=== PATIENT | female | born 1980 | race Caucasian/White ===

== ENCOUNTER 2019-05-07 09:21 | Outpatient (CLI) | payer BC, OTHER, SELFPAY ==
[2019-05-07 09:45] VITALS: BP 138/100; PULSE 86; RESP 16; TEMP 36.9; O2SAT 98
--- NOTE | 2019-05-07 10:10 | PC.NURSE ---
BP 156/103, after resting manual BP 138/100. Pt states she took bp meds late, in the parking lot. Reported to Dr. Mora. Dr. Mora said ok to administer infusion.
[2019-05-07 11:00] VITALS: BP 156/100; PULSE 86; RESP 16; TEMP 36.9; O2SAT 98
== END 2019-05-07 09:22 | disposition home or self-care (01) ==
LOC: RHEOACUTE 09:25
PROVIDERS: Family Provider Family Medicine; PCP Family Medicine; Visit Provider Internal Medicine Rheumatology
DX: M05.79 Rheumatoid arthritis with rheumatoid factor 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 systems involvement (principal); Z79.899 Other long term (current) drug therapy; Z79.52 Long term (current) use of systemic steroids
CPT/HCPCS: 96365; 99213; J1602

== ENCOUNTER 2019-07-05 09:51 | Outpatient (CLI) | payer BC, SELFPAY ==
[2019-07-05 10:50] VITALS: BP 146/96; PULSE 108; RESP 14; TEMP 37.2; O2SAT 95
[2019-07-05 11:45] VITALS: BP 116/84; PULSE 97; RESP 16; TEMP 36.9; O2SAT 97
--- NOTE | 2019-07-05 17:15 | PC.NURSE ---
After first unsuccessful IV stick, pt became nauseated. Cool cloth given, pt vomited small amount of emesis. States she does this sometimes when being poked. Legs elevated, pt reclined for comfort. Water given.
== END 2019-07-05 09:52 | disposition home or self-care (01) ==
LOC: RHEOACUTE 09:51
PROVIDERS: Family Provider Family Medicine; PCP Family Medicine; Visit Provider Internal Medicine Rheumatology
DX: Z79.899 Other long term (current) drug therapy (principal); M05.79 Rheumatoid arthritis with rheumatoid factor 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 systems involvement; Z79.52 Long term (current) use of systemic steroids
CPT/HCPCS: 36415; 80076; 82565; 84460; 85651; 86140; 96365; 99214; J1602

== ENCOUNTER → 2019-07-05 09:53 | Outpatient (BNVA) | payer BC, SELFPAY | PROVIDERS: Family Provider Family Medicine; PCP Family Medicine; Visit Provider Internal Medicine Rheumatology | DX: Z79.899 Other long term (current) drug therapy (principal); M05.79 Rheumatoid arthritis with rheumatoid factor 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 systems involvement; Z71.89 Other specified counseling | CPT/HCPCS: 85025 ==

== ENCOUNTER 2019-08-30 08:51 | Outpatient (CLI) | payer BC, SELFPAY ==
[2019-08-30 09:03] VITALS: BP 137/92; PULSE 86; RESP 16; TEMP 36.8; O2SAT 96
[2019-08-30 11:28] VITALS: BP 130/86; PULSE 76; RESP 16; TEMP 36.6; O2SAT 94
== END 2019-08-30 08:52 | disposition home or self-care (01) ==
LOC: RHEOACUTE 08:52
PROVIDERS: Family Provider Family Medicine; PCP Family Medicine; Visit Provider Internal Medicine Rheumatology
DX: M05.79 Rheumatoid arthritis with rheumatoid factor 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 systems involvement (principal); Z79.899 Other long term (current) drug therapy
CPT/HCPCS: 36415; 85025; 85651; 96365; J1602

== ENCOUNTER → 2019-09-13 10:58 | Outpatient (BNVA) | payer BC, SELFPAY | PROVIDERS: Family Provider Family Medicine; PCP Family Medicine; Visit Provider Internal Medicine Rheumatology | DX: M05.79 Rheumatoid arthritis with rheumatoid factor 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 systems involvement (principal); M19.90 Unspecified osteoarthritis, unspecified site; Z79.899 Other long term (current) drug therapy; D89.9 Disorder involving the immune mechanism, unspecified | CPT/HCPCS: 80076; 86140 ==

== ENCOUNTER → 2019-10-12 13:56 | Outpatient (BNVA) | payer BC, SELFPAY | PROVIDERS: Family Provider Family Medicine; PCP Family Medicine; Visit Provider Internal Medicine Rheumatology | DX: M05.79 Rheumatoid arthritis with rheumatoid factor 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 systems involvement (principal); Z79.899 Other long term (current) drug therapy; Z79.52 Long term (current) use of systemic steroids | CPT/HCPCS: 36415; 82565; 99214 ==

== ENCOUNTER 2019-10-25 12:57 | Outpatient (CLI) | payer BC, OTHER, SELFPAY ==
[2019-10-25 13:09] VITALS: BP 138/93; PULSE 79; RESP 16; TEMP 36.8; O2SAT 97
[2019-10-25 15:30] VITALS: BP 137/98; PULSE 82; RESP 16; TEMP 36.6; O2SAT 97
== END 2019-10-25 12:58 | disposition home or self-care (01) ==
LOC: RHEOACUTE 12:58
PROVIDERS: Family Provider Family Medicine; PCP Family Medicine; Visit Provider Internal Medicine Rheumatology
DX: M05.79 Rheumatoid arthritis with rheumatoid factor 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 systems involvement (principal); D89.9 Disorder involving the immune mechanism, unspecified; M25.561 Pain in right knee; M25.461 Effusion, right knee
CPT/HCPCS: 20610; 80500; 87070; 87075; 87205; 89050; 96365; J1030; J1602

== ENCOUNTER 2019-12-23 17:05 | Outpatient (CLI) | payer BC, SELFPAY ==
[2019-12-23 17:26] LABS: Basophils # 0.1 10^3/uL (0.0-0.1); Basophils % 0.7 %; Eosinophils # 0.2 10^3/uL (0.0-0.8); Eosinophils % 1.2 %; Hematocrit 46.3 % (37.0-47.0); Hemoglobin 14.4 g/dL (11.5-15.3); Lymphocytes # 2.3 10^3/uL (0.8-4.8); Lymphocytes % 16.1 %; Mean Corpuscular HGB Conc 31.1 g/dL (30.0-36.0); Mean Corpuscular Hemoglobin 28.5 pg (28.0-34.0); Mean Corpuscular Volume 91.5 fL (81-99); Mean Platelet Volume 9.2 fL (7.4-10.4); Monocytes # 0.8 10^3/uL (0.2-0.9); Monocytes % 5.4 %; Neutrophils # 11.09 10^3/uL (1.8-7.7); Neutrophils % 76.1 %; Nucleated Red Blood Cells % 0 %; Platelet Count 477 10^3/cmm (130-400); Red Blood Count 5.06 10^6/uL (4.1-5.3); Red Cell Distribution Width 14.7 % (12.1-15.1); White Blood Count 14.6 10^3/uL (4.0-10.0)
[2019-12-23 18:00] LABS: Alanine Aminotransferase 45 U/L (0-33); Albumin Level 4.9 g/dL (3.5-5.2); Alkaline Phosphatase 124 IU/L (35-105); Aspartate Amino Transferase 25 U/L (0-32); C Reactive Protein 42.8 mg/L (0.0-4.9); Globulin 4.8 g/dL (1.3-4.6); Total Bilirubin 0.2 mg/dL (0.15-1.2); Total Protein 9.7 g/dL (6.6-8.7)
[2019-12-23 18:31] LABS: Erythrocyte Sedimentation Rate 80 mm/hr (0-15)
[2019-12-23 19:21] LABS: LAB Peripheral Smear Sent for Review
== END 2019-12-23 17:06 | disposition home or self-care (01) ==
PROVIDERS: Internal Medicine Rheumatology; PCP Family Medicine; Visit Provider Thoracic Surgery (Cardiothoracic Vascular Surgery)
DX: M05.79 Rheumatoid arthritis with rheumatoid factor 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 systems involvement (principal); Z79.899 Other long term (current) drug therapy
CPT/HCPCS: 36415; 80076; 80500; 82565; 85025; 85651; 86140

== ENCOUNTER 2020-03-15 08:24 | Inpatient (IN) | payer BC, SELFPAY ==
[2020-03-15] VITALS (9 sets, daily range): BP systolic 110–169; BP diastolic 41–114; PULSE 97–154; RESP 16–20; TEMP 37.4–39; O2SAT 91–98; BMI 32.5
--- NOTE | 2020-03-15 08:28 | XR_ITS ---
WS: [id number] PORTABLE CHEST HISTORY: syncope COMPARISON: None available. RIGHT upper lobe opacification. Mild fullness in the RIGHT paratracheal region. The remaining lungs a re clear. No pleural effusion or pneumothorax. Cardiac size: Normal. Mediastinum/Aorta: Normal mediastinum. No osseous abnormality seen. XR/XR chest 1V portable [id number] IMPRESSION: RIGHT upper lobe opacification. Pneumonia and atelectasis within the differenti al. Recommend follow-up chest radiograph after treatment.
--- NOTE | 2020-03-15 08:44 | ECG_ITS ---
[facility] Test Date: 2020-03-15 Pat Name: Marychuy Chino Department: Room: Gender: Female Scale Operator: : 1980 Requested By: Nicky Gutierrez Order Number: [id number] Solange MD: Nevaeh Lobato M.D. Measurements Intervals [place] Rate: 142 P: IN: QRS: 12 QRSD: 88 T: 57 QT: 272 QTc: 419 Interpretive Statements SINUS TACHYCARDIA NONSPECIFIC ST & T-WAVE ABNORMALITY No previous ECG available for comparison Electronically Signed On 03-15-2020 18:24:13 LAYDOWN MACHINE OPERATOR by Nevaeh Lobato M.D. [id number]
--- NOTE | 2020-03-15 08:45 | W.ED.COVID ---
Documented by User: ENRIQUE Abebe 03/15/20 13:26 HPI - COVID General: Chief Complaint: COVID symptoms Stated Complaint: SOB/RAPID TESTED NEG Time Seen by Provider: 03/15/20 08:26 Source: patient Mode of arrival: ambulatory Limitations: no limitations Triage information: Has fever, cough or shortness of breath. No known COVID + exposure last 14 days History of Present Illness: HPI Narrative: 39-year-old pleasant female presents to the emergency department with 1 day onset, started this morning upon awakening, of cough, shortness of breath. She reports works at a local [email or web address], rapid screen Covid testing negative, completed this morning. She reports PCR obtained and is pending. She reports temperature of 104.5 this morning, took 1 g of Tylenol at 6 AM. She denies exposure to Covid individuals, she reports green-yellow drainage. She denies history of asthma. She has history of hypertension and rheumatoid arthritis. She is states did not take Coreg 25 mg orally this morning. Prior covid testing: yes, results known (negative, this am) Prior testing date: 03/15/20 COVID 19 common symptoms: positive fever(s), chills, cough, productive cough, dyspnea, fatigue, headache(s), throat pain and nasal congestion; negative nausea or vomiting COVID 19 other sytmptoms: negative chest pain Onset (ago): hour(s) (3) Pertinent comorbid conditions: hypertension and immunocompromised state Treatment prior to arrival: acetaminophen COVID Results: No Data to Display Review of Systems General: Reports: 10 or more systems reviewed and unremarkable except in HPI and below Const: Reports: fever(s), chills, fatigue and malaise Eyes: Denies: blurry vision, eye redness, yellow eyes or dry eyes ENMT: Reports: throat pain, nasal congestion and post nasal drip Card: Denies: chest pain, palpitations or irregular heart rhythm Resp: Reports: dyspnea, productive cough and chest congestion GI: Denies: abdominal pain, nausea or vomiting : Denies: difficulty voiding or dysuria Musc: Reports: joint pain (RA); Denies: neck pain, back pain, muscle cramps or muscle weakness Skin/Breast: Denies: rash, pruritus, skin tenderness or changes in skin color Neuro: Reports: headache(s); Denies: numbness in extremities or difficulty walking Psych: Reports: change in appetite; Denies: anxiety or depression [place]/Lymph: Denies: easy bruising PFSH ED PFSH: Medical History High risk medication use Immunization counseling Rheumatoid arthritis with rheumatoid factor 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 systems involvement Surgical History H/O dilation and curettage H/O myomectomy 11/09/2017 History of endometrial ablation Hx of cataract surgery bilateral 01/24 Family History Denies family history of Rheumatoid arthritis Social History Smoking and tobacco status: never smoked Alcohol intake: unknown Marital status: Current occupational status: employed History of recent travel: No Physical Exam Const: COMMON NORMALS: no acute distress, patient oriented x3, healthy appearing and alert GENERAL APPEARANCE: cooperative, comfortable and well hydrated; not anxious and not ill appearing ORIENTATION/CONSCIOUSNESS: Yes awake, Yes oriented to person, Yes oriented to place and Yes oriented to time HENMT: COMMON NORMALS: normocephalic, Normal external nose present and moist oral mucous membranes HEAD & SCALP: normocephalic NOSE: Normal external nose present Eye: COMMON NORMALS: Equal, round and reactive pupils present and EOMs intact bilaterally GENERAL EYE: appearance normal, both eyes and all related structures PUPIL: Yes Equal, round and reactive pupils present Neck/C-Spine: COMMON NORMALS: full ROM and no lymphadenopathy GENERAL: Yes normal visual inspection and Yes trachea midline CERVICAL SPINE: Yes cervical ROM normal and No Cervical spine tenderness Lymph: LYMPHATIC: no lymphadenopathy noted Chest: COMMONS NORMALS: normal inspection of the chest and normal palpation of entire chest wall CHEST: Yes localized rib tenderness with anteroposterior compression Resp: COMMON NORMALS: normal respiratory effort, No use of accessory muscles and clear to auscultation bilaterally EFFORT & INSPECTION: Yes able to speak in complete sentences AUSCULTATION: clear to auscultation bilaterally and diminished lung sounds bilateral Cardio: COMMON NORMALS: regular rhythm, S1 normal heart sound present, S2 normal heart sound present and Peripheral pulses 2+ throughout RATE: tachycardic RHYTHM: regular rhythm HEART SOUNDS: S1 normal heart sound present and S2 normal heart sound present PERIPHERAL PULSES: Peripheral pulses 2+ throughout GI: COMMON NORMALS: Normal to inspection, nondistended, normoactive bowel sounds present, Soft to palpation and non-tender INSPECTION: Yes normal to inspection PALPATION: Yes Soft to palpation : COMMON NORMALS: Yes no CVA tenderness BLADDER/KIDNEY EXAM: Yes no CVA tenderness Back/Pelvis: COMMON NORMALS: no CVA tenderness and thoracic and lumbar spine normal to inspection Extremity: COMMON NORMALS: normal to inspection and capillary refill normal Neuro: COMMON NORMALS: patient oriented x3 and no focal motor deficits SENSORIUM/ORIENTATION: Yes alert, Yes oriented to person, Yes oriented to place and Yes oriented to time GAIT: Yes Normal gait present MOTOR EXAM: 5/5 motor strength present throughout Psych: COMMON NORMALS: mental status grossly normal, Normal thought process present, cooperative and speech normal ATTITUDE: Yes calm ACTIVITY/MOTOR BEHAVIOR: Yes appropriate eye contact SPEECH: Yes normal speech THOUGHT PROCESS: Normal thought process present THOUGHT CONTENT: Yes Normal thought content present ATTENTION/CONCENTRATION: Yes attention grossly intact MEMORY/COGNITION: Yes memory grossly intact JUDGEMENT: Good judgement present (Psych) Skin: COMMON NORMALS: no rashes or lesions noted, no wounds, turgor normal, no jaundice and no petechiae GENERAL SKIN EXAM: no rashes or lesions noted and turgor normal Course Vital Signs: Vital signs: Vital Signs Temperature 100.1 F H 03/15/20 08:37 Pulse Rate 101 H 03/15/20 10:54 Respiratory Rate 16 03/15/20 10:54 Blood Pressure 156/101 03/15/20 10:54 Pulse Oximetry 91 03/15/20 10:54 MDM - COVID Differential Diagnosis: Differential diagnosis: Likely COVID 19, influenza and bacterial infection Lab Data: Labs: Lab Results 03/15/20 03/15/20 03/15/20 Range/Units 09:03 09:25 09:34 WBC 8.7 (4.0-10.0) 10^3/ uL RBC 5.16 (4.1-5.3) 10^6/u L Hgb 14.2 (11.5-15.3) g/dL Hct 44.4 (37.0-47.0) % MCV 86.0 (81-99) fL MCH 27.5 L (28.0-34.0) pg MCHC 32.0 (30.0-36.0) g/dL RDW 16.0 H (12.1-15.1) % Plt Count 258 (130-400) 10^3/c mm MPV 10.0 (7.4-10.4) fL Neut % (Auto) 80.2 % Lymph % (Auto) 12.5 % [place] % (Auto) 6.2 % Eos % (Auto) 0.2 % Baso % (Auto) 0.3 % Neut # (Auto) 7.00 (1.8-7.7) 10^3/u L Lymph # (Auto) 1.1 (0.8-4.8) 10^3/u L [place] # (Auto) 0.5 (0.2-0.9) 10^3/u L Eos # (Auto) 0.0 (0.0-0.8) 10^3/u L Baso # (Auto) 0.0 (0.0-0.1) 10^3/u L Nucleated RBC % (a uto) 0 % Nucleated RBCs # 0.0 /100WBC D-Dimer Sodium (136-145) mmol/L Potassium (3.5-5.1) mmol/L Chloride (98-107) mmol/L Carbon Dioxide (22-29) mmol/L Anion Gap (5-19) BUN (6-20) mg/dL Creatinine (0.5-0.9) mg/dL GFR Calculation (90-130) mL/min Glucose (65-115) mg/dL Calculated Osmolal ity (285-295) mOsm/k g Lactate (0.5-2.2) mmol/L Calcium (8.5-10.5) mg/dL Total Bilirubin (0.15-1.2) mg/dL AST (0-32) U/L ALT (0-33) U/L Alkaline Phosphata se (35-105) IU/L Troponin T Baselin e (0-10) ng/L Total Protein (6.6-8.7) g/dL Albumin (3.5-5.2) g/dL Globulin (1.3-4.6) g/dL Urine Color Dark yellow (Yellow) Urine Appearance Clear (CLEAR) Urine pH 5 (5-7) Ur Specific Gravit y 1.015 (1.005-1.030) Urine Protein Neg (Negative) Urine Glucose (UA) Norm (Normal) Urine Ketones Negative (Negative) Urine Blood Neg (Negative) Urine Nitrate Negative (Negative) Urine Bilirubin Neg (Negative) Urine Urobilinogen 1 H (Negative) mg/dL Ur Leukocyte Ana ase Negative (Negative) Influenza Type A A g Negative (Negative) Influenza Type B A g Negative (Negative) 03/15/20 03/15/20 03/15/20 Range/Units 09:34 09:34 09:34 WBC (4.0-10.0) 10^3/ uL RBC (4.1-5.3) 10^6/u L Hgb (11.5-15.3) g/dL Hct (37.0-47.0) % MCV (81-99) fL MCH (28.0-34.0) pg MCHC (30.0-36.0) g/dL RDW (12.1-15.1) % Plt Count (130-400) 10^3/c mm MPV (7.4-10.4) fL Neut % (Auto) % Lymph % (Auto) % [place] % (Auto) % Eos % (Auto) % Baso % (Auto) % Neut # (Auto) (1.8-7.7) 10^3/u L Lymph # (Auto) (0.8-4.8) 10^3/u L [place] # (Auto) (0.2-0.9) 10^3/u L Eos # (Auto) (0.0-0.8) 10^3/u L Baso # (Auto) (0.0-0.1) 10^3/u L Nucleated RBC % (a uto) % Nucleated RBCs # /100WBC D-Dimer Cancelled Sodium 141 (136-145) mmol/L Potassium 3.3 L (3.5-5.1) mmol/L Chloride 99 (98-107) mmol/L Carbon Dioxide 27 (22-29) mmol/L Anion Gap 18.3 (5-19) BUN 11 (6-20) mg/dL Creatinine 0.9 (0.5-0.9) mg/dL GFR Calculation 69.0 L (90-130) mL/min Glucose 89 (65-115) mg/dL Calculated Osmolal ity 291 (285-295) mOsm/k g Lactate (0.5-2.2) mmol/L Calcium 9.2 (8.5-10.5) mg/dL Total Bilirubin 0.3 (0.15-1.2) mg/dL AST 36 H (0-32) U/L ALT 46 H (0-33) U/L Alkaline Phosphata se 152 H (35-105) IU/L Troponin T Baselin e 8 (0-10) ng/L Total Protein 8.5 (6.6-8.7) g/dL Albumin 4.7 (3.5-5.2) g/dL Globulin 3.8 (1.3-4.6) g/dL Urine Color (Yellow) Urine Appearance (CLEAR) Urine pH (5-7) Ur Specific Gravit y (1.005-1.030) Urine Protein (Negative) Urine Glucose (UA) (Normal) Urine Ketones (Negative) Urine Blood (Negative) Urine Nitrate (Negative) Urine Bilirubin (Negative) Urine Urobilinogen (Negative) mg/dL Ur Leukocyte Ana ase (Negative) Influenza Type A A g (Negative) Influenza Type B A g (Negative) 03/15/20 03/15/20 Range/Units 09:34 10:10 WBC (4.0-10.0) 10^3/ uL RBC (4.1-5.3) 10^6/u L Hgb (11.5-15.3) g/dL Hct (37.0-47.0) % MCV (81-99) fL MCH (28.0-34.0) pg MCHC (30.0-36.0) g/dL RDW (12.1-15.1) % Plt Count (130-400) 10^3/c mm MPV (7.4-10.4) fL Neut % (Auto) % Lymph % (Auto) % [place] % (Auto) % Eos % (Auto) % Baso % (Auto) % Neut # (Auto) (1.8-7.7) 10^3/u L Lymph # (Auto) (0.8-4.8) 10^3/u L [place] # (Auto) (0.2-0.9) 10^3/u L Eos # (Auto) (0.0-0.8) 10^3/u L Baso # (Auto) (0.0-0.1) 10^3/u L Nucleated RBC % (a uto) % Nucleated RBCs # /100WBC D-Dimer 0.77 H Sodium (136-145) mmol/L Potassium (3.5-5.1) mmol/L Chloride (98-107) mmol/L Carbon Dioxide (22-29) mmol/L Anion Gap (5-19) BUN (6-20) mg/dL Creatinine (0.5-0.9) mg/dL GFR Calculation (90-130) mL/min Glucose (65-115) mg/dL Calculated Osmolal ity (285-295) mOsm/k g Lactate 1.4 (0.5-2.2) mmol/L Calcium (8.5-10.5) mg/dL Total Bilirubin (0.15-1.2) mg/dL AST (0-32) U/L ALT (0-33) U/L Alkaline Phosphata se (35-105) IU/L Troponin T Baselin e (0-10) ng/L Total Protein (6.6-8.7) g/dL Albumin (3.5-5.2) g/dL Globulin (1.3-4.6) g/dL Urine Color (Yellow) Urine Appearance (CLEAR) Urine pH (5-7) Ur Specific Gravit y (1.005-1.030) Urine Protein (Negative) Urine Glucose (UA) (Normal) Urine Ketones (Negative) Urine Blood (Negative) Urine Nitrate (Negative) Urine Bilirubin (Negative) Urine Urobilinogen (Negative) mg/dL Ur Leukocyte Ana ase (Negative) Influenza Type A A g (Negative) Influenza Type B A g (Negative) Imaging Data: CXR: Radiologist's impression: [facility] [address] [place] [address] XRay Report Signed Patient: Marychuy Chino Unit #: [id number] : 1980 Age/Sex: 39 / F ADM Date: 03/15/20 Loc: ER Room/Bed: Attending Dr: Ordering Provider/Ordering MD: Nicky Vogel Date of Service: 03/15/20 Procedure(s): XR chest 1V portable [id number] Accession Number(s): [id number] Report Number: [id number] WS: [id number] PORTABLE CHEST HISTORY: syncope COMPARISON: None available. RIGHT upper lobe opacification. Mild fullness in the RIGHT paratracheal region. The remaining lungs are clear. No pleural effusion or pneumothorax. Cardiac size: Normal. Mediastinum/Aorta: Normal mediastinum. No osseous abnormality seen. XR/XR chest 1V portable [id number] IMPRESSION: RIGHT upper lobe opacification. Pneumonia and atelectasis within the differential. Recommend follow- up chest radiograph after treatment. Dictated By: Lorenza Fay DO Signed By: Lorenza Fay DO Signed Date/Time: 03/15/20837 DD/ 4 CT Chest: Radiologist's impression: [place] [address] CT Scan Report Signed Patient: Marychuy Chino #: [id number] : 1980Acct#:[id number] Age/Sex: 39 / FADM Date: 03/15/20 Loc: [facility]/Bed: Attending Dr: Ordering Provider/Ordering MD: Nicky Vogel Date of Service: 03/15/20 Procedure(s): CT angio chest PE protcl [id number] Accession Number(s): [id number] Report Number: [id number] WS: [id number] CT CHEST ANGIOGRAPHY WITH REFORMATS HISTORY: RUL pneumonia, elevated d-dimer TECHNIQUE: Contiguous axial images are obtained through the chest during arterial injection of intravenous contrast. Images are reconstructed to evaluate the pulmonary arteries. MIP imaging also reviewed. All CT scans at [facility] use at least one of these dose optimization techniques: automated exposure control; mA and/or kV adjustment per patient size (includes targeted exams where dose is matched to clinical indication); or iterative reconstruction. CONTRAST: Omnipaque 350; 95 mL IV. DLP: 457.05 mGy.cm COMPARISON: None available. Very good opacification of the pulmonary arteries. There are no filling defects or pulmonary normal size pulmonary artery. Normal size aorta. Dense consolidation in the RIGHT upper lobe abuts the mediastinum and posterior pleura. There are additional peripheral and basilar opacifications at the LEFT lung base. No mediastinal or hilar adenopathy. Mild enlargement of the LEFT heart chambers. Small hiatal hernia. Prior cholecystectomy. Visualized liver is normal. No osteoblastic or osteolytic bone disease. CT/CT angio chest PE protcl [id number] IMPRESSION: 1. No pulmonary emboli. 2. Dense RIGHT upper lobe pneumonia. 3. Patchy opacifications in the periphery LEFT lower lobe. Dictated By:Lorenza Fay DO Signed By:Lorenza Fay DOSigned Date/Time:03/15/20 1210 DD/ 1205 EKG Data: EKG 1: EKG interpretation date: 03/15/20 EKG interpretation time: 08:58 Computer generated interpretation: Atrial flutter / tachycardia with RVR, rate 142 COVID Results: No Data to Display Discharge Plan Discharge Patient Disposition: Admitted As Inpatient Clinical Impression: Pneumonia Qualifiers: Pneumonia type: due to unspecified organism Laterality: right Lung location: upper lobe of lung Qualified Code(s): J18.9 - Pneumonia, unspecified organism Condition: Stable Discharge Diet: Usual diet Discharge Activity: Limit activity as instructed Coding Level of Care Code ED Manager Consumer Insights for Chg Fwd Exam Comprehensive Documented by User: Zuleyka Peres MD 03/15/20 12:58 HPI - COVID General: Chief Complaint: COVID symptoms Stated Complaint: SOB/RAPID TESTED NEG Time Seen by Provider: 03/15/20 08:26 COVID Results: No Data to Display [facility] ED PFSH: Medical History High risk medication use Immunization counseling Rheumatoid arthritis with rheumatoid factor 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 systems involvement Surgical History H/O dilation and curettage H/O myomectomy 11/09/2017 History of endometrial ablation Hx of cataract surgery bilateral 01/24 Family History Denies family history of Rheumatoid arthritis Social History Smoking and tobacco status: never smoked Alcohol intake: unknown Marital status: Current occupational status: employed History of recent travel: No Course Vital Signs: Vital signs: Vital Signs Temperature 100.1 F H 03/15/20 08:37 Pulse Rate 101 H 03/15/20 10:54 Respiratory Rate 16 03/15/20 10:54 Blood Pressure 156/101 03/15/20 10:54 Pulse Oximetry 91 03/15/20 10:54 MDM - COVID MDM Narrative: Medical decision making narrative: Ceci presents with a right upper lobe pneumonia. She is having some shortness of breath satting roughly 90% here on room air. Patient given IV antibiotics. She had a negative rapid Covid today and is pending a PTC test. Spoke to patient and she does have dyspnea with any exertion I feel she needs to be admitted to treat her pneumonia. I spoke to hospitalist and will admit. Lab Data: Labs: Lab Results 03/15/20 03/15/20 03/15/20 Range/Units 09:03 09:25 09:34 WBC 8.7 (4.0-10.0) 10^3/ uL RBC 5.16 (4.1-5.3) 10^6/u L Hgb 14.2 (11.5-15.3) g/dL Hct 44.4 (37.0-47.0) % MCV 86.0 (81-99) fL MCH 27.5 L (28.0-34.0) pg MCHC 32.0 (30.0-36.0) g/dL RDW 16.0 H (12.1-15.1) % Plt Count 258 (130-400) 10^3/c mm MPV 10.0 (7.4-10.4) fL Neut % (Auto) 80.2 % Lymph % (Auto) 12.5 % [place] % (Auto) 6.2 % Eos % (Auto) 0.2 % Baso % (Auto) 0.3 % Neut # (Auto) 7.00 (1.8-7.7) 10^3/u L Lymph # (Auto) 1.1 (0.8-4.8) 10^3/u L [place] # (Auto) 0.5 (0.2-0.9) 10^3/u L Eos # (Auto) 0.0 (0.0-0.8) 10^3/u L Baso # (Auto) 0.0 (0.0-0.1) 10^3/u L Nucleated RBC % (a uto) 0 % Nucleated RBCs # 0.0 /100WBC D-Dimer Sodium (136-145) mmol/L Potassium (3.5-5.1) mmol/L Chloride (98-107) mmol/L Carbon Dioxide (22-29) mmol/L Anion Gap (5-19) BUN (6-20) mg/dL Creatinine (0.5-0.9) mg/dL GFR Calculation (90-130) mL/min Glucose (65-115) mg/dL Calculated Osmolal ity (285-295) mOsm/k g Lactate (0.5-2.2) mmol/L Calcium (8.5-10.5) mg/dL Total Bilirubin (0.15-1.2) mg/dL AST (0-32) U/L ALT (0-33) U/L Alkaline Phosphata se (35-105) IU/L Troponin T Baselin e (0-10) ng/L Total Protein (6.6-8.7) g/dL Albumin (3.5-5.2) g/dL Globulin (1.3-4.6) g/dL Urine Color Dark yellow (Yellow) Urine Appearance Clear (CLEAR) Urine pH 5 (5-7) Ur Specific Gravit y 1.015 (1.005-1.030) Urine Protein Neg (Negative) Urine Glucose (UA) Norm (Normal) Urine Ketones Negative (Negative) Urine Blood Neg (Negative) Urine Nitrate Negative (Negative) Urine Bilirubin Neg (Negative) Urine Urobilinogen 1 H (Negative) mg/dL Ur Leukocyte Ana ase Negative (Negative) Influenza Type A A g Negative (Negative) Influenza Type B A g Negative (Negative) 03/15/20 03/15/2020 Range/Units 09:34 09:34 09:34 WBC (4.0-10.0) 10^3/ uL RBC (4.1-5.3) 10^6/u L Hgb (11.5-15.3) g/dL Hct (37.0-47.0) % MCV (81-99) fL MCH (28.0-34.0) pg MCHC (30.0-36.0) g/dL RDW (12.1-15.1) % Plt Count (130-400) 10^3/c mm MPV (7.4-10.4) fL Neut % (Auto) % Lymph % (Auto) % [place] % (Auto) % Eos % (Auto) % Baso % (Auto) % Neut # (Auto) (1.8-7.7) 10^3/u L Lymph # (Auto) (0.8-4.8) 10^3/u L [place] # (Auto) (0.2-0.9) 10^3/u L Eos # (Auto) (0.0-0.8) 10^3/u L Baso # (Auto) (0.0-0.1) 10^3/u L Nucleated RBC % (a uto) % Nucleated RBCs # /100WBC D-Dimer Cancelled Sodium 141 (136-145) mmol/L Potassium 3.3 L (3.5-5.1) mmol/L Chloride 99 (98-107) mmol/L Carbon Dioxide 27 (22-29) mmol/L Anion Gap 18.3 (5-19) BUN 11 (6-20) mg/dL Creatinine 0.9 (0.5-0.9) mg/dL GFR Calculation 69.0 L (90-130) mL/min Glucose 89 (65-115) mg/dL Calculated Osmolal ity 291 (285-295) mOsm/k g Lactate (0.5-2.2) mmol/L Calcium 9.2 (8.5-10.5) mg/dL Total Bilirubin 0.3 (0.15-1.2) mg/dL AST 36 H (0-32) U/L ALT 46 H (0-33) U/L Alkaline Phosphata se 152 H (35-105) IU/L Troponin T Baselin e 8 (0-10) ng/L Total Protein 8.5 (6.6-8.7) g/dL Albumin 4.7 (3.5-5.2) g/dL Globulin 3.8 (1.3-4.6) g/dL Urine Color (Yellow) Urine Appearance (CLEAR) Urine pH (5-7) Ur Specific Gravit y (1.005-1.030) Urine Protein (Negative) Urine Glucose (UA) (Normal) Urine Ketones (Negative) Urine Blood (Negative) Urine Nitrate (Negative) Urine Bilirubin (Negative) Urine Urobilinogen (Negative) mg/dL Ur Leukocyte Ana ase (Negative) Influenza Type A A g (Negative) Influenza Type B A g (Negative) 03/15/20 03/15/20 Range/Units 09:34 10:10 WBC (4.0-10.0) 10^3/ uL RBC (4.1-5.3) 10^6/u L Hgb (11.5-15.3) g/dL Hct (37.0-47.0) % MCV (81-99) fL MCH (28.0-34.0) pg MCHC (30.0-36.0) g/dL RDW (12.1-15.1) % Plt Count (130-400) 10^3/c mm MPV (7.4-10.4) fL Neut % (Auto) % Lymph % (Auto) % [place] % (Auto) % Eos % (Auto) % Baso % (Auto) % Neut # (Auto) (1.8-7.7) 10^3/u L Lymph # (Auto) (0.8-4.8) 10^3/u L [place] # (Auto) (0.2-0.9) 10^3/u L Eos # (Auto) (0.0-0.8) 10^3/u L Baso # (Auto) (0.0-0.1) 10^3/u L Nucleated RBC % (a uto) % Nucleated RBCs # /100WBC D-Dimer 0.77 H Sodium (136-145) mmol/L Potassium (3.5-5.1) mmol/L Chloride (98-107) mmol/L Carbon Dioxide (22-29) mmol/L Anion Gap (5-19) BUN (6-20) mg/dL Creatinine (0.5-0.9) mg/dL GFR Calculation (90-130) mL/min Glucose (65-115) mg/dL Calculated Osmolal ity (285-295) mOsm/k g Lactate 1.4 (0.5-2.2) mmol/L Calcium (8.5-10.5) mg/dL Total Bilirubin (0.15-1.2) mg/dL AST (0-32) U/L ALT (0-33) U/L Alkaline Phosphata se (35-105) IU/L Troponin T Baselin e (0-10) ng/L Total Protein (6.6-8.7) g/dL Albumin (3.5-5.2) g/dL Globulin (1.3-4.6) g/dL Urine Color (Yellow) Urine Appearance (CLEAR) Urine pH (5-7) Ur Specific Gravit y (1.005-1.030) Urine Protein (Negative) Urine Glucose (UA) (Normal) Urine Ketones (Negative) Urine Blood (Negative) Urine Nitrate (Negative) Urine Bilirubin (Negative) Urine Urobilinogen (Negative) mg/dL Ur Leukocyte Ana ase (Negative) Influenza Type A A g (Negative) Influenza Type B A g (Negative) COVID Results: No Data to Display Discharge Plan Discharge Patient Disposition: Admitted As Inpatient Clinical Impression: Pneumonia Qualifiers: Pneumonia type: due to unspecified organism Laterality: right Lung location: upper lobe of lung Qualified Code(s): J18.9 - Pneumonia, unspecified organism Condition: Stable Discharge Diet: Usual diet Discharge Activity: Limit activity as instructed Coding Level of Care Code ED Manager Consumer Insights for Kourtney Fwd Exam Comprehensive
[2020-03-15 09:11] LABS: Add Urine Microscopic? NO
[2020-03-15] MEDS: carvedilol 25 mg Tablet PO ×2 (09:13→17:43)
[2020-03-15] MEDS: ibuprofen 800 mg tablet PO (09:15)
[2020-03-15] MEDS: sodium chloride 0.9% 500 ML 999 ML IV (09:17)
[2020-03-15] MEDS: cefTRIAXone 1,000 MG in sodium chloride 0.9% (plus) 50 ML 100 MG IV (09:17)
[2020-03-15 09:23] LABS: Bilirubin Urine Neg (Negative); Blood Urine Neg (Negative); Glucose Urine UA Norm (Normal); Ketones Urine Negative (Negative); Leukocyte Esterase Urine Negative (Negative); Nitrate Urine Negative (Negative); Protein Urine Neg (Negative); Specific Gravity, Urine 1.015 (1.005-1.030); Urine Appearance Clear (CLEAR); Urine Color Dark Yellow (Yellow); Urobilinogen Urine 1 mg/dL (Negative); pH Urine 5 (5-7)
[2020-03-15 10:05] LABS: Alanine Aminotransferase 46 U/L (0-33); Albumin Level 4.7 g/dL (3.5-5.2); Alkaline Phosphatase 152 IU/L (35-105); Anion Gap 18.3 (5-19); Aspartate Amino Transferase 36 U/L (0-32); Blood Urea Nitrogen 11 mg/dL (6-20); Calcium 9.2 mg/dL (8.5-10.5); Carbon Dioxide 27 mmol/L (22-29); Chloride 99 mmol/L (98-107); Globulin 3.8 g/dL (1.3-4.6); Glucose 89 mg/dL (65-115); Osmolality Calculated 291 mOsm/kg (285-295); Potassium 3.3 mmol/L (3.5-5.1); Sodium 141 mmol/L (136-145); Total Bilirubin 0.3 mg/dL (0.15-1.2); Total Protein 8.5 g/dL (6.6-8.7)
[2020-03-15 10:06] LABS: Lactate (Lactic Acid level) 1.4 mmol/L (0.5-2.2)
[2020-03-15 10:07] LABS: Troponin(5th) Baseline 8 ng/L (0-10)
[2020-03-15 10:17] LABS: Basophils % 0.3 %; Eosinophils % 0.2 %; Hematocrit 44.4 % (37.0-47.0); Hemoglobin 14.2 g/dL (11.5-15.3); Lymphocytes # 1.1 10^3/uL (0.8-4.8); Lymphocytes % 12.5 %; Mean Corpuscular Hemoglobin 27.5 pg (28.0-34.0); Monocytes # 0.5 10^3/uL (0.2-0.9); Monocytes % 6.2 %; Neutrophils % 80.2 %; Nucleated Red Blood Cells % 0 %; Platelet Count 258 10^3/cmm (130-400); Red Blood Count 5.16 10^6/uL (4.1-5.3); White Blood Count 8.7 10^3/uL (4.0-10.0)
[2020-03-15 10:18] LABS: Slide Review Slide Review Perform
--- NOTE | 2020-03-15 10:44 | ECG_ITS ---
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 Measurements Intervals [place] Rate: 103 P: 38 WV: 136 QRS: 17 QRSD: 97 T: 52 QT: 331 QTc: 434 Interpretive Statements SINUS TACHYCARDIA MINIMAL ST DEPRESSION [0.025+ mV ST DEPRESSION] Compared to ECG 03/15/2020 08:57:57 ST (T wave) deviation now present Atrial flutter no longer present T-wave abnormality no longer present Electronically Signed On 03-15-2020 18:43:54 AUTOMATIC I THREADING MACHINE FEEDER by Nevaeh Lobato M.D. [email or web address] [email or web address]
[2020-03-15 10:51] LABS: Influenza A by IFA Negative (Negative); Influenza B by IFA Negative (Negative)
[2020-03-15 11:05] LABS: D Dimer 0.77 ug/mIFEU (0-0.59)
--- NOTE | 2020-03-15 11:07 | CT_ITS ---
WS: [id number] CT CHEST ANGIOGRAPHY WITH REFORMATS HISTORY: RUL pneumonia, elevated d-dimer TECHNIQUE: Contiguous axial images are obtained through the chest during arterial injection of intrav enous contrast. Images are reconstructed to evaluate the pulmonary arteries. MIP imaging also reviewe d. All CT scans at [facility] use at least one of these dose optimization techniques: aut omated exposure control; mA and/or kV adjustment per patient size (includes targeted exams where dose is matched to clinical indication); or iterative reconstruction. CONTRAST: Omnipaque 350; 95 mL IV. DLP: 457.05 mGy.cm COMPARISON: None available. Very good opacification of the pulmonary arteries. There are no filling defects or pulmonary normal s ize pulmonary artery. Normal size aorta. Dense consolidation in the RIGHT upper lobe abuts the mediastinum and posterior pleura. There are add itional peripheral and basilar opacifications at the LEFT lung base. No mediastinal or hilar adenopat hy. Mild enlargement of the LEFT heart chambers. Small hiatal hernia. Prior cholecystectomy. Visualized liver is normal. No osteoblastic or osteolytic bone disease. CT/CT angio chest PE protcl [id number] IMPRESSION: 1. No pulmonary emboli. 2. Dense RIGHT upper lobe pneumonia. 3. Patchy opacifications in the periphery LEFT lower lobe.
[2020-03-15] MEDS: iohexol 350 mg/mL 100 mL Btl IV (11:58)
--- NOTE | 2020-03-15 13:28 | PC.RESP ---
Dr. Peres stated that he was admitting patient and did not need Home O2 Evale done at this time.
[2020-03-15] MEDS: azithromycin 500 MG in sodium chloride 0.9% 250 ML 250 MG IV (13:30)
--- NOTE | 2020-03-15 14:44 | ECG_ITS ---
[facility] Test Date: 2020-03-15 Pat Name: Marychuy Chino Department: Room: 268 Gender: Female Plant Associate: : 1980 Requested By: Nicky Gutierrez Order Number: [id number] Solange MD: Nevaeh Lobato M.D. Measurements Intervals [place] Rate: 105 P: 41 ID: 128 QRS: 19 QRSD: 94 T: 53 QT: 330 QTc: 437 Interpretive Statements SINUS TACHYCARDIA Compared to ECG 03/15/2020 08:57:57 Atrial flutter no longer present T-wave abnormality no longer present Electronically Signed On 03-15-2020 18:37:13 CONFIGURATION MANAGEMENT SPECIALIST by Nevaeh Lobato M.D. [id number]
--- NOTE | 2020-03-15 14:48 | P.HP_ITS ---
Providers/Chief Complaint Admitting Physician: Jane Watt MD Primary Care Provider: Malcom Villanueva MD Chief Complaint: SOB/RAPID TESTED NEG History of Present Illness Marychuy Chino is a 39 year old female with PMHx noted below presents with complaints of feeling ill, shortness of breath, non-productive cough, malaise, fatigue over the past 1 to 2 days, acutely worsened early this morning. 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 Rapid testing was negative and PCR testing is pending. She appears fatigued and ill-appearing during my encounter in the ER, is able to provide her own history, additional information obtained from review of medical record. She has felt febrile and had chills, poor oral intake and thinks her temperature may have been as high as 101-102F. She does have an underlying history of rheumatoid arthritis and is on treatment with oral steroids, leflunomide and Actemra. Last doses of medications were taken yesterday. Work- up so far indicates normal CBC including normal WBC at 8.7, normal electrolytes except for mild hypokalemia with potassium of 3.2, normal renal function, normal blood glucose, lactate of 1.4, D-dimer of 0.77, mild elevation of LFTs. Urinalysis is negative, chest x-ray as well as CT chest does show evidence of right upper lobe pneumonia and patchy opacities in periphery of left lower lobe. She currently meets sepsis criteria due to noted tachypnea, tachycardia and low-grade temperature. She has received a dose of ceftriaxone and azithromycin. Is quite hypertensive on admission but blood pressure has improved following dose of Coreg. She will need further treatment for pneumonia hence need for admission. Review of Systems Const: Reports: fever(s), chills, body aches, change in appetite (decreased appetite), fatigue and malaise Eyes: Denies: change in vision ENMT: Reports: dry mouth Card: Denies: chest pain, swelling of feet/ankles or lightheadedness Resp: Reports: dyspnea and non-productive cough; Denies: productive cough GI: Denies: abdominal pain, nausea, vomiting, hematemesis, diarrhea, constipation or hematochezia : Denies: difficulty voiding, dysuria or hematuria Musc: Denies: back pain Skin/Breast: Denies: rash Neuro: Reports: weakness in extremities; Denies: numbness in extremities Psych: Denies: anxiety Medications/Allergies Home Medications Medication Instructions Recorded Confirmed Last Taken Type amlodipine 2.5 mg tablet 2.5 mg PO DAILY 05/06/19 03/15/20 03/14/20 History carvedilol 25 mg tablet 25 mg PO BID 05/06/19 03/15/20 03/14/20 History escitalopram oxalate 20 mg tablet 20 mg PO DAILY 05/06/19 03/15/20 03/14/20 History spironolactone 100 mg tablet 100 mg PO QAM 05/06/19 03/15/20 03/14/20 History triamterene 37.5 1 cap PO QAM 05/06/19 03/15/20 03/14/20 History mg-hydrochlorothiazide 25 mg capsule leflunomide 20 mg tablet 20 mg PO DAILY #30 tab 07/05/19 03/15/20 03/14/20 Rx acetaminophen [Tylenol Extra 1,000 mg PO PRN 03/15/20 03/15/20 03/15/20 06:00 History Strength] montelukast 10 mg PO DAILY 03/15/20 03/15/20 03/14/20 History prednisone 20 mg PO DAILY 03/15/20 03/15/20 03/14/20 History Allergies Allergy/AdvReac Type Severity Reaction Status Date / Time aspirin Allergy Unknown Verified 03/15/20 08:52 PFSH Acute PFSH: Medical History (Updated 03/15/20 @ 17:45 by Jane Watt MD) High risk medication use HTN (hypertension) Immunization counseling Morbid obesity Rheumatoid arthritis with rheumatoid factor 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 systems involvement Surgical History (Updated 03/15/20 @ 17:34 by Jane Watt MD) H/O dilation and curettage -x 2 H/O myomectomy 11/09/2017 History of endometrial ablation Hx of cataract surgery bilateral 01/24 Family History Other Diabetes Hypertension Rheumatoid arthritis Social History (Updated 03/15/20 @ 17:35 by Jane Watt MD) Smoking and tobacco status: never smoked Alcohol intake: never Marital status: Current occupational status: employed History of recent travel: No Vitals/I&O/Wt Last Vital Signs Temp 100.1 F H 03/15/20 08:37 Pulse 99 03/15/20 13:53 Resp 17 03/15/20 13:53 BP 150/88 03/15/20 13:53 Pulse Ox 93 03/15/20 13:53 Weight last 48 hrs Weight 91.626 kg Physical Exam Const: COMMON NORMALS: no acute distress, patient oriented x3 and alert GENERAL APPEARANCE: cooperative, comfortable and ill appearing (and fatigued) NUTRITIONAL APPEARANCE: obese morbidly obese ORIENTATION/CONSCIOUSNESS: Yes awake HENMT: COMMON NORMALS: normocephalic, atraumatic, hearing grossly normal bilaterally and moist oral mucous membranes HEAD & SCALP: normocephalic and atraumatic Eye: COMMON NORMALS: Equal, round and reactive pupils present, EOMs intact bilaterally and conjunctivae normal CONJUNCTIVA: Yes conjunctivae normal PUPIL: Yes Equal, round and reactive pupils present Neck/C-Spine: COMMON NORMALS: full ROM GENERAL: Yes normal visual inspection and Yes trachea midline Resp: COMMON NORMALS: normal respiratory effort, No retractions and No use of accessory muscles EFFORT & INSPECTION: Yes able to speak in complete sentences, Yes symmetric chest movement and Yes tachypneic OTHER: -on RA Cardio: COMMON NORMALS: regular rhythm, S1 normal heart sound present, S2 normal heart sound present and No murmurs present (Cardio) RATE: tachycardic RHYTHM: regular rhythm HEART SOUNDS: S1 normal heart sound present and S2 normal heart sound present GI: COMMON NORMALS: Normal to inspection, nondistended, normoactive bowel sounds present, Soft to palpation and non-tender INSPECTION: Yes central obesity PALPATION: Yes Soft to palpation Extremity: COMMON NORMALS: normal to inspection, full ROM, no clubbing, cyanosis or edema and no pedal edema Neuro: COMMON NORMALS: patient oriented x3, moves all extremities, no focal motor deficits and no sensory deficits noted SENSORIUM/ORIENTATION: Yes alert Psych: COMMON NORMALS: mental status grossly normal, Normal thought process present, cooperative, normal affect and speech normal SPEECH: Yes normal speech THOUGHT PROCESS: Normal thought process present Skin: COMMON NORMALS: no rashes or lesions noted, no jaundice, no petechiae and no mottling GENERAL SKIN EXAM: no rashes or lesions noted Sepsis: Is patient septic: Yes Focused sepsis exam performed: Yes Date exam was performed: 03/15/20 Time exam was performed: 14:00 Data : 03/15/20 09:34 03/15/20 09:34 A&P Assessment and plan (1) Pneumonia: -has been feeling ill, and found to have RUL pneumonia on imaging -no leukocytosis, lactic acid-1.4; currently meets criteria for sepsis given tachypnea, low grade temp, tachycardia -currently on RA; supplemental oxygen as needed -received dose of Ceftriaxone, Azithromycin; continue antibiotic regimen -monitor respiratory status -monitor vital signs -influenza negative, negative Legionella, bacterial antigens -f/u blood cx -works at [employer], rapid COVID testing negative, PCR test pending; isolation precautions Status: Acute Qualifiers: Laterality: right Lung location: upper lobe of lung Pneumonia type: due to unspecified organism Qualified Code(s): J18.9 - Pneumonia, unspecified organism (2) Rheumatoid arthritis with rheumatoid factor 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 systems involvement: -hold leflunomide due to acute infection; also on Actemra -resume oral steroids -pain control as needed -follows up with Dr. Alba Status: Chronic (3) HTN (hypertension): -monitor vital signs -resume oral antihypertensives Status: Chronic Qualifiers: Hypertension type: essential hypertension Qualified Code(s): I10 - Essential (primary) hypertension (4) Morbid obesity: -BMI-33 kg/m2 Status: Chronic Additional A&P Information -looks mildly dehydrated, start on gentle IVF hydration -low salt diet as tolerated -up with assist -GI ppx with famotidine -DVT ppx with lovenox -Dispo: home -Code status: FULL code -admit to medical surgical floor Attestations Medical Necessity Statement*: Marychuy Gama Chino's hospital stay will require greater than 2 midnights for management of right upper lobe pneumonia in setting of underlying immunocompromise, needs IV antibiotics, close monitoring of respiratory status. Time Spent in Patient Care: Greater than 35 minutes (>than 50% of time spent in counselling and/or direct pt care on unit) . Coding Level of Care Code Acute Tower Hoist Operator for Chg Fwd Exam Comprehensive Diagnoses Pneumonia J18.9 Laterality: right Lung location: upper lobe of lung Pneumonia type: due to unspecified organism Rheumatoid arthritis with rheumatoid factor 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 systems involvement M05.79 HTN (hypertension) I10 Hypertension type: essential hypertension Morbid obesity E66.01 Sepsis Event Note Evaluation Current stage of sepsis: sepsis Possible source: pulmonary Focused Exam Vital Signs Temp Pulse Pulse Resp BP BP Pulse Ox 03/15/20 15:33 99.9 F H 104 H 19 H 141/86 95 03/15/20 14:59 110 H 18 150/86 92 03/15/20 13:53 99 17 150/88 93 03/15/20 10:54 101 H 16 156/101 91 03/15/20 09:50 98 03/15/20 08:37 100.1 F H 154 H 16 169/114 96 Respiratory exam: Present rhonchi Cardiovascular exam: Present S1, S2 and tachycardia Peripheral pulse strength: 3+ Normal Skin exam: normal turgor Date exam was performed: 03/15/20 Time exam was performed: 17:53 Problem List (1) Pneumonia: Status: Acute (2) Rheumatoid arthritis with rheumatoid factor 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 systems involvement: Status: Chronic (3) HTN (hypertension): Status: Chronic (4) Morbid obesity: Status: Chronic
[2020-03-15] MEDS: sodium chloride 0.9% 1,000 ML 75 ML IV (15:32)
[2020-03-15] MEDS: potassium chloride ER 20 mEq Tablet 40 MEQ PO (15:35)
[2020-03-15] MEDS: famotidine 20 mg Tablet PO (17:43)
[2020-03-15] MEDS: acetaminophen 325 mg Tablet 650 MG PO (20:20)
[2020-03-15] MEDS: enoxaparin 40 mg/0.4 mL Syringe SUBCUT (20:22)
[2020-03-16] VITALS (7 sets, daily range): BP systolic 105–138; BP diastolic 66–90; PULSE 90–121; RESP 16–19; TEMP 37.1–38.4; O2SAT 92–96
[2020-03-16 05:35] LABS: Basophils % 0.1 %; Eosinophils % 0.1 %; Hemoglobin 11.3 g/dL (11.5-15.3); Lymphocytes # 1.7 10^3/uL (0.8-4.8); Lymphocytes % 23.4 %; Mean Corpuscular HGB Conc 31.4 g/dL (30.0-36.0); Mean Corpuscular Hemoglobin 27.4 pg (28.0-34.0); Mean Corpuscular Volume 87.2 fL (81-99); Mean Platelet Volume 9.3 fL (7.4-10.4); Monocytes # 0.7 10^3/uL (0.2-0.9); Monocytes % 9.7 %; Nucleated Red Blood Cells % 0 %; Platelet Count 247 10^3/cmm (130-400); Red Blood Count 4.13 10^6/uL (4.1-5.3); Red Cell Distribution Width 16.3 % (12.1-15.1); White Blood Count 7.4 10^3/uL (4.0-10.0)
[2020-03-16] MEDS: spironolactone 25 mg Tablet 100 MG PO (05:39)
[2020-03-16] MEDS: sodium chloride 0.9% 1,000 ML 75 ML IV ×2 (05:41→21:15)
[2020-03-16 06:01] LABS: Alanine Aminotransferase 30 U/L (0-33); Albumin Level 3.5 g/dL (3.5-5.2); Alkaline Phosphatase 104 IU/L (35-105); Anion Gap 14.7 (5-19); Aspartate Amino Transferase 28 U/L (0-32); Blood Urea Nitrogen 10 mg/dL (6-20); Calcium 7.9 mg/dL (8.5-10.5); Carbon Dioxide 24 mmol/L (22-29); Chloride 103 mmol/L (98-107); Globulin 3.3 g/dL (1.3-4.6); Glomerular Filtration Rate 92.2 mL/min (90-130); Glucose 90 mg/dL (65-115); Osmolality Calculated 285 mOsm/kg (285-295); Potassium 3.7 mmol/L (3.5-5.1); Sodium 138 mmol/L (136-145); Total Bilirubin 0.3 mg/dL (0.15-1.2); Total Protein 6.8 g/dL (6.6-8.7)
[2020-03-16] MEDS: escitalopram 10 mg Tablet 20 MG PO (08:10)
[2020-03-16] MEDS: hydroCHLOROthiazide 25 mg Tablet PO (08:10)
[2020-03-16] MEDS: carvedilol 25 mg Tablet PO ×2 (08:10→17:27)
[2020-03-16] MEDS: montelukast sodium 10 mg Tablet PO (08:10)
[2020-03-16] MEDS: famotidine 20 mg Tablet PO ×2 (08:10→17:27)
[2020-03-16] MEDS: predniSONE 20 mg Tablet PO (08:10)
[2020-03-16] MEDS: cefTRIAXone 1,000 MG in sodium chloride 0.9% (plus) 50 ML 100 MG IV (08:11)
[2020-03-16] MEDS: acetaminophen 325 mg Tablet 650 MG PO (08:11)
[2020-03-16] MEDS: amlodipine 5 mg Tablet 2.5 MG PO (08:11)
--- NOTE | 2020-03-16 13:46 | PM.PN ---
Subjective Subjective: Interval history: Febrile this morning with a T-max of 101.1F, remains on room air, hemodynamically stable, had 300 mL urine output overnight. No leukocytosis on labs this morning, stable chemistry and renal function. Negative for Legionella, bacterial antigens, influenza. Nasal MRSA positive. COVID-19 PCR pending. Seems to be feeling better today, sitting up and studying, last temp at noon was 99.8 F, she is eating well, no complaints. Medications: Reviewed: Yes Medication Review Details: Active Medications Generic Name Dose Route Start Last Admin Trade Name Freq PRN Reason Stop Dose Admin Acetaminophen 650 mg 03/15/20 15:23 03/16/20 08:11 Acetaminophen 32 5 Mg Tablet PO 650 mg Q6H PRN Administration Mild/Mod Pain Or Temp >/= 101 Amlodipine Besylat e 2.5 mg 03/16/20 09:00 03/16/20 08:11 Amlodipine 5 Mg Tablet PO 2.5 mg DAILY KATRINA Administration Carvedilol 25 mg 03/15/20 18:00 03/16/20 08:10 Carvedilol 25 Mg Tablet PO 25 mg BID KATRINA Administration Enoxaparin Sodium 40 mg 03/15/20 18:00 03/15/20 20:22 Enoxaparin 40 Mg /0.4 Ml Syringe SUBCUT 40 mg Q24H KATRINA Administration Escitalopram Oxala te 20 mg 03/16/20 09:00 03/16/20 08:10 Escitalopram 10 Mg Tablet PO 20 mg DAILY KATRINA Administration Famotidine 20 mg 03/15/20 18:00 03/16/20 08:10 Famotidine 20 Mg Tablet PO 20 mg BID KATRINA Administration Hydrochlorothiazid e 25 mg 03/16/20 09:00 03/16/20 08:10 Hydrochlorothiaz rubina 25 Mg Tablet PO 25 mg DAILY KATRINA Administration Ceftriaxone Sodium 1,000 mg/ 50 mls @ 100 mls/ hr 03/16/20 09:00 03/16/20 10:08 Sodium Chloride IV Infused Q24H KATRINA Infusion Protocol Azithromycin 500 m g/ Sodium 250 mls @ 250 mls /hr 03/16/20 13:30 Chloride IV Q24H KATRINA Protocol Sodium Chloride 1,000 mls @ 75 ml s/hr 03/15/20 15:23 03/16/20 05:41 Sodium Chloride 0.9% IV 75 mls/hr .[id number] KATRINA Administration Montelukast Sodium 10 mg 03/16/20 09:00 03/16/20 08:10 Montelukast Sodi um 10 Mg Tablet PO 10 mg DAILY KATRINA Administration Ondansetron HCl 4 mg 03/15/20 15:23 Ondansetron 2 Mg /Ml Sdv 2 Ml IVP Q6H PRN vomiting, or N/V if npo Prednisone 20 mg 03/16/20 09:00 03/16/20 08:10 Prednisone 20 Mg Tablet PO 20 mg DAILY KATRINA Administration Spironolactone 100 mg 03/16/20 06:00 03/16/20 05:39 Spironolactone 2 5 Mg Tablet PO 100 mg QAM KATRINA Administration aspirin Allergy (Verified 03/15/20 08:52) Unknown Vitals/I&O/Wt Last Vital Signs Temp 99.8 F H 03/16/20 12:00 Pulse 90 03/16/20 12:00 Resp 18 03/16/20 12:00 BP 124/77 03/16/20 12:00 Pulse Ox 93 03/16/20 12:00 03/15/20 03/16/20 03/16/20 22:59 06:59 14:59 Intake Total 480 / 780 1180 / 1960 510 / 510 Output Total 50 / 50 250 / 300 300 / 300 Balance 430 / 730 930 / 1660 210 / 210 Weight last 48 hrs Weight 93.667 kg Weight 91.626 kg Physical Exam Const: COMMON NORMALS: no acute distress, patient oriented x3 and alert GENERAL APPEARANCE: cooperative and comfortable NUTRITIONAL APPEARANCE: obese morbidly obese ORIENTATION/CONSCIOUSNESS: Yes awake OTHER: -looks better overall today, in good spirits, very pleasant HENMT: COMMON NORMALS: normocephalic, atraumatic, hearing grossly normal bilaterally and moist oral mucous membranes HEAD & SCALP: normocephalic and atraumatic Eye: COMMON NORMALS: Equal, round and reactive pupils present, EOMs intact bilaterally and conjunctivae normal CONJUNCTIVA: Yes conjunctivae normal PUPIL: Yes Equal, round and reactive pupils present Neck/C-Spine: COMMON NORMALS: full ROM GENERAL: Yes normal visual inspection and Yes trachea midline Resp: COMMON NORMALS: normal respiratory effort, No retractions and No use of accessory muscles EFFORT & INSPECTION: Yes able to speak in complete sentences, Yes symmetric chest movement and Yes tachypneic OTHER: -on RA -symmetrical air entry bilaterally, minimal rhonchi on R Cardio: COMMON NORMALS: regular rate, regular rhythm, S1 normal heart sound present, S2 normal heart sound present and No murmurs present (Cardio) RATE: regular rate RHYTHM: regular rhythm HEART SOUNDS: S1 normal heart sound present and S2 normal heart sound present GI: COMMON NORMALS: Normal to inspection, nondistended, normoactive bowel sounds present, Soft to palpation and non-tender INSPECTION: Yes central obesity PALPATION: Yes Soft to palpation Extremity: COMMON NORMALS: normal to inspection, full ROM, no clubbing, cyanosis or edema and no pedal edema Neuro: COMMON NORMALS: patient oriented x3, moves all extremities, no focal motor deficits and no sensory deficits noted SENSORIUM/ORIENTATION: Yes alert Psych: COMMON NORMALS: mental status grossly normal, Normal thought process present, cooperative, normal affect and speech normal SPEECH: Yes normal speech THOUGHT PROCESS: Normal thought process present Skin: COMMON NORMALS: no rashes or lesions noted, no jaundice, no petechiae and no mottling GENERAL SKIN EXAM: no rashes or lesions noted Data : 03/16/20 05:19 03/16/20 05:19 Micro: Microbiology 03/15/20 15:41 MRSA Culture - Final Nose 03/15/20 10:01 Group A Streptococcus Rapid Screen - Preliminary Throat 03/15/20 18:49 Blood Culture - Preliminary Blood SPECIMEN COLLECTED 03/15/20 09:03 Legionella Urinary Antigen - Final Urine,Voided Bacterial Antigens - Final 03/15/20 09:34 Blood Culture - Preliminary Blood SPECIMEN COLLECTED A&P Assessment and plan (1) Pneumonia: -has been feeling ill, and found to have RUL pneumonia on imaging -no leukocytosis, lactic acid-1.4; currently meets criteria for sepsis given tachypnea, low grade temp, tachycardia. Fever persists, but HR and RR wnl -remains stable on RA; supplemental oxygen as needed -continue Ceftriaxone, Azithromycin (day 2) -continue to monitor respiratory status -continue to monitor vital signs -influenza negative, negative Legionella, bacterial antigens -f/u blood cx -works at [employer] (tested there), rapid COVID testing negative, PCR test pending; isolation precautions Status: Acute Qualifiers: Laterality: right Lung location: upper lobe of lung Pneumonia type: due to unspecified organism Qualified Code(s): J18.9 - Pneumonia, unspecified organism (2) Rheumatoid arthritis with rheumatoid factor 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 Alba Status: Chronic (3) HTN (hypertension): -VSS; continue to monitor -continue oral antihypertensives Status: Chronic Qualifiers: Hypertension type: essential hypertension Qualified Code(s): I10 - Essential (primary) hypertension (4) Morbid obesity: -BMI-33 kg/m2 Status: Chronic Additional A&P Information -looks mildly dehydrated, d/c IVF; encourage oral hydration -low salt diet as tolerated -up with assist -GI ppx with famotidine -DVT ppx with lovenox -Dispo: home -Code status: FULL code -anticipate d/c in 24-48 hrs if fever free, continued improvement/stability Attestations Medical Necessity Statement*: Patient requires hospitalization for continued treatment of pneumonia, on broad-spectrum IV antibiotics, pending COVID-19 test results. Time Spent in Patient Care: 16 - 35 minutes (>than 50% of time spent in counselling and/or direct pt care on unit). Coding Level of Care Code Acute Semiconductor Development Technician for Chris Lilly Diagnoses Pneumonia J18.9 Laterality: right Lung location: upper lobe of lung Pneumonia type: due to unspecified organism Rheumatoid arthritis with rheumatoid factor 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 systems involvement M05.79 HTN (hypertension) I10 Hypertension type: essential hypertension Morbid obesity E66.01
[2020-03-16] MEDS: azithromycin 500 MG in sodium chloride 0.9% 250 ML 250 MG IV (14:27)
[2020-03-16] MEDS: enoxaparin 40 mg/0.4 mL Syringe SUBCUT (17:27)
[2020-03-16] MEDS: mupirocin oint 22 gm 1 APPLIC NASAL (17:31)
[2020-03-17 04:00] VITALS: BP 154/95; PULSE 106; RESP 18; TEMP 37.7; O2SAT 91
[2020-03-17] MEDS: spironolactone 25 mg Tablet 100 MG PO (05:58)
[2020-03-17 08:00] VITALS: BP 156/97; PULSE 112; RESP 18; TEMP 38.6; O2SAT 93
[2020-03-17] MEDS: carvedilol 25 mg Tablet PO ×2 (08:19→17:31)
[2020-03-17] MEDS: acetaminophen 325 mg Tablet 650 MG PO (08:19)
[2020-03-17] MEDS: amlodipine 5 mg Tablet 2.5 MG PO (08:20)
[2020-03-17] MEDS: montelukast sodium 10 mg Tablet PO (08:20)
[2020-03-17] MEDS: hydroCHLOROthiazide 25 mg Tablet PO (08:20)
[2020-03-17] MEDS: famotidine 20 mg Tablet PO ×2 (08:20→17:31)
[2020-03-17] MEDS: predniSONE 20 mg Tablet PO (08:20)
[2020-03-17] MEDS: escitalopram 10 mg Tablet 20 MG PO (08:20)
[2020-03-17] MEDS: cefTRIAXone 1,000 MG in sodium chloride 0.9% (plus) 50 ML 100 MG IV (08:21)
[2020-03-17] MEDS: mupirocin oint 22 gm 1 APPLIC NASAL ×2 (08:23→17:32)
[2020-03-17] MEDS: sodium chloride 0.9% 1,000 ML 75 ML IV (11:05)
[2020-03-17 12:00] VITALS: BP 111/78; PULSE 85; RESP 18; TEMP 37.2; O2SAT 92
--- NOTE | 2020-03-17 12:25 | P.PN_ITS ---
Subjective Subjective: Interval history: Febrile this morning with a T-max of 101.5F, hemodynamically stable, on room air. 1 out of 4 bottles from initial set of blood cultures growing gram-positive cocci, will order repeat set. Continue IV antibiotic therapy for now. She reports feeling well though not quite as well as yesterday particularly this morning. Has felt better as the day has pro gressed. COVID-19 PCR test results still pending. Medications: Reviewed: Yes Medication Review Details: Active Medications Generic Name Dose Route Start Last Admin Trade Name Freq PRN Reason Stop Dose Admin Acetaminophen 650 mg 03/15/20 15:23 03/17/20 08:19 Acetaminophen 32 5 Mg Tablet PO 650 mg Q6H PRN Administration Mild/Mod Pain Or Temp >/= 101 Amlodipine Besylat e 2.5 mg 03/16/20 09:00 03/17/20 08:20 Amlodipine 5 Mg Tablet PO 2.5 mg DAILY KATRINA Administration Carvedilol 25 mg 03/15/20 18:00 03/17/20 08:19 Carvedilol 25 Mg Tablet PO 25 mg BID KATRINA Administration Enoxaparin Sodium 40 mg 03/15/20 18:00 03/16/20 17:27 Enoxaparin 40 Mg /0.4 Ml Syringe SUBCUT 40 mg Q24H KATRINA Administration Escitalopram Oxala te 20 mg 03/16/20 09:00 03/17/20 08:20 Escitalopram 10 Mg Tablet PO 20 mg DAILY KATRINA Administration Famotidine 20 mg 03/15/20 18:00 03/17/20 08:20 Famotidine 20 Mg Tablet PO 20 mg BID KATRINA Administration Hydrochlorothiazid e 25 mg 03/16/20 09:00 03/17/20 08:20 Hydrochlorothiaz rubina 25 Mg Tablet PO 25 mg DAILY KATRINA Administration Ceftriaxone Sodium 1,000 mg/ 50 mls @ 100 mls/ hr 03/16/20 09:00 03/17/20 08:21 Sodium Chloride IV 100 mls/hr Q24H KATRINA Administration Protocol Azithromycin 500 m g/ Sodium 250 mls @ 250 mls /hr 03/16/20 13:30 03/16/20 15:27 Chloride IV Infused Q24H KATRINA Infusion Protocol Sodium Chloride 1,000 mls @ 75 ml s/hr 03/15/20 15:23 03/17/20 11:05 Sodium Chloride 0.9% IV 75 mls/hr .[id number] KATRINA Administration Montelukast Sodium 10 mg 03/16/20 09:00 03/17/20 08:20 Montelukast Sodi um 10 Mg Tablet PO 10 mg DAILY KATRINA Administration Mupirocin 1 applic 03/16/20 18:00 03/17/20 08:23 Mupirocin Oint 2 2 Gm NASAL 1 applic BID KATRINA Administration Ondansetron HCl 4 mg 03/15/20 15:23 Ondansetron 2 Mg /Ml Sdv 2 Ml IVP Q6H PRN vomiting, or N/V if npo Prednisone 20 mg 03/16/20 09:00 03/17/20 08:20 Prednisone 20 Mg Tablet PO 20 mg DAILY KATRINA Administration Spironolactone 100 mg 03/16/20 06:00 03/17/20 05:58 Spironolactone 2 5 Mg Tablet PO 100 mg QAM KATRINA Administration aspirin Allergy (Verified 03/15/20 08:52) Unknown Vitals/I&O/Wt Last Vital Signs Temp 99.0 F 03/17/20 12:00 Pulse 85 03/17/20 12:00 Resp 18 03/17/20 12:00 BP 111/78 03/17/20 12:00 Pulse Ox 92 03/17/20 12:00 03/16/20 03/17/20 03/17/20 22:59 06:59 14:59 Intake Total 1480 / 1990 1240 / 1240 Output Total 1250 / 1550 50 / 1600 Balance 230 / 440 -50 / 390 1240 / 1240 Weight last 48 hrs Weight 92.896 kg Weight 93.667 kg Physical Exam Const: COMMON NORMALS: no acute distress, patient oriented x3 and alert GENERAL APPEARANCE: cooperative and comfortable NUTRITIONAL APPEARANCE: obese morbidly obese ORIENTATION/CONSCIOUSNESS: Yes awake OTHER: -in good spirits, very pleasant HENMT: COMMON NORMALS: normocephalic, atraumatic, hearing grossly normal bilaterally and moist oral mucous membranes HEAD & SCALP: normocephalic and atraumatic Eye: COMMON NORMALS: Equal, round and reactive pupils present, EOMs intact bilaterally and conjunctivae normal CONJUNCTIVA: Yes conjunctivae normal PUPIL: Yes Equal, round and reactive pupils present Neck/C-Spine: COMMON NORMALS: full ROM GENERAL: Yes normal visual inspection and Yes trachea midline Resp: COMMON NORMALS: normal respiratory effort, No retractions and No use of accessory muscles EFFORT & INSPECTION: Yes able to speak in complete sentences, Yes symmetric chest movement and Yes tachypneic OTHER: -on RA -symmetrical air entry bilaterally, minimal rhonchi on R Cardio: COMMON NORMALS: regular rate, regular rhythm, S1 normal heart sound present, S2 normal heart sound present and No murmurs present (Cardio) RATE: regular rate RHYTHM: regular rhythm HEART SOUNDS: S1 normal heart sound present and S2 normal heart sound present GI: COMMON NORMALS: Normal to inspection, nondistended, normoactive bowel sounds present, Soft to palpation and non-tender INSPECTION: Yes central obesity PALPATION: Yes Soft to palpation Extremity: COMMON NORMALS: normal to inspection, full ROM, no clubbing, cyanosis or edema and no pedal edema Neuro: COMMON NORMALS: patient oriented x3, moves all extremities, no focal motor deficits and no sensory deficits noted SENSORIUM/ORIENTATION: Yes alert Psych: COMMON NORMALS: mental status grossly normal, Normal thought process present, cooperative, normal affect and speech normal SPEECH: Yes normal speech THOUGHT PROCESS: Normal thought process present Skin: COMMON NORMALS: no rashes or lesions noted, no jaundice, no petechiae and no mottling GENERAL SKIN EXAM: no rashes or lesions noted Data : 03/16/20 05:19 03/16/20 05:19 Micro: Microbiology 03/15/20 10:01 Group A Streptococcus Rapid Screen - Final Throat 03/15/20 18:49 Blood Culture - Preliminary Blood Gram positive cocci 03/15/20 09:34 Blood Culture - Preliminary Blood NEGATIVE TO DATE 03/15/20 15:41 MRSA Culture - Final Nose A&P Assessment and plan (1) Pneumonia: -has been feeling ill, and found to have RUL pneumonia on imaging -no leukocytosis, lactic acid-1.4; currently meets criteria for sepsis given tachypnea, low grade temp, tachycardia. Fever persists, but HR and RR wnl -remains stable on RA; supplemental oxygen as needed -continue Ceftriaxone, Azithromycin (day 3) -continue to monitor respiratory status -continue to monitor vital signs -influenza negative, negative Legionella, bacterial antigens -blood cx: 04/17 bottles growing GPC; order repeat set -works at [facility] (tested there), rapid COVID testing negative, PCR test pending; isolation precautions Status: Acute Qualifiers: Laterality: right Lung location: upper lobe of lung Pneumonia type: due to unspecified organism Qualified Code(s): J18.9 - Pneumonia, unspecified organism (2) Rheumatoid arthritis with rheumatoid factor 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 Alba Status: Chronic (3) HTN (hypertension): -VSS; continue to monitor -continue oral antihypertensives Status: Chronic Qualifiers: Hypertension type: essential hypertension Qualified Code(s): I10 - Essential (primary) hypertension (4) Morbid obesity: -BMI-33 kg/m2 Status: Chronic Additional A&P Information -looks mildly dehydrated, d/c IVF; encourage oral hydration -low salt diet as tolerated -up with assist -GI ppx with famotidine -DVT ppx with lovenox -Dispo: home -Code status: FULL code -anticipate d/c in 24-48 hrs if fever free, continued improvement/stability Attestations Medical Necessity Statement*: Patient requires hospitalization for continued treatment of right-sided pneumonia, with noted bacteremia and fever. Time Spent in Patient Care: 16 - 35 minutes (>than 50% of time spent in counselling and/or direct pt care on unit) . 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
[2020-03-17] MEDS: azithromycin 500 MG in sodium chloride 0.9% 250 ML 250 MG IV (13:37)
[2020-03-17 16:00] VITALS: BP 126/81; PULSE 81; RESP 18; TEMP 37.1; O2SAT 93
[2020-03-17] MEDS: enoxaparin 40 mg/0.4 mL Syringe SUBCUT (17:33)
[2020-03-17 20:00] VITALS: BP 139/87; PULSE 96; RESP 18; TEMP 37.9; O2SAT 98
[2020-03-18] VITALS (10 sets, daily range): BP systolic 103–134; BP diastolic 70–84; PULSE 84–118; RESP 17–22; TEMP 37.2–39.4; O2SAT 85–98
[2020-03-18] MEDS: sodium chloride 0.9% 1,000 ML 75 ML IV (01:28)
[2020-03-18] MEDS: benzonatate 100 mg Capsule PO ×2 (01:28→11:20)
[2020-03-18 03:24] LABS: Bilirubin Urine Neg (Negative); Blood Urine Neg (Negative); Glucose Urine UA Norm (Normal); Ketones Urine Negative (Negative); Leukocyte Esterase Urine Negative (Negative); Nitrate Urine Negative (Negative); Protein Urine Neg (Negative); Urine Appearance Clear (CLEAR); Urine Color Yellow (Yellow); Urobilinogen Urine Norm (Negative); pH Urine 5 (5-7)
[2020-03-18 03:38] LABS: Add Urine Culture? No; Bacteria Urine TRACE /hpf; Renal Epithelial Cells Urine N /hpf
[2020-03-18] MEDS: acetaminophen 325 mg Tablet 650 MG PO ×3 (04:07→17:55)
[2020-03-18] MEDS: spironolactone 25 mg Tablet 100 MG PO (06:21)
[2020-03-18] MEDS: escitalopram 10 mg Tablet 20 MG PO (08:49)
[2020-03-18] MEDS: cefTRIAXone 1,000 MG in sodium chloride 0.9% (plus) 50 ML 100 MG IV (08:50)
[2020-03-18] MEDS: predniSONE 20 mg Tablet PO (08:50)
[2020-03-18] MEDS: montelukast sodium 10 mg Tablet PO (08:50)
[2020-03-18] MEDS: carvedilol 25 mg Tablet PO ×2 (08:50→17:46)
[2020-03-18] MEDS: famotidine 20 mg Tablet PO ×2 (08:50→17:46)
[2020-03-18] MEDS: hydroCHLOROthiazide 25 mg Tablet PO (08:50)
[2020-03-18] MEDS: amlodipine 5 mg Tablet 2.5 MG PO (08:50)
[2020-03-18] MEDS: mupirocin oint 22 gm 1 APPLIC NASAL ×2 (09:04→17:49)
[2020-03-18] MEDS: guaiFENesin-dextromethorphan UDC 10 mL 5 ML PO (11:20)
[2020-03-18] MEDS: azithromycin 500 MG in sodium chloride 0.9% 250 ML 250 MG IV (12:48)
--- NOTE | 2020-03-18 12:49 | PM.PN ---
Subjective Subjective: Interval history: Continues to spike high-grade temperatures, T-max of 103F this morning, desaturated and not requiring supplemental oxygen support, currently on 3 L nasal cannula. Normotensive though tachycardic. Repeat UA done due to c/o dysuria, negative save for trace bacteria. Reports she does not feel as well today compared to yesterday. Repeat CXR today. Medications: Reviewed: Yes Medication Review Details: Active Medications Generic Name Dose Route Start Last Admin Trade Name Freq PRN Reason Stop Dose Admin Acetaminophen 650 mg 03/15/20 15:23 03/18/20 11:44 Acetaminophen 32 5 Mg Tablet PO 650 mg Q6H PRN Administration Mild/Mod Pain Or Temp >/= 101 Amlodipine Besylat e 2.5 mg 03/16/20 09:00 03/18/20 08:50 Amlodipine 5 Mg Tablet PO 2.5 mg DAILY KATRINA Administration Benzonatate 100 mg 03/18/20 01:18 03/18/20 11:20 Benzonatate 100 Mg Capsule PO 100 mg TID PRN Administration COUGH Carvedilol 25 mg 03/15/20 18:00 03/18/20 08:50 Carvedilol 25 Mg Tablet PO 25 mg BID KATRINA Administration Enoxaparin Sodium 40 mg 03/15/20 18:00 03/17/20 17:33 Enoxaparin 40 Mg /0.4 Ml Syringe SUBCUT 40 mg Q24H KATRINA Administration Escitalopram Oxala te 20 mg 03/16/20 09:00 03/18/20 08:49 Escitalopram 10 Mg Tablet PO 20 mg DAILY KATRINA Administration Famotidine 20 mg 03/15/20 18:00 03/18/20 08:50 Famotidine 20 Mg Tablet PO 20 mg BID KATRINA Administration Guaifenesin/Dextro methorphan 5 ml 03/18/20 01:17 03/18/20 11:20 Guaifenesin-Dext romethorphan Udc 1 0 Ml PO 5 ml Q4H PRN Administration COUGH Hydrochlorothiazid e 25 mg 03/16/20 09:00 03/18/20 08:50 Hydrochlorothiaz rubina 25 Mg Tablet PO 25 mg DAILY KATRINA Administration Ceftriaxone Sodium 1,000 mg/ 50 mls @ 100 mls/ hr 03/16/20 09:00 03/18/20 08:50 Sodium Chloride IV 100 mls/hr Q24H KATRINA Administration Protocol Azithromycin 500 m g/ Sodium 250 mls @ 250 mls /hr 03/16/20 13:30 03/18/20 12:48 Chloride IV 250 mls/hr Q24H KATRINA Administration Protocol Vancomycin HCl / S odium 250 mls @ 0 mls/h r 03/18/20 12:45 Chloride [id number] PROTOCOL [facility] Protocol As Directed Montelukast Sodium 10 mg 03/16/20 09:00 03/18/20 08:50 Montelukast Sodi um 10 Mg Tablet PO 10 mg DAILY KATRINA Administration Mupirocin 1 applic 03/16/20 18:00 03/18/20 09:04 Mupirocin Oint 2 2 Gm NASAL 1 applic BID KATRINA Administration Ondansetron HCl 4 mg 03/15/20 15:23 Ondansetron 2 Mg /Ml Sdv 2 Ml IVP Q6H PRN vomiting, or N/V if npo Prednisone 20 mg 03/16/20 09:00 03/18/20 08:50 Prednisone 20 Mg Tablet PO 20 mg DAILY KATRINA Administration Spironolactone 100 mg 03/16/20 06:00 03/18/20 06:21 Spironolactone 2 5 Mg Tablet PO 100 mg QAM KATRINA Administration aspirin Allergy (Verified 03/15/20 08:52) Unknown Vitals/I&O/Wt Last Vital Signs Temp 103 F H 03/18/20 11:45 Pulse 101 H 03/18/20 11:45 Resp 20 H 03/18/20 11:45 BP 128/82 03/18/20 11:45 Pulse Ox 92 03/18/20 11:45 03/17/20 03/18/20 03/18/20 22:59 06:59 14:59 Intake Total 120 / 1900 1000 / 2900 240 / 240 Output Total 300 / 300 500 / 800 300 / 300 Balance -180 / 1600 500 / 2100 -60 / -60 Weight last 48 hrs Weight 98.231 kg Weight 92.896 kg Physical Exam Const: COMMON NORMALS: no acute distress, patient oriented x3 and alert GENERAL APPEARANCE: cooperative and comfortable NUTRITIONAL APPEARANCE: obese morbidly obese ORIENTATION/CONSCIOUSNESS: Yes awake OTHER: -in good spirits, very pleasant HENMT: COMMON NORMALS: normocephalic, atraumatic, hearing grossly normal bilaterally and moist oral mucous membranes HEAD & SCALP: normocephalic and atraumatic Eye: COMMON NORMALS: Equal, round and reactive pupils present, EOMs intact bilaterally and conjunctivae normal CONJUNCTIVA: Yes conjunctivae normal PUPIL: Yes Equal, round and reactive pupils present Neck/C-Spine: COMMON NORMALS: full ROM GENERAL: Yes normal visual inspection and Yes trachea midline Resp: COMMON NORMALS: normal respiratory effort, No retractions and No use of accessory muscles EFFORT & INSPECTION: Yes able to speak in complete sentences, Yes symmetric chest movement and Yes tachypneic OTHER: -on 3 L NC -symmetrical air entry bilaterally, minimal rhonchi on R Cardio: COMMON NORMALS: regular rate, regular rhythm, S1 normal heart sound present, S2 normal heart sound present and No murmurs present (Cardio) RATE: regular rate RHYTHM: regular rhythm HEART SOUNDS: S1 normal heart sound present and S2 normal heart sound present GI: COMMON NORMALS: Normal to inspection, nondistended, normoactive bowel sounds present, Soft to palpation and non-tender INSPECTION: Yes central obesity PALPATION: Yes Soft to palpation Extremity: COMMON NORMALS: normal to inspection, full ROM, no clubbing, cyanosis or edema and no pedal edema Neuro: COMMON NORMALS: patient oriented x3, moves all extremities, no focal motor deficits and no sensory deficits noted SENSORIUM/ORIENTATION: Yes alert Psych: COMMON NORMALS: mental status grossly normal, Normal thought process present, cooperative, normal affect and speech normal SPEECH: Yes normal speech THOUGHT PROCESS: Normal thought process present Skin: COMMON NORMALS: no rashes or lesions noted, no jaundice, no petechiae and no mottling GENERAL SKIN EXAM: no rashes or lesions noted Data : 03/16/20 05:19 03/16/20 05:19 Micro: Microbiology 03/15/20 18:49 Blood Culture - Preliminary Blood Coagulase negativ staphylococc 03/17/20 15:32 Blood Culture - Preliminary Blood SPECIMEN COLLECTED 03/17/20 13:02 Blood Culture - Preliminary Blood SPECIMEN COLLECTED 03/15/20 10:01 Group A Streptococcus Rapid Screen - Final Throat A&P Assessment and plan (1) Pneumonia: -has been feeling ill, and found to have RUL pneumonia on imaging -no leukocytosis, lactic acid-1.4; currently meets criteria for sepsis given tachypnea, low grade temp, tachycardia. Fever, tachycardia and mild tachypnea persist -now requiring supplemental oxygen, 3 L NC -continue Ceftriaxone, Azithromycin (day 4); add vancomycin due to continued fever -continue to monitor respiratory status -continue to monitor vital signs -influenza negative, negative Legionella, bacterial antigens; MRSA (nasal) + -blood cx: 04/17 bottles growing GPC; repeat set pending -works at [facility] (tested there), rapid COVID testing negative, PCR test pending; isolation precautions -repeat imaging today Status: Acute Qualifiers: Laterality: right Lung location: upper lobe of lung Pneumonia type: due to unspecified organism Qualified Code(s): J18.9 - Pneumonia, unspecified organism (2) Rheumatoid arthritis with rheumatoid factor 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 Alba Status: Chronic (3) HTN (hypertension): -VSS; continue to monitor -continue oral antihypertensives Status: Chronic Qualifiers: Hypertension type: essential hypertension Qualified Code(s): I10 - Essential (primary) hypertension (4) Morbid obesity: -BMI-35 kg/m2 Status: Chronic Additional A&P Information -looks mildly dehydrated, d/c IVF; encourage oral hydration -low salt diet as tolerated -up with assist -GI ppx with famotidine -DVT ppx with lovenox -Dispo: home -Code status: FULL code Attestations Medical Necessity Statement*: Patient requires hospitalization for continued treatment of pneumonia, needs broader spectrum IV antibiotics given continued fever, hypoxia. Time Spent in Patient Care: 16 - 35 minutes (>than 50% of time spent in counselling and/or direct pt care on unit). 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
--- NOTE | 2020-03-18 12:50 | XRR_ITS ---
PROCEDURE INFORMATION: Exam: XR Chest, 1 View Exam date and time: 03/18/2020 1:09 PM Age: 39 years old Clinical indication: Shortness of breath; Additional info: Progression of pneumonia TECHNIQUE: Imaging protocol: XR of the chest Views: 1 view. COMPARISON: CR XR chest 1V portable [id number] 03/15/2020 8:27 AM FINDINGS: Lungs: Increasing asymmetric bilateral airspace opacities are noted compatible with probable pneumonic infiltrates greatest in the right upper lobe and medial left lower lobe. Pulmonary vascularity is within normal limits. There is poor inspiration with diffuse volume loss. Pleural space: Unremarkable. No pleural effusion. No pneumothorax. Heart/Mediastinum: The heart size is upper limits of normal. Bones/joints: No acute abnormality. XR/XR chest 1V portable [id number] IMPRESSION: Increasing asymmetric bilateral airspace opacities are noted compatible with probable pneumonic infiltrates greatest in the right upper lobe and medial left lower lobe.
[2020-03-18] MEDS: enoxaparin 40 mg/0.4 mL Syringe SUBCUT (17:46)
[2020-03-18] MEDS: lanolin oint 7 gm 1 APPLIC TOPICAL (18:29)
[2020-03-18] MEDS: acetaminophen 500 mg Tablet 650 MG PO (20:16)
[2020-03-19] VITALS (13 sets, daily range): BP systolic 106–156; BP diastolic 70–94; PULSE 97–117; RESP 18–22; TEMP 36.9–39.6; O2SAT 88–94
[2020-03-19] MEDS: acetaminophen 325 mg Tablet 650 MG PO ×3 (00:04→11:29)
[2020-03-19 05:40] LABS: Basophils % 0.1 %; Hematocrit 34.3 % (37.0-47.0); Hemoglobin 10.8 g/dL (11.5-15.3); Lymphocytes # 1.2 10^3/uL (0.8-4.8); Mean Corpuscular HGB Conc 31.5 g/dL (30.0-36.0); Mean Corpuscular Volume 85.8 fL (81-99); Mean Platelet Volume 10.6 fL (7.4-10.4); Monocytes # 0.4 10^3/uL (0.2-0.9); Monocytes % 2.7 %; Nucleated Red Blood Cells % 0 %; Platelet Count 233 10^3/cmm (130-400); Red Cell Distribution Width 16.1 % (12.1-15.1); White Blood Count 13.7 10^3/uL (4.0-10.0)
[2020-03-19] MEDS: spironolactone 25 mg Tablet 100 MG PO (06:06)
[2020-03-19] MEDS: cefTRIAXone 1,000 MG in sodium chloride 0.9% (plus) 50 ML 100 MG IV (08:26)
[2020-03-19] MEDS: hydroCHLOROthiazide 25 mg Tablet PO (08:26)
[2020-03-19] MEDS: guaiFENesin-dextromethorphan UDC 10 mL 5 ML PO ×2 (08:26→17:30)
[2020-03-19] MEDS: benzonatate 100 mg Capsule PO ×2 (08:26→20:32)
[2020-03-19] MEDS: famotidine 20 mg Tablet PO ×2 (08:27→17:30)
[2020-03-19] MEDS: predniSONE 20 mg Tablet PO (08:27)
[2020-03-19] MEDS: carvedilol 25 mg Tablet PO ×2 (08:27→17:30)
[2020-03-19] MEDS: amlodipine 5 mg Tablet 2.5 MG PO (08:27)
[2020-03-19] MEDS: montelukast sodium 10 mg Tablet PO (08:27)
[2020-03-19] MEDS: escitalopram 10 mg Tablet 20 MG PO (08:27)
[2020-03-19] MEDS: mupirocin oint 22 gm 1 APPLIC NASAL ×2 (08:31→17:54)
--- NOTE | 2020-03-19 11:40 | CTR_ITS ---
PROCEDURE INFORMATION: Exam: CT Chest Without Contrast; Diagnostic Exam date and time: 03/19/2020 3:59 PM Age: 39 years old Clinical indication: Patient HX: Covid+, pneumonia, persistent fever; Additional info: Progression of pneumonia, persistent fever, increased o2 TECHNIQUE: Imaging protocol: Diagnostic computed tomography of the chest without contrast. Radiation optimization: All CT scans at this facility use at least one of these dose optimization techniques: automated exposure control; mA and/or kV adjustment per patient size (includes targeted exams where dose is matched to clinical indication); or iterative reconstruction. COMPARISON: CT angio chest PE protcl [id number] 03/15/2020 11:42 AM RADIATION DOSE METRICS: Total DLP (mGy-cm): 853.62 FINDINGS: Lungs: There is marked progression of the bilateral multifocal ground-glass and more dense airspace opacities in both lungs. Pleural space: Unremarkable. No pneumothorax. No pleural effusion. Heart: There is borderline cardiomegaly. Mediastinal space: A small hiatal hernia is present. Aorta: Unremarkable. No aortic aneurysm. Lymph nodes: Unremarkable. No enlarged lymph nodes. Gallbladder and bile ducts: There has been a cholecystectomy. Bones/joints: Unremarkable. No acute fracture. Soft tissues: Unremarkable. CT/CT chest wo con [id number] IMPRESSION: There is marked progression of the bilateral multifocal ground-glass and more dense airspace opacities in both lungs. There is a larger portion of the lung parenchyma that is now opacified (at least 30-40% where previously it was only about 10%. Radiation Dose CTDIVOL = (mGy): DLP = 853.62 (mGy-cm)
--- NOTE | 2020-03-19 11:42 | PM.PN ---
Subjective Subjective: Interval history: Febrile throughout the night with a T-max of 103.2 F, tachycardic, tachypneic, on 3 L nasal cannula. Repeat chest x-ray yesterday showed increasing bilateral airspace opacities; will order repeat CT chest today with for possible empyema versus loculated effusion. Has consistently been on ceftriaxone and azithromycin with addition of vancomycin yesterday. We will switch to Zosyn, Levaquin and continue vancomycin at this time. She looks more fatigued and somewhat ill appearing today. Medications: Reviewed: Yes Medication Review Details: Active Medications Generic Name Dose Route Start Last Admin Trade Name Freq PRN Reason Stop Dose Admin Acetaminophen 650 mg 03/15/20 15:23 03/19/20 11:29 Acetaminophen 32 5 Mg Tablet PO 650 mg Q6H PRN Administration Mild/Mod Pain Or Temp >/= 101 Amlodipine Besylat e 2.5 mg 03/16/20 09:00 03/19/20 08:27 Amlodipine 5 Mg Tablet PO 2.5 mg DAILY KATRINA Administration Benzonatate 100 mg 03/18/20 01:18 03/19/20 08:26 Benzonatate 100 Mg Capsule PO 100 mg TID PRN Administration COUGH Carvedilol 25 mg 03/15/20 18:00 03/19/20 08:27 Carvedilol 25 Mg Tablet PO 25 mg BID KATRINA Administration Enoxaparin Sodium 40 mg 03/15/20 18:00 03/18/20 17:46 Enoxaparin 40 Mg /0.4 Ml Syringe SUBCUT 40 mg Q24H KATRINA Administration Escitalopram Oxala te 20 mg 03/16/20 09:00 03/19/20 08:27 Escitalopram 10 Mg Tablet PO 20 mg DAILY KATRINA Administration Famotidine 20 mg 03/15/20 18:00 03/19/20 08:27 Famotidine 20 Mg Tablet PO 20 mg BID KATRINA Administration Guaifenesin/Dextro methorphan 5 ml 03/18/20 01:17 03/19/20 08:26 Guaifenesin-Dext romethorphan Udc 1 0 Ml PO 5 ml Q4H PRN Administration COUGH Hydrochlorothiazid e 25 mg 03/16/20 09:00 03/19/20 08:26 Hydrochlorothiaz rubina 25 Mg Tablet PO 25 mg DAILY KATRINA Administration Vancomycin HCl 2,0 00 mg/ 500 mls @ 0 mls/h r 03/18/20 14:00 03/19/20 04:55 Sodium Chloride IV Infused Q12H KATRINA Infusion Protocol As Directed Piperacillin Sod/T azobactam 50 mls @ 0 mls/hr 03/19/20 11:45 Sod / Sodium Chl oride [id number] KATRINA Protocol As Directed Levofloxacin/Dextr ose 750 mg in 150 mls @ 100 mls/hr 03/19/20 11:45 Levaquin-D5w IV Q24H [facility] Protocol Lanolin 1 applic 03/18/20 18:19 03/18/20 18:29 Lanolin Oint 7 G m TOPICAL 1 applic PRN PRN Administration DRYNESS Montelukast Sodium 10 mg 03/16/20 09:00 03/19/20 08:27 Montelukast Sodi um 10 Mg Tablet PO 10 mg DAILY KATRINA Administration Mupirocin 1 applic 03/16/20 18:00 03/19/20 08:31 Mupirocin Oint 2 2 Gm NASAL 1 applic BID KATRINA Administration Ondansetron HCl 4 mg 03/15/20 15:23 Ondansetron 2 Mg /Ml Sdv 2 Ml IVP Q6H PRN vomiting, or N/V if npo Prednisone 20 mg 03/16/20 09:00 03/19/20 08:27 Prednisone 20 Mg Tablet PO 20 mg DAILY KATRINA Administration Spironolactone 100 mg 03/16/20 06:00 03/19/20 06:06 Spironolactone 2 5 Mg Tablet PO 100 mg QAM KATRINA Administration aspirin Allergy (Verified 03/15/20 08:52) Unknown Vitals/I&O/Wt Last Vital Signs Temp 100.6 F H 03/19/20 11:40 Pulse 105 H 03/19/20 11:40 Resp 18 03/19/20 11:40 BP 106/70 03/19/20 11:40 Pulse Ox 91 03/19/20 11:40 03/18/20 03/19/20 03/19/20 22:59 06:59 14:59 Intake Total 820 / 2600 620 / 3220 290 / 290 Output Total 240 / 540 100 / 100 Balance 580 / 2060 620 / 2680 190 / 190 Weight last 48 hrs Weight 96.162 kg Weight 98.231 kg Physical Exam Const: COMMON NORMALS: no acute distress, patient oriented x3 and alert GENERAL APPEARANCE: cooperative and comfortable NUTRITIONAL APPEARANCE: obese morbidly obese ORIENTATION/CONSCIOUSNESS: Yes awake OTHER: -in good spirits, very pleasant -appears fatigued and somewhat ill appearing HENMT: COMMON NORMALS: normocephalic, atraumatic, hearing grossly normal bilaterally and moist oral mucous membranes HEAD & SCALP: normocephalic and atraumatic Eye: COMMON NORMALS: Equal, round and reactive pupils present, EOMs intact bilaterally and conjunctivae normal CONJUNCTIVA: Yes conjunctivae normal PUPIL: Yes Equal, round and reactive pupils present Neck/C-Spine: COMMON NORMALS: full ROM GENERAL: Yes normal visual inspection and Yes trachea midline Resp: COMMON NORMALS: normal respiratory effort, No retractions and No use of accessory muscles EFFORT & INSPECTION: Yes able to speak in complete sentences, Yes symmetric chest movement and Yes tachypneic OTHER: -on 5 L NC -more diminished air entry today, more rhonchi on the R Cardio: COMMON NORMALS: regular rate, regular rhythm, S1 normal heart sound present, S2 normal heart sound present and No murmurs present (Cardio) RATE: regular rate RHYTHM: regular rhythm HEART SOUNDS: S1 normal heart sound present and S2 normal heart sound present GI: COMMON NORMALS: Normal to inspection, nondistended, normoactive bowel sounds present, Soft to palpation and non-tender INSPECTION: Yes central obesity PALPATION: Yes Soft to palpation Extremity: COMMON NORMALS: normal to inspection, full ROM, no clubbing, cyanosis or edema and no pedal edema Neuro: COMMON NORMALS: patient oriented x3, moves all extremities, no focal motor deficits and no sensory deficits noted SENSORIUM/ORIENTATION: Yes alert Psych: COMMON NORMALS: mental status grossly normal, Normal thought process present, cooperative, normal affect and speech normal SPEECH: Yes normal speech THOUGHT PROCESS: Normal thought process present Skin: COMMON NORMALS: no rashes or lesions noted, no jaundice, no petechiae and no mottling GENERAL SKIN EXAM: no rashes or lesions noted Data : 03/19/20 05:00 03/16/20 05:19 Micro: Microbiology 03/17/20 15:32 Blood Culture - Preliminary Blood NEGATIVE TO DATE 03/17/20 13:02 Blood Culture - Preliminary Blood NEGATIVE TO DATE 03/15/20 18:49 Blood Culture - Preliminary Blood Coagulase negativ staphylococc A&P Assessment and plan (1) Pneumonia: -has been feeling ill, and found to have RUL pneumonia on imaging -no leukocytosis, lactic acid-1.4; currently meets criteria for sepsis given tachypnea, low grade temp, tachycardia. Fever, tachycardia and mild tachypnea persist -now requiring supplemental oxygen, 3 L NC -d/c Ceftriaxone, Azithromycin; continue vancomycin, add Zosyn and Levaquin due to continued fever and noted worsening infiltrates on repeat CXR yesterday. Will evaluate for possible loculated effusion vs. empyema given continued sepsis -continue to monitor respiratory status -continue to monitor vital signs -influenza negative, negative Legionella, bacterial antigens; MRSA (nasal) + -blood cx: 04/17 bottles growing GPC; repeat set prelim negative -works at [facility] (tested there), rapid COVID testing negative, PCR test pending; isolation precautions -repeat imaging today (CT chest) Status: Acute Qualifiers: Laterality: right Lung location: upper lobe of lung Pneumonia type: due to unspecified organism Qualified Code(s): J18.9 - Pneumonia, unspecified organism (2) Rheumatoid arthritis with rheumatoid factor 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 Alba Status: Chronic (3) HTN (hypertension): -VSS; continue to monitor -continue oral antihypertensives Status: Chronic Qualifiers: Hypertension type: essential hypertension Qualified Code(s): I10 - Essential (primary) hypertension (4) Morbid obesity: -BMI-35 kg/m2 Status: Chronic Additional A&P Information -looks mildly dehydrated, d/c IVF; encourage oral hydration -low salt diet as tolerated -up with assist -GI ppx with famotidine -DVT ppx with lovenox -Dispo: home -Code status: FULL code Attestations Medical Necessity Statement*: Patient requires hospitalization for continued IV antibiotic treatment, additional imaging given continued sepsis and concern for possible empyema, loculated effusion. Time Spent in Patient Care: 16 - 35 minutes (>than 50% of time spent in counselling and/or direct pt care on unit). Coding Level of Care Code Acute Channel Rougher for [facility] Fwd Exam Comprehensive Diagnoses Pneumonia J18.9 Laterality: right Lung location: upper lobe of lung Pneumonia type: due to unspecified organism Rheumatoid arthritis with rheumatoid factor 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 systems involvement M05.79 HTN (hypertension) I10 Hypertension type: essential hypertension Morbid obesity E66.01
[2020-03-19] MEDS: levofloxacin-dextrose 5 % 750 MG/150 ML PREMIX 100 MG IV (11:56)
[2020-03-19] MEDS: zinc gluconate 50 mg Tablet PO (13:29)
[2020-03-19] MEDS: dexamethasone 4 mg/mL INJ 6 MG IVP (13:29)
[2020-03-19] MEDS: ascorbic acid 500 mg Tablet PO (13:29)
[2020-03-19 13:58] LABS: Vancomycin Trough 9.3 ug/mL (10-15)
[2020-03-19] MEDS: albuterol 8 gm MDI 2 PUFF INHALATION (14:18)
[2020-03-19] MEDS: piperacillin-tazobactam 3.375 GM in sodium chloride 0.9% (plus) 50 ML IV (17:12)
[2020-03-19] MEDS: enoxaparin 40 mg/0.4 mL Syringe SUBCUT (17:30)
[2020-03-20] VITALS (9 sets, daily range): BP systolic 128–132; BP diastolic 78–87; PULSE 83–102; RESP 16–20; TEMP 36.2–37.3; O2SAT 90–93
[2020-03-20] MEDS: piperacillin-tazobactam 3.375 GM in sodium chloride 0.9% (plus) 50 ML IV ×3 (00:14→17:56)
[2020-03-20 05:50] LABS: Basophils % 0.1 %; Hematocrit 30.6 % (37.0-47.0); Hemoglobin 9.8 g/dL (11.5-15.3); Lymphocytes # 0.7 10^3/uL (0.8-4.8); Lymphocytes % 5.5 %; Mean Corpuscular Hemoglobin 27.7 pg (28.0-34.0); Mean Corpuscular Volume 86.4 fL (81-99); Mean Platelet Volume 10.8 fL (7.4-10.4); Monocytes # 0.4 10^3/uL (0.2-0.9); Monocytes % 3.3 %; Neutrophils # 10.71 10^3/uL (1.8-7.7); Neutrophils % 90.3 %; Nucleated Red Blood Cells % 0 %; Platelet Count 266 10^3/cmm (130-400); Red Blood Count 3.54 10^6/uL (4.1-5.3); Red Cell Distribution Width 16.1 % (12.1-15.1); White Blood Count 11.9 10^3/uL (4.0-10.0)
[2020-03-20] MEDS: benzonatate 100 mg Capsule PO ×3 (06:04→21:29)
[2020-03-20] MEDS: spironolactone 25 mg Tablet 100 MG PO (06:04)
[2020-03-20 06:14] LABS: Anion Gap 14.5 (5-19); Blood Urea Nitrogen 10 mg/dL (6-20); C Reactive Protein 274.4 mg/L (0.0-4.9); Calcium 8.4 mg/dL (8.5-10.5); Carbon Dioxide 25 mmol/L (22-29); Chloride 102 mmol/L (98-107); Creatine Phosphokinase 157 U/L (26-192); Glomerular Filtration Rate 110.2 mL/min (90-130); Glucose 128 mg/dL (65-115); Osmolality Calculated 287 mOsm/kg (285-295); Potassium 3.5 mmol/L (3.5-5.1); Sodium 138 mmol/L (136-145)
[2020-03-20 06:55] LABS: Fibrinogen 771 mg/dL (174-498)
[2020-03-20 06:58] LABS: NT Pro B Type Natriuretic Pept 69 pg/mL (0-125); Procalcitonin 0.67 ng/mL (0-0.5)
[2020-03-20 07:26] LABS: Ferritin 1315 ng/mL (15-150)
[2020-03-20 07:27] LABS: Lactate Dehydrogenase 435 U/L (135-214)
[2020-03-20] MEDS: albuterol 8 gm MDI 2 PUFF INHALATION ×3 (07:30→20:10)
[2020-03-20] MEDS: hydroCHLOROthiazide 25 mg Tablet PO (08:06)
[2020-03-20] MEDS: escitalopram 10 mg Tablet 20 MG PO (08:06)
[2020-03-20] MEDS: montelukast sodium 10 mg Tablet PO (08:07)
[2020-03-20] MEDS: amlodipine 5 mg Tablet 2.5 MG PO (08:07)
[2020-03-20] MEDS: zinc gluconate 50 mg Tablet PO (08:07)
[2020-03-20] MEDS: famotidine 20 mg Tablet PO ×2 (08:07→17:42)
[2020-03-20] MEDS: carvedilol 25 mg Tablet PO ×2 (08:07→17:42)
[2020-03-20] MEDS: ascorbic acid 500 mg Tablet PO (08:07)
[2020-03-20] MEDS: mupirocin oint 22 gm 1 APPLIC NASAL ×2 (08:08→17:42)
[2020-03-20] MEDS: guaiFENesin-dextromethorphan UDC 10 mL 5 ML PO (08:25)
[2020-03-20] MEDS: levofloxacin-dextrose 5 % 750 MG/150 ML PREMIX 100 MG IV (11:56)
[2020-03-20] MEDS: dexamethasone 4 mg/mL INJ 6 MG IVP (13:34)
[2020-03-20 14:32] LABS: Vancomycin Trough 10.8 ug/mL (10-15)
--- NOTE | 2020-03-20 14:59 | PM.PN ---
Subjective Subjective: Interval history: Hospital course, labs and vitals noted. Examination today on 6 L nasal cannula saturating 92%. Patient is clinically better than yesterday. Denies any nausea, vomiting, dizziness. Complaining of mild headache. States appetite is poor but better than yesterday. States her energy levels are better than yesterday. Able to do incentive spirometry and flutter valve regularly. Vitals/I&O/Wt Last Vital Signs Temp 98.7 F 03/20/20 11:35 Pulse 99 03/20/20 11:35 Resp 17 03/20/20 11:35 BP 128/86 03/20/20 11:35 Pulse Ox 92 03/20/20 11:35 03/19/20 03/20/20 03/20/20 22:59 06:59 14:59 Intake Total 740 / 1400 600 / 2000 920 / 920 Output Total 300 / 900 150 / 150 Balance 440 / 500 600 / 1100 770 / 770 Weight last 48 hrs Weight 96.162 kg Weight 96.162 kg Physical Exam Narrative: EXAM NARRATIVE: General: No acute distress, AO x3 HEENT: PERRLA, pupils bilaterally equal and reactive Chest: Normal vesicular breath sounds, coarse crackles present in the right upper and 1, left lower zone, diffuse rhonchi all over the lung boyer, good air entry all lung boyer. CVS: S1-S2 regular, no murmurs, no tachycardia, no gallops, no rubs Abdomen: Soft, nontender, no organomegaly, bowel sounds present Neuro: No focal deficits, no facial deformity, AO x3, power 5/5 in all limbs Data : 03/20/20 04:00 03/20/20 04:00 Micro: Microbiology 03/20/20 10:30 Gram Stain - Final Sputum - Expectorated Sputum A&P Assessment and plan (1) COVID-19: Status: Acute (2) Pneumonia: -has been feeling ill, and found to have RUL pneumonia on imaging -no leukocytosis, lactic acid-1.4; currently meets criteria for sepsis given tachypnea, low grade temp, tachycardia. Fever, tachycardia and mild tachypnea persist -now requiring supplemental oxygen, 3 L NC -d/c Ceftriaxone, Azithromycin; continue vancomycin, add Zosyn and Levaquin due to continued fever and noted worsening infiltrates on repeat CXR yesterday. Will evaluate for possible loculated effusion vs. empyema given continued sepsis -continue to monitor respiratory status -continue to monitor vital signs -influenza negative, negative Legionella, bacterial antigens; MRSA (nasal) + -blood cx: 04/17 bottles growing GPC; repeat set prelim negative -works at [facility] (tested there), rapid COVID testing negative, PCR test pending; isolation precautions -repeat imaging today (CT chest) Status: Acute Qualifiers: Laterality: right Lung location: upper lobe of lung Pneumonia type: due to unspecified organism Qualified Code(s): J18.9 - Pneumonia, unspecified organism (3) Rheumatoid arthritis with rheumatoid factor 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 systems involvement: Status: Chronic (4) HTN (hypertension): -VSS; continue to monitor -continue oral antihypertensives Status: Chronic Qualifiers: Hypertension type: essential hypertension Qualified Code(s): I10 - Essential (primary) hypertension (5) Morbid obesity: -BMI-35 kg/m2 Status: Chronic (6) Immunocompromised: Status: Acute Additional A&P Information Hypoxic respiratory failure: COVID-19 pneumonia: Cannot rule out superadded bacterial infection. Moderate to severe disease as patient is requiring up to 6 L supplementation to maintain saturation 90%. Continue antiviral treatment with remdesivir to finish a 5-day course. Started on March 19. Continue with dexamethasone 6 mg IV daily. Stop patient's home dose of prednisone 20 mg. Add Advair, Spiriva. Continue with albuterol as needed. Vitamin C, zinc. Tessalon Perles. Pro-Cortez positive, MRSA positive, urine Legionella negative. It seems patient has had a course of ceftriaxone and azithromycin for 5 days. Antibiotics were escalated to vancomycin, Zosyn, levofloxacin on March 19. Check sputum culture. For now continue with vancomycin and Zosyn to finish at least a 5-day course. Continue to monitor inflammatory markers including ferritin, LDH, CRP, proBNP, D-dimer, fibrinogen. CT results appreciated. Patient is getting worse for now we will increase the Lovenox to therapeutic dose. Somehow no COVID-19 results in the system. Will request COVID-19 results from [facility] where it was done. We will do COVID-19 rapid antigen test. Hypertension: Goal blood pressure less than 140/90 mmHg. Continue with home dose of amlodipine 2.5 mg, carvedilol 25 mg twice daily, hydrochlorothiazide 25 mg daily. For now hold off on spironolactone. Continue to monitor kidney functions. Rheumatoid arthritis: Patient is on leflunomide and Actemra. For now continue to hold off. Continue with steroids as above. Immunocompromised status. Out of bed to chair. Cardiac diet. -GI ppx with famotidine -DVT ppx with lovenox -Dispo: home -Code status: FULL code Attestations Medical Necessity Statement*: Patient requires further hospitalization for management of hypoxic respiratory failure secondary to COVID-19 pneumonia along with possible superadded bacterial pneumonia. Time Spent in Patient Care: Greater than 35 minutes (>than 50% of time spent in counselling and/or direct pt care on unit). Coding Level of Care Code Acute Data Reviewer for g Fwd Diagnoses COVID-19 U07.1 Pneumonia J18.9 Laterality: right Lung location: upper lobe of lung Pneumonia type: due to unspecified organism Rheumatoid arthritis with rheumatoid factor 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 systems involvement M05.79 HTN (hypertension) I10 Hypertension type: essential hypertension Morbid obesity E66.01 Immunocompromised D84.9
[2020-03-20] MEDS: enoxaparin 100 mg/mL Syringe SUBCUT (15:36)
[2020-03-20 16:41] LABS: SARS Covid-2 Antigen Positive (Negative)
[2020-03-20] MEDS: ascorbic acid 500 mg Tablet 1000 MG PO (17:41)
[2020-03-21] VITALS (9 sets, daily range): BP systolic 118–134; BP diastolic 72–90; PULSE 66–93; RESP 16–20; TEMP 36.4–37.1; O2SAT 90–97
[2020-03-21] MEDS: piperacillin-tazobactam 3.375 GM in sodium chloride 0.9% (plus) 50 ML IV ×3 (00:58→17:07)
[2020-03-21] MEDS: enoxaparin 100 mg/mL Syringe SUBCUT ×2 (02:57→15:33)
[2020-03-21 04:56] LABS: Basophils % 0.1 %; Hematocrit 33.3 % (37.0-47.0); Hemoglobin 10.5 g/dL (11.5-15.3); Lymphocytes # 0.9 10^3/uL (0.8-4.8); Lymphocytes % 11.9 %; Mean Corpuscular HGB Conc 31.5 g/dL (30.0-36.0); Mean Corpuscular Hemoglobin 27.3 pg (28.0-34.0); Mean Corpuscular Volume 86.7 fL (81-99); Mean Platelet Volume 10.4 fL (7.4-10.4); Monocytes # 0.6 10^3/uL (0.2-0.9); Neutrophils # 5.63 10^3/uL (1.8-7.7); Nucleated Red Blood Cells % 0 %; Platelet Count 342 10^3/cmm (130-400); Red Blood Count 3.84 10^6/uL (4.1-5.3); Red Cell Distribution Width 16.4 % (12.1-15.1); White Blood Count 7.1 10^3/uL (4.0-10.0)
[2020-03-21 05:09] LABS: Fibrinogen 728 mg/dL (174-498)
[2020-03-21 05:11] LABS: D Dimer 0.81 ug/mIFEU (0-0.59)
[2020-03-21 05:19] LABS: Alanine Aminotransferase 23 U/L (0-33); Albumin Level 3.4 g/dL (3.5-5.2); Alkaline Phosphatase 82 IU/L (35-105); Blood Urea Nitrogen 15 mg/dL (6-20); Calcium 8.9 mg/dL (8.5-10.5); Carbon Dioxide 23 mmol/L (22-29); Chloride 104 mmol/L (98-107); Globulin 3.2 g/dL (1.3-4.6); Glomerular Filtration Rate 92.2 mL/min (90-130); Glucose 160 mg/dL (65-115); Osmolality Calculated 292 mOsm/kg (285-295); Sodium 139 mmol/L (136-145); Total Bilirubin 0.2 mg/dL (0.15-1.2); Total Protein 6.6 g/dL (6.6-8.7)
[2020-03-21 05:23] LABS: NT Pro B Type Natriuretic Pept 51 pg/mL (0-125)
[2020-03-21 05:34] LABS: Anion Gap 16.5 (5-19); Aspartate Amino Transferase 27 U/L (0-32); Potassium 4.5 mmol/L (3.5-5.1)
[2020-03-21 05:36] LABS: C Reactive Protein 100.7 mg/L (0.0-4.9); Creatine Phosphokinase 147 U/L (26-192)
[2020-03-21 05:49] LABS: Ferritin 1416 ng/mL (15-150)
--- NOTE | 2020-03-21 06:00 | XR_ITS ---
WS: [id number] XR chest 1V portable [id number] REASON FOR EXAM: covid FINDINGS: Compared to the previous examination of 03/18/2020, the infiltrates in the right upper lung show some evidence of resolution with decreased overall density. Right lower lung field is unchanged. Consolidation in the left lower lobe appears to be improving. Infiltrative change in the periphery of the left lung is not improved. XR/XR chest 1V portable [id number] IMPRESSION: Evolving pneumonitis as described above. There appears to be some improvement i n the right upper lung and left lower lung.
[2020-03-21 06:10] LABS: Lactate Dehydrogenase 441 U/L (135-214)
[2020-03-21] MEDS: acetaminophen 325 mg Tablet 650 MG PO (08:24)
[2020-03-21] MEDS: benzonatate 100 mg Capsule PO ×3 (08:25→20:49)
[2020-03-21] MEDS: hydroCHLOROthiazide 25 mg Tablet PO (08:25)
[2020-03-21] MEDS: escitalopram 10 mg Tablet 20 MG PO (08:25)
[2020-03-21] MEDS: ascorbic acid 500 mg Tablet 1000 MG PO ×2 (08:25→17:08)
[2020-03-21] MEDS: zinc gluconate 50 mg Tablet PO (08:25)
[2020-03-21] MEDS: famotidine 20 mg Tablet PO ×2 (08:26→17:08)
[2020-03-21] MEDS: amlodipine 5 mg Tablet 2.5 MG PO (08:26)
[2020-03-21] MEDS: montelukast sodium 10 mg Tablet PO (08:26)
[2020-03-21] MEDS: carvedilol 25 mg Tablet PO ×2 (08:26→17:08)
[2020-03-21] MEDS: mupirocin oint 22 gm 1 APPLIC NASAL ×2 (08:27→18:03)
[2020-03-21] MEDS: albuterol 8 gm MDI 2 PUFF INHALATION ×2 (08:46→15:17)
[2020-03-21] MEDS: azithromycin 500 MG in sodium chloride 0.9% 250 ML 250 MG IV (09:10)
[2020-03-21] MEDS: dexamethasone 4 mg/mL INJ 6 MG IVP (11:41)
--- NOTE | 2020-03-21 13:55 | PM.PN ---
Subjective Subjective: Interval history: No acute events overnight. Patient states she is a lot more energetic today. Saturating 92% on 4 L. She was able to bear today without any difficulty. Appetite is good. Working well with incentive spirometry and Acapella. Denies any nausea, vomiting, headache or dizziness. Vitals/I&O/Wt Last Vital Signs Temp 98.7 F 03/21/20 12:00 Pulse 90 03/21/20 12:00 Resp 17 03/21/20 12:00 BP 118/72 03/21/20 12:00 Pulse Ox 92 03/21/20 12:00 03/20/20 03/21/20 03/21/20 22:59 06:59 14:59 Intake Total 890 / 1810 550 / 2360 610 / 610 Output Total 0 / 150 Balance 890 / 1660 550 / 2210 610 / 610 Weight last 48 hrs Weight 92.805 kg Weight 96.162 kg Physical Exam Narrative: EXAM NARRATIVE: General: No acute distress, AO x3 HEENT: PERRLA, pupils bilaterally equal and reactive Chest: Normal vesicular breath sounds, coarse crackles present in the right upper and 1, left lower zone, diffuse rhonchi all over the lung boyer, good air entry all lung boyer. CVS: S1-S2 regular, no murmurs, no tachycardia, no gallops, no rubs Abdomen: Soft, nontender, no organomegaly, bowel sounds present Neuro: No focal deficits, no facial deformity, AO x3, power 5/5 in all limbs Data : 03/21/20 04:25 03/21/20 04:25 Micro: Microbiology 03/20/20 10:30 Gram Stain - Final Sputum - Expectorated Sputum Sputum Culture - Preliminary 03/15/20 09:34 Blood Culture - Final Blood NO GROWTH AFTER 5 DAYS A&P Assessment and plan (1) COVID-19: Status: Acute (2) Pneumonia: Status: Acute Qualifiers: Laterality: right Lung location: upper lobe of lung Pneumonia type: due to unspecified organism Qualified Code(s): J18.9 - Pneumonia, unspecified organism (3) Rheumatoid arthritis with rheumatoid factor 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 systems involvement: Status: Chronic (4) HTN (hypertension): -VSS; continue to monitor -continue oral antihypertensives Status: Chronic Qualifiers: Hypertension type: essential hypertension Qualified Code(s): I10 - Essential (primary) hypertension (5) Morbid obesity: -BMI-35 kg/m2 Status: Chronic (6) Immunocompromised: Status: Acute Additional A&P Information Hypoxic respiratory failure: COVID-19 pneumonia: Cannot rule out superadded bacterial infection. Moderate to severe disease as patient is requiring up to 6 L supplementation to maintain saturation 90%. Continue antiviral treatment with remdesivir to finish a 5-day course. Started on March 19. Continue with dexamethasone 6 mg IV daily. Stop patient's home dose of prednisone 20 mg. Add Advair, Spiriva. Continue with albuterol as needed. Vitamin C, zinc. Tessalon Perles. Pro-Cortez positive, MRSA positive, urine Legionella negative. It seems patient has had a course of ceftriaxone and azithromycin for 5 days. Antibiotics were escalated to vancomycin, Zosyn, levofloxacin on March 19. Check sputum culture. For now continue with vancomycin and Zosyn to finish at least a 5-day course. Continue to monitor inflammatory markers including ferritin, LDH, CRP, proBNP, D-dimer, fibrinogen. CT results appreciated. Continue with full dose Lovenox 1 mg/kg body weight every 12 hours for now. Most likely patient will require anticoagulation for 2 weeks on discharge. Hypertension: Goal blood pressure less than 140/90 mmHg. Continue with home dose of amlodipine 2.5 mg, carvedilol 25 mg twice daily, hydrochlorothiazide 25 mg daily. For now hold off on spironolactone. Continue to monitor kidney functions. Rheumatoid arthritis: Patient is on leflunomide and Actemra. For now continue to hold off. Continue with steroids as above. Immunocompromised status. Out of bed to chair. Cardiac diet. GI ppx with famotidine DVT ppx with lovenox Dispo: home Code status: FULL code Plan for the day: Continue with pulmonary toilet with incentive spirometry and Acapella valve plan to wean off oxygen as possible. Continue with remdesivir to finish a 5-day course. Attestations Medical Necessity Statement*: Needs controlled hospitalization for management of hypoxic respiratory failure because of COVID-19 pneumonia in immunocompromised patient Time Spent in Patient Care: Greater than 35 minutes (>than 50% of time spent in counselling and/or direct pt care on unit). Coding Level of Care Code Acute Drop Shipment Clerk for [facility] Fwd Diagnoses COVID-19 U07.1 Pneumonia J18.9 Laterality: right Lung location: upper lobe of lung Pneumonia type: due to unspecified organism Rheumatoid arthritis with rheumatoid factor 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 systems involvement M05.79 HTN (hypertension) I10 Hypertension type: essential hypertension Morbid obesity E66.01 Immunocompromised D84.9
--- NOTE | 2020-03-21 14:59 | USCV_ITS ---
ChinoMarychuy Age: 39 Gender: F : 1980 Exam Date: 03/21/2020 06:58 Ordering Phys: Oliver Hurtado MD Technologist: Brittany Hollins [place] [facility] [place]: [place] BP: 134 / 90 HR: 85 Rhythm: Sinus Technical Quality: Suboptimal MEASUREMENTS (Male / Female) Normal Values 2D ECHO LV Diastolic Diameter PLAX 3.3 cm 4.2 - 5.9 / 3.9 - 5.3 cm LV Systolic Diameter PLAX 2.2 cm LV Chamber Size 3.2 cm IVS Diastolic Thickness 1.9 cm 0.6 - 1.0 / 0.6 - 0.9 cm IVS Systolic Thickness 2.3 cm LVPW Diastolic Thickness 1.7 cm 0.6 - 1.0 / 0.6 - 0.9 cm LVPW Systolic Thickness 2.5 cm RV Chamber Size 1.8 cm LVOT Diameter 2.0 cm LV Ejection Fraction 2D Teich 61.8 % LV Ejection Fraction MOD 2C 81.4 % LV Ejection Fraction 2C AL 80.4 % LA Diameter 3.2 cm LA Width 2.5 cm LA Height 3.3 cm RA Width 3.6 cm RA Height 3.1 cm Aorta at Sinotubular Diameter 2.6 cm M-MODE LV Diastolic Diameter MM 4.8 cm 4.2 - 5.9 / 3.9 - 5.3 cm LV Systolic Diameter MM 3.6 cm LV Ejection Fraction MM Teich 50.5 % IVS Diastolic Thickness MM 1.0 cm 0.6 - 1.0 / 0.6 - 0.9 cm IVS Systolic Thickness MM 1.5 cm LVPW Diastolic Thickness MM 1.3 cm 0.6 - 1.0 / 0.6 - 0.9 cm LVPW Systolic Thickness MM 1.5 cm Aortic Annulus Diameter 3.1 cm LA Ao Ratio MM 1.1 MV E Point Septal Separation 1.0 cm DOPPLER AV Peak Velocity 116.0 cm/s LVOT Peak Velocity 81.0 cm/s AV Area Cont Eq vti 2.4 cm squared AV Area Cont Eq pk 2.2 cm squared MV Area PHT 7.1 cm squared Mitral E to A Ratio 0.9 MV E' Velocity 42.5 cm/s Mitral E to MV E' Ratio 8.7 Mitral E to LV E' Lateral Ratio 7.7 Mitral E to LV E' Septal Ratio 10.1 TR Peak Velocity 135.3 cm/s TR Peak Gradient 7.3 mmHg TV Peak E Velocity 87.0 cm/s Right Atrial Pressure 3.0 mmHg Pulmonary Artery Systolic Pressu 10.3 mmHg PV Peak Velocity 74.0 cm/s RV Acceleration Time 0.1 s RV Ejection Time 0.3 s RV AcT/ET 0.5 FINDINGS Left Ventricle Possibly normal LV size ejection fraction of around 60%. No gross wall motion normalities were noted. Right Ventricle Possibly of normal size. But not visualized well. Right Atrium Right atrium not well visualized. Left Atrium Possibly of normal size Mitral Valve No gross abnormalities were noted. Aortic Valve No gross abnormalities noted. Difficult to delineate the leaflets Tricuspid Valve Trace tricuspid valve regurgitation. Pulmonic Valve Pulmonic valve not well visualized. Pericardium Normal pericardium without effusion. Aorta Normal aortic annulus size. CONCLUSIONS Possibly normal LV size ejection fraction of around 60%. No gross wall motion normalities were noted. Trace tricuspid valve regurgitation. There is no pericardial effusion. Technically difficult study because of the poor ultrasonic window. Dr Ciara Saenz MD [facility] (Electronically Signed) Final Date: 22 March 2020 00:52 S
--- NOTE | 2020-03-21 18:05 | PC.NURSE ---
SHIFT GIULIA PT IS NOW ON 4 L NC AT 95% OXYGEN SATURATION, SHE HAS BEEN UP AND MOVING AROUND AND TRYING TO STAY ACTIVE, SHE HAS ALSO STATED SHE IS FEELING WORN OUT TODAY AND BEEN RESTING OFF AND ON THROUGHOUT DAY. PT HAS HAD A DECENT APPETITE AND COMMENTED THAT SHE IS STARTING TO GET HER TASTE BACK. NO OTHER CHANGES THIS SHIFT.
[2020-03-22] VITALS (8 sets, daily range): BP systolic 119–143; BP diastolic 77–84; PULSE 66–90; RESP 16–20; TEMP 36.6–37.1; O2SAT 92–96
[2020-03-22] MEDS: piperacillin-tazobactam 3.375 GM in sodium chloride 0.9% (plus) 50 ML IV ×3 (00:20→15:29)
[2020-03-22] MEDS: enoxaparin 100 mg/mL Syringe SUBCUT ×2 (03:33→15:29)
[2020-03-22 04:14] LABS: Hematocrit 32.2 % (37.0-47.0); Hemoglobin 10.3 g/dL (11.5-15.3); Mean Corpuscular Hemoglobin 27.3 pg (28.0-34.0); Mean Corpuscular Volume 85.4 fL (81-99); Mean Platelet Volume 10.5 fL (7.4-10.4); Platelet Count 350 10^3/cmm (130-400); Red Blood Count 3.77 10^6/uL (4.1-5.3); Red Cell Distribution Width 16.3 % (12.1-15.1); White Blood Count 6.8 10^3/uL (4.0-10.0)
[2020-03-22 04:30] LABS: Fibrinogen 587 mg/dL (174-498)
[2020-03-22 04:32] LABS: D Dimer 0.58 ug/mIFEU (0-0.59)
[2020-03-22 04:38] LABS: Albumin Level 3.1 g/dL (3.5-5.2); Alkaline Phosphatase 74 IU/L (35-105); Blood Urea Nitrogen 15 mg/dL (6-20); Calcium 8.8 mg/dL (8.5-10.5); Carbon Dioxide 23 mmol/L (22-29); Chloride 100 mmol/L (98-107); Globulin 3.5 g/dL (1.3-4.6); Glomerular Filtration Rate 92.2 mL/min (90-130); Glucose 242 mg/dL (65-115); Osmolality Calculated 287 mOsm/kg (285-295); Sodium 134 mmol/L (136-145); Total Bilirubin 0.2 mg/dL (0.15-1.2); Total Protein 6.6 g/dL (6.6-8.7)
[2020-03-22 04:44] LABS: Alanine Aminotransferase 26 U/L (0-33); Aspartate Amino Transferase 28 U/L (0-32)
[2020-03-22 04:47] LABS: Absolute Segmented Neutrophil 5.2 10/cmm (1.6-7.1); Eosinophils 0 %; Lymphocytes 19 %; Monocytes Absolute 0.3 10^3/cmm (0.1-0.6); Segmented Neutrophils 76 %; Total Cells Counted 100 (0-100)
[2020-03-22 04:48] LABS: Absolute Neutrophil 5.2 10^3/cmm (1.4-6.5); Anisocytosis 1+; Hypochromasia 1+; Platelet Estimate Normal (Normal)
[2020-03-22 04:51] LABS: NT Pro B Type Natriuretic Pept 123 pg/mL (0-125); Procalcitonin 0.26 ng/mL (0-0.5)
[2020-03-22 05:02] LABS: C Reactive Protein 40.1 mg/L (0.0-4.9); Creatine Phosphokinase 86 U/L (26-192)
[2020-03-22 05:03] LABS: Lactate Dehydrogenase 421 U/L (135-214)
[2020-03-22 05:15] LABS: Ferritin 1183 ng/mL (15-150)
[2020-03-22] MEDS: albuterol 8 gm MDI 2 PUFF INHALATION ×2 (08:22→20:00)
[2020-03-22] MEDS: azithromycin 500 MG in sodium chloride 0.9% 250 ML 250 MG IV (08:35)
[2020-03-22] MEDS: lactobacillus 1 Tablet 1 TAB PO ×2 (08:36→17:06)
[2020-03-22] MEDS: carvedilol 25 mg Tablet PO ×2 (08:36→17:06)
[2020-03-22] MEDS: famotidine 20 mg Tablet PO ×2 (08:36→17:06)
[2020-03-22] MEDS: montelukast sodium 10 mg Tablet PO (08:36)
[2020-03-22] MEDS: escitalopram 10 mg Tablet 20 MG PO (08:36)
[2020-03-22] MEDS: hydroCHLOROthiazide 25 mg Tablet PO (08:36)
[2020-03-22] MEDS: zinc gluconate 50 mg Tablet PO (08:36)
[2020-03-22] MEDS: amlodipine 5 mg Tablet 2.5 MG PO (08:36)
[2020-03-22] MEDS: ascorbic acid 500 mg Tablet 1000 MG PO ×2 (08:36→17:05)
[2020-03-22] MEDS: benzonatate 100 mg Capsule PO ×3 (08:36→21:08)
--- NOTE | 2020-03-22 09:25 | PM.PN ---
Subjective Subjective: Interval history: No acute events overnight. Patient doing a lot better. Currently on 2 L saturating more than 94%. States she is feeling very tired and fatigued today. Appetite is appropriate. Working appropriately with incentive spirometry and Acapella. Denies any headache, change in sensation of smell or taste. Vitals/I&O/Wt Last Vital Signs Temp 97.9 F 03/22/20 08:00 Pulse 83 03/22/20 08:24 Resp 18 03/22/20 08:24 BP 123/84 03/22/20 08:00 Pulse Ox 94 03/22/20 08:24 03/21/20 03/22/20 03/22/20 22:59 06:59 14:59 Intake Total 890 / 1790 1030 / 1030 Output Total 0 / 0 0 / 0 Balance 890 / 1790 0 / 1790 1030 / 1030 Weight last 48 hrs Weight 92.941 kg Weight 92.805 kg Physical Exam Narrative: EXAM NARRATIVE: General: No acute distress, AO x3 HEENT: PERRLA, pupils bilaterally equal and reactive Chest: Normal vesicular breath sounds, coarse crackles present in the right upper and 1, left lower zone, diffuse rhonchi all over the lung boyer, good air entry all lung boyer. CVS: S1-S2 regular, no murmurs, no tachycardia, no gallops, no rubs Abdomen: Soft, nontender, no organomegaly, bowel sounds present Neuro: No focal deficits, no facial deformity, AO x3, power 5/5 in all limbs Data : 03/22/20 03:45 03/22/20 03:45 Micro: Microbiology 03/15/20 18:49 Blood Culture - Final Blood Coagulase negativ staphylococc 03/20/20 10:30 Gram Stain - Final Sputum - Expectorated Sputum Sputum Culture - Preliminary A&P Assessment and plan (1) COVID-19: Status: Acute (2) Pneumonia: Status: Acute Qualifiers: Laterality: right Lung location: upper lobe of lung Pneumonia type: due to unspecified organism Qualified Code(s): J18.9 - Pneumonia, unspecified organism (3) Rheumatoid arthritis with rheumatoid factor 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 systems involvement: Status: Chronic (4) HTN (hypertension): -VSS; continue to monitor -continue oral antihypertensives Status: Chronic Qualifiers: Hypertension type: essential hypertension Qualified Code(s): I10 - Essential (primary) hypertension (5) Morbid obesity: -BMI-35 kg/m2 Status: Chronic (6) Immunocompromised: Status: Acute Additional A&P Information Hypoxic respiratory failure: COVID-19 pneumonia: Cannot rule out superadded bacterial infection. Moderate to severe disease as patient is requiring up to 6 L supplementation to maintain saturation 90%. Continue antiviral treatment with remdesivir to finish a 5-day course. Started on March 19. Continue with dexamethasone 6 mg IV daily. Add Advair, Spiriva. Continue with albuterol as needed. Vitamin C, zinc. Tessalon Perles. Pro-Cortez positive, MRSA positive, urine Legionella negative. Continue vancomycin and Zosyn to finish a 5-day course. Day 4 today. Patient has finished a course of azithromycin for atypical coverage. Continue to monitor inflammatory markers including ferritin, LDH, CRP, proBNP, D-dimer, fibrinogen. CT results appreciated. Continue with full dose Lovenox 1 mg/kg body weight every 12 hours for now. Most likely patient will require anticoagulation for 2 weeks on discharge. Hypertension: Goal blood pressure less than 140/90 mmHg. Continue with home dose of amlodipine 2.5 mg, carvedilol 25 mg twice daily, hydrochlorothiazide 25 mg daily. For now hold off on spironolactone. Continue to monitor kidney functions. Rheumatoid arthritis: Patient is on leflunomide and Actemra. For now continue to hold off. Continue with steroids as above. Immunocompromised status. Out of bed to chair. Cardiac diet. GI ppx with famotidine DVT ppx with lovenox Dispo: home Code status: FULL code Plan for the day: Continue with pulmonary toilet with incentive spirometry and Acapella while trying to wean off oxygen supplementation as possible keeping saturation over 90%. Continue IV antibiotics for possible superadded bacterial infection and continue remdesivir to finish a 5-day course. Attestations Medical Necessity Statement*: Patient requires further hospitalization for management of improving hypoxia secondary to COVID-19 pneumonia, superadded bacterial infection in setting of immunocompromise status. Time Spent in Patient Care: Greater than 35 minutes (>than 50% of time spent in counselling and/or direct pt care on unit). 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
[2020-03-22] MEDS: dexamethasone 4 mg/mL INJ 6 MG IVP (13:28)
[2020-03-22 14:05] LABS: Vancomycin Trough 23.1 ug/mL (10-15)
--- NOTE | 2020-03-22 16:23 | PC.NURSE ---
vanc trough 23.1. notified Jordan in pharmacy. holding 1430 dose of vanc.
[2020-03-22] MEDS: mupirocin oint 22 gm 1 APPLIC NASAL (17:07)
[2020-03-23] VITALS (11 sets, daily range): BP systolic 127–152; BP diastolic 79–96; PULSE 64–79; RESP 17–20; TEMP 36.5–37.1; O2SAT 92–96
[2020-03-23] MEDS: piperacillin-tazobactam 3.375 GM in sodium chloride 0.9% (plus) 50 ML IV ×3 (00:18→15:05)
[2020-03-23] MEDS: enoxaparin 100 mg/mL Syringe SUBCUT ×2 (03:10→14:43)
[2020-03-23 04:01] LABS: Hematocrit 34.8 % (37.0-47.0); Hemoglobin 10.8 g/dL (11.5-15.3); Mean Corpuscular Hemoglobin 26.9 pg (28.0-34.0); Mean Corpuscular Volume 86.6 fL (81-99); Mean Platelet Volume 9.5 fL (7.4-10.4); Platelet Count 408 10^3/cmm (130-400); Red Blood Count 4.02 10^6/uL (4.1-5.3); Red Cell Distribution Width 16.2 % (12.1-15.1); White Blood Count 8.9 10^3/uL (4.0-10.0)
[2020-03-23 04:08] LABS: Fibrinogen 648 mg/dL (174-498)
[2020-03-23 04:10] LABS: D Dimer 0.54 ug/mIFEU (0-0.59)
[2020-03-23 04:26] LABS: C Reactive Protein 20.9 mg/L (0.0-4.9); Creatine Phosphokinase 50 U/L (26-192); Lactate Dehydrogenase 303 U/L (135-214); NT Pro B Type Natriuretic Pept 83 pg/mL (0-125)
[2020-03-23 04:29] LABS: Alanine Aminotransferase 45 U/L (0-33); Albumin Level 3.1 g/dL (3.5-5.2); Alkaline Phosphatase 84 IU/L (35-105); Anion Gap 12.9 (5-19); Aspartate Amino Transferase 31 U/L (0-32); Blood Urea Nitrogen 14 mg/dL (6-20); Calcium 8.7 mg/dL (8.5-10.5); Carbon Dioxide 25 mmol/L (22-29); Chloride 103 mmol/L (98-107); Globulin 3.5 g/dL (1.3-4.6); Glucose 326 mg/dL (65-115); Osmolality Calculated 297 mOsm/kg (285-295); Potassium 3.9 mmol/L (3.5-5.1); Sodium 137 mmol/L (136-145); Total Bilirubin 0.2 mg/dL (0.15-1.2); Total Protein 6.6 g/dL (6.6-8.7)
[2020-03-23 05:35] LABS: Total Cells Counted 100 (0-100)
[2020-03-23 05:36] LABS: Absolute Neutrophil 7.2 10^3/cmm (1.4-6.5); Absolute Segmented Neutrophil 7.2 10/cmm (1.6-7.1); Anisocytosis Trace; Eosinophils 0 %; Hypochromasia 1+; Lymphocytes 15 %; Monocytes Absolute 0.4 10^3/cmm (0.1-0.6); Platelet Estimate Increased (Normal); Segmented Neutrophils 81 %
[2020-03-23 05:39] LABS: Procalcitonin 0.14 ng/mL (0-0.5)
[2020-03-23 05:50] LABS: Ferritin 879 ng/mL (15-150)
--- NOTE | 2020-03-23 06:00 | XR_ITS ---
WS: [id number] PORTABLE CHEST HISTORY: covid COMPARISON: 03/21/2020 Decreased lung volumes with bilateral scattered opacifications. There has been very slight improvemen t in the opacification density since the prior study. No pleural effusion or pneumothorax. Cardiac size: Normal. Mediastinum/Aorta: Normal mediastinum. No osseous abnormality seen. XR/XR chest 1V portable [id number] IMPRESSION: Very mild improvement in the bilateral pulmonary opacifications.
[2020-03-23] MEDS: albuterol 8 gm MDI 2 PUFF INHALATION ×3 (07:49→19:40)
[2020-03-23] MEDS: azithromycin 500 MG in sodium chloride 0.9% 250 ML 250 MG IV (08:01)
[2020-03-23] MEDS: ascorbic acid 500 mg Tablet 1000 MG PO ×2 (08:02→17:10)
[2020-03-23] MEDS: escitalopram 10 mg Tablet 20 MG PO (08:02)
[2020-03-23] MEDS: lactobacillus 1 Tablet 1 TAB PO ×2 (08:02→17:10)
[2020-03-23] MEDS: hydroCHLOROthiazide 25 mg Tablet PO (08:02)
[2020-03-23] MEDS: amlodipine 5 mg Tablet 2.5 MG PO (08:03)
[2020-03-23] MEDS: benzonatate 100 mg Capsule PO ×3 (08:03→22:08)
[2020-03-23] MEDS: zinc gluconate 50 mg Tablet PO (08:04)
[2020-03-23] MEDS: mupirocin oint 22 gm 1 APPLIC NASAL (08:04)
[2020-03-23] MEDS: famotidine 20 mg Tablet PO ×2 (08:04→17:10)
[2020-03-23] MEDS: montelukast sodium 10 mg Tablet PO (08:04)
[2020-03-23] MEDS: carvedilol 25 mg Tablet PO ×2 (08:04→17:10)
[2020-03-23] MEDS: dexamethasone 4 mg/mL INJ 6 MG IVP (11:59)
--- NOTE | 2020-03-23 18:09 | PM.PN ---
Subjective Subjective: Interval history: No events documented overnight. Patient doing a lot better now. States her energy levels are better. On examination she was saturating 92% on 1 L. Denies any nausea, vomiting, headache. Has remained afebrile and hemodynamically stable. Vitals and labs noted. Vitals/I&O/Wt Last Vital Signs Temp 98.2 F 03/23/20 15:44 Pulse 76 03/23/20 15:44 Resp 17 03/23/20 15:44 BP 129/87 03/23/20 15:44 Pulse Ox 94 03/23/20 15:44 03/23/20 03/23/20 03/23/20 06:59 14:59 22:59 Intake Total 790 / 3050 1400 / 1400 400 / 1800 Output Total 400 / 400 200 / 600 Balance 790 / 3050 1000 / 1000 200 / 1200 Weight last 48 hrs Weight 91.308 kg Weight 92.941 kg Physical Exam Narrative: EXAM NARRATIVE: General: No acute distress, AO x3 HEENT: PERRLA, pupils bilaterally equal and reactive Chest: Normal vesicular breath sounds, coarse crackles present in the right upper and 1, left lower zone, diffuse rhonchi all over the lung boyer, good air entry all lung boyer. CVS: S1-S2 regular, no murmurs, no tachycardia, no gallops, no rubs Abdomen: Soft, nontender, no organomegaly, bowel sounds present Neuro: No focal deficits, no facial deformity, AO x3, power 5/5 in all limbs Data : 03/23/20 03:44 03/23/20 03:44 Micro: Microbiology 03/17/20 15:32 Blood Culture - Final Blood NO GROWTH AFTER 5 DAYS 03/17/20 13:02 Blood Culture - Final Blood NO GROWTH AFTER 5 DAYS A&P Assessment and plan (1) COVID-19: Status: Acute (2) Pneumonia: Status: Acute Qualifiers: Laterality: right Lung location: upper lobe of lung Pneumonia type: due to unspecified organism Qualified Code(s): J18.9 - Pneumonia, unspecified organism (3) Rheumatoid arthritis with rheumatoid factor 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 systems involvement: Status: Chronic (4) HTN (hypertension): -VSS; continue to monitor -continue oral antihypertensives Status: Chronic Qualifiers: Hypertension type: essential hypertension Qualified Code(s): I10 - Essential (primary) hypertension (5) Morbid obesity: -BMI-35 kg/m2 Status: Chronic (6) Immunocompromised: Status: Acute Additional A&P Information Hypoxic respiratory failure: COVID-19 pneumonia: Cannot rule out superadded bacterial infection. Moderate to severe disease as patient is requiring up to 6 L supplementation to maintain saturation 90%. Continue antiviral treatment with remdesivir to finish a 5-day course. Started on March 19. Continue with dexamethasone 6 mg IV daily. Add Advair, Spiriva. Continue with albuterol as needed. Vitamin C, zinc. Tessalon Perles. Pro-Cortez positive, MRSA positive, urine Legionella negative. Cultures negative so far. Continue vancomycin and Zosyn to finish a 5-day course. Patient has finished a course of azithromycin for atypical coverage. Continue to monitor inflammatory markers including ferritin, LDH, CRP, proBNP, D-dimer, fibrinogen. CT results appreciated. Continue with full dose Lovenox 1 mg/kg body weight every 12 hours for now. Most likely patient will require anticoagulation for 2 weeks on discharge. Hypertension: Goal blood pressure less than 140/90 mmHg. Continue with home dose of amlodipine 2.5 mg, carvedilol 25 mg twice daily, hydrochlorothiazide 25 mg daily. For now hold off on spironolactone. Continue to monitor kidney functions. Rheumatoid arthritis: Patient is on leflunomide and Actemra. For now continue to hold off. Continue with steroids as above. Immunocompromised status. Out of bed to chair. Cardiac diet. GI ppx with famotidine DVT ppx with lovenox Dispo: home Code status: FULL code Plan for the day: Continue with aggressive pulmonary toilet. Continue with remdesivir to finish the last day course. Last day of broad-spectrum antibiotics as well. Continue to follow culture results. We will try to walk patient around the floor. Home O2 evaluation prior to discharge. Most likely discharge tomorrow. Attestations Medical Necessity Statement*: Requires further hospitalization for management of hypoxic respiratory failure secondary to COVID-19 pneumonia and superadded bacterial infection. 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
[2020-03-24] VITALS (7 sets, daily range): BP systolic 134–154; BP diastolic 84–94; PULSE 62–73; RESP 17–20; TEMP 36.4–36.9; O2SAT 87–97
[2020-03-24] MEDS: piperacillin-tazobactam 3.375 GM in sodium chloride 0.9% (plus) 50 ML IV ×2 (02:04→08:56)
[2020-03-24] MEDS: enoxaparin 100 mg/mL Syringe SUBCUT (02:29)
--- NOTE | 2020-03-24 07:09 | PC.NURSE ---
Night Pharmacist contacted due to vanc trough level of 23.1. Night pharmacist instructed nurse to administer vanc stating day pharmacist was aware and comfortable administering next dose.
[2020-03-24] MEDS: albuterol 8 gm MDI 2 PUFF INHALATION (08:15)
[2020-03-24] MEDS: benzonatate 100 mg Capsule PO (08:56)
[2020-03-24] MEDS: escitalopram 10 mg Tablet 20 MG PO (08:56)
[2020-03-24] MEDS: amlodipine 5 mg Tablet 2.5 MG PO (08:56)
[2020-03-24] MEDS: lactobacillus 1 Tablet 1 TAB PO (08:56)
[2020-03-24] MEDS: mupirocin oint 22 gm 1 APPLIC NASAL (08:57)
[2020-03-24] MEDS: hydroCHLOROthiazide 25 mg Tablet PO (08:57)
[2020-03-24] MEDS: montelukast sodium 10 mg Tablet PO (08:57)
[2020-03-24] MEDS: zinc gluconate 50 mg Tablet PO (08:57)
[2020-03-24] MEDS: famotidine 20 mg Tablet PO (08:57)
[2020-03-24] MEDS: carvedilol 25 mg Tablet PO (08:57)
[2020-03-24] MEDS: ascorbic acid 500 mg Tablet 1000 MG PO (08:57)
--- NOTE | 2020-03-24 10:00 | PM.DCS ---
Discharge Providers Date of Admission: 03/15/20 13:03 Date of Discharge: March 24, 2020 Attending Provider at Admission: Jane Watt MD Attending Provider at Discharge: Oliver Hurtado MD Primary Care Provider: Malcom Villanueva MD Diagnoses at Discharge Discharge Diagnosis (1) COVID-19: Status: Acute (2) Pneumonia: Status: Acute Qualifiers: Laterality: right Lung location: upper lobe of lung Pneumonia type: due to unspecified organism Qualified Code(s): J18.9 - Pneumonia, unspecified organism (3) Rheumatoid arthritis with rheumatoid factor 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 systems involvement: Status: Chronic (4) HTN (hypertension): Status: Chronic Qualifiers: Hypertension type: essential hypertension Qualified Code(s): I10 - Essential (primary) hypertension (5) Morbid obesity: Status: Chronic (6) Immunocompromised: Status: Acute Reason for Visit Reason for Visit: SOB/RAPID TESTED NEG Hospital Course Hospital Course Marychuy Chino is a 39 year old female with PMHx morbid obesity, rheumatoid arthritis on leflunomide and Actemra, immunocompromised because of the same who presented on March 15 with complaints of feeling ill, shortness of breath, non-productive cough, malaise, fatigue over the past 1 to 2 days, acutely worsened early this morning. 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 Patient's COVID-19 at outside facility came back positive. At first she was admitted to the medical general floor with COVID-19 isolation precautions and started on steroids and IV antibiotics for community-acquired pneumonia. Patient continued to spike fever and on March 19 she desaturated needing up to 10 L high flow nasal cannula to maintain saturation over 92%. At that time patient was started on antiviral treatment with remdesivir and broad-spectrum antibiotics to cover for MRSA. Her blood cultures remain negative, sputum culture remain negative though MRSA swab came back positive. Patient responded well to the treatment and gradually was weaned off oxygen and currently on the day of discharge is saturating 94% on room air. Patient is been discharged in hemodynamically stable condition with advised to continue Eliquis as anticoagulation for 2 weeks, vitamin C and zinc for 2 weeks, Spiriva and Advair as inhalation treatment for 2 weeks, levofloxacin and doxycycline for 3 more days to finish a 10-day course, dexamethasone 6 mg oral for next 10 days after which she can continue taking her home dose of prednisone 10 mg daily with advised to hold off on leflunomide and Actemra for next 2 weeks and then start after visiting with her primary care provider and machinery engineer. Physical Exam Narrative: EXAM NARRATIVE: General: No acute distress, AO x3 HEENT: PERRLA, pupils bilaterally equal and reactive Chest: Normal vesicular breath sounds, coarse crackles present in the right upper and 1, left lower zone, diffuse rhonchi all over the lung boyer, good air entry all lung boyer. CVS: S1-S2 regular, no murmurs, no tachycardia, no gallops, no rubs Abdomen: Soft, nontender, no organomegaly, bowel sounds present Neuro: No focal deficits, no facial deformity, AO x3, power 5/5 in all limbs Discharge Data Data Completed and Pending: Completed Studies During Hospitalization Category Date Time Status CT angio chest PE protcl [id number] Urge nt Cat Scan 03/15/20 11:[address] chest wo con 7 1250 Routine Cat Scan 03/19/20 11:40 Completed XR chest 1V ana rosa ble [id number] Q48H Exams 03/21/20 06:00 Completed XR chest 1V ana rosa ble [id number] Q48H Exams 03/23/20 06:00 Completed XR chest 1V ana rosa ble [id number] Routine Exams 03/18/20 12:50 Completed XR chest 1V ana rosa ble [id number] Stat Exams 03/15/20 08:28 Completed CV echo complete* [id number] Routine Ultrasound 03/21/20 14:59 Completed Pending at discharge Category Date Time Status XR chest 1V ana rosa ble [id number] Q48H Exams 03/25/20 06:00 Ordered Vancomycin Trough Timed Lab 03/24/20 09:00 Ordered Vitals: Last Vital Signs Temp 98.1 F 03/24/20 08:00 Pulse 73 03/24/20 09:15 Resp 18 03/24/20 09:15 BP 147/94 03/24/20 08:00 Pulse Ox 94 03/24/20 09:15 Discharge Plan Discharge Patient Disposition: Home Condition: Stable Prescriptions: New Zofran 4 mg tablet 4 mg PO Q4H Qty: 10 RF: 0 Advair Diskus 250-50 mcg/dose Blister With Device 1 puff inhalation BID.RESPIRATORY Qty: 28 RF: 0 famotidine 20 mg Tablet 20 mg PO BID Qty: 30 RF: 0 Vitamin C 500 mg Tablet 1,000 mg PO BID 14 Days Qty: 56 RF: 0 benzonatate 100 mg Capsule 100 mg PO TID PRN (Reason: cough) Qty: 10 RF: 0 zinc gluconate 50 mg Tablet 50 mg PO DAILY 14 Days Qty: 14 RF: 0 Spiriva with HandiHaler 18 mcg Capsule, W/Inhalation Device 18 mcg inhalation DAILY.RESPIRATORY Qty: 15 RF: 0 doxycycline hyclate 100 mg capsule 100 mg PO BID 5 Days Qty: 10 RF: 0 levofloxacin 500 mg tablet 500 mg PO DAILY 5 Days Qty: 5 RF: 0 dexamethasone 6 mg tablet 6 mg PO DAILY 10 Days Qty: 10 RF: 0 Eliquis 2.5 mg tablet 2.5 mg PO Q12H Qty: 30 RF: 0 Continued amlodipine [Norvasc] 2.5 mg tablet 2.5 mg PO DAILY RF: 0 carvedilol [Coreg] 25 mg tablet 25 mg PO BID RF: 0 escitalopram oxalate [Lexapro] 20 mg tablet 20 mg PO DAILY RF: 0 triamterene-hydrochlorothiazid [Dyazide] 37.5-25 mg capsule 1 cap PO QAM RF: 0 Tylenol Extra Strength 500 mg Tablet 1,000 mg PO PRN RF: 0 montelukast 10 mg Tablet 10 mg PO DAILY RF: 0 Held spironolactone 100 mg tablet 100 mg PO QAM RF: 0 Hold Instructions: Resume on 04/06/20. leflunomide 20 mg tablet 20 mg PO DAILY Qty: 30 RF: 3 Hold Instructions: Resume on 04/13/20. prednisone 10 mg Tablet 20 mg PO DAILY RF: 0 Hold Instructions: Resume on 04/04/20. Discharge Orders: Discharge Order (Routine); Ordered 03/24/20 Ordered By: Oliver Hurtado Referrals: Malcom Villanueva MD [Primary Care Provider] - 1-3 days Discharge Diet: Usual diet Discharge Activity: Limit activity as instructed Patient Instructions: Pneumonia (ED), Using Oxygen at Home (DC) Activity Restrictions/Additional Instructions: Continue Eliquis as anticoagulation for 2 weeks, vitamin C and zinc for 2 weeks, Spiriva and Advair as inhalation treatment for 2 weeks, levofloxacin and doxycycline for 3 more days to finish a 10-day course, dexamethasone 6 mg oral for next 10 days after which she can continue taking her home dose of prednisone 10 mg daily with advised to hold off on leflunomide and Actemra for next 2 weeks and then start after visiting with her primary care provider and machinery engineer. Please follow-up with the primary care provider within next 1 to 3 days. If you have any fever, difficulty in breathing, bleeding from anywhere please present to the ER. Discharge Attestations Time Spent in Discharge Care*: greater than 30 min Specific Discharge Activities: educating patient, discussing with pcp/other providers, discussing with outsole caser/social workers/dc planners, documenting/other paperwork and evaluating patient/reviewing data Status at Discharge: Cognitive status at discharge: cognitively intact, Behavioral status at discharge: cooperative, Functional status at discharge: independent ambulation Overall status at discharge: patient is progressing back to baseline Quality Metrics Clinical Quality Measures During this hospital stay, did patient experience: None Coding Level of Care Code Acute Senior Policy Associate 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
[2020-03-24 10:15] LABS: Vancomycin Trough 19.6 ug/mL (10-15)
--- NOTE | 2020-03-27 16:15 | PC.SOCIAL ---
unable to reach patient to follow up. Left message.
== END 2020-03-24 15:14 | disposition home or self-care (01) | DRG 871 ==
LOC: ER 12:55 → CSU 13:24 → MEDSURG 13:43
PROVIDERS: Internal Medicine; Nurse Practitioner Family; Admitting Provider Family Medicine; Emergency Provider Emergency Medicine; PCP Family Medicine; Visit Provider Student in an Organized Health Care Education/Training Program
DX: A41.9 Sepsis, unspecified organism (principal); U07.1 COVID-19; J12.89 Other viral pneumonia; J86.9 Pyothorax without fistula; J96.01 Acute respiratory failure with hypoxia; M05.89 Other rheumatoid arthritis with rheumatoid factor of multiple sites; Z79.52 Long term (current) use of systemic steroids; E87.6 Hypokalemia; I10 Essential (primary) hypertension; E66.01 Morbid (severe) obesity due to excess calories; Z68.35 Body mass index [BMI] 35.0-35.9, adult; E86.0 Dehydration; B95.62 Methicillin resistant Staphylococcus aureus infection as the cause of diseases classified elsewhere
CPT/HCPCS: 12345; 36415; 71045; 71250; 71275; 80048; 80053; 80202; 81001; 81003; 82550; 82728; 83605; 83615; 83880; 84145; 84484; 85007; 85025; 85378; 85384; 86140; 86403; 87040; 87070; 87081; 87205; 87426; 87449; 87641; 87804; 93005; 93306; 94640; 96372; 96375; 99282; J0456; J0696; J1100; J1650; J1956; J2543; J3370; J3535; J7030; J7040; J7050; J7512; Q9967

== ENCOUNTER 2021-04-02 15:43 | Outpatient (CLI) | payer BC, SELFPAY ==
--- NOTE | 2021-04-02 15:53 | XRR_ITS ---
PROCEDURE INFORMATION: Exam: XR Sternum Exam date and time: 04/02/2021 3:53 PM Age: 40 years old Clinical indication: Abnormal findings; Abnormal radiologic exam of lung or chest; Patient HX: Spot seen on bone scan on sternum; Additional info: Encounter for screening for other disorder TECHNIQUE: Imaging protocol: XR sternum. Views: 2 or more views. COMPARISON: CR XR chest 1V portable [id number] 03/23/2020 5:31 AM FINDINGS: Bones/joints: No evident lucent or sclerotic lesion seen within the sternum. Soft tissues: Normal. XR/XR sternum min 2V [id number] IMPRESSION: No evidence of sternal lesion by radiographic technique.
== END 2021-04-02 15:44 | disposition home or self-care (01) ==
LOC: RAD 15:47
PROVIDERS: PCP Family Medicine; Visit Provider Internal Medicine Rheumatology
DX: Z13.89 Encounter for screening for other disorder (principal)
CPT/HCPCS: 71120

== ENCOUNTER 2021-04-29 11:37 | Emergency (ER) | payer BC, SELFPAY ==
[2021-04-29 11:49] VITALS: BP 116/82; PULSE 104; RESP 14; TEMP 36.9; O2SAT 97; BMI 30.7
[2021-04-29] MEDS: lidocaine 1% INJ 20 mL INJECTION (12:17)
--- NOTE | 2021-04-29 12:31 | W.ED.SKABFB ---
HPI - Skin/Abscess/Foreign Bdy General: Chief complaint: Skin/Abscess/Foreign Body Stated complaint: Boil on Left leg Time Seen by Provider: 04/29/21 11:58 History of Present Illness: HPI narrative: Patient comes in with concerns for an abscess on her left thigh. States it started a couple days ago but was significantly worse this morning when she woke up. Complains of some nausea as well. Denies fever, vomiting, diarrhea. States she gets these abscesses frequently. Associated symptoms: Deny fever(s), nausea or vomiting Review of Systems Const: Denies: fever(s) or body aches Eyes: Denies: change in vision or blurry vision ENMT: Denies: throat pain or odynophagia Card: Denies: chest pain or palpitations Resp: Denies: dyspnea or productive cough GI: Denies: abdominal pain, nausea or vomiting : Denies: flank pain or dysuria Musc: Denies: neck pain or back pain Skin/Breast: Reports: new lesions; Denies: rash or pruritus Neuro: Denies: headache(s) or numbness in extremities Psych: Denies: anxiety or change in appetite Endo: Denies: polyuria or excessive sweating PFSH ED PFSH: Medical History (Updated 04/29/21 @ 12:31 by Cisco Maldonado MD) High risk medication use HTN (hypertension) Immunization counseling Morbid obesity Rheumatoid arthritis with rheumatoid factor 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 systems involvement Surgical History (Updated 03/15/20 @ 17:34 by Jane Watt MD) H/O dilation and curettage -x 2 H/O myomectomy 11/09/2017 History of endometrial ablation Hx of cataract surgery bilateral 01/24 Family History Other Diabetes Hypertension Rheumatoid arthritis Social History (Updated 03/15/20 @ 17:35 by Jane Watt MD) Smoking and tobacco status: never smoked Alcohol intake: never Marital status: Current occupational status: employed History of recent travel: No Physical Exam Const: COMMON NORMALS: no acute distress, patient oriented x3, healthy appearing and alert HENMT: COMMON NORMALS: normocephalic and atraumatic HEAD & SCALP: normocephalic and atraumatic Eye: COMMON NORMALS: Equal, round and reactive pupils present and EOMs intact bilaterally PUPIL: Yes Equal, round and reactive pupils present Neck/C-Spine: COMMON NORMALS: full ROM and supple Resp: COMMON NORMALS: normal respiratory effort, No retractions and No use of accessory muscles Cardio: COMMON NORMALS: regular rate and regular rhythm RATE: regular rate RHYTHM: regular rhythm GI: COMMON NORMALS: Normal to inspection, nondistended, normoactive bowel sounds present, Soft to palpation and non-tender PALPATION: Yes Soft to palpation Back/Pelvis: COMMON NORMALS: thoracic and lumbar spine normal to inspection and no thoracic nor lumbar tenderness Extremity: COMMON NORMALS: normal to inspection and full ROM Neuro: COMMON NORMALS: patient oriented x3 SENSORIUM/ORIENTATION: Yes alert Psych: COMMON NORMALS: mental status grossly normal and cooperative Skin: COMMON NORMALS: no wounds (5 x 6 cm indurated region on the medial left thigh with central fluctuance) Procedures Abscess I/D Site: lower extremity Side (if applicable): left Local Anesthetic: lidocaine 1% Amount of anesthesia used (mL): 3 Technique: incised with #11 blade Amount of fluid expressed (mL): 30 Packing used?: plain Course Vital Signs: Vital signs: Vital Signs Temperature 98.5 F 04/29/21 11:49 Pulse Rate 104 H 04/29/21 11:49 Respiratory Rate 14 04/29/21 11:49 Blood Pressure 116/82 04/29/21 11:49 Pulse Oximetry 97 04/29/21 11:49 MDM - Skin/Abscess/Foreign Bdy MDM Narrative: Medical decision making narrative: Patient comes in with concerns for an abscess on her left thigh. States it started a couple days ago but was significantly worse this morning when she woke up. Complains of some nausea as well. Denies fever, vomiting, diarrhea. States she gets these abscesses frequently. On physical exam she has a large abscess on her proximal medial left thigh. I anesthetized the skin with 1% lidocaine using a 27-gauge needle, then with an 11 blade scalpel I made a single straight incision and drained a very large amount of purulent fluid. I broke up the loculations, as it was a complex abscess. Discharge Plan Discharge Patient Disposition: Home Clinical Impression: Abscess of left leg Condition: Stable Prescriptions: New Bactrim DS 800-160 mg tablet 1 tab PO BID 10 Days Qty: 20 RF: 0 Keflex 750 mg capsule 750 mg PO Q6H 10 Days Qty: 40 RF: 0 No Action spironolactone 100 mg tablet 100 mg PO QAM RF: 0 Hold Instructions: Resume on 04/06/20. amlodipine [Norvasc] 2.5 mg tablet 2.5 mg PO DAILY RF: 0 carvedilol [Coreg] 25 mg tablet 25 mg PO BID RF: 0 escitalopram oxalate [Lexapro] 20 mg tablet 20 mg PO DAILY RF: 0 triamterene-hydrochlorothiazid [Dyazide] 37.5-25 mg capsule 1 cap PO QAM RF: 0 leflunomide 20 mg tablet 20 mg PO DAILY Qty: 30 RF: 3 Hold Instructions: Resume on 04/13/20. prednisone 10 mg Tablet 20 mg PO DAILY RF: 0 Hold Instructions: Resume on 04/04/20. Tylenol Extra Strength 500 mg Tablet 1,000 mg PO PRN RF: 0 montelukast 10 mg Tablet 10 mg PO DAILY RF: 0 Zofran 4 mg tablet 4 mg PO Q4H Qty: 10 RF: 0 Advair Diskus 250-50 mcg/dose Blister With Device 1 puff inhalation BID.RESPIRATORY Qty: 28 RF: 0 famotidine 20 mg Tablet 20 mg PO BID Qty: 30 RF: 0 benzonatate 100 mg Capsule 100 mg PO TID PRN (Reason: cough) Qty: 10 RF: 0 Spiriva with HandiHaler 18 mcg Capsule, W/Inhalation Device 18 mcg inhalation DAILY.RESPIRATORY Qty: 15 RF: 0 Eliquis 2.5 mg tablet 2.5 mg PO Q12H Qty: 30 RF: 0 Discharge Orders: Discharge ED (Routine); Ordered 04/29/21 Ordered By: Cisco Maldonado Referrals: Malcom Villanueva MD [Primary Care Provider] - Coding Level of Care Code ED Trust Officer for [employer]
[2021-04-29 13:02] VITALS: BP 121/83; PULSE 97; RESP 17; O2SAT 98
== END 2021-04-29 13:08 | disposition home or self-care (01) ==
PROVIDERS: Emergency Provider Emergency Medicine; PCP Family Medicine
DX: L02.416 Cutaneous abscess of left lower limb (principal); Z79.01 Long term (current) use of anticoagulants; I10 Essential (primary) hypertension
CPT/HCPCS: 10060; 99282

== ENCOUNTER → 2021-11-06 10:57 | Outpatient (BNVA) | payer BC, SELFPAY | PROVIDERS: PCP Family Medicine; Referring Provider Family Medicine; Visit Provider Internal Medicine Rheumatology | DX: Z79.899 Other long term (current) drug therapy (principal); M06.9 Rheumatoid arthritis, unspecified | CPT/HCPCS: 36415; 80076; 82565; 83615; 84155; 84165; 85025; 85651; 86140 ==

== ENCOUNTER 2021-12-19 20:45 | Emergency (ER) | payer BC, SELFPAY ==
[2021-12-19 21:27] VITALS: BP 160/111; PULSE 133; RESP 17; TEMP 36.7; O2SAT 95
--- NOTE | 2021-12-20 00:14 | ED_ITS ---
HPI - Nausea/Vomiting/Diarrhea General: Chief complaint: Nausea/Vomiting/Diarrhea Stated complaint: Urgent Care sent absess\Antibiatic nmaking her sic Time Seen by Provider: 12/20/21 00:07 History of Present Illness: 41-year-old female comes in today for evaluation of a abscess to her buttock. Patient was seen at urgent care and was started on doxycycline. Since starting the doxycycline patient's been having increased vomiting and unable to hold the medication down. Patient did report that she had been sick 2 or 3 times prior to starting the antibiotic also. Patient has had a recurrent boil to her buttocks with the last episode being about 2 weeks ago. Patient has a history of hydradenitis suppurative and gets recurrent abscesses. Patient also has rheumatoid arthritis. Patient at this time is on medications for blood pressure, and depression. Patient does not take any routine medication for her rheumatoid arthritis. Patient appears nontoxic. Patient appears in mild pain. 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 systems involvement Surgical History H/O dilation and curettage -x 2 H/O myomectomy 11/09/2017 History of endometrial ablation Hx of cataract surgery bilateral 01/24 Family History Other Diabetes Hypertension Rheumatoid arthritis Social History Smoking and tobacco status: current every day smoker Alcohol intake: never Marital status: Current occupational status: employed History of recent travel: No Physical Exam Const: COMMON NORMALS: alert HENMT: COMMON NORMALS: normocephalic HEAD & SCALP: normocephalic Neck/C-Spine: COMMON NORMALS: full ROM Resp: COMMON NORMALS: normal respiratory effort Cardio: COMMON NORMALS: regular rhythm RATE: tachycardic RHYTHM: regular rhythm GI: COMMON NORMALS: non-tender Extremity: COMMON NORMALS: no pedal edema Neuro: SENSORIUM/ORIENTATION: Yes alert Skin: NARRATIVE SKIN EXAM: Patient has a packed wound on the right buttocks. Patient also has a draining abscess to the left buttocks. Procedures Abscess I/D Site: other (Left buttock) Sedation/analgesia: none Local Anesthetic: other anesthetic Technique: incised with #11 blade Amount of fluid expressed (mL): 2 Irrigation: Yes Packing used?: none Course Vital Signs: Vital signs: Vital Signs Temperature 98.1 F 12/19/21 21:27 Pulse Rate 80 12/20/21 01:31 Respiratory Rate 16 12/20/21 01:31 Blood Pressure 149/84 12/20/21 01:31 Pulse Oximetry 98 12/20/21 01:31 Oxygen Delivery Me thod 12/19/21 21:27 MDM - Nausea/Vomiting/Diarrhea Medical Decision Making 41-year-old female comes in today with complaints of nausea and vomiting and inability to hold down doxycycline. Patient was started on doxycycline after having an I&D of her right buttock at the urgent care. Patient was recommended to go to the ER if she was unable to hold down the antibiotic. On exam patient appears nontoxic. Abdomen soft nontender. Skin is warm and dry. Vital signs are normal except for some mild elevation in pulse of 133. Differential diagnosis includes sepsis, wound infection, necrotizing fasciitis. Patient had a packed wound and she also had a draining abscess on the other buttock 2. Incision and drainage was done to the left buttock and culture was collected. We will stop patient's doxycycline and put her back on clindamycin 600 mg 4 times daily for 7 days. Patient was given a dose in the ER. Patient was able to tolerate oral fluids. Patient was given 1 L of IV fluids. Labs noted a white count of 25.7 and a lactate of 2.2. Remainder of labs were unremarkable. When questioned about the biologic agent that patient had in her record she states that she does not take routinely. The wound did not have any crepitus or surrounding tissue abnormality that suggested necrotizing fasciitis. Reviewed exam with patient with recommendations for follow-up or return to the ER. Patient reported understanding agreed to plan. Lab Data : 12/19/21 00:30 12/19/21 00:30 Laboratory Results WBC 25.7 10^3/uL (4.0-10.0) H 12/19/21 00:30 RBC 5.74 10^6/uL (4.1-5.3) H 12/19/21 00:30 Hgb 14.7 g/dL (11.5-15.3) 12/19/21 00:30 Hct 47.8 % (37.0-47.0) H 12/19/21 00:30 MCV 83.3 fl (81-99) 12/19/21 00:30 MCH 25.6 pg (28.0-34.0) L 12/19/21 00:30 MCHC 30.8 g/dL (30.0-36.0) 12/19/21 00:30 RDW 18.2 % (12.1-15.1) H 12/19/21 00:30 Plt Count 520 10^3/cmm (130-400) H 12/19/21 00:30 MPV 9.4 fL (7.4-10.4) 12/19/21 00:30 Neut % (Auto) 75.9 % 12/19/21 00:30 Lymph % (Auto) 14.3 % 12/19/21 00:30 [place] % (Auto) 7.6 % 12/19/21 00:30 Eos % (Auto) 0.6 % 12/19/21 00:30 Baso % (Auto) 0.6 % 12/19/21 00:30 Neut # (Auto) 19.48 10^3/uL (1.8-7.7) H 12/19/21 00:30 Lymph # (Auto) 3.7 10^3/uL (0.8-4.8) 12/19/21 00:30 [place] # (Auto) 2.0 10^3/uL (0.2-0.9) H 12/19/21 00:30 Eos # (Auto) 0.2 10^3/uL (0.0-0.8) 12/19/21 00:30 Baso # (Auto) 0.2 10^3/uL (0.0-0.1) H 12/19/21 00:30 Nucleated RBC % (auto) 0 % 12/19/21 00:30 Nucleated RBCs # 0.0 /100WBC 12/19/21 00:30 Sodium 133 mmol/L (136-145) L 12/19/21 00:30 Potassium 4.1 mmol/L (3.5-5.1) 12/19/21 00:30 Chloride 98 mmol/L (98-107) 12/19/21 00:30 Carbon Dioxide 19 mmol/L (22-29) L 12/19/21 00:30 Anion Gap 20.1 (5-19) H 12/19/21 00:30 BUN 16 mg/dL (6-20) 12/19/21 00:30 Creatinine 1.0 mg/dL (0.5-0.9) H 12/19/21 00:30 GFR Calculation 60.5 mL/min (90-130) L 12/19/21 00:30 Glucose 165 mg/dL (65-115) H 12/19/21 00:30 Calculated Osmolality 281 mOsm/kg (285-295) L 12/19/21 00:30 Lactic Acid 2.2 mmol/L (0.5-2.2) 12/20/21 00:30 Calcium 10.0 mg/dL (8.5-10.5) 12/19/21 00:30 Total Bilirubin 0.4 mg/dL (0.15-1.2) 12/19/21 00:30 AST 15 U/L (0-32) 12/19/21 00:30 ALT 19 U/L (0-33) 12/19/21 00:30 Alkaline Phosphatase 162 U/L (35-105) H 12/19/21 00:30 Total Protein 8.1 g/dL (6.6-8.7) 12/19/21 00:30 Albumin 4.4 g/dL (3.5-5.2) 12/19/21 00:30 Globulin 3.7 g/dL (1.3-4.6) 12/19/21 00:30 Lipase 45 U/L (13-60) 12/19/21 00:30 HCG, Qual Negative (Negative) 12/19/21 00:30 Discharge Plan Discharge Patient Disposition: Home Clinical Impression: Abscess of buttock, Hidradenitis suppurativa Condition: Stable Prescriptions: New hydrocodone-acetaminophen 5-325 mg tablet 1 tab PO Q8H PRN (Reason: pain) Qty: 7 0RF Continued clindamycin HCl 300 mg capsule 600 mg PO QID 7 Days Qty: 56 0RF ondansetron 8 mg tablet,disintegrating 8 mg PO Q8H PRN (Reason: nausea and vomiting) 5 Days Qty: 15 0RF Discontinued doxycycline hyclate 100 mg capsule 100 mg PO BID 10 Days Qty: 20 0RF No Action spironolactone 100 mg tablet 100 mg PO QAM Hold Instructions: Resume on 04/06/20. amlodipine [Norvasc] 2.5 mg tablet 2.5 mg PO DAILY carvedilol [Coreg] 25 mg tablet 25 mg PO BID escitalopram oxalate [Lexapro] 20 mg tablet 20 mg PO DAILY triamterene-hydrochlorothiazid [Dyazide] 37.5-25 mg capsule 1 cap PO QAM prednisone 10 mg tablet See Rx Instructions PO .COMPLEX PRN (Reason: joint pain flare) Qty: 60 1RF Rx Instructions: take 1 tab daily for 3-7 days prn joint pain flare PO PRN; leflunomide 20 mg tablet 20 mg PO DAILY Qty: 30 3RF Hold Instructions: Resume on 04/13/20. Orencia 125 mg/mL syringe 125 mg SUBCUT .Q7days Qty: 4 3RF Tylenol Extra Strength 500 mg Tablet 1,000 mg PO PRN famotidine 20 mg Tablet 20 mg PO BID Qty: 30 0RF Discharge Orders: Discharge ED (Routine); Ordered 12/20/21 Ordered By: Alberto Steven Referrals: Malcom Villanueva MD [Primary Care Provider] - Discharge Diet: Usual diet Discharge Activity: Increase activity as tolerated Activity Restrictions/Additional Instructions: Stop doxycycline. Take clindamycin 300 mg 2 capsules twice a day 4 times a day for 7 days. Drink plenty of water with medication. Use a mild soap and water wash twice a day to wounds. Follow-up with primary care for referral to distribution spec for further evaluation and treatment of HSP. Return to ER for worsening symptoms such as fever greater than 100.4, worsening pain and redness, or new concerns. Coding Level of Care Code ED Animal Pathologist for Chris Fwd Exam Detailed
[2021-12-20] MEDS: ondansetron 2 mg/ML SDV 2 mL 4 MG IVP (01:00)
[2021-12-20] MEDS: clindamycin 600 MG/50 ML PREMIX 100 MG IV (01:00)
[2021-12-20 01:08] LABS: HCG, Serum Qual Negative (Negative)
[2021-12-20 01:11] LABS: Basophils # 0.2 10^3/uL (0.0-0.1); Basophils % 0.6 %; Eosinophils # 0.2 10^3/uL (0.0-0.8); Eosinophils % 0.6 %; Hematocrit 47.8 % (37.0-47.0); Hemoglobin 14.7 g/dL (11.5-15.3); Lymphocytes # 3.7 10^3/uL (0.8-4.8); Lymphocytes % 14.3 %; Mean Corpuscular HGB Conc 30.8 g/dL (30.0-36.0); Mean Corpuscular Hemoglobin 25.6 pg (28.0-34.0); Mean Corpuscular Volume 83.3 fl (81-99); Mean Platelet Volume 9.4 fL (7.4-10.4); Monocytes % 7.6 %; Neutrophils # 19.48 10^3/uL (1.8-7.7); Neutrophils % 75.9 %; Nucleated Red Blood Cells % 0 %; Platelet Count 520 10^3/cmm (130-400); Red Blood Count 5.74 10^6/uL (4.1-5.3); Red Cell Distribution Width 18.2 % (12.1-15.1); White Blood Count 25.7 10^3/uL (4.0-10.0)
[2021-12-20 01:16] LABS: Alanine Aminotransferase 19 U/L (0-33); Albumin Level 4.4 g/dL (3.5-5.2); Alkaline Phosphatase 162 U/L (35-105); Anion Gap 20.1 (5-19); Aspartate Amino Transferase 15 U/L (0-32); Blood Urea Nitrogen 16 mg/dL (6-20); Carbon Dioxide 19 mmol/L (22-29); Chloride 98 mmol/L (98-107); Globulin 3.7 g/dL (1.3-4.6); Glomerular Filtration Rate 60.5 mL/min (90-130); Glucose 165 mg/dL (65-115); Lipase 45 U/L (13-60); Osmolality Calculated 281 mOsm/kg (285-295); Potassium 4.1 mmol/L (3.5-5.1); Sodium 133 mmol/L (136-145); Total Bilirubin 0.4 mg/dL (0.15-1.2); Total Protein 8.1 g/dL (6.6-8.7)
[2021-12-20 01:16] LABS: Lactic Sepsis W/Reflex 2.2 mmol/L (0.5-2.2)
[2021-12-20] MEDS: sodium chloride 0.9% 1,000 ML 999 ML IV (01:26)
[2021-12-20 01:31] VITALS: BP 149/84; PULSE 80; RESP 16; O2SAT 98
[2021-12-20] MEDS: HYDROcodone-acetaminophen 5-325 mg Tablet 1 TAB PO (02:17)
[2021-12-20 02:18] VITALS: RESP 16; O2SAT 98
[2021-12-20 02:34] LABS: Reflex Lactate Order REFLEX LACTIC ORDERD
== END 2021-12-20 02:19 | disposition home or self-care (01) ==
PROVIDERS: Emergency Medicine; Emergency Provider Nurse Practitioner Family; PCP Family Medicine
DX: L02.31 Cutaneous abscess of buttock (principal); L73.2 Hidradenitis suppurativa
CPT/HCPCS: 10060; 80053; 83605; 83690; 84703; 85025; 87040; 87070; 87075; 87205; 96365; 96375; 99284; J2405; J3490; J7030

== ENCOUNTER → 2022-01-15 14:11 | Outpatient (BNVA) | payer BC, SELFPAY | PROVIDERS: PCP Family Medicine; Visit Provider Internal Medicine Rheumatology | DX: M05.79 Rheumatoid arthritis with rheumatoid factor 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 systems involvement (principal); Z79.899 Other long term (current) drug therapy; H20.9 Unspecified iridocyclitis; Z71.89 Other specified counseling | CPT/HCPCS: 36415; 80076; 82565; 85025; 85651; 86140 ==

== ENCOUNTER 2022-02-14 10:22 | Inpatient (IN) | payer BC, SELFPAY ==
[2022-02-14] VITALS (22 sets, daily range): BP systolic 125–175; BP diastolic 83–123; PULSE 92–116; RESP 12–22; TEMP 36.5–37; O2SAT 68–98; BMI 29.0; BMI 32.2
--- NOTE | 2022-02-14 10:42 | ECG_ITS ---
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 Measurements Intervals [place] Rate: 103 P: 49 [place]: 128 QRS: 15 QRSD: 102 T: 100 QT: 329 QTc: 432 Interpretive Statements SINUS TACHYCARDIA ST ELEVATION, CONSIDER INFERIOR INJURY INTERPRETATION BASED ON A DEFAULT AGE OF 40 YEARS Compared to ECG 03/15/2020 15:05:01 ST (T wave) deviation now present Myocardial infarct finding now present Electronically Signed On 02-14-2022 15:05:05 CDT by Osito Carmichael M.D. [email or web address]/store/[id number] f
--- NOTE | 2022-02-14 10:59 | PC.NURSE ---
PT PLACED ON CONTINUOUS NIBP, SPO2, AND CM
[2022-02-14 11:14] LABS: Basophils # 0.2 10^3/uL (0.0-0.1); Basophils % 0.7 %; Eosinophils # 0.2 10^3/uL (0.0-0.8); Eosinophils % 0.7 %; Hematocrit 51.8 % (37.0-47.0); Hemoglobin 15.8 g/dL (11.5-15.3); Lymphocytes # 3.8 10^3/uL (0.8-4.8); Lymphocytes % 15.2 %; Mean Corpuscular HGB Conc 30.5 g/dL (30.0-36.0); Mean Corpuscular Hemoglobin 25.5 pg (28.0-34.0); Mean Corpuscular Volume 83.7 fl (81-99); Mean Platelet Volume 9.2 fL (7.4-10.4); Monocytes # 2.2 10^3/uL (0.2-0.9); Monocytes % 8.8 %; Neutrophils # 18.35 10^3/uL (1.8-7.7); Neutrophils % 73.4 %; Nucleated Red Blood Cells % 0 %; Platelet Count 498 10^3/cmm (130-400); Red Blood Count 6.19 10^6/uL (4.1-5.3); Red Cell Distribution Width 16.8 % (12.1-15.1)
[2022-02-14] MEDS: promethazine 25 mg/mL SDV 1 mL IM (11:16)
[2022-02-14] MEDS: sodium chloride 0.9% 1,000 ML 999 ML IV (11:17)
[2022-02-14 11:32] LABS: Troponin(5th) Baseline 7 ng/L (0-10)
[2022-02-14 11:33] LABS: Lactic Sepsis W/Reflex 3.1 mmol/L (0.5-2.2)
[2022-02-14 11:34] LABS: Alanine Aminotransferase 22 U/L (0-33); Alkaline Phosphatase 169 U/L (35-105); Anion Gap 18.1 (5-19); Aspartate Amino Transferase 13 U/L (0-32); Blood Urea Nitrogen 12 mg/dL (6-20); Calcium 10.3 mg/dL (8.5-10.5); Carbon Dioxide 23 mmol/L (22-29); Chloride 94 mmol/L (98-107); Creatinine Clr Calc Pharmacy 97.6786; Globulin 4.7 g/dL (1.3-4.6); Glomerular Filtration Rate 78.3 mL/min (90-130); Glucose 189 mg/dL (65-115); Osmolality Calculated 277 mOsm/kg (285-295); Potassium 4.1 mmol/L (3.5-5.1); Sodium 131 mmol/L (136-145); Total Bilirubin 0.2 mg/dL (0.15-1.2); Total Protein 8.7 g/dL (6.6-8.7)
--- NOTE | 2022-02-14 11:52 | CT_ITS ---
WS: [id number] CT pelvis TECHNIQUE: Contrast-enhanced CT of the pelvis with coronal and sagittal reformatted images. CLINICAL INFORMATION: abscess COMPARISON: CT 2018 DLP: 571.[address] scans at [facility] use at least one of these dose optimization techniques: automated e xposure control; mA and/or kV adjustment per patient size (includes targeted exams where dose is matc hed to clinical indication); or iterative reconstruction. FINDINGS: Cellulitis overlying the LEFT buttock extending to the gluteal cleft with induration of the subcutaneous soft tissues. Heterogeneous enhancement. Associated skin thickening. No drainable fluid collection or abscess. Tiny amount of edema and fluid extends to the LEFT rectum. No air-containing fistulous tract. Rectum is otherwise normal in appearance. Lobulated heterogeneously enhancing LEFT periuterine mass likely represents fibroid. This measures ap proximately 6.5 x 4.9 cm and appears progressed from prior CT. Multicystic RIGHT ovary. Smaller jose l-appearing LEFT ovary. Fibroid appears to compress the cervix. This can be followed up with ultrasou nd. Lower lumbar spine appears normal. Normal appendix in the RIGHT lower quadrant. CT/CT pelvis w con* [id number] IMPRESSION: 1. Induration with subcutaneous edema involving the LEFT buttock extending to the gluteal fold compatible with cellulitis. 2. Tiny sliver of fluid along the LEFT gluteal cleft extending to the rectum. No drainable abscess or fluid collection. No ulcerative fistulous tract. 3. Fibroid uterus with enlarging LEFT dorsal fibroid compressing the cervix me asuring up to 6.5 CM. This can be followed up with ultrasound.
--- NOTE | 2022-02-14 12:51 | ECG_ITS ---
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 Measurements Intervals [place] Rate: 109 P: 50 [place]: 146 QRS: 6 QRSD: 93 T: 70 QT: 329 QTc: 444 Interpretive Statements SINUS TACHYCARDIA NONSPECIFIC T-WAVE ABNORMALITY ABNORMAL RHYTHM ECG Compared to ECG 02/14/2022 10:42:08 T-wave abnormality now present ST (T wave) deviation no longer present Myocardial infarct finding no longer present Electronically Signed On 02-14-2022 15:07:22 CDT by Osito Carmichael M.D. [id number]
[2022-02-14] MEDS: vancomycin 1,000 MG in sodium chloride 0.9% 250 ML 250 MG IV ×2 (12:54→21:20)
[2022-02-14 12:57] LABS: Reflex Lactate Order REFLEX LACTIC ORDERD
[2022-02-14] MEDS: iohexol 350 mg/mL 500 mL Btl (per mL) IV (13:16)
[2022-02-14 14:11] LABS: Lactic Acid level (Lactate) 1.3 mmol/L (0.5-2.2)
--- NOTE | 2022-02-14 14:21 | W.ED.ARRPALP ---
HPI - Arrhythmia/Palpitations General: Chief Complaint: Arrhythmia/Palpitations Stated Complaint: High hr and bp Time Seen by Provider: 02/14/22 10:50 History of Present Illness: 41-year-old female presents to the emergency room with complaints of elevated heart rate and blood pressure. She has a abscess in the gluteal cleft she going to her primary care doctor on arrival there they report her blood pressure in the 200s systolic with a heart rate in the 160s on arrival here she was 116 with a blood pressure 127/94 initially. She never had any chest pain or shortness of breath her biggest complaint is he gluteal abscess. MD complaint: rapid heart beat Onset (ago): day(s) Duration: constant Severity: moderate Associated symptoms: Reports anxiety and nausea; Deny cough, diaphoresis, muscle cramps, paresthesias, short of breath or vomiting Review of Systems Const: Reports: fever(s), chills, fatigue and malaise; Denies: diaphoresis ENMT: Denies: throat pain, ear or mastoid pain, nasal discharge or nasal congestion Card: Reports: palpitations; Denies: chest pain, irregular heart rhythm, edema, dyspnea on exertion or orthopnea Resp: Denies: dyspnea, productive cough or non-productive cough GI: Reports: nausea; Denies: abdominal pain, vomiting or GI cramping : Denies: flank pain, difficulty voiding, dysuria, urinary frequency or urinary urgency Musc: Denies: muscle cramps Skin/Breast: Reports: new lesions and changing lesions Psych: Reports: anxiety PFSH ED PFSH: Medical History COVID-19 High risk medication use HTN (hypertension) Immunization counseling Immunocompromised Morbid obesity Rheumatoid arthritis with rheumatoid factor 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 systems involvement Uveitis Surgical History H/O dilation and curettage -x 2 H/O myomectomy 11/09/2017 History of endometrial ablation Hx of cataract surgery bilateral 01/24 Family History Other Diabetes Hypertension Rheumatoid arthritis Social History Smoking and tobacco status: never smoked Alcohol intake: never Marital status: Current occupational status: employed History of recent travel: No Physical Exam Const: COMMON NORMALS: no acute distress GENERAL APPEARANCE: cooperative and comfortable ORIENTATION/CONSCIOUSNESS: Yes awake, Yes oriented to person, Yes oriented to place and Yes oriented to time HENMT: COMMON NORMALS: normocephalic, atraumatic and hearing grossly normal bilaterally HEAD & SCALP: normocephalic and atraumatic Resp: COMMON NORMALS: normal respiratory effort, No retractions, No use of accessory muscles and clear to auscultation bilaterally AUSCULTATION: clear to auscultation bilaterally Cardio: COMMON NORMALS: regular rate, regular rhythm and No murmurs present (Cardio) RATE: regular rate RHYTHM: regular rhythm GI: COMMON NORMALS: Soft to palpation and No hepatosplenomegaly present AUSCULTATION: Yes normoactive bowel sounds PALPATION: Yes Soft to palpation, No Tenderness to palpation present (GI), No Guarding due to palpation present (GI) and Yes No hepatosplenomegaly present : OTHER: Rectal abscess no active draining. Exquisitely tender to the touch. Extremity: COMMON NORMALS: normal to inspection, capillary refill normal, no clubbing, cyanosis or edema, no calf tenderness and no pedal edema Neuro: SENSORIUM/ORIENTATION: Yes oriented to person, Yes oriented to place and Yes oriented to time Skin: COMMON NORMALS: no rashes or lesions noted GENERAL SKIN EXAM: no rashes or lesions noted Course Vital Signs: Vital signs: Vital Signs Temperature 98.0 F 02/16/22 11:52 Pulse Rate 96 02/16/22 11:52 Respiratory Rate 16 02/16/22 11:52 Blood Pressure 137/82 02/16/22 11:52 Pulse Oximetry 93 02/16/22 11:52 Oxygen Delivery Me thod 02/16/22 11:52 Oxygen Flow Rate 97 02/14/22 19:43 MDM - Arrhythmia/Palpitations Medical Decision Making Externally it appears she had an abscess on the CT chest cellulitis. Discussed with hospitalist patient's elevated white count will admit for IV antibiotics. Orders written Medical Records I reviewed the patient's medical records. Lab Data I reviewed the patient's lab results. : 02/16/22 04:13 02/15/22 04:[address] 02/14/22 11:52 IMPRESSION: 1. Induration with subcutaneous edema involving the LEFT buttock extending to the gluteal fold compatible with cellulitis. 2. Tiny sliver of fluid along the LEFT gluteal cleft extending to the rectum. No drainable abscess or fluid collection. No ulcerative fistulous tract. 3. Fibroid uterus with enlarging LEFT dorsal fibroid compressing the cervix measuring up to 6.5 CM. This can be followed up with ultrasound. Laboratory Results WBC 25.0 10^3/uL (4.0-10.0) H 02/14/22 11:00 RBC 6.19 10^6/uL (4.1-5.3) H 02/14/22 11:00 Hgb 15.8 g/dL (11.5-15.3) H 02/14/22 11:00 Hct 51.8 % (37.0-47.0) H 02/14/22 11:00 MCV 83.7 fl (81-99) 02/14/22 11:00 MCH 25.5 pg (28.0-34.0) L 02/14/22 11:00 MCHC 30.5 g/dL (30.0-36.0) 02/14/22 11:00 RDW 16.8 % (12.1-15.1) H 02/14/22 11:00 Plt Count 498 10^3/cmm (130-400) H 02/14/22 11:00 MPV 9.2 fL (7.4-10.4) 02/14/22 11:00 Neut % (Auto) 73.4 % 02/14/22 11:00 Lymph % (Auto) 15.2 % 02/14/22 11:00 Mcminn % (Auto) 8.8 % 02/14/22 11:00 Eos % (Auto) 0.7 % 02/14/22 11:00 Baso % (Auto) 0.7 % 02/14/22 11:00 Neut # (Auto) 18.35 10^3/uL (1.8-7.7) H 02/14/22 11:00 Lymph # (Auto) 3.8 10^3/uL (0.8-4.8) 02/14/22 11:00 Mcminn # (Auto) 2.2 10^3/uL (0.2-0.9) H 02/14/22 11:00 Eos # (Auto) 0.2 10^3/uL (0.0-0.8) 02/14/22 11:00 Baso # (Auto) 0.2 10^3/uL (0.0-0.1) H 02/14/22 11:00 Nucleated RBC % (auto) 0 % 02/14/22 11:00 Nucleated RBCs # 0.0 /100WBC 02/14/22 11:00 Sodium 131 mmol/L (136-145) L 02/14/22 11:00 Potassium 4.1 mmol/L (3.5-5.1) 02/14/22 11:00 Chloride 94 mmol/L (98-107) L 02/14/22 11:00 Carbon Dioxide 23 mmol/L (22-29) 02/14/22 11:00 Anion Gap 18.1 (5-19) 02/14/22 11:00 BUN 12 mg/dL (6-20) 02/14/22 11:00 Creatinine 0.8 mg/dL (0.5-0.9) 02/14/22 11:00 GFR Calculation 78.3 mL/min (90-130) L 02/14/22 11:00 Glucose 189 mg/dL (65-115) H 02/14/22 11:00 Calculated Osmolality 277 mOsm/kg (285-295) L 02/14/22 11:00 Lactic Acid 3.1 mmol/L (0.5-2.2) H 02/14/22 11:00 Lactic Acid (Sepsis) 1.3 mmol/L (0.5-2.2) 02/14/22 13:40 Calcium 10.3 mg/dL (8.5-10.5) 02/14/22 11:00 Iron 29 ug/dL (37-145) L 02/14/22 14:57 TIBC 281 mcg/dl 02/14/22 14:57 % Saturation 10.3 % (20-50) L 02/14/22 14:57 Unsat Iron Binding 252 ug/dL (112-347) 02/14/22 14:57 Total Bilirubin 0.2 mg/dL (0.15-1.2) 02/14/22 11:00 AST 13 U/L (0-32) 02/14/22 11:00 ALT 22 U/L (0-33) 02/14/22 11:00 Alkaline Phosphatase 169 U/L (35-105) H 02/14/22 11:00 Troponin T Baseline 7 ng/L (0-10) 02/14/22 11:00 Troponin T 120 Minute 8.90 ng/L (0-10) 02/14/22 13:40 Delta Troponin T 1.90 ABS# (0-10) 02/14/22 13:40 C-Reactive Protein 79.0 mg/L (0.0-4.9) H 02/14/22 11:00 Total Protein 8.7 g/dL (6.6-8.7) 02/14/22 11:00 Albumin 4.0 g/dL (3.5-5.2) 02/14/22 11:00 Globulin 4.7 g/dL (1.3-4.6) H 02/14/22 11:00 Vitamin B12 503 pg/mL (232-1245) 02/14/22 14:57 Procalcitonin 0.05 ng/mL (0-0.5) 02/14/22 14:57 TSH 4.08 uIU/mL (0.27-4.20) 02/14/22 11:00 Discharge Plan Discharge Patient Disposition: Admitted As Inpatient Admit Provider: Oliver Hurtado Clinical Impression: Cellulitis, gluteal, left, Type 2 diabetes mellitus, High risk medication use Condition: Stable Discharge Diet: Cardiac and Diabetic Discharge Activity: Resume usual activity and Increase activity as tolerated Coding Level of Care Code ED Small Battery Plate Assembler for Chris Lilly
[2022-02-14] MEDS: sodium chloride 0.9% 2,449.41 ML 2449.41 ML IV (14:37)
[2022-02-14 15:32] LABS: Thyroid Stimulating Hormone 4.08 uIU/mL (0.27-4.20)
--- NOTE | 2022-02-14 15:42 | P.HP_ITS ---
Providers/Chief Complaint Admitting Physician: Oliver Hurtado MD Primary Care Provider: Malcom Villanueva MD Chief Complaint: High hr and bp History of Present Illness Marychuy Chino is a 41 year old female with past medical history of rheumatoid arthritis, 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 Today she went to her primary care's office because of development of a boil on the left gluteal region. While she was in the office the boil burst and after that she had extreme pain and she was found to be tachycardic and hypotensive hence sent to the ER. In the ER she was found to have a heart rate of more than 100, blood pressure of 160/100 tens hospitalist team was asked for admission. Patient otherwise denies any complains of nausea vomiting, headache, dizziness, fevers. Review of Systems General: Reports: 10 or more systems reviewed and unremarkable except in HPI and below Const: Denies: fever(s), chills, body aches, change in appetite, change in weight, malaise, night sweats, diaphoresis, change in sleep pattern, daytime sleepiness or snoring Eyes: Denies: change in vision, blurry vision, photophobia, eye discomfort or eye discharge ENMT: Denies: throat pain, enlarged tonsils, hoarseness, mouth pain, oral sores, dry mouth, tinnitus, nasal congestion or post nasal drip Card: Denies: chest pain, palpitations, irregular heart rhythm, edema, swelling of feet/ankles, lightheadedness, syncope, pre-syncope, dyspnea on exertion, orthopnea, leg pain with exertion or acrocyanosis Resp: Denies: dyspnea, productive cough, non-productive cough, wheezing, stridor, pain on inspiration, change in phlegm color, hemoptysis or chest conge stion GI: Denies: abdominal pain, nausea, vomiting, hematemesis, coffee ground emesis, dysphagia, heartburn, diarrhea, constipation, bloating, GI cramping, change in bowel habits, pain on defecation, hematochezia or melena : Denies: flank pain, dysuria, urinary frequency, urinary urgency, urinary hesitancy, nocturia or hematuria Musc: Denies: neck pain, back pain, extremity pain, joint pain, joint swellin g, joint redness, joint stiffness or limited range of motion Neuro: Denies: headache(s), numbness in extremities, weakness in extremities, sensory changes, lack of coordination, difficulty walking, frequent falls, dizziness, vertigo, confusion, Slurred speech present, difficulty communicating thoughts or seizure-like activity Psych: Denies: anxiety, depression, mood swings, panic attacks, hopelessness or irritability Endo: Denies: polyuria, polydipsia, tired all the time, cold intolerance, excessive sweating, flushing or heat intolerance [place]field/Lymph: Denies: easy bruising or easy bleeding All/Imm: Denies: tongue swelling, facial swelling or acute wheezing Medications/Allergies Home Medications Medication Instructions Recorded Confirmed Last Taken Type amlodipine 2.5 mg tablet (Norvasc) 2.5 mg PO QAM 05/06/19 02/14/22 02/14/22 07:30 History carvedilol 25 mg tablet (Coreg) 25 mg PO BID 05/06/19 02/14/22 02/14/22 07:30 History escitalopram oxalate 20 mg tablet 20 mg PO QAM 05/06/19 02/14/22 02/14/22 07:30 History (Lexapro) spironolactone 100 mg tablet 100 mg PO QAM 05/06/19 02/14/22 02/14/22 History acetaminophen 500 mg tablet 1,000 mg PO Q6H PRN Pain 03/15/20 02/14/22 03/15/20 06:00 History (Tylenol Extra Strength) prednisone 10 mg tablet See Rx Instructions PO .COMPLEX 11/15/21 02/14/22 Unknown Rx PRN joint pain flare #60 tabs bupropion HCl 300 mg 24 hr tablet, 300 mg PO QAM 02/14/22 02/14/22 02/14/22 07:30 History extended release famotidine 20 mg tablet 20 mg PO QAM 02/14/22 02/14/22 02/14/22 History leflunomide 20 mg tablet 20 mg PO QAM 02/14/22 02/14/22 02/14/22 07:30 History polymyxin B sulfate 10,000 1 drp ophthalmic (eye) QID 02/14/22 02/14/22 02/13/22 History unit-trimethoprim 1 mg/mL eye drops FINISHED 02/13/22 prednisolone acetate 1 % eye 1 drp ophthalmic (eye) TID 02/14/22 02/14/22 Unknow n History drops,suspension triamterene 37.5 1 cap PO QAM 02/14/22 02/14/22 02/14/22 History mg-hydrochlorothiazide 25 mg capsule Allergies Allergy/AdvReac Type Severity Reaction Status Date / Time aspirin Allergy HIVES-SOB Verified 02/14/22 12:24 PFSH Acute PFSH: Medical History (Updated 02/14/22 @ 15:45 by Oliver Hurtado MD) COVID-19 High risk medication use HTN (hypertension) Immunization counseling Immunocompromised Morbid obesity Rheumatoid arthritis with rheumatoid factor 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 systems involvement Uveitis Surgical History H/O dilation and curettage -x 2 H/O myomectomy 11/09/2017 History of endometrial ablation Hx of cataract surgery bilateral 01/24 Family History Other Diabetes Hypertension Rheumatoid arthritis Social History Smoking and tobacco status: never smoked Alcohol intake: never Marital status: Current occupational status: employed History of recent travel: No Vitals/I&O/Wt Last Vital Signs Temp 97.7 F 02/14/22 10:36 Pulse 97 02/14/22 15:10 Resp 15 02/14/22 15:10 BP 161/109 02/14/22 15:10 Pulse Ox 97 02/14/22 15:10 O2 Del Method 02/14/22 10:36 02/14/22 02/14/22 02/14/22 06:59 14:59 22:59 Intake Total 1000 / 1000 Balance 1000 / 1000 Weight last 48 hrs Weight 81.647 kg Physical Exam Narrative: General: No acute distress, AO x3 HEENT: PERRLA, pupils bilaterally equal and reactive Chest: Normal vesicular breath sounds, no added sounds, equal good air entry bilaterally CVS: S1-S2 regular, no murmurs, no tachycardia, no gallops, no rubs Abdomen: Soft, nontender, no organomegaly, bowel sounds present Neuro: No focal deficits, no facial deformity, AO x3, power 5/5 in all limbs Extremities: Small superficial opening with purulent drainage seen in the left gluteal region without any surrounding erythema. Multiple old scars lesions present both in bilateral gluteal and bilateral medial thighs. Data : 02/14/22 11:00 02/14/22 11:00 Micro: Microbiology 02/14/22 11:05 Blood Culture - Preliminary Blood SPECIMEN COLLECTED 02/14/22 11:03 Blood Culture - Preliminary Blood SPECIMEN COLLECTED A&P Assessment and plan (1) Sepsis: Ruled in on admission secondary to tachycardia, elevated lactate, leukocytosis. Secondary to cellulitis. Patient already received septic bolus fluid in the ER. Continue with normal saline 100 cc/h. WBC. (2) Cellulitis, gluteal, left: Check wound culture, blood culture, MRSA swab, CRP. Past cultures reviewed. For now start on broad-spectrum antibiotics given immunocompromise status with vancomycin and Zosyn. Will de-escalate antibiotics depending on clinical picture. No actual abscess or sinus tract seen on the CT scan. (3) Immunocompromised: (4) Rheumatoid arthritis with rheumatoid factor 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 systems involvement: (5) HTN (hypertension): Goal blood pressure less than 140/90 mmHg. For now continue with home dose of carvedilol, triamterene hydrochlorothiazide. We will hold off on spironolactone for now. If needed will try to introduce MILI/ARB. Qualifiers: Hypertension type: essential hypertension Qualified Code(s): I10 - Essential (primary) hypertension Plan Analgesia: Morphine 1 mg every 4 hours as needed, Tylenol as needed Glycemic control: Not needed. Check A1c. Nutrition: Cardiac diet CODE STATUS: Full code PUD prophylaxis: Famotidine DVT prophylaxis: Heparin 5000 every 8 hourly Discharge planning: Home with caregiver once medically stable. Admit to [facility] with telemetry This documentation was created by [employer] customer solutions coordinator software. Every effort was made to ensure accuracy of customer solutions coordinator. Any obvious errors or omissions should be clarified with the author of the document. Attestations Medical Necessity Statement*: Admission for more than 2 midnights for management of sepsis secondary to gluteal cellulitis in a patient who is immunocompromised secondary to medications for rheumatoid arthritis Time Spent in Patient Care: Greater than 35 minutes Coding Level of Care Code Acute Senior Pricing Analyst for g Fwd Diagnoses Sepsis A41.9 Cellulitis, gluteal, left L03.317 Immunocompromised D84.9 Rheumatoid arthritis with rheumatoid factor 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 systems involvement M05.79 HTN (hypertension) I10 Hypertension type: essential hypertension
--- NOTE | 2022-02-14 16:00 | PC.NURSE ---
DR. BANUELOS GAVE VERBAL ORDER TO APPLY WET TO DRY DRESSING ON PT WOUND. DRESSING APPLIED.
[2022-02-14 16:24] LABS: Add Urine Microscopic? NO; Charge for UA Resulting for Rev
[2022-02-14 16:39] LABS: Bilirubin Urine Neg (Negative); Blood Urine Neg (Negative); Glucose Urine UA Norm (Normal); Ketones Urine Negative (Negative); Leukocyte Esterase Urine Negative (Negative); Nitrate Urine Negative (Negative); Protein Urine Neg (Negative); Specific Gravity, Urine 1.005 (1.005-1.030); Sulfosalicylic Acid Urine Negative (Negative); Urine Appearance Clear (CLEAR); Urine Color Yellow (Yellow); Urobilinogen Urine Norm (Negative); pH Urine 8 (5-7)
[2022-02-14 16:44] LABS: Amphetamines Screen Urine Negative (Negative); Barbiturates Screen Urine Negative (Negative); Benzodiazepines Screen Urine Negative (Negative); Cocaine Screen Urine Negative (Negative); Opiate Screen Urine Negative (Negative); PCP Screen Urine Negative (Negative); THC Screen Urine Negative (Negative)
--- NOTE | 2022-02-14 16:51 | ECG_ITS ---
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 Measurements Intervals [place] Rate: 101 P: 34 CA: 141 QRS: 9 QRSD: 95 T: 63 QT: 352 QTc: 458 Interpretive Statements SINUS TACHYCARDIA NONSPECIFIC T-WAVE ABNORMALITY Compared to ECG 02/14/2022 12:53:24 No significant changes Electronically Signed On 02-15-2022 11:55:04 CDT by Nevaeh Lobato M.D. [email or web address]
[2022-02-14 17:19] LABS: Iron 29 ug/dL (37-145); Percent Saturation 10.3 % (20-50); Total Iron Binding Capacity 281 mcg/dl; Unsaturated Iron Binding 252 ug/dL (112-347)
[2022-02-14] MEDS: piperacillin-tazobactam 3.375 GM in sodium chloride 0.9% (plus) 50 ML IV (17:30)
[2022-02-14] MEDS: carvedilol 25 mg Tablet PO (17:31)
[2022-02-14] MEDS: heparin 5,000 unit/mL INJ 1 mL 5000 UNIT SUBCUT (17:31)
[2022-02-14] MEDS: docusate sodium 100 mg Capsule PO (17:31)
[2022-02-14] MEDS: famotidine 20 mg/2 mL INJ IVP (17:32)
[2022-02-14] MEDS: polymyxin-trimethoprim Op Soln 10 mL Btl 1 DROP EYE-LEFT ×2 (17:32→20:07)
[2022-02-14 17:35] LABS: Procalcitonin 0.05 ng/mL (0-0.5); Vitamin B12 503 pg/mL (232-1245)
[2022-02-14 17:59] LABS: Troponin 5 6HR 6.69 ng/L (0-10)
[2022-02-14 18:34] LABS: Troponin 5 6HR Delta -0.31 ng/L (0-12)
[2022-02-14 18:56] LABS: Folate Level > 20.0 ng/mL (4.8-37.3)
[2022-02-14] MEDS: sodium chloride 0.9% 1,000 ML 100 ML IV (20:10)
[2022-02-15] VITALS (8 sets, daily range): BP systolic 125–140; BP diastolic 79–98; PULSE 93–110; RESP 16–18; TEMP 36.6–37; O2SAT 94–97
[2022-02-15] MEDS: heparin 5,000 unit/mL INJ 1 mL 5000 UNIT SUBCUT ×3 (00:48→17:12)
[2022-02-15] MEDS: piperacillin-tazobactam 3.375 GM in sodium chloride 0.9% (plus) 50 ML IV ×3 (00:50→17:12)
[2022-02-15] MEDS: vancomycin 1,000 MG in sodium chloride 0.9% 250 ML 250 MG IV (05:06)
[2022-02-15] MEDS: famotidine 20 mg/2 mL INJ IVP ×2 (05:06→15:54)
[2022-02-15] MEDS: escitalopram 10 mg Tablet 20 MG PO (05:07)
[2022-02-15] MEDS: buPROPion XL (24 HR) 300 mg Tablet PO (05:07)
[2022-02-15 05:09] LABS: Basophils # 0.1 10^3/uL (0.0-0.1); Basophils % 0.5 %; Eosinophils # 0.1 10^3/uL (0.0-0.8); Hematocrit 36.6 % (37.0-47.0); Lymphocytes # 3.2 10^3/uL (0.8-4.8); Lymphocytes % 24.1 %; Mean Corpuscular HGB Conc 30.1 g/dL (30.0-36.0); Mean Corpuscular Hemoglobin 25.6 pg (28.0-34.0); Mean Corpuscular Volume 85.3 fl (81-99); Mean Platelet Volume 9.6 fL (7.4-10.4); Monocytes # 0.8 10^3/uL (0.2-0.9); Monocytes % 6.2 %; Neutrophils # 8.83 10^3/uL (1.8-7.7); Neutrophils % 67.3 %; Nucleated Red Blood Cells % 0 %; Platelet Count 349 10^3/cmm (130-400); Red Blood Count 4.29 10^6/uL (4.1-5.3); Red Cell Distribution Width 16.6 % (12.1-15.1); White Blood Count 13.1 10^3/uL (4.0-10.0)
[2022-02-15] MEDS: sodium chloride 0.9% 1,000 ML 100 ML IV (05:09)
[2022-02-15 05:19] LABS: Estmated Average Glucose 171; Hemoglobin A1C 7.6 % (4.0-6.0)
[2022-02-15 05:43] LABS: Alanine Aminotransferase 15 U/L (0-33); Alkaline Phosphatase 136 U/L (35-105); Anion Gap 12.5 (5-19); Aspartate Amino Transferase 10 U/L (0-32); Blood Urea Nitrogen 8 mg/dL (6-20); Calcium 8.2 mg/dL (8.5-10.5); Carbon Dioxide 23 mmol/L (22-29); Chloride 105 mmol/L (98-107); Chol HDL Ratio 6.75 mg/dL (0.0-4.40); Cholesterol 162 mg/dL (0-200); Globulin 3.3 g/dL (1.3-4.6); Glomerular Filtration Rate 91.3 mL/min (90-130); Glucose 125 mg/dL (65-115); HDL Cholesterol 24 mg/dL (60-100); LDL Cholesterol Calculated 94 mg/dL (50-129); Magnesium 1.6 mg/dL (1.7-2.3); Osmolality Calculated 284 mOsm/kg (285-295); Phosphorus 2.4 mg/dL (2.5-4.5); Potassium 3.5 mmol/L (3.5-5.1); Sodium 137 mmol/L (136-145); Total Bilirubin 0.2 mg/dL (0.15-1.2); Total Protein 6.3 g/dL (6.6-8.7); Triglycerides 221 mg/dL (0-150); VLDL Cholestrol Calculation 44 mg/dL (0-30)
--- NOTE | 2022-02-15 06:53 | PC.NURSE ---
Bedside Report given to Susy SIMPSON at this time
[2022-02-15] MEDS: docusate sodium 100 mg Capsule PO (08:23)
[2022-02-15] MEDS: carvedilol 25 mg Tablet PO ×2 (08:23→17:12)
[2022-02-15] MEDS: polymyxin-trimethoprim Op Soln 10 mL Btl 1 DROP EYE-LEFT ×4 (08:23→20:09)
--- NOTE | 2022-02-15 10:40 | PC.CHAP ---
Pastoral Care Encounter/Spiritual Assessment Type of Contact [] Declined human relations professor visit [] Patient/Family/Request visit [] Outpatient visit [] Follow-up visit [] Physician referral [] Code/Alert [x] Routine visit [] Staff referral [] Actively dying [] Patient sleeping [x] Family support [] [] Out of room [] Palliative care [] [] Receiving care in room [] Pre-surgical visit [] Trauma [] Long length of stay [] ICU visit [] Other: Relational/Emotional Strength [] Patient feels connected with others/family/visitors/staff [] Distress [] Loneliness/isolation [] Abandonment Spirituality of Patient [] Person of Sandra [] Attends Mormon of their Sandra [] Believes in Prayer [] Reads Bible or Jainism materials [] There are Spiritual issues to be addressed Senior Investment Analyst Interventions [x] Prayer [] Active listening [] Non-anxious presence [] Spiritual/emotional support [] Crisis/trauma care [] Spiritual counseling [] Bereavement support [] Provided bereavement packet [] Provided Bible/devotional materials [] Provided toy/stuffed animal, coloring book to patient or family member [] Provided Communion [] Anointing/[place] [] Salvation [x] Completed spiritual assessment [] Other: Impact on Illness or Injury [] Angry [] Fearful [] Anxious [] Often cries [] Exhaustion [] Unable to work [] Unable to attend taoism [] Unable to walk/stand [] Unable to read [] Unable to drive [] Unable to eat/drink [] Unable to sleep [] Unable to be with family [] Patient intubated [] Other: Summary Time spent with patient
[2022-02-15] MEDS: sitagliptin 100 mg Tablet PO (12:10)
[2022-02-15 12:36] LABS: Vancomycin Trough 11.8 ug/mL (10-15)
--- NOTE | 2022-02-15 13:07 | P.PN_ITS ---
Subjective Subjective: No acute events overnight. Has remained hemodynamically stable and afebrile. Heart rate blood pressure is better. Sitting in bed with family at bedside. States feeling better. Does not have any recollection of being diagnosed of diabetes in the past. Discussed about A1c of more than 7. Patient is agreeable for starting OHA. Vitals/I&O/Wt Last Vital Signs Temp 98.5 F 02/15/22 11:30 Pulse 96 02/15/22 11:30 Resp 18 02/15/22 11:30 BP 136/90 02/15/22 11:30 Pulse Ox 95 02/15/22 11:30 O2 Del Method 02/15/22 11:30 O2 Flow Rate 97 02/14/22 19:43 02/14/22 02/15/22 02/15/22 22:59 06:59 14:59 Intake Total 3239.41 / 4239.41 1198.333 / 5437.743 830 / 830 Output Total 450 / 450 Balance 2789.41 / 3789.41 1198.333 / 4987.743 830 / 830 Weight last 48 hrs Weight 90.22 kg Weight 90.673 kg Weight 81.647 kg Physical Exam Narrative: General: No acute distress, AO x3 HEENT: PERRLA, pupils bilaterally equal and reactive Chest: Normal vesicular breath sounds, no added sounds, equal good air entry bilaterally CVS: S1-S2 regular, no murmurs, no tachycardia, no gallops, no rubs Abdomen: Soft, nontender, no organomegaly, bowel sounds present Neuro: No focal deficits, no facial deformity, AO x3, power 5/5 in all limbs Extremities: Small superficial opening with purulent drainage seen in the left gluteal region without any surrounding erythema. Multiple old scars lesions present both in bilateral gluteal and bilateral medial thighs. Data : 02/15/22 04:18 02/15/22 04:18 Micro: Microbiology 02/14/22 11:05 Blood Culture - Preliminary Blood NEGATIVE TO DATE 02/14/22 11:03 Blood Culture - Preliminary Blood NEGATIVE TO DATE A&P Assessment and plan (1) Sepsis: Ruled in on admission secondary to tachycardia, elevated lactate, leukocytosis. Secondary to cellulitis. Patient already received septic bolus fluid in the ER. Continue with normal saline 100 cc/h. WBC. (2) Cellulitis, gluteal, left: Follow-up cultures. Follow-up MRSA swab. For now start on broad-spectrum antibiotics given immunocompromise status with vancomycin and Zosyn. Will de-escalate antibiotics depending on clinical picture. No actual abscess or sinus tract seen on the CT scan. Patient would most likely need extensive decolonization. Discussed in detail with patient. Will do mupirocin in the ears, axilla and groin 5 days a month for next 5 months. Patient is agreeable. (3) Immunocompromised: (4) Rheumatoid arthritis with rheumatoid factor 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 systems involvement: (5) HTN (hypertension): Goal blood pressure less than 140/90 mmHg. For now continue with home dose of carvedilol, triamterene hydrochlorothiazide. We will hold off on spironolactone for now. If needed will try to introduce MILI/ARB. Qualifiers: Hypertension type: essential hypertension Qualified Code(s): I10 - Essential (primary) hypertension (6) Type 2 diabetes mellitus: New diagnosis. A1c 7.6. Discussed in detail with the patient regarding lifestyle modification. For now start on Januvia 100 mg daily. For sliding scale at low-dose protocol. Plan Analgesia: Morphine 1 mg every 4 hours as needed, Tylenol as needed Glycemic control: Carb consistent cardiac diet. A1c 7.6. Insulin sliding scale at low-dose protocol. Januvia 100 mg daily. Nutrition: Cardiac diet CODE STATUS: Full code PUD prophylaxis: Famotidine DVT prophylaxis: Heparin 5000 every 8 hourly Discharge planning: Home with caregiver once medically stable. Ad[facility] with telemetry This documentation was created by [employer] doctor of nurse anesthesia software. Every effort was made to ensure accuracy of doctor of nurse anesthesia. Any obvious errors or omissions should be clarified with the author of the document. 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
[2022-02-15] MEDS: mupirocin oint 22 gm 1 APPLIC TOPICAL ×2 (14:17→20:09)
[2022-02-15] MEDS: vancomycin 1,250 MG/250 ML PIGGYBACK 250 MG IV ×2 (14:17→22:09)
[2022-02-15 16:48] LABS: Glucose Point of Care 120 mg/dL (70-110)
[2022-02-15 21:25] LABS: Glucose Point of Care 195 mg/dL (70-110)
[2022-02-16] VITALS (7 sets, daily range): BP systolic 130–159; BP diastolic 78–103; PULSE 75–104; RESP 16–18; TEMP 36.7; O2SAT 93–97
[2022-02-16] MEDS: piperacillin-tazobactam 3.375 GM in sodium chloride 0.9% (plus) 50 ML IV ×2 (00:58→09:04)
[2022-02-16] MEDS: heparin 5,000 unit/mL INJ 1 mL 5000 UNIT SUBCUT ×2 (00:58→09:11)
[2022-02-16] MEDS: famotidine 20 mg/2 mL INJ IVP (04:34)
[2022-02-16 04:43] LABS: Basophils # 0.1 10^3/uL (0.0-0.1); Basophils % 0.8 %; Eosinophils # 0.2 10^3/uL (0.0-0.8); Eosinophils % 1.5 %; Hematocrit 38.8 % (37.0-47.0); Hemoglobin 11.8 g/dL (11.5-15.3); Lymphocytes # 2.3 10^3/uL (0.8-4.8); Lymphocytes % 19.8 %; Mean Corpuscular HGB Conc 30.4 g/dL (30.0-36.0); Mean Corpuscular Hemoglobin 26.2 pg (28.0-34.0); Mean Corpuscular Volume 86.2 fl (81-99); Mean Platelet Volume 9.3 fL (7.4-10.4); Monocytes # 0.8 10^3/uL (0.2-0.9); Monocytes % 7.2 %; Neutrophils # 8.16 10^3/uL (1.8-7.7); Neutrophils % 69.7 %; Nucleated Red Blood Cells % 0 %; Platelet Count 362 10^3/cmm (130-400); Red Cell Distribution Width 16.9 % (12.1-15.1); White Blood Count 11.7 10^3/uL (4.0-10.0)
[2022-02-16] MEDS: buPROPion XL (24 HR) 300 mg Tablet PO (05:51)
[2022-02-16] MEDS: escitalopram 10 mg Tablet 20 MG PO (05:51)
[2022-02-16] MEDS: vancomycin 1,250 MG/250 ML PIGGYBACK 250 MG IV (05:51)
[2022-02-16 06:49] LABS: Glucose Point of Care 112 mg/dL (70-110)
[2022-02-16] MEDS: carvedilol 25 mg Tablet PO (08:58)
[2022-02-16] MEDS: mupirocin oint 22 gm 1 APPLIC TOPICAL (08:59)
[2022-02-16] MEDS: polymyxin-trimethoprim Op Soln 10 mL Btl 1 DROP EYE-LEFT (09:02)
[2022-02-16] MEDS: sitagliptin 100 mg Tablet PO (09:15)
[2022-02-16 11:07] LABS: Glucose Point of Care 204 mg/dL (70-110)
--- NOTE | 2022-02-16 11:32 | PM.DCS ---
Discharge Providers Date of Admission: 02/14/22 14:58 Date of Discharge: February 16, 2022 Attending Provider at Admission: Oliver Hurtado MD Attending Provider at Discharge: Oliver Hurtado MD Primary Care Provider: Malcom Villanueva MD Diagnoses at Discharge Discharge Diagnosis (1) Sepsis: Status: Acute (2) Cellulitis, gluteal, left: Status: Acute (3) Immunocompromised: Status: Acute (4) Rheumatoid arthritis with rheumatoid factor 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 systems involvement: Status: Acute (5) HTN (hypertension): Status: Chronic Qualifiers: Hypertension type: essential hypertension Qualified Code(s): I10 - Essential (primary) hypertension (6) Type 2 diabetes mellitus: Status: Acute Reason for Visit Reason for Visit: High hr and bp Hospital Course Hospital Course Marychuy Chino is a 41 year old female with past medical history of rheumatoid arthritis, 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 Today she went to her primary care's office because of development of a boil on the left gluteal region.? While she was in the office the boil burst and after that she had extreme pain and she was found to be tachycardic and hypotensive hence sent to the ER. In the ER she was found to have a heart rate of more than 100, blood pressure of 160/100. Hospitalist team was asked for admission.? Patient otherwise denies any complains of nausea vomiting, headache, dizziness, fevers. Patient was admitted to hospital further evaluation and management of sepsis secondary to acute cellulitis without abscess. CT pelvis ruled out any collection. Because of recurrent episodes of butyl cellulitis MRSA swab was checked which came back positive. She started on broad-spectrum antibiotics. She responded well to the treatment and her vitals stabilized. She has been discharged in hemodynamically stable condition on oral linezolid and Levaquin for next 7 days. Because of recurrent episodes of cellulitis she is also advised for chronic decolonization with mupirocin. She was found to be diabetic with A1c of 7.6 for which she started on new Sitagliptin. She is To continue taking her carvedilol, triamterene hydrochlorothiazide as before along with new losartan 50 mg daily. From approximately finalization she is to put the ointment in her nares, armpit and groin 5 days a month for next 5 months. Other medication changes were discussed in detail with the patient and she verbalized understanding. Physical Exam Narrative: General: No acute distress, AO x3 HEENT: PERRLA, pupils bilaterally equal and reactive Chest: Normal vesicular breath sounds, no added sounds, equal good air entry bilaterally CVS: S1-S2 regular, no murmurs, no tachycardia, no gallops, no rubs Abdomen: Soft, nontender, no organomegaly, bowel sounds present Neuro: No focal deficits, no facial deformity, AO x3, power 5/5 in all limbs Extremities: Small superficial opening with purulent drainage seen in the left gluteal region without any surrounding erythema. Multiple old scars lesions present both in bilateral gluteal and bilateral medial thighs. Discharge Data Studies Completed and Pending Completed Studies During Hospitalization Category Date Time Status CT pelvis w con* [id number] Stat Cat Scan 02/14/22 11:52 Completed Pending at discharge Category Date Time Status Blood Culture Stat Lab 02/14/22 11:05 Results Urinalysis Routine Lab 02/14/22 16:25 Ordered Wound Culture and Gram Stain Stat Lab 02/14/22 15:30 Results Radiology Impressions Pelvis CT 02/14/22 11:52 IMPRESSION: 1. Induration with subcutaneous edema involving the LEFT buttock extending to the gluteal fold compatible with cellulitis. 2. Tiny sliver of fluid along the LEFT gluteal cleft extending to the rectum. No drainable abscess or fluid collection. No ulcerative fistulous tract. 3. Fibroid uterus with enlarging LEFT dorsal fibroid compressing the cervix measuring up to 6.5 CM. This can be followed up with ultrasound. Laboratory Results WBC 11.7 10^3/uL (4.0-10.0) H 02/16/22 04:13 RBC 4.50 10^6/uL (4.1-5.3) 02/16/22 04:13 Hgb 11.8 g/dL (11.5-15.3) 02/16/22 04:13 Hct 38.8 % (37.0-47.0) 02/16/22 04:13 MCV 86.2 fl (81-99) 02/16/22 04:13 MCH 26.2 pg (28.0-34.0) L 02/16/22 04:13 MCHC 30.4 g/dL (30.0-36.0) 02/16/22 04:13 RDW 16.9 % (12.1-15.1) H 02/16/22 04:13 Plt Count 362 10^3/cmm (130-400) 02/16/22 04:13 MPV 9.3 fL (7.4-10.4) 02/16/22 04:13 Neut % (Auto) 69.7 % 02/16/22 04:13 Lymph % (Auto) 19.8 % 02/16/22 04:13 [place] % (Auto) 7.2 % 02/16/22 04:13 Eos % (Auto) 1.5 % 02/16/22 04:13 Baso % (Auto) 0.8 % 02/16/22 04:13 Neut # (Auto) 8.16 10^3/uL (1.8-7.7) H 02/16/22 04:13 Lymph # (Auto) 2.3 10^3/uL (0.8-4.8) 02/16/22 04:13 [place] # (Auto) 0.8 10^3/uL (0.2-0.9) 02/16/22 04:13 Eos # (Auto) 0.2 10^3/uL (0.0-0.8) 02/16/22 04:13 Baso # (Auto) 0.1 10^3/uL (0.0-0.1) 02/16/22 04:13 Nucleated RBC % (auto) 0 % 02/16/22 04:13 Nucleated RBCs # 0.0 /100WBC 02/16/22 04:13 Sodium 137 mmol/L (136-145) 02/15/22 04:18 Potassium 3.5 mmol/L (3.5-5.1) 02/15/22 04:18 Chloride 105 mmol/L (98-107) 02/15/22 04:18 Carbon Dioxide 23 mmol/L (22-29) 02/15/22 04:18 Anion Gap 12.5 (5-19) 02/15/22 04:18 BUN 8 mg/dL (6-20) 02/15/22 04:18 Creatinine 0.7 mg/dL (0.5-0.9) 02/15/22 04:18 GFR Calculation 91.3 mL/min (90-130) 02/15/22 04:18 Glucose 125 mg/dL (65-115) H 02/15/22 04:18 POC Glucose 204 mg/dL (70-110) H 02/16/22 10:42 Estimat Average Glucose 171 02/15/22 04:18 Hemoglobin A1c 7.6 % (4.0-6.0) H 02/15/22 04:18 Calculated Osmolality 284 mOsm/kg (285-295) L 02/15/22 04:18 Lactic Acid 3.1 mmol/L (0.5-2.2) H 02/14/22 11:00 Lactic Acid (Sepsis) 1.3 mmol/L (0.5-2.2) 02/14/22 13:40 Calcium 8.2 mg/dL (8.5-10.5) L 02/15/22 04:18 Phosphorus 2.4 mg/dL (2.5-4.5) L 02/15/22 04:18 Magnesium 1.6 mg/dL (1.7-2.3) L 02/15/22 04:18 Iron 29 ug/dL (37-145) L 02/14/22 14:57 TIBC 281 mcg/dl 02/14/22 14:57 % Saturation 10.3 % (20-50) L 02/14/22 14:57 Unsat Iron Binding 252 ug/dL (112-347) 02/14/22 14:57 Total Bilirubin 0.2 mg/dL (0.15-1.2) 02/15/22 04:18 AST 10 U/L (0-32) 02/15/22 04:18 ALT 15 U/L (0-33) 02/15/22 04:18 Alkaline Phosphatase 136 U/L (35-105) H 02/15/22 04:18 Troponin T Baseline 7 ng/L (0-10) 02/14/22 11:00 Troponin T 120 Minute 8.90 ng/L (0-10) 02/14/22 13:40 Delta Troponin T 1.90 ABS# (0-10) 02/14/22 13:40 Troponin T Hi Sens 6Hr 6.69 ng/L (0-10) 02/14/22 17:17 Troponin T Hi Sens 6Hr Delta -0.31 ng/L (0-12) L 02/14/22 17:17 C-Reactive Protein 79.0 mg/L (0.0-4.9) H 02/14/22 11:00 Total Protein 6.3 g/dL (6.6-8.7) L D 02/15/22 04:18 Albumin 3.0 g/dL (3.5-5.2) L 02/15/22 04:18 Globulin 3.3 g/dL (1.3-4.6) 02/15/22 04:18 Triglycerides 221 mg/dL (0-150) H 02/15/22 04:18 Cholesterol 162 mg/dL (0-200) 02/15/22 04:18 LDL Cholesterol, Calc 94 mg/dL (50-129) 02/15/22 04:18 Total VLDL Cholesterol 44 mg/dL (0-30) H 02/15/22 04:18 HDL Cholesterol 24 mg/dL (60-100) L 02/15/22 04:18 Cholesterol/HDL Ratio 6.75 mg/dL (0.0-4.40) H 02/15/22 04:18 Vitamin B12 503 pg/mL (232-1245) 02/14/22 14:57 Folate > 20.0 ng/mL (4.8-37.3) 02/14/22 17:17 Procalcitonin 0.05 ng/mL (0-0.5) 02/14/22 14:57 TSH 4.08 uIU/mL (0.27-4.20) 02/14/22 11:00 Urine Color Yellow (Yellow) 02/14/22 16:19 Urine Appearance Clear (CLEAR) 02/14/22 16:19 Urine pH 8 (5-7) H 02/14/22 16:19 Ur Specific [place] 1.005 (1.005-1.030) 02/14/22 16:19 Urine Protein Neg (Negative) 02/14/22 16:19 Urine Glucose (UA) Norm (Normal) 02/14/22 16:19 Urine Ketones Negative (Negative) 02/14/22 16:19 Urine Blood Neg (Negative) 02/14/22 16:19 Urine Nitrate Negative (Negative) 02/14/22 16:19 Urine Bilirubin Neg (Negative) 02/14/22 16:19 Prot Sulfosalicylic Acd Negative (Negative) 02/14/22 16:19 Urine Urobilinogen Norm mg/dL (Negative) 02/14/22 16:19 Ur Leukocyte Esterase Negative (Negative) 02/14/22 16:19 Vancomycin Trough 11.8 ug/mL (10-15) 02/15/22 11:58 Urine Opiates Screen Negative ng/mL (Negative) 02/14/22 16:19 Ur Barbiturates Screen Negative ng/mL (Negative) 02/14/22 16:19 Ur Phencyclidine Scrn Negative ng/mL (Negative) 02/14/22 16:19 Ur Amphetamines Screen Negative ng/mL (Negative) 02/14/22 16:19 U Benzodiazepines Scrn Negative ng/mL (Negative) 02/14/22 16:19 Urine Cocaine Screen Negative ng/mL (Negative) 02/14/22 16:19 U Marijuana (THC) Screen Negative ng/mL (Negative) 02/14/22 16:19 Vitals Last Vital Signs Temp 98.0 F 02/16/22 07:37 Pulse 94 02/16/22 07:37 Resp 16 02/16/22 07:37 BP 159/103 02/16/22 07:37 Pulse Ox 94 02/16/22 07:37 O2 Del Method 02/16/22 07:37 O2 Flow Rate 97 02/14/22 19:43 Discharge Plan Discharge Patient Disposition: Home Condition: Stable Prescriptions: New losartan 50 mg tablet 50 mg PO DAILY Qty: 30 0RF mupirocin 2 % ointment 1 applic topical TID Qty: 22 0RF Rx Instructions: Apply to nails, armpit, groin, butt crack for 5 days for next 5 months. Januvia 100 mg Tablet 100 mg PO DAILY Qty: 30 0RF levofloxacin 500 mg tablet 500 mg PO Q24H 7 Days Qty: 7 0RF linezolid 600 mg tablet 600 mg PO BID 10 Days Qty: 20 0RF Continued carvedilol [Coreg] 25 mg tablet 25 mg PO BID escitalopram oxalate [Lexapro] 20 mg tablet 20 mg PO QAM prednisone 10 mg tablet See Rx Instructions PO .COMPLEX PRN (Reason: joint pain flare) Qty: 60 1RF Rx Instructions: take 1 tab daily for 3-7 days prn joint pain flare PO PRN; acetaminophen [Tylenol Extra Strength] 500 mg Tablet 1,000 mg PO Q6H PRN (Reason: Pain) triamterene-hydrochlorothiazid 37.5-25 mg capsule 1 cap PO QAM prednisolone acetate 1 % drops,suspension 1 drp ophthalmic (eye) TID Rx Instructions: LEFT EYE polymyxin B sulf-trimethoprim 10,000 unit- 1 mg/mL drops 1 drp ophthalmic (eye) QID Rx Instructions: LEFT EYE FOR 7 DAYS bupropion HCl 300 mg tablet extended release 24 hr 300 mg PO QAM leflunomide 20 mg tablet 20 mg PO QAM famotidine 20 mg tablet 20 mg PO QAM Discontinued spironolactone 100 mg tablet 100 mg PO QAM Hold Instructions: Resume on 04/06/20. amlodipine [Norvasc] 2.5 mg tablet 2.5 mg PO QAM Discharge Orders: Discharge Order (Routine); Ordered 02/16/22 Ordered By: Oliver Hurtado Referrals: Malcom Villanueva MD [Primary Care Provider] - 7-10 days Discharge Diet: Cardiac and Diabetic Discharge Activity: Resume usual activity and Increase activity as tolerated Patient Instructions: Opioid Safety Activity Restrictions/Additional Instructions: You will be on 2 antibiotics linezolid and Levaquin for next 10 days. Linezolid is 2 times a day and Levaquin is 1 time a day. My please use naproxen as discussed in detail. Please apply to your nails, groin, armpit and butt crack for 5 days twice daily for next 5 months. Multiple medication changes have been done. Do not take spironolactone and amlodipine anymore. Instead take losartan 50 mg oral daily. Please monitor your blood pressure daily and maintain a blood pressure diary and follow-up with primary care provider within next 10 days for further adjustment of antihypertensives as needed. You are antidiabetic medication called Januvia 100 mg daily now. Please change your lifestyle as we discussed in detail. Please try to walk for at least 45 minutes after stretching day for 4 out of 7 days a week. Please try to lose 10 pounds. You should have HbA1c checked in 6 months. Discharge Attestations Time Spent in Discharge Care*: greater than 30 min Specific Discharge Activities: educating patient, educating and/or supporting family/caregiver, discussing with porter sample case/social workers/dc planners, documenting/other paperwork and evaluating patient/reviewing data Status at Discharge: Cognitive status at discharge: cognitively intact, Behavioral status at discharge: cooperative, Functional status at discharge: independent ambulation, Overall status at discharge: patient is back to baseline Quality Metrics Clinical Quality Measures [ No reported AMI, CVA or VTE this stay] Coding Level of Care Code Acute [facility] DC note Diagnoses Sepsis A41.9 Cellulitis, gluteal, left L03.317 Immunocompromised D84.9 Rheumatoid arthritis 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
--- NOTE | 2022-02-16 12:31 | PC.NURSE ---
Grecia from [facility] pharmacy called to inform this nurse of a major interaction between wellbutrin and linezolid. This nurse notified Dr. Hurtado who verbalized to change linezolid to doxycycline 100mg BID for 10 days, telephone order read back verified. Verbal given to Grecia at [facility] pharmacy to cancel linezolid and to use doxycycline 100mg BID for 10 days.
== END 2022-02-16 12:26 | disposition home or self-care (01) | DRG 872 ==
LOC: ER 15:13 → MEDSURG 15:33
PROVIDERS: Admitting Provider Student in an Organized Health Care Education/Training Program; Emergency Provider Family Medicine; PCP Family Medicine; Visit Provider Student in an Organized Health Care Education/Training Program
DX: A41.9 Sepsis, unspecified organism (principal); L03.317 Cellulitis of buttock; D84.821 Immunodeficiency due to drugs; M06.9 Rheumatoid arthritis, unspecified; Z79.52 Long term (current) use of systemic steroids; I10 Essential (primary) hypertension; Z86.16 Personal history of COVID-19; E66.01 Morbid (severe) obesity due to excess calories; Z68.31 Body mass index [BMI] 31.0-31.9, adult; E11.9 Type 2 diabetes mellitus without complications; Z86.14 Personal history of Methicillin resistant Staphylococcus aureus infection; B95.62 Methicillin resistant Staphylococcus aureus infection as the cause of diseases classified elsewhere
CPT/HCPCS: 36415; 36416; 72193; 80053; 80061; 80202; 80306; 81003; 82607; 82746; 82962; 83036; 83540; 83550; 83605; 83735; 84100; 84145; 84443; 84484; 85025; 86140; 86403; 87040; 87070; 87075; 87186; 87205; 87641; 93005; 94664; 96365; 96372; 99285; J1644; J2543; J2550; J3370; J3490; J7030; J7050; Q9967

== ENCOUNTER → 2022-03-29 15:48 | Outpatient (BNVA) | payer BC, SELFPAY | PROVIDERS: PCP Family Medicine; Visit Provider Nurse Practitioner Family | DX: J06.9 Acute upper respiratory infection, unspecified (principal) | CPT/HCPCS: 87400 ==

== ENCOUNTER → 2022-05-20 14:41 | Outpatient (BNVA) | payer BC, SELFPAY | PROVIDERS: PCP Family Medicine; Visit Provider Internal Medicine Rheumatology | DX: Z79.899 Other long term (current) drug therapy (principal); H20.9 Unspecified iridocyclitis; Z11.59 Encounter for screening for other viral diseases; M05.79 Rheumatoid arthritis with rheumatoid factor 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 systems involvement; Z71.89 Other specified counseling | CPT/HCPCS: 36415; 80076; 82565; 85025; 86140; 86480 ==

== ENCOUNTER → 2022-05-27 08:21 | Outpatient (BNVA) | payer BC, SELFPAY | PROVIDERS: PCP Family Medicine; Visit Provider Family Medicine | DX: A41.9 Sepsis, unspecified organism (principal); E11.9 Type 2 diabetes mellitus without complications; J18.9 Pneumonia, unspecified organism; Z79.899 Other long term (current) drug therapy | CPT/HCPCS: 80053; 80061; 83036; 85025 ==

== ENCOUNTER 2022-05-30 08:46 | Oncology outpatient (recurring) (ONCR) | payer BC, SELFPAY ==
[2022-05-30 09:32] VITALS: BP 135/90; PULSE 88; RESP 18; TEMP 36.4; O2SAT 97
[2022-05-30 09:38] LABS: Basophils # 0.1 10^3/uL (0.0-0.1); Basophils % 0.6 %; Eosinophils # 0.2 10^3/uL (0.0-0.8); Eosinophils % 1.7 %; Hematocrit 38.9 % (37.0-47.0); Hemoglobin 12.3 g/dL (11.5-15.3); Lymphocytes % 28.6 %; Mean Corpuscular HGB Conc 31.6 g/dL (30.0-36.0); Mean Corpuscular Hemoglobin 26.2 pg (28.0-34.0); Mean Corpuscular Volume 82.9 fl (81-99); Mean Platelet Volume 8.8 fL (7.4-10.4); Monocytes % 7.2 %; Neutrophils # 8.57 10^3/uL (1.8-7.7); Neutrophils % 61.2 %; Nucleated Red Blood Cells % 0 %; Platelet Count 508 10^3/cmm (130-400); Red Blood Count 4.69 10^6/uL (4.1-5.3); Red Cell Distribution Width 15.7 % (12.1-15.1)
[2022-05-30] MEDS: sodium chloride 0.9% 250 ML 50 ML IV (09:45)
[2022-05-30 09:46] LABS: Erythrocyte Sedimentation Rate 113 mm/hr (0-15)
[2022-05-30] MEDS: acetaminophen 325 mg Tablet 650 MG PO (09:46)
[2022-05-30] MEDS: diphenhydrAMINE 50 mg/mL SDV 1mL 25 MG IVP (09:48)
[2022-05-30 10:07] LABS: Alanine Aminotransferase 14 U/L (0-33); Albumin Level 3.9 g/dL (3.5-5.2); Alkaline Phosphatase 125 U/L (35-105); Globulin 3.6 g/dL (1.3-4.6); Glomerular Filtration Rate 91.3 mL/min (90-130); Slide Review Slide Review Perform; Total Bilirubin 0.2 mg/dL (0.15-1.2); Total Protein 7.5 g/dL (6.6-8.7)
[2022-05-30 10:17] LABS: Aspartate Amino Transferase 21 U/L (0-32)
[2022-05-30 10:36] VITALS: BP 129/84; PULSE 84; RESP 18; TEMP 36.7; O2SAT 96
[2022-05-30 11:05] VITALS: BP 135/83; PULSE 86; RESP 18; TEMP 36.9; O2SAT 96
[2022-05-30 12:32] VITALS: BP 142/87; PULSE 87; RESP 18; TEMP 36.4; O2SAT 95
== END 2022-06-11 23:59 | disposition home or self-care (01) ==
PROVIDERS: PCP Family Medicine; Visit Provider Internal Medicine Rheumatology
DX: H20.9 Unspecified iridocyclitis (principal); Z79.899 Other long term (current) drug therapy
CPT/HCPCS: 80076; 82565; 85025; 85651; 87624; 96365; 96366; 96375; A4222; J1200; J1745; J2920; J7050

== ENCOUNTER 2022-06-13 13:35 | Outpatient (CLI) | payer BC, SELFPAY ==
--- NOTE | 2022-06-13 14:00 | MM_ITS ---
WS: [id number] BILATERAL 3D TOMOSYNTHESIS DIGITAL SCREENING MAMMOGRAPHY WITH CAD CLINICAL INFORMATION: screening HISTORY: Screening mammogram. No current complaints. COMPARISON: 2019 TECHNIQUE: Bilateral CC and MLO views. FINDINGS: Scattered fibroglandular densities bilaterally. No suspicious focal mass, asymmetry, calcifications, or architectural distortion. No evidence of malignancy. Incidental punctate and lucent centered calci fications. MM/[place] [id number] IMPRESSION: BI-RADS: 2-Benign FOLLOW UP: 1 Year Follow-up Recommend return to annual screening mammography.
== END 2022-06-13 13:36 | disposition home or self-care (01) ==
LOC: RAD 13:36
PROVIDERS: PCP Family Medicine; Visit Provider Family Medicine
DX: Z12.31 Encounter for screening mammogram for malignant neoplasm of breast (principal)
CPT/HCPCS: 77063; 77067

== ENCOUNTER 2022-07-11 09:00 | Oncology outpatient (recurring) (ONCR) | payer BC, SELFPAY ==
[2022-06-13 08:20] VITALS: BP 144/97; PULSE 89; RESP 18; TEMP 36.2; O2SAT 97
[2022-06-13] MEDS: sodium chloride 0.9% 250 ML 50 ML IV (08:44)
[2022-06-13] MEDS: acetaminophen 325 mg Tablet 650 MG PO (08:45)
[2022-06-13] MEDS: diphenhydrAMINE 50 mg/mL SDV 1mL 25 MG IVP (08:46)
[2022-06-13] MEDS: SODIUM CHLORIDE 0.9% IV (09:04)
[2022-06-13] MEDS: INFLIXIMAB IV (09:04)
[2022-06-13 09:35] VITALS: BP 142/86; PULSE 87; RESP 18; TEMP 36.6
[2022-06-13 09:59] VITALS: BP 138/88; PULSE 90; RESP 18; TEMP 36.6; O2SAT 96
[2022-06-13 10:37] VITALS: BP 132/84; PULSE 88; RESP 18; TEMP 36.5; O2SAT 97
[2022-06-13 11:35] VITALS: BP 164/99; PULSE 93; RESP 18; TEMP 36.3; O2SAT 96
[2022-07-11 09:18] VITALS: BP 143/98; PULSE 83; RESP 18; TEMP 36.2; O2SAT 98
[2022-07-11 09:41] LABS: Basophils # 0.1 10^3/uL (0.0-0.1); Basophils % 1.1 %; Eosinophils # 0.2 10^3/uL (0.0-0.8); Eosinophils % 2.5 %; Hemoglobin 15.1 g/dL (11.5-15.3); Lymphocytes # 2.6 10^3/uL (0.8-4.8); Lymphocytes % 39.4 %; Mean Corpuscular HGB Conc 32.1 g/dL (30.0-36.0); Mean Corpuscular Hemoglobin 27.1 pg (28.0-34.0); Mean Corpuscular Volume 84.4 fl (81-99); Mean Platelet Volume 10.1 fL (7.4-10.4); Monocytes # 0.4 10^3/uL (0.2-0.9); Monocytes % 5.4 %; Neutrophils # 3.34 10^3/uL (1.8-7.7); Nucleated Red Blood Cells % 0 %; Platelet Count 357 10^3/cmm (130-400); Red Blood Count 5.57 10^6/uL (4.1-5.3); Red Cell Distribution Width 15.8 % (12.1-15.1); White Blood Count 6.5 10^3/uL (4.0-10.0)
[2022-07-11 09:50] LABS: Erythrocyte Sedimentation Rate 67 mm/hr (0-15)
[2022-07-11] MEDS: sodium chloride 0.9% 250 ML 50 ML IV (09:52)
[2022-07-11] MEDS: acetaminophen 325 mg Tablet 650 MG PO (09:53)
[2022-07-11 09:54] LABS: Alanine Aminotransferase 44 U/L (0-33); Albumin Level 4.4 g/dL (3.5-5.2); Alkaline Phosphatase 100 U/L (35-105); Aspartate Amino Transferase 37 U/L (0-32); Globulin 3.6 g/dL (1.3-4.6); Glomerular Filtration Rate 78.3 mL/min (90-130); Total Bilirubin 0.2 mg/dL (0.15-1.2)
[2022-07-11] MEDS: diphenhydrAMINE 50 mg/mL SDV 1mL 25 MG IVP (09:55)
[2022-07-11] MEDS: INFLIXIMAB IV (10:07)
[2022-07-11] MEDS: SODIUM CHLORIDE 0.9% IV (10:07)
[2022-07-11 10:50] VITALS: BP 122/80; PULSE 79; RESP 18; TEMP 36.8; O2SAT 94
[2022-07-11 11:35] VITALS: BP 135/87; PULSE 84; RESP 18; TEMP 36.4; O2SAT 96
[2022-07-11 12:36] VITALS: BP 140/92; PULSE 91; RESP 18; TEMP 36.8; O2SAT 97
== END 2022-07-12 23:59 | disposition home or self-care (01) ==
PROVIDERS: PCP Family Medicine; Visit Provider Internal Medicine Rheumatology
DX: H20.9 Unspecified iridocyclitis (principal); Z79.899 Other long term (current) drug therapy
CPT/HCPCS: 80076; 82565; 85025; 85651; 96361; 96365; 96366; 96375; A4222; J1200; J1745; J2920; J7050

== ENCOUNTER 2022-08-22 08:45 | Oncology outpatient (recurring) (ONCR) | payer BC, SELFPAY ==
[2022-08-22 09:08] VITALS: BP 127/90; PULSE 83; RESP 18; TEMP 36.3; O2SAT 98
[2022-08-22 09:20] LABS: Basophils # 0.1 10^3/uL (0.0-0.1); Basophils % 0.8 %; Eosinophils # 0.3 10^3/uL (0.0-0.8); Eosinophils % 2.9 %; Hematocrit 46.2 % (37.0-47.0); Hemoglobin 14.6 g/dL (11.5-15.3); Lymphocytes # 3.2 10^3/uL (0.8-4.8); Lymphocytes % 36.7 %; Mean Corpuscular HGB Conc 31.6 g/dL (30.0-36.0); Mean Corpuscular Hemoglobin 26.7 pg (28.0-34.0); Mean Corpuscular Volume 84.6 fl (81-99); Monocytes # 0.8 10^3/uL (0.2-0.9); Monocytes % 9.5 %; Neutrophils # 4.36 10^3/uL (1.8-7.7); Neutrophils % 49.9 %; Nucleated Red Blood Cells % 0 %; Platelet Count 328 10^3/cmm (130-400); Red Blood Count 5.46 10^6/uL (4.1-5.3); Red Cell Distribution Width 14.9 % (12.1-15.1); White Blood Count 8.7 10^3/uL (4.0-10.0)
[2022-08-22 09:32] LABS: Alanine Aminotransferase 58 U/L (0-33); Albumin Level 4.3 g/dL (3.5-5.2); Alkaline Phosphatase 105 U/L (35-105); Anion Gap 15.7 (5-19); Aspartate Amino Transferase 51 U/L (0-32); Blood Urea Nitrogen 8 mg/dL (6-20); C Reactive Protein 12.4 mg/L (0.0-4.9); Calcium 8.9 mg/dL (8.5-10.5); Carbon Dioxide 23 mmol/L (22-29); Chloride 101 mmol/L (98-107); Globulin 3.4 g/dL (1.3-4.6); Glomerular Filtration Rate 91.3 mL/min (90-130); Glucose 153 mg/dL (65-115); Osmolality Calculated 283 mOsm/kg (285-295); Potassium 3.7 mmol/L (3.5-5.1); Sodium 136 mmol/L (136-145); Total Bilirubin 0.2 mg/dL (0.15-1.2); Total Protein 7.7 g/dL (6.6-8.7)
[2022-08-22] MEDS: acetaminophen 325 mg Tablet 650 MG PO (10:02)
[2022-08-22] MEDS: sodium chloride 0.9% (100 ml) 100 ML 25 ML (10:02)
[2022-08-22] MEDS: diphenhydrAMINE 50 mg/mL SDV 1mL 25 MG IVP (10:03)
[2022-08-22] MEDS: dexamethasone 10 mg/mL INJ 6 MG IVP (10:05)
[2022-08-22] MEDS: SODIUM CHLORIDE 0.9% IV (10:11)
[2022-08-22] MEDS: INFLIXIMAB IV (10:11)
[2022-08-22 11:30] VITALS: BP 124/82; PULSE 78; RESP 18; TEMP 36.4; O2SAT 98
[2022-08-22 11:50] VITALS: BP 121/80; PULSE 79; RESP 18; TEMP 36.4; O2SAT 98
[2022-08-22 12:44] VITALS: BP 133/87; PULSE 85; RESP 18; TEMP 36; O2SAT 97
== END 2022-09-11 23:59 | disposition home or self-care (01) ==
PROVIDERS: PCP Family Medicine; Visit Provider Internal Medicine Rheumatology
DX: H20.9 Unspecified iridocyclitis (principal)
CPT/HCPCS: 80053; 85025; 86140; 96365; 96366; 96375; 96413; 96415; J1100; J1200; J1745; J7050

== ENCOUNTER 2022-09-23 06:43 | Emergency (ER) | payer BC, SELFPAY ==
[2022-09-23 06:52] VITALS: BMI 31.4
[2022-09-23 06:54] VITALS: BP 174/108; PULSE 102; RESP 17; TEMP 37.2; O2SAT 100
--- NOTE | 2022-09-23 07:19 | ED_ITS ---
HPI - Skin/Abscess/Foreign Bdy General: Chief complaint: Skin/Abscess/Foreign Body Stated complaint: abcess on posterior Time Seen by Provider: 09/23/22 06:48 Source: patient Mode of arrival: ambulatory History of Present Illness: 42-year-old female presents emergency room with complaints of a abscess on her left buttock. She began to notice it last night. She has not had any drainage from the wound no fever sweats or chills. She is concerned because her blood pressure was elevated. No vomiting no diarrhea. She is not currently on any antibiotics she has had multiple episodes of these in the past. MD complaint: abscess/boil Onset (ago): hour(s) Location: buttocks (left) Severity: mild Quality: aching Pain Consistency: constant Relieving factors: none Exacerbating factors: palpation Associated symptoms: Deny arthralgias, chills, cough, fever(s), itching, myalg ias, nausea, rigidity, short of breath or vomiting Treatments prior to arrival: none Review of Systems Const: Denies: fever(s) or chills GI: Denies: nausea or vomiting PFSH ED PFSH: Medical History (Updated 09/23/22 @ 08:22 by Jesús Emery DO) COVID-19 High risk medication use HTN (hypertension) Immunization counseling Immunocompromised Morbid obesity Rheumatoid arthritis with rheumatoid factor 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 systems involvement Type 2 diabetes mellitus Uveitis Surgical History H/O dilation and curettage -x 2 H/O myomectomy 11/09/2017 History of endometrial ablation Hx of cataract surgery bilateral 01/24 Family History Other Diabetes Hypertension Rheumatoid arthritis Social History Smoking and tobacco status: never smoked Alcohol intake: never Substance/Drug Use: never Marital status: Current occupational status: employed Procedures Abscess I/D Site: other (2 abscesses incised and drained 1 on the lower left buttock just superior to the gluteal fold the other on the proximal upper left thigh) Side (if applicable): left (Thigh and buttock see above) Local Anesthetic: lidocaine 1% Amount of anesthesia used (mL): 4 Technique: incised with #11 blade Amount of fluid expressed (mL): 10 Irrigation: Yes Packing used?: plain Course Vital Signs: Vital signs: Vital Signs Temperature 99.0 F 09/23/22 06:54 Pulse Rate 78 09/23/22 08:34 Respiratory Rate 18 09/23/22 08:34 Blood Pressure 148/82 09/23/22 08:34 Pulse Oximetry 98 09/23/22 08:34 Oxygen Delivery Me thod Room Air 09/23/22 06:54 MDM - Skin/Abscess/Foreign Bdy Medicial Decision Making Incision and drainage of left buttock and left proximal thigh abscess. Patient tolerated both well the buttock abscess was packed with iodoform gauze the other abscess while expressing some fluid did not have a cavity significant enough for placement of packing. We will discharge patient home on Bactrim 2 tablets p.o. twice daily cultures have been done we will have her follow-up tomorrow with her primary care doctor to have the packing changed. Medical Records I reviewed the patient's medical records. Lab Data I reviewed the patient's lab results. 09/23/22 07:25 Laboratory Results WBC 10.0 10^3/uL (4.0-10.0) 09/23/22 07:25 RBC 4.94 10^6/uL (4.1-5.3) 09/23/22 07:25 Hgb 13.8 g/dL (11.5-15.3) 09/23/22 07:25 Hct 42.3 % (37.0-47.0) 09/23/22 07:25 MCV 85.6 fl (81-99) 09/23/22 07:25 MCH 27.9 pg (28.0-34.0) L 09/23/22 07:25 MCHC 32.6 g/dL (30.0-36.0) 09/23/22 07:25 RDW 14.0 % (12.1-15.1) 09/23/22 07:25 Plt Count 334 10^3/cmm (130-400) 09/23/22 07:25 MPV 10.0 fL (7.4-10.4) 09/23/22 07:25 Neut % (Auto) 55.4 % 09/23/22 07:25 Lymph % (Auto) 30.0 % 09/23/22 07:25 [place] % (Auto) 11.1 % 09/23/22 07:25 Eos % (Auto) 2.6 % 09/23/22 07:25 Baso % (Auto) 0.6 % 09/23/22 07:25 Neut # (Auto) 5.55 10^3/uL (1.8-7.7) 09/23/22 07:25 Lymph # (Auto) 3.0 10^3/uL (0.8-4.8) 09/23/22 07:25 [place] # (Auto) 1.1 10^3/uL (0.2-0.9) H 09/23/22 07:25 Eos # (Auto) 0.3 10^3/uL (0.0-0.8) 09/23/22 07:25 Baso # (Auto) 0.1 10^3/uL (0.0-0.1) 09/23/22 07:25 Nucleated RBC % (auto) 0 % 09/23/22 07:25 Nucleated RBCs # 0.0 /100WBC 09/23/22 07:25 Discharge Plan Discharge Patient Disposition: Home Clinical Impression: Abscess, gluteal, left, Abscess of left thigh Condition: Stable Prescriptions: New Bactrim DS 800-160 mg tablet 2 tab PO BID 7 Days Qty: 28 0RF hydrocodone-acetaminophen 5-325 mg tablet 1 tab PO Q6H PRN (Reason: pain) Qty: 10 0RF No Action prednisone 10 mg tablet 10 mg PO DAILY Qty: 90 1RF famotidine 10 mg tablet 10 mg PO DAILY Qty: 90 0RF prednisone 20 mg tablet 40 mg PO DAILY Qty: 6 0RF amoxicillin-pot clavulanate 875-125 mg tablet 1 tab PO BID Qty: 14 0RF fluconazole [Diflucan] 150 mg tablet 150 mg PO Q3D Qty: 2 0RF Rx Instructions: may repeat second dose 72 hrs after first dose if symptoms persist terconazole 0.4 % cream 1 appful vaginal .qHS 7 Days Qty: 45 0RF losartan 50 mg tablet 50 mg PO DAILY Qty: 30 11RF carvedilol 25 mg tablet See Rx Instructions .ROUTE .COMPLEX Qty: 60 11RF Dose Instruction: TAKE 1 TABLET BY MOUTH TWICE DAILY FOR HIGH BLOOD PRESSURE Rx Instructions: TAKE 1 TABLET BY MOUTH TWICE DAILY FOR HIGH BLOOD PRESSURE triamterene-hydrochlorothiazid 37.5-25 mg capsule See Rx Instructions .ROUTE .COMPLEX Qty: 30 11RF Dose Instruction: Take 1 capsule by mouth once daily Rx Instructions: Take 1 capsule by mouth once daily escitalopram oxalate [Lexapro] 20 mg tablet 20 mg PO QAM Qty: 30 11RF bupropion HCl 300 mg tablet extended release 24 hr See Rx Instructions .ROUTE .COMPLEX Qty: 30 11RF Dose Instruction: Take 1 tablet by mouth once daily Rx Instructions: Take 1 tablet by mouth once daily leflunomide 10 mg tablet 10 mg PO DAILY Qty: 30 3RF acetaminophen [Tylenol Extra Strength] 500 mg Tablet 1,000 mg PO Q6H PRN (Reason: Pain) mupirocin 2 % ointment 1 applic topical TID Qty: 22 0RF Rx Instructions: Apply to nails, armpit, groin, butt crack for 5 days for next 5 months. Discharge Orders: Discharge ED (Routine); Ordered 09/23/22 Ordered By: Jesús Emery Referrals: Malcom Villanueva MD [Primary Care Provider] - Discharge Diet: Usual diet Discharge Activity: Increase activity as tolerated Patient Instructions: Opioid Safety, Pain Management Activity Restrictions/Additional Instructions: Follow-up with your primary care doctor tomorrow to have the wound reassessed and the packing changed. Coding Level of Care Code ED Char Filter Tank Tender for Chris Lilly
[2022-09-23 07:44] LABS: Basophils # 0.1 10^3/uL (0.0-0.1); Basophils % 0.6 %; Eosinophils # 0.3 10^3/uL (0.0-0.8); Eosinophils % 2.6 %; Hematocrit 42.3 % (37.0-47.0); Hemoglobin 13.8 g/dL (11.5-15.3); Mean Corpuscular HGB Conc 32.6 g/dL (30.0-36.0); Mean Corpuscular Hemoglobin 27.9 pg (28.0-34.0); Mean Corpuscular Volume 85.6 fl (81-99); Monocytes # 1.1 10^3/uL (0.2-0.9); Monocytes % 11.1 %; Neutrophils # 5.55 10^3/uL (1.8-7.7); Neutrophils % 55.4 %; Nucleated Red Blood Cells % 0 %; Platelet Count 334 10^3/cmm (130-400); Red Blood Count 4.94 10^6/uL (4.1-5.3)
--- NOTE | 2022-09-23 08:29 | PC.NURSE ---
dressing applied to 2 open wounds on left buttock, bleeding controlled
[2022-09-23 08:34] VITALS: BP 148/82; PULSE 78; RESP 18; O2SAT 98
== END 2022-09-23 08:38 | disposition home or self-care (01) ==
PROVIDERS: Emergency Provider Family Medicine; PCP Family Medicine
DX: L02.31 Cutaneous abscess of buttock (principal); L02.416 Cutaneous abscess of left lower limb; I10 Essential (primary) hypertension; E11.9 Type 2 diabetes mellitus without complications
CPT/HCPCS: 10061; 36415; 85025; 87040; 87070; 87075; 87077; 87186; 87205; 99283

== ENCOUNTER 2022-11-05 11:37 | Outpatient (CLI) | payer BC, SELFPAY ==
--- NOTE | 2022-11-05 12:15 | US_ITS ---
WS: [id number] INDICATION: Mass and lump RIGHT calf TECHNIQUE: Ultrasound soft tissue area of concern FINDINGS: Ultrasound RIGHT calf in the area of concern. Ovoid mixed echogenicity subcutaneous lesion in the area of concern with complex echogenic internal components. This measures approximately 2.7 x 0.6 cm. This has a nonspecific appearance and differential considerations include hematoma or phlegmo n/abscess. Lipoma is an additional consideration. Recommend correlation for infection or trauma. US/US soft tissue/extremity [id number] IMPRESSION: 1. Ovoid mixed echogenicity subcutaneous lesion in the area of concern with co mplex internal components described above.
== END 2022-11-05 11:38 | disposition home or self-care (01) ==
LOC: RAD 11:39
PROVIDERS: PCP Family Medicine; Visit Provider Nurse Practitioner Family
DX: R22.41 Localized swelling, mass and lump, right lower limb (principal)
CPT/HCPCS: 76882

== ENCOUNTER 2022-12-26 08:11 | Oncology outpatient (recurring) (ONCR) | payer BC, SELFPAY ==
[2022-12-26] VITALS (8 sets, daily range): BP systolic 131–149; BP diastolic 81–97; PULSE 70–90; RESP 16–17; TEMP 36.1–36.9; O2SAT 95–98
[2022-12-26 09:03] LABS: Basophils # 0.1 10^3/uL (0.0-0.1); Basophils % 0.4 %; Eosinophils # 0.1 10^3/uL (0.0-0.8); Eosinophils % 0.7 %; Hematocrit 41.8 % (36-47); Lymphocytes # 3.6 10^3/uL (0.8-4.8); Mean Corpuscular Hemoglobin 28.5 pg (27-33); Mean Corpuscular Volume 86.2 fl (85-98); Monocytes # 1.3 10^3/uL (0.2-0.9); Monocytes % 8.7 %; Neutrophils # 9.72 10^3/uL (1.8-7.7); Neutrophils % 65.7 %; Nucleated Red Blood Cells % 0 %; Platelet Count 384 10^3/cmm (157-399); Red Blood Count 4.85 10^6/uL (3.85-5.65); Red Cell Distribution Width 12.9 % (12.1-15.1); White Blood Count 14.81 10^3/uL (3.29-11.43)
[2022-12-26 09:19] LABS: Alanine Aminotransferase 29 U/L (0-33); Albumin Level 3.8 g/dL (3.5-5.2); Alkaline Phosphatase 102 U/L (35-105); Aspartate Amino Transferase 15 U/L (0-32); C Reactive Protein 20.4 mg/L (0.0-4.9); Globulin 3.5 g/dL (1.3-4.6); Glomerular Filtration Rate 77.9 mL/min (90-130); Total Bilirubin 0.2 mg/dL (0.15-1.2); Total Protein 7.3 g/dL (6.6-8.7)
[2022-12-26] MEDS: acetaminophen 325 mg Tablet 650 MG PO (09:55)
[2022-12-26] MEDS: diphenhydrAMINE 50 mg/mL SDV 1mL 25 MG IVP (09:56)
[2022-12-26] MEDS: sodium chloride 0.9% 250 ML 75 ML IV (09:56)
[2022-12-26] MEDS: methylPREDNISolone sod succ 40 mg SDV IVP (09:56)
== END 2023-01-11 23:59 | disposition home or self-care (01) ==
PROVIDERS: PCP Family Medicine; Visit Provider Internal Medicine Rheumatology
DX: H20.9 Unspecified iridocyclitis (principal); M05.79 Rheumatoid arthritis with rheumatoid factor 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 systems involvement
CPT/HCPCS: 80076; 82565; 85025; 86140; 96365; 96366; 96375; J1200; J2920; J7050; Q5121

== ENCOUNTER 2023-02-07 08:07 | Oncology outpatient (recurring) (ONCR) | payer BC, SELFPAY ==
[2023-02-07 08:30] VITALS: BP 112/75; PULSE 75; RESP 16; TEMP 36.1; O2SAT 96
[2023-02-07] MEDS: acetaminophen 325 mg Tablet 650 MG PO (08:46)
[2023-02-07] MEDS: sodium chloride 0.9% 250 ML 75 ML IV (08:46)
[2023-02-07] MEDS: diphenhydrAMINE 50 mg/mL SDV 1mL 25 MG IVP (08:50)
[2023-02-07] MEDS: methylPREDNISolone sod succ 40 mg SDV IVP (08:54)
[2023-02-07 09:50] VITALS: BP 108/74; PULSE 77; RESP 16; TEMP 36.3; O2SAT 96
[2023-02-07 10:35] VITALS: BP 126/77; PULSE 76; RESP 16; TEMP 35.9; O2SAT 96
[2023-02-07 11:05] VITALS: BP 138/93; PULSE 82; RESP 16; TEMP 35.6; O2SAT 96
[2023-02-07 12:04] VITALS: BP 120/83; PULSE 82; RESP 17; TEMP 35.9; O2SAT 96
== END 2023-02-11 23:59 | disposition home or self-care (01) ==
PROVIDERS: PCP Family Medicine; Visit Provider Internal Medicine Rheumatology
DX: H20.9 Unspecified iridocyclitis (principal)
CPT/HCPCS: 96375; 96413; 96415; J1200; J2920; J7050; Q5121

== ENCOUNTER 2023-03-07 07:35 | Emergency (ER) | payer BC, SELFPAY ==
[2023-03-07 07:39] VITALS: PULSE 93; RESP 16; O2SAT 100; BMI 31.6
[2023-03-07] MEDS: lidocaine 1% INJ 10 mL (per mL) 20 ML IM (08:26)
--- NOTE | 2023-03-07 08:27 | PC.NURSE ---
DR. CARROLL USED LACERATION KIT ON PATIENTS LEFT BUTTOCKS TO DRAIN BOIL. GLEN CUT 3 SMALL LACERATION ON LEFT BUTTOCKS AND USED 1/2 IN PACKING
--- NOTE | 2023-03-07 08:41 | ED_ITS ---
HPI - Wound/Laceration General: Chief Complaint: Wound/Laceration Stated Complaint: reported boil on bottom Time Seen by Provider: 03/07/23 07:37 Source: patient Mode of arrival: ambulatory History of Present Illness: 42-year-old female presents emergency room with an abscess on the buttock she has had these multiple times in the past that spontaneously opened and started draining after she arrived here. No fever sweats or chills. Associated symptoms: Denies chills or fever(s) Review of Systems Const: Denies: fever(s) or chills Card: Denies: chest pain Resp: Denies: dyspnea GI: Denies: abdominal pain : Denies: dysuria, urinary frequency or urinary urgency Musc: Denies: neck pain or back pain Skin/Breast: Denies: rash PFSH ED PFSH: Medical History Abscess, gluteal, left COVID-19 High risk medication use HTN (hypertension) Immunization counseling Immunocompromised Morbid obesity Rheumatoid arthritis with rheumatoid factor 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 systems involvement Type 2 diabetes mellitus Uveitis Surgical History H/O dilation and curettage -x 2 H/O myomectomy 11/09/2017 History of endometrial ablation Hx of cataract surgery bilateral 01/24 Family History Other Diabetes Hypertension Rheumatoid arthritis Social History Smoking and tobacco/nicotine status: never used tobacco/nicotine Alcohol intake: never Substance/Drug Use: never Marital status: Current occupational status: employed Physical Exam Const: GENERAL APPEARANCE: cooperative and comfortable ORIENTATION/CONSCIOUSNESS: Yes awake, Yes oriented to person, Yes oriented to place and Yes oriented to time HENMT: COMMON NORMALS: normocephalic, atraumatic and hearing grossly normal bilaterally HEAD & SCALP: normocephalic and atraumatic Resp: COMMON NORMALS: normal respiratory effort, No retractions, No use of accessory muscles and clear to auscultation bilaterally AUSCULTATION: clear to auscultation bilaterally Cardio: COMMON NORMALS: regular rate, regular rhythm and No murmurs present (Cardio) RATE: regular rate RHYTHM: regular rhythm : COMMON NORMALS: Yes no CVA tenderness BLADDER/KIDNEY EXAM: Yes no CVA tenderness Back/Pelvis: COMMON NORMALS: no CVA tenderness Extremity: COMMON NORMALS: normal to inspection, capillary refill normal, no clubbing, cyanosis or edema, no calf tenderness and no pedal edema Neuro: SENSORIUM/ORIENTATION: Yes oriented to person, Yes oriented to place and Yes oriented to time Skin: OTHER: Multiple coalescing abscesses on the medial aspect of the left buttock near the gluteal cleft. See notes below. The lower more medial abscess is spontaneously opened and drained. Thick purulent foul-smelling drainage noted. Procedures Abscess I/D Site: other (Left buttock) Side (if applicable): left Local Anesthetic: lidocaine 1% Amount of anesthesia used (mL): 5 Technique: other (Incised with a 15 blade) Amount of fluid expressed (mL): 10 Irrigation: Yes Packing used?: plain Course Vital Signs: Vital signs: Vital Signs Pulse Rate 93 03/07/23 07:39 Respiratory Rate 16 03/07/23 08:54 Pulse Oximetry 100 03/07/23 07:39 Oxygen Delivery Me thod Room Air 03/07/23 07:39 MDM - Wound/Laceration Medical Decision Making Initially opened lower medial abscess got a small amount of drainage there is an abscess above it which was also drained also got a small amount of drainage larger abscess slightly more lateral this was anesthetized and then drained large amount of purulent fluid drained from this appear to be all undermining and connected. The largest wound cavity was packed the other smaller 2 tracks or not amenable to packing. Continue the Bactrim she was started on previously given hydrocodone for pain return to the walk-in clinic tomorrow to have the wound reevaluated and repacked Differential Diagnosis Likely abscess Medical Records I reviewed the patient's medical records. Lab Data I reviewed the patient's lab results. All radiology interpretation(s) finalized by discharge Discharge Plan Discharge Patient Disposition: Home Clinical Impression: Abscess Condition: Stable Prescriptions: New hydrocodone-acetaminophen 5-325 mg tablet 1 tab PO Q6H PRN (Reason: pain) Qty: 15 0RF No Action Avsola 100 mg recon soln IV famotidine 10 mg tablet 10 mg PO DAILY Qty: 90 0RF leflunomide 10 mg tablet 10 mg PO DAILY Qty: 30 3RF promethazine-DM 6.25-15 mg/5 mL syrup 5 - 10 ml PO Q6H PRN (Reason: cough) Qty: 240 0RF sulfamethoxazole-trimethoprim [Bactrim DS] 800-160 mg tablet 1 tab PO BID Qty: 14 0RF losartan 50 mg tablet 50 mg PO DAILY Qty: 30 11RF carvedilol 25 mg tablet See Rx Instructions .ROUTE .COMPLEX Qty: 60 11RF Dose Instruction: TAKE 1 TABLET BY MOUTH TWICE DAILY FOR HIGH BLOOD PRESSURE Rx Instructions: TAKE 1 TABLET BY MOUTH TWICE DAILY FOR HIGH BLOOD PRESSURE triamterene-hydrochlorothiazid 37.5-25 mg capsule See Rx Instructions .ROUTE .COMPLEX Qty: 30 11RF Dose Instruction: Take 1 capsule by mouth once daily Rx Instructions: Take 1 capsule by mouth once daily escitalopram oxalate [Lexapro] 20 mg tablet 20 mg PO QAM Qty: 30 11RF bupropion HCl 300 mg tablet extended release 24 hr See Rx Instructions .ROUTE .COMPLEX Qty: 30 11RF Dose Instruction: Take 1 tablet by mouth once daily Rx Instructions: Take 1 tablet by mouth once daily prednisone 10 mg tablet 10 mg PO DAILY Qty: 90 1RF acetaminophen [Tylenol Extra Strength] 500 mg Tablet 1,000 mg PO Q6H PRN (Reason: Pain) Discharge Orders: Discharge ED (Routine); Ordered 03/07/23 Ordered By: Jesús Emery Referrals: Malcom Villanueva MD [Primary Care Provider] - Discharge Diet: Usual diet Discharge Activity: Increase activity as tolerated Patient Instructions: Abscess (ED), Opioid Safety, Pain Management Coding Level of Care Code ED Weapons Engineer for Chris Lilly
[2023-03-07 08:54] VITALS: RESP 16
--- NOTE | 2023-03-09 13:31 | PC.NURSE ---
rec'd report from [facility] that patients wound culture is MRSA +, rec'd order from Dr Ballard for Bactrim DS PO BID X7 days, patients phone went to voice mail- left message
== END 2023-03-07 08:55 | disposition home or self-care (01) ==
PROVIDERS: Emergency Provider Family Medicine; PCP Family Medicine
DX: L02.31 Cutaneous abscess of buttock (principal); I10 Essential (primary) hypertension; E11.9 Type 2 diabetes mellitus without complications
CPT/HCPCS: 10060; 87070; 87077; 87186; 99283

== ENCOUNTER 2023-03-21 08:11 | Oncology outpatient (recurring) (ONCR) | payer BC, SELFPAY ==
[2023-03-21] VITALS (7 sets, daily range): BP systolic 125–155; BP diastolic 84–98; PULSE 71–75; RESP 16; TEMP 36.2–36.5; O2SAT 93–96
[2023-03-21] MEDS: acetaminophen 325 mg Tablet 650 MG PO (09:01)
[2023-03-21] MEDS: diphenhydrAMINE 50 mg/mL SDV 1mL 25 MG IVP (09:01)
[2023-03-21] MEDS: methylPREDNISolone sod succ 40 mg/mL INJ IVP (09:01)
[2023-03-21 09:02] LABS: Erythrocyte Sedimentation Rate 40 mm/hr (0-15)
[2023-03-21 09:04] LABS: Basophils # 0.1 10^3/uL (0.0-0.1); Basophils % 0.7 %; Eosinophils # 0.4 10^3/uL (0.0-0.8); Eosinophils % 4.5 %; Hematocrit 42.3 % (36-47); Lymphocytes # 3.3 10^3/uL (0.8-4.8); Lymphocytes % 35.1 %; Mean Corpuscular HGB Conc 33.1 g/dL (30-55); Mean Corpuscular Volume 87.6 fl (85-98); Mean Platelet Volume 9.6 fL (7.4-10.4); Monocytes # 0.9 10^3/uL (0.2-0.9); Monocytes % 9.5 %; Neutrophils # 4.71 10^3/uL (1.8-7.7); Neutrophils % 49.8 %; Nucleated Red Blood Cells % 0 %; Platelet Count 326 10^3/cmm (157-399); Red Blood Count 4.83 10^6/uL (3.85-5.65); Red Cell Distribution Width 13.9 % (12.1-15.1); White Blood Count 9.48 10^3/uL (3.29-11.43)
[2023-03-21 09:21] LABS: Alanine Aminotransferase 43 U/L (0-33); Albumin Level 4.2 g/dL (3.5-5.2); Alkaline Phosphatase 107 U/L (35-105); Aspartate Amino Transferase 28 U/L (0-32); Globulin 3.7 g/dL (1.3-4.6); Glomerular Filtration Rate 90.9 mL/min (90-130); Total Bilirubin 0.2 mg/dL (0.15-1.2); Total Protein 7.9 g/dL (6.6-8.7)
[2023-03-21] MEDS: SODIUM CHLORIDE 0.9% IV (09:45)
[2023-03-21] MEDS: INFLIXIMAB AXXQ IV (09:45)
== END 2023-04-13 23:59 | disposition home or self-care (01) ==
PROVIDERS: PCP Family Medicine; Visit Provider Internal Medicine Rheumatology
DX: H20.9 Unspecified iridocyclitis (principal)
CPT/HCPCS: 80076; 82565; 85025; 85651; 96367; 96413; 96415; J1200; J2920; J7050; Q5121

== ENCOUNTER 2023-05-01 08:09 | Oncology outpatient (recurring) (ONCR) | payer BC, SELFPAY ==
[2023-05-01] VITALS (8 sets, daily range): BP systolic 128–145; BP diastolic 83–92; PULSE 70–78; RESP 16–18; TEMP 36.2–36.7; O2SAT 95–100
[2023-05-01] MEDS: acetaminophen 325 mg Tablet 650 MG PO (09:21)
[2023-05-01] MEDS: sodium chloride 0.9% (100 ml) 100 ML 35 ML (09:22)
[2023-05-01] MEDS: diphenhydrAMINE 50 mg/mL SDV 1mL 25 MG IVP (09:23)
[2023-05-01 09:27] LABS: Erythrocyte Sedimentation Rate 40 mm/hr (0-15)
[2023-05-01] MEDS: methylPREDNISolone sod succ 40 mg/mL INJ IVP (09:28)
[2023-05-01 09:42] LABS: Alanine Aminotransferase 32 U/L (0-33); Albumin Level 3.8 g/dL (3.5-5.2); Alkaline Phosphatase 102 U/L (35-105); Aspartate Amino Transferase 26 U/L (0-32); Globulin 3.7 g/dL (1.3-4.6); Glomerular Filtration Rate 77.9 mL/min (90-130); Total Bilirubin 0.2 mg/dL (0.15-1.2); Total Protein 7.5 g/dL (6.6-8.7)
== END 2023-05-14 23:59 | disposition home or self-care (01) ==
PROVIDERS: PCP Family Medicine; Visit Provider Internal Medicine Rheumatology
DX: H20.9 Unspecified iridocyclitis (principal)
CPT/HCPCS: 80076; 82565; 85651; 96375; 96413; 96415; J1200; J2920; J7050; Q5121

== ENCOUNTER 2023-05-07 05:18 | Day surgery (SDC) | payer BC, SELFPAY ==
[2023-05-07] VITALS (7 sets, daily range): BP systolic 124–157; BP diastolic 88–114; PULSE 83–92; RESP 16–18; TEMP 36.1–36.4; O2SAT 92–97; BMI 30.7
[2023-05-07] MEDS: ondansetron 2 mg/ML SDV 2 mL 4 MG IVP (06:29)
[2023-05-07] MEDS: sodium chloride 0.9% 1,000 ML 30 ML IV (06:29)
--- NOTE | 2023-05-07 06:35 | P.HPUD_ITS ---
Surgery/Procedure H&P Update DATE OF PROCEDURE: May 07, 2023 DATE H&P PERFORMED: 04/08/23 H&P UPDATE INFORMATION: I have reviewed H&P completed within last 30 days, I have examined patient prior to procedure, No changes to prior documentation and H&P is in [facility] EMR on date indicated PLANNED PROCEDURE: Operation Date: 05/07/23 07:10 Proposed Procedures p 32098 - excision of right lower extremity mass R22.41(Right) - Fermin Ramos MD
--- NOTE | 2023-05-07 06:35 | W.PM.OPSUD ---
Surgery/Procedure H&P Update DATE OF PROCEDURE: May 07, 2023 DATE H&P PERFORMED: 04/08/23 H&P UPDATE INFORMATION: I have reviewed H&P completed within last 30 days, I have examined patient prior to procedure, No changes to prior documentation and H&P is in [facility] EMR on date indicated PLANNED PROCEDURE: Operation Date: 05/07/23 07:10 Proposed Procedures p 76795 - excision of right lower extremity mass R22.41(Right) - Fermin Ramos MD
[2023-05-07] MEDS: scopolamine 1.5 Patch 1 PATCH TRANSDERMA (06:37)
--- NOTE | 2023-05-07 07:02 | ANES.PREANE2 ---
Pre-Anesthetic Assessment Height/Weight: Height 1.68 m Weight 86.183 kg Temp Pulse Resp BP Pulse Ox O2 Del Method 97.6 F 83 17 157/114 97 Room Air 05/07/23 06:09 05/07/23 06:09 05/07/23 06:09 05/07/23 06:09 05/07/23 06:09 05/07/23 06:10 Operation Date: 05/07/23 07:10 Proposed Procedures p 30175 - excision of right lower extremity mass R22.41(Right) - Fermin Ramos MD Familial anesthetic complications: none Was Beta Shayla taken within 24 hours: Yes Was Clonidine taken within 24 hours: N/A Last intake: Intake Last Liquid Date 05/06/23 Last Liquid Time 22:00 Last Solid Date 05/06/23 Last Solid Time 16:30 Social No alcohol and No tobacco Exam alert, oriented x 3, clear to auscultation bilaterally and regular rate & rhythm Airway Submandibular: within normal limits Cervical ROM: within normal limits Mallampati: Class II Dentition: full CV/HEM Hypertension GI Gastroesophageal Reflux Disease [facility] Rheumatoid Arthritis Chronic steroid Neuropsych Anxiety and Depression Anesthetic Plan ASA status: 3 Anesthesia: MAC Medications/Allergies Home Medications Medication Instructions Recorded Confirmed Last Taken Type acetaminophen 500 mg tablet 1,000 mg PO Q6H PRN Pain 03/15/20 05/06/23 03/15/20 06:00 History (Tylenol Extra Strength) escitalopram oxalate 20 mg tablet 20 mg PO QAM #30 tabs 05/06/22 05/06/23 05/06/23 Rx (Lexapro) prednisone 10 mg tablet 10 mg PO DAILY joint pain flare 11/13/22 05/07/23 Unknown Rx #90 tabs famotidine 10 mg tablet 10 mg PO DAILY #90 tabs 12/25/22 05/06/23 05/06/23 Rx infliximab-axxq 100 mg intravenous See Rx Instructions .Route .COMPLEX 12/25/22 05/07/23 05/01/23 10:00 History solution (Avsola) losartan 50 mg tablet 50 mg PO DAILY #30 tabs 03/25/23 05/06/23 05/06/23 Rx leflunomide 10 mg tablet 10 mg PO DAILY #90 tabs 03/26/23 05/06/23 Unknown Rx bupropion HCl 300 mg 24 hr tablet, 300 mg PO DAILY 05/07/23 05/07/23 05/06/23 History extended release carvedilol 25 mg tablet 25 mg PO DAILY 05/07/23 05/07/23 05/06/23 History Allergies Allergy/AdvReac Type Severity Reaction Status Date / Time aspirin Allergy HIVES-SOB Verified 05/06/23 09:44 Current Medications Generic Name Dose Route Start Last Admin Trade Name Freq PRN Reason Stop Dose Admin Sodium Chloride 1,000 mls @ 30 mls/hr 05/07/23 06:00 05/07/23 06:29 Sodium Chloride 0.9% IV 05/08/23 05:59 30 mls/hr .Q24H KATRINA Administration Ondansetron HCl 4 mg 05/07/23 05:58 05/07/23 06:29 Ondansetron 2 Mg/Ml Sdv 2 Ml IVP 4 mg Q5M PRN Administration NAUSEA AND VOMITING PFSH Anesthesia Medical History HTN (hypertension) Abscess, gluteal, left Type 2 diabetes mellitus Uveitis Immunocompromised COVID-19 Morbid obesity Immunization counseling High risk medication use Rheumatoid arthritis with rheumatoid factor 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 systems involvement Surgical History H/O myomectomy 11/09/2017 History of endometrial ablation Hx of cataract surgery bilateral 01/24 H/O dilation and curettage -x 2 Family History Other Diabetes Hypertension Rheumatoid arthritis Social History Smoking and tobacco/nicotine status: never used tobacco/nicotine Alcohol intake: never Substance/Drug Use: never Marital status: Current occupational status: employed Data Anesthesia Cardiac Studies: Echocardiogram Ultrasound 03/21/20
[2023-05-07] MEDS: ceFAZolin 2,000 MG in sodium chloride 0.9% (plus) 50 ML 100 MG IV (07:06)
[2023-05-07] MEDS: lidocaine 2% INJ 20 mL INJECTION (07:24)
[2023-05-07] MEDS: BUPivacaine 0.25% INJ 30 mL INJECTION (07:24)
--- NOTE | 2023-05-07 08:17 | PM.OP ---
Operative Report Date of procedure: May 07, 2023 Pre-op diagnosis: Right lower extremity mass Post-op diagnosis: Same Post-op findings: There was a solid mass on the right leg lateral aspect about 10 cm from the knee. The mass involves the subcutaneous tissue and superficial fascial plane and inferior were there was the fascia of the muscle. Procedure done: Excision of right lower extremity mass Specimens removed/disposition: Right lower extremity mass Surgeon: Fermin Ramos MD Finish Production Manager: UDAY OR Staff Estimated blood loss: 5 Complications: none Brief History: 42-year-old female with right lower extremity mass who presented to my clinic for evaluation for excision. After discussion of all the risk and benefits we decided to proceed with surgical excision. Procedure: patient was brought into the OR. She was placed in the supine position. Moderate anesthesia sedation was given. The right lower extremity was prepped and draped in the usual sterile fashion. Timeout was conducted. 20 cc of a mixture of 1% lidocaine with epinephrine with 0.25% bupivacaine was administered in the area surrounding the mass. The mass was identified and 6 centimeter incision was made overlying the mass following Burton's lines. The incision was carefully deepened until the capsule of the mass was identified. I then proceeded to create flaps on the superior inferior medial and lateral direction using a combination of scalpel and electrocautery. Hemostasis was obtained. Once the mass was liberated from the overlying subcutaneous tissue I then proceeded to circumferentially dissect the mass from the deep attachments. The mass was involving the subcutaneous tissue and superficial fascia and the deep edge of the mass was in contact with the muscle fascia. The mass was completely excised, it measured about 3.5 cm x 2 cm x 2 cm. The wound was irrigated and hemostasis was achieved. The wound was then closed in layers using #3-0 Vicryl for the subcutaneous tissue and #4-0 Monocryl for the skin. Dermabond was applied. After the Dermabond dried we placed a compressive dressing in the right lower extremity to prevent the formation of seroma. At the end of the procedure all counts were correct. The patient tolerated well the procedure and was transferred to the PACU in stable condition.
--- NOTE | 2023-05-07 14:17 | ANE.PACU2 ---
Inpatient post-anesthesia follow up: Airway intact: Yes Vital signs: Temperature 97.0 F Pulse Rate 84 Respiratory Rate 18 Blood Pressure 136/88 Pulse Oximetry 95 Oxygen Delivery Me thod Room Air Oxygen Flow Rate Fraction of Inspir ed Oxygen Hydration adequate: Yes Nausea and vomiting: No Pain level: 1 Mental status: Baseline
== END 2023-05-07 08:44 | disposition home or self-care (01) ==
PROVIDERS: PCP Family Medicine; Visit Provider Surgery
PROC: (CPT 27619; principal; 2023-05-07 07:00)
DX: R22.41 Localized swelling, mass and lump, right lower limb (principal); I10 Essential (primary) hypertension; K21.9 Gastro-esophageal reflux disease without esophagitis; M06.9 Rheumatoid arthritis, unspecified; Z79.52 Long term (current) use of systemic steroids; E66.01 Morbid (severe) obesity due to excess calories; Z68.30 Body mass index [BMI] 30.0-30.9, adult; Z86.16 Personal history of COVID-19
CPT/HCPCS: 27619; 88309; J0690; J2250; J2405; J2704; J3010; J3490; J7030

== ENCOUNTER 2023-05-24 06:26 | Emergency (ER) | payer BC, SELFPAY ==
[2023-05-24 06:31] VITALS: BP 153/116; PULSE 121; RESP 18; TEMP 37; O2SAT 98; BMI 33.5
[2023-05-24 06:32] VITALS: BP 153/116; PULSE 125; RESP 18; O2SAT 97
--- NOTE | 2023-05-24 06:39 | ED_ITS ---
HPI - Skin/Abscess/Foreign Bdy General: Chief complaint: Skin/Abscess/Foreign Body Stated complaint: abscess Time Seen by Provider: 05/24/23 06:27 Source: patient Mode of arrival: ambulatory History of Present Illness: 42-year-old female presents emergency ro om complaining of a abscess on the right buttock that is developed over the last couple of days. She has had this in the past, it had resolved and is now worsening. She has had no drainage has been exquisitely painful. No fever sweats or chills. MD complaint: abscess/boil Onset (ago): minute(s) Severity: mild Quality: sharp Pain Consistency: constant Relieving factors: none Exacerbating factors: palpation Associated symptoms: Deny chills or fever(s) Treatments prior to arrival: none Review of Systems Const: Denies: fever(s) or chills Card: Denies: chest pain Resp: Denies: dyspnea GI: Denies: abdominal pain : Denies: dysuria, urinary frequency or urinary urgency Musc: Denies: neck pain or back pain Skin/Breast: Denies: rash PFSH ED PFSH: Medical History HTN (hypertension) Abscess, gluteal, left Type 2 diabetes mellitus Uveitis Immunocompromised COVID-19 Morbid obesity Immunization counseling High risk medication use Rheumatoid arthritis with rheumatoid factor 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 systems involvement Surgical History H/O myomectomy 11/09/2017 History of endometrial ablation Hx of cataract surgery bilateral 01/24 H/O dilation and curettage -x 2 Family History Other Diabetes Hypertension Rheumatoid arthritis Social History Smoking and tobacco/nicotine status: never used tobacco/nicotine Alcohol intake: never Substance/Drug Use: never Marital status: Current occupational status: employed Physical Exam Const: GENERAL APPEARANCE: cooperative and comfortable ORIENTATION/CONSCIOUSNESS: Yes awake, Yes oriented to person, Yes oriented to place and Yes oriented to time HENMT: COMMON NORMALS: normocephalic, atraumatic and hearing grossly normal bilaterally HEAD & SCALP: normocephalic and atraumatic Resp: COMMON NORMALS: normal respiratory effort, No retractions and clear to auscultation bilaterally AUSCULTATION: clear to auscultation bilaterally Extremity: COMMON NORMALS: normal to inspection, capillary refill normal, no clubbing, cyanosis or edema, no calf tenderness and no pedal edema Neuro: SENSORIUM/ORIENTATION: Yes oriented to person, Yes oriented to place and Yes oriented to time Skin: OTHER: Palpable fluctuant nodule extremely tender mild overlying erythematous. On ultrasound consistent with abscess abscess cavity identified on ultrasound well consolidated fluid collection Procedures Abscess I/D Site: other (Buttock) Side (if applicable): right Sedation/analgesia: midazolam and fentanyl Local Anesthetic: lidocaine 1% and with epi Amount of anesthesia used (mL): 8 Technique: incised with #11 blade Irrigation: Yes Packing used?: plain Procedural Sedation Indication: incision and drainage of abscess ASA Class: I Preparation: youth nutritional monitor applied and pulse oximeter Fentanyl: IV Fentanyl dose (mcg): 50 Midazolam: IV Midazolam dose (mg): 3 Patient Tolerated Procedure: well Complications: none Course Vital Signs: Vital signs: Vital Signs Temperature 98.6 F 05/24/23 06:31 Pulse Rate 121 H 05/24/23 06:31 Respiratory Rate 18 05/24/23 06:31 Blood Pressure 153/116 05/24/23 06:31 Pulse Oximetry 98 05/24/23 06:31 Oxygen Delivery Me thod Room Air 05/24/23 06:31 MDM - Skin/Abscess/Foreign Bdy Medicial Decision Making Incision and drainage with irrigation of the wound cavity and packing. Foul- smelling purulent drainage noted. Should return tomorrow to walk-in to remove the wound packing start Bactrim 2 tablets twice a day for 7 days hydrocodone as needed. Wound care instructions given. Culture done at the time of the incision and drainage. Differential Diagnosis Likely abscess of skin or subcutaneous tissue Medical Records I reviewed the patient's medical records. Lab Data I reviewed the patient's lab results. No radiology studies performed this visit Discharge Plan Discharge Patient Disposition: Home Clinical Impression: Abscess of skin or subcutaneous tissue Condition: Stable Prescriptions: New hydrocodone-acetaminophen 5-325 mg tablet 1 tab PO Q6H PRN (Reason: pain) Qty: 20 0RF Bactrim DS 800-160 mg tablet 2 tab PO BID 7 Days Qty: 28 0RF No Action Avsola 100 mg recon soln See Rx Instructions .ROUTE .COMPLEX Rx Instructions: 6weeks 100 mg intravenously famotidine 10 mg tablet 10 mg PO DAILY Qty: 90 0RF losartan 50 mg tablet 50 mg PO DAILY Qty: 30 11RF escitalopram oxalate [Lexapro] 20 mg tablet 20 mg PO QAM Qty: 30 11RF acetaminophen [Tylenol Extra Strength] 500 mg Tablet 1,000 mg PO Q6H PRN (Reason: Pain) carvedilol 25 mg tablet 25 mg PO DAILY bupropion HCl 300 mg tablet extended release 24 hr 300 mg PO DAILY brimonidine-timolol 0.2-0.5 % drops 1 drp ophthalmic (eye) BID Discharge Orders: Discharge ED (Routine); Ordered 05/24/23 Ordered By: Jesús Emery Referrals: Malcom Villanueva MD [Primary Care Provider] - Discharge Diet: Usual diet Discharge Activity: Resume usual activity Patient Instructions: Opioid Safety, Pain Management Activity Restrictions/Additional Instructions: Thank you for choosing [facility] for your healthcare needs today. Please realize this is an emergency room and that we are providing you with a medical screening exam and this may not be complete and all inclusive of all the testing and or work up that you may need to determine your ailment or severity of your illness. It is very important that you follow up as instructed or that you return to the Emergency Department should you have concerns or if your condition changes or worsens in any way. You were seen today for an abscess. Abscess is not signed and drained and the abscess cavity was washed out pocked without of gauze. This should be removed tomorrow at the urgent care clinic. You are also given oral antibiotics 2 tablets twice a day for 7 days. In addition of this you are given pain medication to use as needed. Coding Level of Care Code ED Air Value Tester for Chris Lilly
[2023-05-24 07:32] VITALS: BP 156/100; PULSE 114; RESP 18; O2SAT 97
[2023-05-24] MEDS: midazolam 1 mg/mL INJ 2 mL 3 MG IVP (07:54)
[2023-05-24] MEDS: fentaNYL 50 mcg/mL INJ 2mL IVP (07:55)
[2023-05-24] MEDS: lidocaine-epi 1% 20 mL INJ INJECTION (07:55)
[2023-05-24 08:50] VITALS: BP 139/87; PULSE 97; RESP 18; O2SAT 98
[2023-05-24 09:00] VITALS: BP 130/81; PULSE 111; RESP 16; O2SAT 97
[2023-05-24 09:37] VITALS: BP 146/80; PULSE 102; RESP 18; O2SAT 98
== END 2023-05-24 09:30 | disposition home or self-care (01) ==
PROVIDERS: Emergency Provider Family Medicine; PCP Family Medicine
DX: L02.31 Cutaneous abscess of buttock (principal); I10 Essential (primary) hypertension; E11.9 Type 2 diabetes mellitus without complications
CPT/HCPCS: 10060; 87070; 87075; 87205; 94799; 99285; J2250; J3010

== ENCOUNTER 2023-06-18 08:22 | Oncology outpatient (recurring) (ONCR) | payer BC, SELFPAY ==
[2023-06-18] MEDS: methylPREDNISolone sod succ 40 mg/mL INJ IVP (09:36)
[2023-06-18] MEDS: diphenhydrAMINE 50 mg/mL SDV 1mL 25 MG IVP (09:36)
[2023-06-18] MEDS: acetaminophen 325 mg Tablet 650 MG PO (09:37)
[2023-06-18 09:48] LABS: Erythrocyte Sedimentation Rate 48 mm/hr (0-15)
[2023-06-18 09:50] VITALS: BP 132/86; PULSE 74; RESP 16; TEMP 36.7; O2SAT 96
[2023-06-18] MEDS: SODIUM CHLORIDE 0.9% IV (09:52)
[2023-06-18] MEDS: INFLIXIMAB AXXQ IV (09:52)
[2023-06-18 10:05] VITALS: BP 134/85; PULSE 72; RESP 16; TEMP 36.7; O2SAT 94
[2023-06-18 10:11] LABS: Alanine Aminotransferase 38 U/L (0-33); Albumin Level 3.8 g/dL (3.5-5.2); Alkaline Phosphatase 116 U/L (35-105); Aspartate Amino Transferase 26 U/L (0-32); Creatinine Clr Calc Pharmacy 138.8341; Globulin 3.5 g/dL (1.3-4.6); Glomerular Filtration Rate 108.6 mL/min (90-130); Total Bilirubin 0.2 mg/dL (0.15-1.2); Total Protein 7.3 g/dL (6.6-8.7)
[2023-06-18 10:20] VITALS: BP 119/78; PULSE 84; RESP 16; TEMP 36.7; O2SAT 93
[2023-06-18 10:45] VITALS: BP 128/85; PULSE 74; RESP 16; TEMP 36.7; O2SAT 94
[2023-06-18 11:00] VITALS: BP 125/82; PULSE 74; RESP 16; TEMP 36.6; O2SAT 95
[2023-06-18 12:30] VITALS: BP 124/78; PULSE 72; RESP 18; TEMP 36.6; O2SAT 98
== END 2023-07-13 23:59 | disposition home or self-care (01) ==
PROVIDERS: PCP Family Medicine; Visit Provider Internal Medicine Rheumatology
DX: M06.9 Rheumatoid arthritis, unspecified (principal); H20.9 Unspecified iridocyclitis
CPT/HCPCS: 80076; 82565; 85651; 96375; 96413; 96415; A4222; J1200; J2920; J7050; Q5121

== ENCOUNTER 2023-07-30 09:39 | Oncology outpatient (recurring) (ONCR) | payer BC, SELFPAY ==
[2023-07-30] VITALS (8 sets, daily range): BP systolic 105–142; BP diastolic 64–90; PULSE 74–85; RESP 16–18; TEMP 36–36.9; O2SAT 95–97
[2023-07-30 10:30] LABS: Basophils % 0.5 %; Eosinophils # 0.3 10^3/uL (0.0-0.8); Eosinophils % 2.9 %; Hematocrit 41.1 % (36-47); Lymphocytes # 2.9 10^3/uL (0.8-4.8); Lymphocytes % 33.5 %; Mean Corpuscular HGB Conc 32.8 g/dL (30-55); Mean Corpuscular Hemoglobin 28.4 pg (27-33); Mean Corpuscular Volume 86.5 fl (85-98); Mean Platelet Volume 10.3 fL (7.4-10.4); Monocytes # 0.6 10^3/uL (0.2-0.9); Monocytes % 7.5 %; Neutrophils # 4.76 10^3/uL (1.8-7.7); Neutrophils % 55.4 %; Nucleated Red Blood Cells % 0 %; Platelet Count 291 10^3/cmm (157-399); Red Blood Count 4.75 10^6/uL (3.85-5.65); Red Cell Distribution Width 13.2 % (12.1-15.1); White Blood Count 8.59 10^3/uL (3.29-11.43)
[2023-07-30 10:48] LABS: Glomerular Filtration Rate 90.9 mL/min (90-130)
[2023-07-30 10:49] LABS: Alanine Aminotransferase 36 U/L (0-33); Albumin Level 3.8 g/dL (3.5-5.2); Alkaline Phosphatase 112 U/L (35-105); Aspartate Amino Transferase 27 U/L (0-32); Globulin 3.6 g/dL (1.3-4.6); Total Bilirubin 0.2 mg/dL (0.15-1.2); Total Protein 7.4 g/dL (6.6-8.7)
[2023-07-30] MEDS: sodium chloride 0.9% 250 ML 75 ML IV (10:51)
[2023-07-30] MEDS: acetaminophen 325 mg Tablet 650 MG PO (10:51)
[2023-07-30] MEDS: diphenhydrAMINE 50 mg/mL SDV 1mL 25 MG IVP (10:55)
[2023-07-30] MEDS: methylPREDNISolone sod succ 40 mg/mL INJ IVP (10:57)
[2023-07-30 11:26] LABS: Erythrocyte Sedimentation Rate 46 mm/hr (0-15)
[2023-07-30] MEDS: INFLIXIMAB AXXQ IV (11:27)
[2023-07-30] MEDS: SODIUM CHLORIDE 0.9% IV (11:27)
== END 2023-08-12 23:59 | disposition home or self-care (01) ==
PROVIDERS: PCP Family Medicine; Visit Provider Internal Medicine Rheumatology
DX: H20.9 Unspecified iridocyclitis; M05.79 Rheumatoid arthritis with rheumatoid factor 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 systems involvement
CPT/HCPCS: 80076; 82565; 85025; 85651; 96375; 96413; 96415; J1200; J2919; J7050; Q5121

== ENCOUNTER 2023-08-03 06:27 | Emergency (ER) | payer BC, SELFPAY ==
[2023-08-03 06:37] VITALS: BP 137/108; PULSE 84; RESP 16; TEMP 36.8; O2SAT 99; BMI 33.4
--- NOTE | 2023-08-03 07:13 | ED_ITS ---
HPI - Skin/Abscess/Foreign Bdy 2 General: Chief complaint: Skin/Abscess/Foreign Body Stated complaint: abscess on right leg Time Seen by Provider: 08/03/23 06:38 Source: patient Mode of arrival: ambulatory History of Present Illness: 42-year-old female presents emergency ro om complaining of an abscess on her right inner thigh. She noticed that a couple of days ago. It had spontaneously been draining seem to be getting better and then overnight it significantly worsened again no fever sweats or chills. She has had these abscesses in the past MD complaint: abscess/boil Onset (ago): day(s) Quality: sharp Pain Consistency: constant Relieving factors: none Exacerbating factors: none Associated symptoms: Deny arthralgias, chills, fever(s), itching, myalgias, nausea, short of breath or vomiting Treatments prior to arrival: attempted to drain pus at home Review of Systems 2 Const: Denies: fever(s) or chills Card: Denies: chest pain Resp: Denies: dyspnea GI: Denies: nausea or vomiting : Denies: dysuria, urinary frequency or urinary urgency Musc: Denies: neck pain or back pain Skin/Breast: Denies: rash PFSH ED 2 PFSH: Medical History HTN (hypertension) Abscess, gluteal, left Type 2 diabetes mellitus Uveitis Immunocompromised COVID-19 Morbid obesity Immunization counseling High risk medication use Rheumatoid arthritis with rheumatoid factor 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 systems involvement Surgical History H/O myomectomy 11/09/2017 History of endometrial ablation Hx of cataract surgery bilateral 01/24 H/O dilation and curettage -x 2 Family History Other Diabetes Hypertension Rheumatoid arthritis Social History Smoking and tobacco/nicotine status: never used tobacco/nicotine Alcohol intake: never Substance/Drug Use: never Marital status: Current occupational status: employed Physical Exam 2 Const: COMMON NORMALS: no acute distress GENERAL APPEARANCE: cooperative and comfortable ORIENTATION/CONSCIOUSNESS: Yes awake, Yes oriented to person, Yes oriented to place and Yes oriented to time HENMT: COMMON NORMALS: normocephalic, atraumatic and hearing grossly normal bilaterally HEAD & SCALP: normocephalic and atraumatic Resp: COMMON NORMALS: normal respiratory effort, No retractions and No use of accessory muscles Extremity: COMMON NORMALS: capillary refill normal, no clubbing, cyanosis or edema, no calf tenderness and no pedal edema OTHER: Fluctuant abscess on the right medial proximal thigh 2 separate areas 1 more proximal and smaller the other slightly more distally by about 4 inches at the midline anterior to posterior of the thigh fluctuant is about 3 cm x cm 4 to 5 cm Neuro: SENSORIUM/ORIENTATION: Yes oriented to person, Yes oriented to place and Yes oriented to time Skin: COMMON NORMALS: no rashes or lesions noted GENERAL SKIN EXAM: no rashes or lesions noted Procedures Abscess I/D Site: lower extremity (Right medial proximal thigh) Side (if applicable): right Local Anesthetic: lidocaine 1% and with epi Amount of anesthesia used (mL): 4 Technique: incised with #11 blade Amount of fluid expressed (mL): 15 Irrigation: Yes Packing used?: plain Course 2 Vital Signs: Vital signs: Vital Signs Temperature 98.2 F 08/03/23 06:37 Pulse Rate 84 08/03/23 06:37 Respiratory Rate 16 08/03/23 06:37 Blood Pressure 137/108 08/03/23 06:37 Pulse Oximetry 99 08/03/23 06:37 Oxygen Delivery Me thod Room Air 08/03/23 06:37 MDM - Skin/Abscess/Foreign Bdy Medicial Decision Making Wounds incised and drained large amount of purulent material from the more inferior. Drainage cultured. Started on oral antibiotics and topical antibiotics to the wound edges. Wound packed. Patient directed to primary care doctor to remove packing and evaluate for possible repacking tomorrow. Medical Records I reviewed the patient's medical records. Lab Data I reviewed the patient's lab results. 08/03/23 07:37 08/03/23 07:37 Laboratory Results WBC 13.89 10^3/uL (3.29-11.43) H 08/03/23 07:37 RBC 4.71 10^6/uL (3.85-5.65) 08/03/23 07:37 Hgb 13.30 g/dL (11.27-16.99) 08/03/23 07:37 Hct 40.6 % (36-47) 08/03/23 07:37 MCV 86.2 fl (85-98) 08/03/23 07:37 MCH 28.2 pg (27-33) 08/03/23 07:37 MCHC 32.8 g/dL (30-55) 08/03/23 07:37 RDW 13.2 % (12.1-15.1) 08/03/23 07:37 Plt Count 325 10^3/cmm (157-399) 08/03/23 07:37 MPV 10.2 fL (7.4-10.4) 08/03/23 07:37 Neut % (Auto) 63.4 % 08/03/23 07:37 Lymph % (Auto) 25.3 % 08/03/23 07:37 [place] % (Auto) 7.9 % 08/03/23 07:37 Eos % (Auto) 2.5 % 08/03/23 07:37 Baso % (Auto) 0.5 % 08/03/23 07:37 Neut # (Auto) 8.79 10^3/uL (1.8-7.7) H 08/03/23 07:37 Lymph # (Auto) 3.5 10^3/uL (0.8-4.8) 08/03/23 07:37 [place] # (Auto) 1.1 10^3/uL (0.2-0.9) H 08/03/23 07:37 Eos # (Auto) 0.4 10^3/uL (0.0-0.8) 08/03/23 07:37 Baso # (Auto) 0.1 10^3/uL (0.0-0.1) 08/03/23 07:37 Nucleated RBC % (auto) 0 % 08/03/23 07:37 Nucleated RBCs # 0.0 /100WBC 08/03/23 07:37 No radiology studies performed this visit Discharge Plan Discharge Patient Disposition: Home Clinical Impression: Abscess of skin or subcutaneous tissue Condition: Stable Prescriptions: New Bactrim DS 800-160 mg tablet 2 tab PO DAILY 7 Days Qty: 28 0RF mupirocin 2 % ointment 1 applic topical BID Qty: 15 0RF No Action prednisone 5 mg tablet 5 mg PO DAILY Qty: 7 0RF fluticasone propionate [Flonase Allergy Relief] 50 mcg/actuation spray,suspension 2 spray intranasal DAILY Qty: 16 5RF Rx Instructions: administer into each nostril Avsola 100 mg recon soln See Rx Instructions .ROUTE .COMPLEX Rx Instructions: 6weeks 100 mg intravenously famotidine 10 mg tablet 10 mg PO DAILY Qty: 90 0RF losartan 50 mg tablet 50 mg PO DAILY Qty: 30 11RF escitalopram oxalate [Lexapro] 20 mg tablet 20 mg PO QAM Qty: 30 11RF carvedilol 25 mg tablet See Rx Instructions .ROUTE .COMPLEX Qty: 60 11RF Dose Instruction: TAKE 1 TABLET BY MOUTH TWICE DAILY FOR HIGH BLOOD PRESSURE Rx Instructions: TAKE 1 TABLET BY MOUTH TWICE DAILY FOR HIGH BLOOD PRESSURE acetaminophen [Tylenol Extra Strength] 500 mg Tablet 1,000 mg PO Q6H PRN (Reason: Pain) bupropion HCl 300 mg tablet extended release 24 hr 300 mg PO DAILY brimonidine-timolol 0.2-0.5 % drops 1 drp ophthalmic (eye) BID hydrocodone-acetaminophen 5-325 mg tablet 1 tab PO Q6H PRN (Reason: pain) Qty: 20 0RF Discharge Orders: Discharge ED (Routine); Ordered 08/03/23 Ordered By: Jesús Emery Referrals: Malcom Villanueva MD [Primary Care Provider] - Discharge Diet: Usual diet Discharge Activity: Increase activity as tolerated Patient Instructions: Abscess (ED), Abscess Incision and Drainage (DC), Opioid Safety, Pain Management Activity Restrictions/Additional Instructions: Thank you for choosing [facility] for your healthcare needs today. Please realize this is an emergency room and that we are providing you with a medical screening exam and this may not be complete and all inclusive of all the testing and or work up that you may need to determine your ailment or severity of your illness. It is very important that you follow up as instructed or that you return to the Emergency Department should you have concerns or if your condition changes or worsens in any way. Follow-up with your primary care doctor tomorrow to have the packing removed and possibly repacked. Apply the topical antibiotic ointment to the incision areas twice daily. Start the oral antibiotic today it is 2 pills twice a day for 7 days Coding Level of Care Code ED Bridge Teacher for Chris Lilly
[2023-08-03 07:50] LABS: Basophils # 0.1 10^3/uL (0.0-0.1); Basophils % 0.5 %; Eosinophils # 0.4 10^3/uL (0.0-0.8); Eosinophils % 2.5 %; Hematocrit 40.6 % (36-47); Lymphocytes # 3.5 10^3/uL (0.8-4.8); Lymphocytes % 25.3 %; Mean Corpuscular HGB Conc 32.8 g/dL (30-55); Mean Corpuscular Hemoglobin 28.2 pg (27-33); Mean Corpuscular Volume 86.2 fl (85-98); Mean Platelet Volume 10.2 fL (7.4-10.4); Monocytes # 1.1 10^3/uL (0.2-0.9); Monocytes % 7.9 %; Neutrophils # 8.79 10^3/uL (1.8-7.7); Neutrophils % 63.4 %; Nucleated Red Blood Cells % 0 %; Platelet Count 325 10^3/cmm (157-399); Red Blood Count 4.71 10^6/uL (3.85-5.65); Red Cell Distribution Width 13.2 % (12.1-15.1); White Blood Count 13.89 10^3/uL (3.29-11.43)
[2023-08-03] MEDS: lidocaine-epi 1% 20 mL INJ INJECTION (08:00)
[2023-08-03 08:09] LABS: Anion Gap 14.4 (5-19); Blood Urea Nitrogen 11 mg/dL (6-20); Calcium 9.3 mg/dL (8.5-10.5); Carbon Dioxide 24 mmol/L (22-29); Chloride 100 mmol/L (98-107); Creatinine Clr Calc Pharmacy 103.6116; Glomerular Filtration Rate 77.9 mL/min (90-130); Glucose 191 mg/dL (65-115); Osmolality Calculated 285 mOsm/kg (285-295); Potassium 3.4 mmol/L (3.5-5.1); Sodium 135 mmol/L (136-145)
[2023-08-03] MEDS: neomycin-poly-bacitracin oint 0.9 gm Pkt 1 APPLIC TOPICAL (08:28)
== END 2023-08-03 08:29 | disposition home or self-care (01) ==
PROVIDERS: Emergency Provider Family Medicine; PCP Family Medicine
DX: L02.415 Cutaneous abscess of right lower limb (principal); I10 Essential (primary) hypertension; E11.9 Type 2 diabetes mellitus without complications
CPT/HCPCS: 10060; 36415; 80048; 85025; 87070; 87075; 87077; 87186; 87205; 99283

== ENCOUNTER → 2023-08-13 09:12 | Outpatient (BNVA) | payer BC, SELFPAY | PROVIDERS: PCP Family Medicine; Visit Provider Family Medicine | DX: E11.9 Type 2 diabetes mellitus without complications (principal) | CPT/HCPCS: 80053; 80061; 83036; 83721 ==

== ENCOUNTER 2023-09-17 07:59 | Oncology outpatient (recurring) (ONCR) | payer BC, SELFPAY ==
[2023-09-17] VITALS (8 sets, daily range): BP systolic 132–164; BP diastolic 90–112; PULSE 76–97; RESP 16–18; TEMP 35.7–36.8; O2SAT 96–100
[2023-09-17] MEDS: acetaminophen 325 mg Tablet 650 MG PO (08:22)
[2023-09-17] MEDS: sodium chloride 0.9% 250 ML 75 ML IV (08:22)
[2023-09-17] MEDS: diphenhydrAMINE 50 mg/mL SDV 1mL 25 MG IVP (08:22)
[2023-09-17] MEDS: methylPREDNISolone sod succ 40 mg/mL INJ IVP (08:23)
[2023-09-17] MEDS: SODIUM CHLORIDE 0.9% IV (08:38)
[2023-09-17] MEDS: INFLIXIMAB AXXQ IV (08:38)
== END 2023-10-12 23:59 | disposition home or self-care (01) ==
PROVIDERS: PCP Family Medicine; Visit Provider Internal Medicine Rheumatology
DX: H20.9 Unspecified iridocyclitis (principal)
CPT/HCPCS: 96375; 96413; 96415; A4222; J1200; J2919; J7050; Q5121

== ENCOUNTER 2023-10-22 09:29 | Oncology outpatient (recurring) (ONCR) | payer BC, SELFPAY ==
[2023-10-22] VITALS (7 sets, daily range): BP systolic 113–132; BP diastolic 76–87; PULSE 81–98; RESP 16; TEMP 36.2–36.6; O2SAT 94–98
[2023-10-22] MEDS: sodium chloride 0.9% 250 ML 75 ML IV (10:40)
[2023-10-22] MEDS: methylPREDNISolone sod succ 40 mg/mL INJ IVP (11:06)
[2023-10-22] MEDS: acetaminophen 325 mg Tablet 650 MG PO (11:12)
[2023-10-22] MEDS: diphenhydrAMINE 50 mg/mL SDV 1mL 25 MG IVP (11:12)
[2023-10-22 11:14] LABS: Basophils # 0.1 10^3/uL (0.0-0.1); Basophils % 0.4 %; Eosinophils # 0.2 10^3/uL (0.0-0.8); Eosinophils % 1.7 %; Hematocrit 40.7 % (36-47); Lymphocytes # 3.7 10^3/uL (0.8-4.8); Lymphocytes % 26.8 %; Mean Corpuscular HGB Conc 32.9 g/dL (30-55); Mean Corpuscular Hemoglobin 28.4 pg (27-33); Mean Corpuscular Volume 86.2 fl (85-98); Mean Platelet Volume 10.3 fL (7.4-10.4); Monocytes % 7.3 %; Neutrophils # 8.61 10^3/uL (1.8-7.7); Neutrophils % 63.4 %; Nucleated Red Blood Cells % 0 %; Platelet Count 291 10^3/cmm (157-399); Red Blood Count 4.72 10^6/uL (3.85-5.65); Red Cell Distribution Width 13.2 % (12.1-15.1); White Blood Count 13.61 10^3/uL (3.29-11.43)
[2023-10-22 11:27] LABS: Alanine Aminotransferase 31 U/L (0-33); Albumin Level 4.1 g/dL (3.5-5.2); Alkaline Phosphatase 124 U/L (35-105); Aspartate Amino Transferase 27 U/L (0-32); C Reactive Protein 25.8 mg/L (0.0-4.9); Globulin 3.5 g/dL (1.3-4.6); Glomerular Filtration Rate 77.6 mL/min (90-130); Total Bilirubin 0.2 mg/dL (0.15-1.2); Total Protein 7.6 g/dL (6.6-8.7)
[2023-10-22] MEDS: SODIUM CHLORIDE 0.9% IV (11:42)
[2023-10-22] MEDS: INFLIXIMAB AXXQ IV (11:42)
== END 2023-11-12 23:59 | disposition home or self-care (01) ==
LOC: ONCMED 09:29
PROVIDERS: PCP Family Medicine; Visit Provider Internal Medicine Rheumatology
DX: H20.9 Unspecified iridocyclitis (principal)
CPT/HCPCS: 80076; 82565; 85025; 86140; 96365; A4222; J1200; J2919; J7050; Q5121

== ENCOUNTER 2023-11-11 10:47 | Outpatient (CLI) | payer BC, SELFPAY ==
[2023-11-11 11:24] LABS: Estmated Average Glucose 212
== END 2023-11-11 10:48 | disposition home or self-care (01) ==
LOC: LAB 10:48
PROVIDERS: PCP Family Medicine; Visit Provider Family Medicine
DX: E11.9 Type 2 diabetes mellitus without complications (principal)
CPT/HCPCS: 36415; 83036

== ENCOUNTER 2023-12-03 08:11 | Oncology outpatient (recurring) (ONCR) | payer BC, SELFPAY ==
[2023-12-03] VITALS (8 sets, daily range): BP systolic 116–148; BP diastolic 77–91; PULSE 76–92; RESP 16; TEMP 36.2–36.6; O2SAT 92–98
[2023-12-03] MEDS: acetaminophen 325 mg Tablet 650 MG PO (09:48)
[2023-12-03] MEDS: diphenhydrAMINE 50 mg/mL SDV 1mL 25 MG IVP (09:49)
[2023-12-03] MEDS: sodium chloride 0.9% 250 ML 75 ML IV (09:49)
[2023-12-03] MEDS: methylPREDNISolone sod succ 40 mg SDV IVP (09:53)
[2023-12-03] MEDS: SODIUM CHLORIDE 0.9% IV (10:25)
[2023-12-03] MEDS: INFLIXIMAB AXXQ IV (10:25)
== END 2023-12-13 23:55 | disposition home or self-care (01) ==
LOC: ONCMED 08:11
PROVIDERS: PCP Family Medicine; Visit Provider Internal Medicine Rheumatology
DX: H20.9 Unspecified iridocyclitis (principal); Z79.899 Other long term (current) drug therapy
CPT/HCPCS: 96375; 96413; 96415; J1200; J2919; J7050; Q5121

== ENCOUNTER 2023-12-05 05:07 | Emergency (ER) | payer BC, SELFPAY ==
[2023-12-05 05:16] VITALS: BP 147/110; PULSE 100; RESP 16; TEMP 36.8; O2SAT 98; BMI 29.0
--- NOTE | 2023-12-05 05:21 | W.ED.SKABFB ---
HPI - Skin/Abscess/Foreign Bdy General: Chief complaint: Skin/Abscess/Foreign Body Stated complaint: boil on bottom Time Seen by Provider: 12/05/23 05:11 History of Present Illness: Patient presents to the ER today with complaints of an abscess on h right buttock. She says been there for 3 to 4 days getting worse now very painful. Patient says she gets these about every 3 to 4 months. Patient says she has has been having some chills some hot flashes but denies fever nausea vomiting. Patient has had these cultures in the past they did grow out some very resistant bacteria. Related Data Home Medications Medication Instructions Recorded Confirmed acetaminophen 500 mg tablet 1,000 mg PO Q6H PRN Pain 03/15/20 11/12/23 (Tylenol Extra Strength) infliximab-axxq 100 mg intravenous See Rx Instructions .Route .COMPLEX 12/25/22 11/12/23 solution (Avsola) brimonidine 0.2 %-timolol 0.5 % 1 drp ophthalmic (eye) BID 05/24/23 11/12/23 eye drops Previous Rx's Medication Instructions Recorded famotidine 10 mg tablet 10 mg PO DAILY #90 tabs 12/25/22 losartan 50 mg tablet 50 mg PO DAILY #30 tabs 03/25/23 escitalopram oxalate 20 mg tablet 20 mg PO QAM #30 tabs 05/20/23 (Lexapro) carvedilol 25 mg tablet See Rx Instructions .Route 06/16/23 .COMPLEX #60 tabs fluticasone propionate 50 2 spray intranasal DAILY #16 grams 07/09/23 mcg/actuation nasal spray,suspension (Flonase Allergy Relief) mupirocin 2 % topical ointment 1 applic topical BID #15 grams 08/03/23 bupropion HCl 300 mg 24 hr tablet, See Rx Instructions .Route 09/12/23 extended release .COMPLEX #30 tabs metformin 500 mg tablet,extended 500 mg PO BID #60 tabs 09/25/23 release 24 hr albuterol sulfate 90 mcg/actuation 2 inh inhalation Q6H PRN shortness 10/17/23 aerosol inhaler of breath or wheezing #6.7 grams fluconazole 150 mg tablet 150 mg PO Q3D 2 doses #2 tabs 10/17/23 levofloxacin 750 mg tablet 750 mg PO DAILY 7 days #7 tabs 10/17/23 glimepiride 2 mg tablet 2 mg PO DAILY #30 tabs 11/12/23 leflunomide 10 mg tablet 10 mg PO DAILY #30 tabs 11/12/23 sulfamethoxazole 800 1 tab PO BID #14 tabs 12/05/23 mg-trimethoprim 160 mg tablet (Bactrim DS) Allergies Allergy/AdvReac Type Severity Reaction Status Date / Time aspirin Allergy HIVES-SOB Verified 10/17/23 11:37 Review of Systems General: Reports: 10 or more systems reviewed and unremarkable except in HPI and below PFSH ED PFSH: Medical History HTN (hypertension) Abscess, gluteal, left Type 2 diabetes mellitus Uveitis Immunocompromised COVID-19 Morbid obesity Immunization counseling High risk medication use Rheumatoid arthritis with rheumatoid factor 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 systems involvement Surgical History H/O myomectomy 11/09/2017 History of endometrial ablation Hx of cataract surgery bilateral 01/24 H/O dilation and curettage -x 2 Family History Other Diabetes Hypertension Rheumatoid arthritis Social History Smoking and tobacco/nicotine status: never used tobacco/nicotine Alcohol intake: never Substance/Drug Use: never Marital status: Current occupational status: employed Physical Exam Const: COMMON NORMALS: no acute distress, average body habitus, patient oriented x3, no limitations, healthy appearing, alert and well nourished HENMT: COMMON NORMALS: normocephalic, atraumatic, hearing grossly normal bilaterally, external ears normal, Normal external nose present and moist oral mucous membranes HEAD & SCALP: normocephalic and atraumatic NOSE: Normal external nose present EXTERNAL EAR: Yes external ears normal Neck/C-Spine: COMMON NORMALS: no JVD Chest: COMMONS NORMALS: normal inspection of the chest and normal palpation of entire chest wall Resp: COMMON NORMALS: normal respiratory effort, No retractions, No use of accessory muscles and clear to auscultation bilaterally AUSCULTATION: clear to auscultation bilaterally Cardio: COMMON NORMALS: no JVD, regular rate, regular rhythm, S1 normal heart sound present, S2 normal heart sound present, No gallops present (Cardio), No clicks present (Cardio), No murmurs present (Cardio) and No rub (Cardio) RATE: regular rate RHYTHM: regular rhythm HEART SOUNDS: S1 normal heart sound present and S2 normal heart sound present GI: COMMON NORMALS: Normal to inspection, nondistended, normoactive bowel sounds present, Soft to palpation, non-tender, No hepatosplenomegaly present and no masses PALPATION: Yes Soft to palpation and Yes No hepatosplenomegaly present Neuro: COMMON NORMALS: patient oriented x3 SENSORIUM/ORIENTATION: Yes alert Skin: NARRATIVE SKIN EXAM: Reddened area on right buttock approximately 3 inches x 4 inches, indurated tender to palpate with a fluctuant center. No streaking Procedures Abscess I/D Site: other (Right buttock) Side (if applicable): right Local Anesthetic: lidocaine 1% Amount of anesthesia used (mL): 3 Technique: incised with #11 blade Amount of fluid expressed (mL): 5 Irrigation: No Packing used?: plain Course Vital Signs: Vital signs: Vital Signs Temperature 98.3 F 12/05/23 05:16 Pulse Rate 90 12/05/23 05:58 Respiratory Rate 16 12/05/23 05:16 Blood Pressure 146/101 12/05/23 05:58 Pulse Oximetry 98 12/05/23 05:58 Oxygen Delivery Me thod Room Air 12/05/23 05:16 MDM - Skin/Abscess/Foreign Bdy Medicial Decision Making There was anesthetized, incision was made, lots of purulent material was drained, wound was packed with plain packing material dressing was placed. Patient be placed on antibiotics and discharged home Differential Diagnosis Likely abscess of skin or subcutaneous tissue Medical Records I reviewed the patient's medical records. Lab Data I reviewed the patient's lab results. No radiology studies performed this visit Discharge Plan Discharge Patient Disposition: Home Clinical Impression: Abscess Condition: Stable Prescriptions: New Bactrim DS 800-160 mg tablet 1 tab PO BID Qty: 14 0RF No Action fluticasone propionate [Flonase Allergy Relief] 50 mcg/actuation spray,suspension 2 spray intranasal DAILY Qty: 16 5RF Rx Instructions: administer into each nostril Avsola 100 mg recon soln See Rx Instructions .ROUTE .COMPLEX Rx Instructions: 6weeks 100 mg intravenously famotidine 10 mg tablet 10 mg PO DAILY Qty: 90 0RF leflunomide 10 mg tablet 10 mg PO DAILY Qty: 30 3RF glimepiride 2 mg tablet 2 mg PO DAILY Qty: 30 11RF levofloxacin 750 mg tablet 750 mg PO DAILY 7 Days Qty: 7 0RF albuterol sulfate 90 mcg/actuation HFA aerosol inhaler 2 inh inhalation Q6H PRN (Reason: shortness of breath or wheezing) Qty: 6.7 0RF fluconazole 150 mg tablet 150 mg PO Q3D Qty: 2 0RF losartan 50 mg tablet 50 mg PO DAILY Qty: 30 11RF escitalopram oxalate [Lexapro] 20 mg tablet 20 mg PO QAM Qty: 30 11RF carvedilol 25 mg tablet See Rx Instructions .ROUTE .COMPLEX Qty: 60 11RF Dose Instruction: TAKE 1 TABLET BY MOUTH TWICE DAILY FOR HIGH BLOOD PRESSURE Rx Instructions: TAKE 1 TABLET BY MOUTH TWICE DAILY FOR HIGH BLOOD PRESSURE bupropion HCl 300 mg tablet extended release 24 hr See Rx Instructions .ROUTE .COMPLEX Qty: 30 11RF Dose Instruction: Take 1 tablet by mouth once daily Rx Instructions: Take 1 tablet by mouth once daily metformin 500 mg tablet extended release 24 hr 500 mg PO BID Qty: 60 11RF acetaminophen [Tylenol Extra Strength] 500 mg Tablet 1,000 mg PO Q6H PRN (Reason: Pain) brimonidine-timolol 0.2-0.5 % drops 1 drp ophthalmic (eye) BID mupirocin 2 % ointment 1 applic topical BID Qty: 15 0RF Discharge Orders: Discharge ED (Routine); Ordered 12/05/23 Ordered By: Kris Joy Referrals: Malcom Villanueva MD [Primary Care Provider] - 1 week Patient Instructions: Abscess Incision and Drainage (DC) Coding Level of Care Code ED Technical Communication Teacher for Chris Lilly
[2023-12-05] MEDS: lidocaine 1% 10 ML INJ XX (05:43)
[2023-12-05 05:58] VITALS: BP 146/101; PULSE 90; O2SAT 98
== END 2023-12-05 06:00 | disposition home or self-care (01) ==
PROVIDERS: Emergency Provider Emergency Medicine; PCP Family Medicine
DX: L02.31 Cutaneous abscess of buttock (principal); Z79.84 Long term (current) use of oral hypoglycemic drugs; I10 Essential (primary) hypertension; E11.9 Type 2 diabetes mellitus without complications
CPT/HCPCS: 10060; 87070; 87077; 87186; 99283

== ENCOUNTER 2024-01-02 19:33 | Emergency (ER) | payer BC, SELFPAY ==
[2024-01-02 19:38] VITALS: BP 190/104; PULSE 117; RESP 18; TEMP 36.7; O2SAT 95; BMI 32.3
--- NOTE | 2024-01-02 19:43 | XRR_ITS ---
PROCEDURE INFORMATION: Exam: XR Chest Exam date and time: 01/02/2024 7:49 PM Age: 43 years old Clinical indication: Cough TECHNIQUE: Imaging protocol: Radiologic exam of the chest. Views: 1 view. COMPARISON: CR XR chest 1V portable [id number] 03/23/2020 5:31 AM FINDINGS: Lungs: Low lung volumes with basilar atelectasis and compressive changes. No pulmonary consolidation. Pleural spaces: No pleural effusion or pneumothorax. Heart/Mediastinum: The cardiomediastinal silhouette is within normal limits. Bones/joints: No acute osseous abnormalities are seen. XR/XR chest 1V portable [id number] IMPRESSION: Low lung volumes with basilar atelectasis and compressive changes.
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
--- NOTE | 2024-01-02 20:00 | XRR_ITS ---
PROCEDURE INFORMATION: Exam: XR Chest Exam date and time: 01/02/2024 8:06 PM Age: 43 years old Clinical indication: Cough TECHNIQUE: Imaging protocol: Radiologic exam of the chest. Views: 2 views. COMPARISON: CR (CHEST, ) 01/02/2024 7:49 PM FINDINGS: Lungs: The lungs are clear. No pulmonary consolidation. Pleural spaces: No pleural effusion or pneumothorax. Heart/Mediastinum: The cardiomediastinal silhouette is within normal limits. Bones/joints: No acute osseous abnormalities are seen. XR/XR chest 2V* [id number] IMPRESSION: No acute cardiopulmonary disease.
[2024-01-02 20:39] VITALS: BP 175/120; PULSE 112; RESP 18; O2SAT 95
== END 2024-01-02 20:41 | disposition home or self-care (01) ==
PROVIDERS: Emergency Provider Emergency Medicine; PCP Family Medicine
DX: R05.9 Cough, unspecified (principal); Z79.84 Long term (current) use of oral hypoglycemic drugs; I10 Essential (primary) hypertension; E11.9 Type 2 diabetes mellitus without complications
CPT/HCPCS: 71045; 71046; 99283

== ENCOUNTER 2024-01-14 09:35 | Oncology outpatient (recurring) (ONCR) | payer BC, SELFPAY ==
[2024-01-14] MEDS: sodium chloride 0.9% 250 ML 75 ML IV (10:31)
[2024-01-14] MEDS: methylPREDNISolone sod succ 40 mg/mL INJ 20 MG IVP (10:32)
[2024-01-14] MEDS: acetaminophen 325 mg Tablet 650 MG PO (10:37)
[2024-01-14] MEDS: diphenhydrAMINE 50 mg/mL SDV 1mL 25 MG IVP (10:37)
[2024-01-14 10:42] LABS: Basophils # 0.1 10^3/uL (0.0-0.1); Basophils % 0.7 %; Eosinophils # 0.2 10^3/uL (0.0-0.8); Eosinophils % 1.8 %; Hematocrit 41.6 % (36-47); Lymphocytes # 3.5 10^3/uL (0.8-4.8); Lymphocytes % 29.8 %; Mean Corpuscular HGB Conc 32.5 g/dL (30-55); Mean Corpuscular Hemoglobin 28.4 pg (27-33); Mean Corpuscular Volume 87.4 fl (85-98); Mean Platelet Volume 10.6 fL (7.4-10.4); Monocytes # 0.5 10^3/uL (0.2-0.9); Monocytes % 4.1 %; Neutrophils # 7.39 10^3/uL (1.8-7.7); Neutrophils % 63.2 %; Nucleated Red Blood Cells % 0 %; Platelet Count 313 10^3/cmm (157-399); Red Blood Count 4.76 10^6/uL (3.85-5.65); Red Cell Distribution Width 13.7 % (12.1-15.1)
[2024-01-14] MEDS: INFLIXIMAB AXXQ IV (11:05)
[2024-01-14] MEDS: SODIUM CHLORIDE 0.9% IV (11:05)
[2024-01-14 11:08] VITALS: BP 153/91; PULSE 74; RESP 16; TEMP 36.8; O2SAT 95
[2024-01-14 11:23] VITALS: BP 154/94; PULSE 68; RESP 16; TEMP 36.2; O2SAT 97
[2024-01-14 11:40] VITALS: BP 158/92; PULSE 72; RESP 16; TEMP 36.1; O2SAT 98
[2024-01-14 11:55] VITALS: BP 153/93; PULSE 77; RESP 16; TEMP 36.1; O2SAT 96
[2024-01-14 12:10] VITALS: BP 144/93; PULSE 81; RESP 16; TEMP 36.6; O2SAT 97
[2024-01-14 13:20] VITALS: BP 156/95; PULSE 78; RESP 16; TEMP 35.8; O2SAT 78
== END 2024-02-12 23:59 | disposition home or self-care (01) ==
PROVIDERS: PCP Family Medicine; Visit Provider Internal Medicine Rheumatology
DX: M05.79 Rheumatoid arthritis with rheumatoid factor 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 systems involvement (principal); H20.9 Unspecified iridocyclitis; Z79.899 Other long term (current) drug therapy
CPT/HCPCS: 85025; 96375; 96413; 96415; J1200; J2919; J7050; Q5121

== ENCOUNTER → 2024-02-12 15:36 | Outpatient (BNVA) | payer BC, SELFPAY | PROVIDERS: PCP Family Medicine; Visit Provider Family Medicine | DX: I10 Essential (primary) hypertension (principal); E11.9 Type 2 diabetes mellitus without complications; F32.A Depression, unspecified | CPT/HCPCS: 80053; 83036 ==

== ENCOUNTER 2024-02-25 09:16 | Oncology outpatient (recurring) (ONCR) | payer BC, SELFPAY ==
[2024-02-25 09:32] VITALS: BP 156/81; PULSE 85; RESP 16; TEMP 37.1; O2SAT 98
[2024-02-25] MEDS: acetaminophen 325 mg Tablet 650 MG PO (10:07)
[2024-02-25] MEDS: diphenhydrAMINE 50 mg/mL SDV 1mL 25 MG IVP (10:08)
[2024-02-25] MEDS: methylPREDNISolone sod succ 40 mg/mL INJ 20 MG IVP (10:15)
[2024-02-25] MEDS: SODIUM CHLORIDE 0.9% IV (10:55)
[2024-02-25] MEDS: INFLIXIMAB AXXQ IV (10:55)
[2024-02-25 12:04] VITALS: BP 130/84; PULSE 89; RESP 16; TEMP 36.5; O2SAT 98
== END 2024-03-13 23:59 | disposition home or self-care (01) ==
PROVIDERS: PCP Family Medicine; Visit Provider Internal Medicine Rheumatology
DX: H20.9 Unspecified iridocyclitis; Z79.899 Other long term (current) drug therapy
CPT/HCPCS: 96375; 96413; A4222; J1200; J2919; J7050; Q5121

== ENCOUNTER 2024-04-12 07:44 | Oncology outpatient (recurring) (ONCR) | payer BC, SELFPAY ==
[2024-04-12 08:22] VITALS: BP 138/90; PULSE 109; RESP 16; TEMP 36.5; O2SAT 95
[2024-04-12 08:36] LABS: Basophils # 0.1 10^3/uL (0.0-0.1); Basophils % 0.4 %; Eosinophils # 0.1 10^3/uL (0.0-0.8); Eosinophils % 0.5 %; Hematocrit 39.9 % (36-47); Lymphocytes # 2.2 10^3/uL (0.8-4.8); Lymphocytes % 16.2 %; Mean Corpuscular HGB Conc 32.8 g/dL (30-55); Mean Corpuscular Hemoglobin 28.1 pg (27-33); Mean Corpuscular Volume 85.6 fl (85-98); Mean Platelet Volume 9.9 fL (7.4-10.4); Monocytes # 0.5 10^3/uL (0.2-0.9); Monocytes % 3.5 %; Neutrophils # 10.49 10^3/uL (1.8-7.7); Nucleated Red Blood Cells % 0 %; Platelet Count 359 10^3/cmm (157-399); Red Blood Count 4.66 10^6/uL (3.85-5.65); Red Cell Distribution Width 13.1 % (12.1-15.1); White Blood Count 13.26 10^3/uL (3.29-11.43)
[2024-04-12 08:58] LABS: Alanine Aminotransferase 32 U/L (0-33); Albumin Level 4.2 g/dL (3.5-5.2); Alkaline Phosphatase 124 U/L (35-105); Blood Urea Nitrogen 12 mg/dL (6-20); C Reactive Protein 33.7 mg/L (0.0-4.9); Calcium 9.4 mg/dL (8.5-10.5); Carbon Dioxide 23 mmol/L (22-29); Chloride 97 mmol/L (98-107); Globulin 3.9 g/dL (1.3-4.6); Glomerular Filtration Rate 90.5 mL/min (90-130); Glucose 302 mg/dL (65-115); Osmolality Calculated 287 mOsm/kg (285-295); Sodium 133 mmol/L (136-145); Total Bilirubin 0.2 mg/dL (0.15-1.2); Total Protein 8.1 g/dL (6.6-8.7)
[2024-04-12] MEDS: sodium chloride 0.9% 250 ML 75 ML IV (08:58)
[2024-04-12] MEDS: acetaminophen 325 mg Tablet 650 MG PO (08:59)
[2024-04-12] MEDS: diphenhydrAMINE 50 mg/mL SDV 1mL 25 MG IVP (08:59)
[2024-04-12 09:00] LABS: Anion Gap 16.9 (5-19); Aspartate Amino Transferase 24 U/L (0-32); Potassium 3.9 mmol/L (3.5-5.1)
[2024-04-12] MEDS: methylPREDNISolone sod succ 40 mg/mL INJ 20 MG IVP (09:04)
[2024-04-12] MEDS: SODIUM CHLORIDE 0.9% IV (09:55)
[2024-04-12] MEDS: INFLIXIMAB AXXQ IV (09:55)
== END 2024-04-13 23:59 | disposition home or self-care (01) ==
PROVIDERS: PCP Family Medicine; Visit Provider Internal Medicine Rheumatology
DX: H20.9 Unspecified iridocyclitis (principal); Z79.899 Other long term (current) drug therapy; M05.79 Rheumatoid arthritis with rheumatoid factor 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 systems involvement
CPT/HCPCS: 80053; 82248; 85025; 86140; 96375; 96413; A4222; J1200; J2919; J7050; Q5121

== ENCOUNTER → 2024-04-27 10:23 | Outpatient (BNVA) | payer BC, SELFPAY | PROVIDERS: PCP Family Medicine; Visit Provider Family Medicine | DX: J06.9 Acute upper respiratory infection, unspecified (principal) | CPT/HCPCS: 87400; 87426 ==

== ENCOUNTER 2024-04-29 14:30 | Emergency (ER) | payer BC, SELFPAY ==
[2024-04-29 14:39] VITALS: BP 127/84; PULSE 99; RESP 18; TEMP 36.8; O2SAT 96; BMI 30.7
--- NOTE | 2024-04-29 14:44 | XRR_ITS ---
PROCEDURE INFORMATION: Exam: XR Chest Exam date and time: 04/29/2024 3:00 PM Age: 43 years old Clinical indication: Cough and dyspnea; Additional info: Congestion/cough TECHNIQUE: Imaging protocol: Radiologic exam of the chest. Views: 1 view. COMPARISON: CR XR chest 2V* [id number] 01/02/2024 8:06 PM FINDINGS: Lungs: Peribronchial wall thickening. Possible developing opacity in the medial right lung base. Pleural spaces: Unremarkable. No pleural effusion. No pneumothorax. Heart/Mediastinum: Unremarkable. No cardiomegaly. Bones/joints: Unremarkable. XR/XR chest 1V portable [id number] IMPRESSION: Sequela of bronchitis. Possible developing opacity in the right lung base, possibly pneumonia.
--- NOTE | 2024-04-29 15:21 | ED_ITS ---
HPI - URI/Sore Throat General: Chief Complaint: Upper Respiratory Infection Stated Complaint: conjestion Time Seen by Provider: 04/29/24 14:38 Source: patient Mode of arrival: ambulatory Limitations: no limitations History of Present Illness: Patient is a 43-year-old female presents to ED today with a complaint of a nonproductive cough, wheezing, sinus pain/pressure, nasal congestion, sore throat over the past several days. She was seen by her primary care provider and placed on azithromycin. She states she is almost done with this antibiotic and feels worse now than when I did when I started it . Vital signs are stable upon arrival. She states significant other was sick with similar symptoms. MD elicited complaint: cough, sore throat, nasal congestion and sinus pain Onset (ago): day(s) Consistency: constant Severity: moderate Description of mucous: yellow and green Able to tolerate fluids by mouth: Yes Exacerbating factors: nothing Relieving factors: nothing Context: sick contacts (significant other) Associated symptoms: Reports nasal congestion and sinus pain; Deny abdominal pain, chills, chest pain, diarrhea, fever(s), headache(s) or vomiting Treatments prior to arrival: antibiotics Related Data Home Medications Medication Instructions Recorded Confirmed acetaminophen 500 mg tablet 1,000 mg PO Q6H PRN Pain 03/15/20 04/27/24 (Tylenol Extra Strength) infliximab-axxq 100 mg intravenous See Rx Instructions .Route .COMPLEX 12/25/22 04/27/24 solution (Avsola) brimonidine 0.2 %-timolol 0.5 % 1 drp ophthalmic (eye) BID 05/24/23 04/27/24 eye drops Previous Rx's Medication Instructions Recorded famotidine 10 mg tablet 10 mg PO DAILY #90 tabs 12/25/22 escitalopram oxalate 20 mg tablet 20 mg PO QAM #30 tabs 05/20/23 (Lexapro) carvedilol 25 mg tablet See Rx Instructions .Route 06/16/23 .COMPLEX #60 tabs fluticasone propionate 50 2 spray intranasal DAILY #16 grams 07/09/23 mcg/actuation nasal spray,suspension (Flonase Allergy Relief) mupirocin 2 % topical ointment 1 applic topical BID #15 grams 08/03/23 metformin 500 mg tablet,extended 500 mg PO BID #60 tabs 09/25/23 release 24 hr albuterol sulfate 90 mcg/actuation 2 inh inhalation Q6H PRN shortness 10/17/23 aerosol inhaler of breath or wheezing #6.7 grams fluconazole 150 mg tablet 150 mg PO Q3D 2 doses #2 tabs 10/17/23 glimepiride 2 mg tablet 2 mg PO DAILY #30 tabs 11/12/23 prednisone 20 mg tablet See Rx Instructions PO .COMPLEX 01/12/24 PRN joint pain flare #30 tabs bupropion HCl 150 mg 24 hr tablet, See Rx Instructions .Route 02/12/24 extended release .COMPLEX #30 tabs buspirone 10 mg tablet 10 mg PO BID #60 tabs 02/12/24 losartan 50 mg tablet 50 mg PO DAILY #30 tabs 04/14/24 leflunomide 10 mg tablet 10 mg PO DAILY #90 tabs 04/21/24 azithromycin 250 mg tablet See Rx Instructions PO .COMPLEX #6 04/27/24 (Zithromax Z-Juan) tabs albuterol sulfate 90 mcg/actuation 2 inh inhalation Q4H PRN shortness 04/29/24 aerosol inhaler of breath or wheezing #6.7 grams dexamethasone 6 mg tablet 6 mg PO DAILY #6 tabs 04/29/24 levofloxacin 500 mg tablet 500 mg PO DAILY 7 days #7 tabs 04/29/24 Allergies Allergy/AdvReac Type Severity Reaction Status Date / Time aspirin Allergy HIVES-SOB Verified 04/21/24 10:28 Review of Systems Const: Denies: fever(s), chills, body aches, fatigue or malaise Eyes: Denies: change in vision, blurry vision, photophobia, floaters or seeing flashes ENMT: Reports: throat pain, odynophagia, nasal discharge, nasal congestion and sinus pain Card: Denies: chest pain, irregular heart rhythm, edema, swelling of feet/ankles, lightheadedness, syncope or pre-syncope Resp: Reports: dyspnea, non-productive cough and wheezing; Denies: productive cough, stridor, hemoptysis or chest congestion GI: Denies: abdominal pain, vomiting or diarrhea Musc: Denies: neck pain, back pain, extremity pain, extremity swelling, joint pain or joint swelling Skin/Breast: Denies: rash Neuro: Denies: headache(s), numbness in extremities, weakness in extremities, sensory changes or dizziness PFSH ED PFSH: Medical History Depression HTN (hypertension) Abscess, gluteal, left Type 2 diabetes mellitus Uveitis Immunocompromised COVID-19 Morbid obesity Immunization counseling High risk medication use Rheumatoid arthritis with rheumatoid factor 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 systems involvement Surgical History H/O myomectomy 11/09/2017 History of endometrial ablation Hx of cataract surgery bilateral 01/24 H/O dilation and curettage -x 2 Family History Other Diabetes Hypertension Rheumatoid arthritis Social History Smoking and tobacco/nicotine status: never used tobacco/nicotine Alcohol intake: never Substance/Drug Use: never Marital status: Current occupational status: employed Physical Exam Const: COMMON NORMALS: no acute distress, patient oriented x3, no limitations, alert and well nourished GENERAL APPEARANCE: cooperative HENMT: COMMON NORMALS: normocephalic, atraumatic, hearing grossly normal bilaterally, external ears normal, EAC's normal, TM's normal bilaterally, Normal external nose present, Normal nasal mucous membranes and turbinates present, moist oral mucous membranes and oropharynx normal HEAD & SCALP: normal to inspection, normocephalic and atraumatic FACE & SINUS: normal facial exam and sinus tenderness NOSE: Normal external nose present and Normal nasal mucous membranes and turbinates present EXTERNAL EAR: Yes external ears normal EXTERNAL AUDITORY CANAL: EAC's normal TYMPANIC MEMBRANE: TM's normal bilaterally MOUTH: Normal oral and palatal mucosa present and lip normal THROAT: posterior oropharynx normal and tonsils normal Eye: GENERAL EYE: appearance normal, both eyes and all related structures Neck/C-Spine: COMMON NORMALS: no lymphadenopathy Resp: COMMON NORMALS: normal respiratory effort and clear to auscultation bilaterally AUSCULTATION: clear to auscultation bilaterally Cardio: COMMON NORMALS: regular rate and regular rhythm RATE: regular rate RHYTHM: regular rhythm Neuro: COMMON NORMALS: patient oriented x3 SENSORIUM/ORIENTATION: Yes alert Course Vital Signs: Vital signs: Vital Signs Temperature 98.2 F 04/29/24 14:39 Pulse Rate 99 04/29/24 14:39 Respiratory Rate 18 04/29/24 14:39 Blood Pressure 127/84 04/29/24 14:39 Pulse Oximetry 96 04/29/24 14:39 Oxygen Delivery Me thod Room Air 04/29/24 14:39 MDM - URI/Sore Throat Medical Decision Making CXR showing possible developing opacity in her right lung base, possibly pneumonia. Will place her on Levaquin as well as an albuterol inhaler and steroids. Recommend follow-up with primary care in 1 to 2 weeks if she does not seem to be improving. Return precautions verbally discussed with patient. Medical Records I reviewed the patient's medical records. Lab Data Radiology Impressions Chest X-Ray 04/29/24 14:44 IMPRESSION: Sequela of bronchitis. Possible developing opacity in the right lung base, possibly pneumonia. All radiology interpretation(s) finalized by discharge Discharge Plan Discharge Patient Disposition: Home Clinical Impression: Pneumonia involving right lung Qualifiers: Pneumonia type: due to unspecified organism Lung location: unspecified part of lung Qualified Code(s): J18.9 - Pneumonia, unspecified organism Condition: Stable Prescriptions: New dexamethasone 6 mg tablet 6 mg PO DAILY Qty: 6 0RF levofloxacin 500 mg tablet 500 mg PO DAILY 7 Days Qty: 7 0RF albuterol sulfate 90 mcg/actuation HFA aerosol inhaler 2 inh INHALATION Q4H PRN (Reason: shortness of breath or wheezing) Qty: 6.7 0RF No Action fluticasone propionate [Flonase Allergy Relief] 50 mcg/actuation spray,suspension 2 spray intranasal DAILY Qty: 16 5RF Rx Instructions: administer into each nostril buspirone 10 mg tablet 10 mg PO BID Qty: 60 11RF bupropion HCl 150 mg tablet extended release 24 hr See Rx Instructions .ROUTE .COMPLEX Qty: 30 11RF Dose Instruction: Take 1 tablet by mouth once daily Rx Instructions: Take 1 tablet by mouth once daily azithromycin [Zithromax Z-Juan] 250 mg tablet See Rx Instructions PO .COMPLEX Qty: 6 0RF Rx Instructions: For 250 mg dose pack: take 500 mg today (day 1), then 250 mg for 4 days (days 2-5) PO Avsola 100 mg recon soln See Rx Instructions .ROUTE .COMPLEX Rx Instructions: 6weeks 100 mg intravenously famotidine 10 mg tablet 10 mg PO DAILY Qty: 90 0RF glimepiride 2 mg tablet 2 mg PO DAILY Qty: 30 11RF albuterol sulfate 90 mcg/actuation HFA aerosol inhaler 2 inh inhalation Q6H PRN (Reason: shortness of breath or wheezing) Qty: 6.7 0RF fluconazole 150 mg tablet 150 mg PO Q3D Qty: 2 0RF leflunomide 10 mg tablet 10 mg PO DAILY Qty: 90 1RF escitalopram oxalate [Lexapro] 20 mg tablet 20 mg PO QAM Qty: 30 11RF carvedilol 25 mg tablet See Rx Instructions .ROUTE .COMPLEX Qty: 60 11RF Dose Instruction: TAKE 1 TABLET BY MOUTH TWICE DAILY FOR HIGH BLOOD PRESSURE Rx Instructions: TAKE 1 TABLET BY MOUTH TWICE DAILY FOR HIGH BLOOD PRESSURE metformin 500 mg tablet extended release 24 hr 500 mg PO BID Qty: 60 11RF prednisone 20 mg tablet See Rx Instructions PO .COMPLEX PRN (Reason: joint pain flare) Qty: 30 1RF Rx Instructions: take 1 or 2 tab daily for 7 days as needed for arthritis flare PO PRN; losartan 50 mg tablet 50 mg PO DAILY Qty: 30 11RF acetaminophen [Tylenol Extra Strength] 500 mg Tablet 1,000 mg PO Q6H PRN (Reason: Pain) brimonidine-timolol 0.2-0.5 % drops 1 drp ophthalmic (eye) BID mupirocin 2 % ointment 1 applic topical BID Qty: 15 0RF Discharge Orders: Discharge ED (Routine); Ordered 04/29/24 Ordered By: Vanessa Martínez Referrals: Malcom Villanueva MD [Primary Care Provider] - Patient Instructions: Upper Respiratory Infection (DC), Pneumonia - Bacterial, Pneumonia - Viral, Upper Respiratory Infection - Adult Coding Level of Care Code ED Clarifier Operator for Chris Lilly
[2024-04-29 15:35] VITALS: BP 106/79; PULSE 94; O2SAT 96
== END 2024-04-29 15:36 | disposition home or self-care (01) ==
PROVIDERS: Emergency Provider Physician Assistant; PCP Family Medicine
DX: J18.9 Pneumonia, unspecified organism (principal); Z79.84 Long term (current) use of oral hypoglycemic drugs; E11.9 Type 2 diabetes mellitus without complications; I10 Essential (primary) hypertension
CPT/HCPCS: 71045; 99283

== ENCOUNTER 2024-05-24 07:59 | Oncology outpatient (recurring) (ONCR) | payer BC, SELFPAY ==
[2024-05-24 08:07] VITALS: BP 154/99; PULSE 80; TEMP 36.3; O2SAT 98
[2024-05-24] MEDS: sodium chloride 0.9% 250 ML 75 ML IV (08:34)
[2024-05-24] MEDS: acetaminophen 325 mg Tablet 650 MG PO (08:35)
[2024-05-24] MEDS: diphenhydrAMINE 50 mg/mL SDV 1mL 25 MG IVP (08:37)
[2024-05-24] MEDS: methylPREDNISolone sod succ 40 mg/mL INJ 20 MG IVP (08:42)
[2024-05-24] MEDS: SODIUM CHLORIDE 0.9% IV (09:05)
[2024-05-24] MEDS: INFLIXIMAB AXXQ IV (09:05)
[2024-05-24 10:27] VITALS: BP 157/91; PULSE 81; RESP 16; TEMP 36.8; O2SAT 98
== END 2024-06-11 23:59 | disposition home or self-care (01) ==
PROVIDERS: PCP Family Medicine; Visit Provider Internal Medicine Rheumatology
DX: H20.9 Unspecified iridocyclitis (principal); Z79.899 Other long term (current) drug therapy
CPT/HCPCS: 96375; 96413; A4222; J1200; J2919; J7050; Q5121

== ENCOUNTER → 2024-05-31 15:06 | Outpatient (BNVA) | payer BC, SELFPAY | PROVIDERS: PCP Family Medicine; Visit Provider Family Medicine | DX: I10 Essential (primary) hypertension (principal); E11.9 Type 2 diabetes mellitus without complications; F32.A Depression, unspecified | CPT/HCPCS: 83036 ==

== ENCOUNTER 2024-07-05 08:45 | Oncology outpatient (recurring) (ONCR) | payer BC, SELFPAY ==
[2024-07-05 09:26] VITALS: BP 155/92; PULSE 82; RESP 18; TEMP 36.6; O2SAT 97
[2024-07-05] MEDS: sodium chloride 0.9% 250 ML 75 ML IV (09:57)
[2024-07-05] MEDS: acetaminophen 325 mg Tablet 650 MG PO (10:02)
[2024-07-05] MEDS: diphenhydrAMINE 50 mg/mL SDV 1mL 25 MG IVP (10:11)
[2024-07-05] MEDS: methylPREDNISolone sod succ 40 mg/mL INJ 20 MG IVP (10:15)
[2024-07-05] MEDS: INFLIXIMAB AXXQ IV (10:29)
[2024-07-05] MEDS: SODIUM CHLORIDE 0.9% IV (10:29)
[2024-07-05 11:44] VITALS: BP 154/94; PULSE 79; RESP 18; TEMP 36.9; O2SAT 97
== END 2024-07-12 23:59 | disposition home or self-care (01) ==
PROVIDERS: PCP Family Medicine; Visit Provider Internal Medicine Rheumatology
DX: H20.9 Unspecified iridocyclitis (principal); Z79.899 Other long term (current) drug therapy
CPT/HCPCS: A4222; J1200; J2919; J7050; J9999; Q5121

== ENCOUNTER → 2024-07-08 10:16 | Outpatient (BNVA) | payer BC, SELFPAY | PROVIDERS: PCP Family Medicine; Visit Provider Family Medicine | DX: N39.0 Urinary tract infection, site not specified (principal) | CPT/HCPCS: 81000; 87086 ==

== ENCOUNTER 2024-08-17 07:54 | Oncology outpatient (recurring) (ONCR) | payer BC, SELFPAY ==
[2024-08-17 08:33] LABS: Basophils # 0.1 10^3/uL (0.0-0.1); Basophils % 0.7 %; Eosinophils # 0.3 10^3/uL (0.0-0.8); Eosinophils % 2.8 %; Hematocrit 40.9 % (36-47); Lymphocytes # 4.1 10^3/uL (0.8-4.8); Lymphocytes % 35.5 %; Mean Corpuscular HGB Conc 32.3 g/dL (30-55); Mean Corpuscular Hemoglobin 27.7 pg (27-33); Mean Corpuscular Volume 85.7 fl (85-98); Monocytes # 0.7 10^3/uL (0.2-0.9); Monocytes % 6.4 %; Neutrophils # 6.23 10^3/uL (1.8-7.7); Neutrophils % 54.3 %; Nucleated Red Blood Cells % 0 %; Platelet Count 321 10^3/cmm (157-399); Red Blood Count 4.77 10^6/uL (3.85-5.65); Red Cell Distribution Width 13.7 % (12.1-15.1); White Blood Count 11.45 10^3/uL (3.29-11.43)
[2024-08-17] MEDS: sodium chloride 0.9% 250 ML 75 ML IV (08:55)
[2024-08-17] MEDS: acetaminophen 325 mg Tablet 650 MG PO (08:56)
[2024-08-17] MEDS: diphenhydrAMINE 50 mg/mL SDV 1mL 25 MG IVP (08:56)
[2024-08-17 08:58] LABS: Alanine Aminotransferase 35 U/L (0-33); Albumin Level 3.8 g/dL (3.5-5.2); Alkaline Phosphatase 103 U/L (35-105); Aspartate Amino Transferase 28 U/L (0-32); C Reactive Protein 9.9 mg/L (0.0-4.9); Globulin 3.4 g/dL (1.3-4.6); Glomerular Filtration Rate 77.6 mL/min (90-130); Total Bilirubin 0.2 mg/dL (0.15-1.2); Total Protein 7.2 g/dL (6.6-8.7)
[2024-08-17] MEDS: methylPREDNISolone sod succ 40 mg/mL INJ 20 MG IVP (09:03)
[2024-08-17 09:08] LABS: Slide Review Slide Review Perform
[2024-08-17] MEDS: INFLIXIMAB AXXQ IV (09:41)
[2024-08-17] MEDS: SODIUM CHLORIDE 0.9% IV (09:41)
[2024-08-17 10:45] VITALS: BP 168/108; BP 177/115
[2024-08-17 11:13] VITALS: BP 165/103
[2024-08-17] MEDS: cloNIDine 0.1 mg Tablet PO ×2 (11:13→12:12)
[2024-08-17 11:15] VITALS: BP 165/103
[2024-08-17 11:47] VITALS: BP 174/114
[2024-08-17 12:12] VITALS: BP 158/104
[2024-08-17 12:51] VITALS: BP 160/103; PULSE 75; TEMP 36.7; O2SAT 98
== END 2024-09-11 23:59 | disposition home or self-care (01) ==
PROVIDERS: PCP Family Medicine; Visit Provider Internal Medicine Rheumatology
DX: H20.9 Unspecified iridocyclitis (principal); Z79.899 Other long term (current) drug therapy
CPT/HCPCS: 80076; 82565; 85025; 86140; 96375; 96413; A4222; J1200; J2919; J7050; J9999; Q5121

== ENCOUNTER 2024-08-19 09:29 | Emergency (ER) | payer BC, SELFPAY ==
[2024-08-19 09:49] VITALS: BP 181/128; PULSE 79; RESP 16; TEMP 36.8; O2SAT 98; BMI 33.9
--- NOTE | 2024-08-19 09:57 | CT_ITS ---
WS: [id number] CT ABDOMEN PELVIS TECHNIQUE: Contrast-enhanced CT of the abdomen and pelvis with coronal and sagittal reformatted images. CLINICAL INFORMATION: LLQ abdominal/L pelvic pain COMPARISON: None. DLP: 1088.[address] scans at [facility] use at least one of these dose optimization techniques: automated exposure control; mA and/or kV adjustment per patient size (includes targeted exams where dose is matched to clinical indication); or iterative reconstruction. FINDINGS: Fatty liver. Cholecystectomy clips. Normal portal vein and splenic vein. Normal pancreas. Small esophageal hiatal hernia. Slight bibasilar atelectasis. Normal caliber thoracic aorta. Celiac and SMA are patent. Adrenal glands are normal. Normal pancreatic parenchymal enhancement. Cholecystectomy clips. Normal renal parenchymal enhancement. No hydronephrosis. Small LEFT renal cysts. Some are too small to characterize. Normal spleen. Normal sigmoid colon. A few colonic diverticuli. No evidence of acute diverticulitis. Urine distended bladder. Fibroid uterus. Multicystic ovaries bilaterally RIGHT greater than LEFT. Enlarged multicystic RIGHT ovary similar to the prior studies. Fat-containing umbilical hernia. CT/CT abdomen pelvis w con* [id number] IMPRESSION: 1. Lobulated heterogeneous enhancing fibroid uterus similar to the prior studi es. Multicystic ovaries bilaterally. Prominent dorsal fibroid compresses the ce rvix similar to the prior studies. 2. Normal sigmoid colon. 3. Prior cholecystectomy. 4. Fatty liver. 5. Fat-containing umbilical hernia. 6. No other acute findings.
--- NOTE | 2024-08-19 09:57 | W.ED.ABDPA2 ---
HPI - Abdominal Pain General: Chief Complaint: Abdominal Pain Stated Complaint: pain in left hip area Time Seen by Provider: 08/19/24 09:32 Source: patient Mode of arrival: ambulatory Limitations: no limitations History of Present Illness: Patient is a 43-year-old female who presents to the ED today with a complaint of left lower abdominal/pelvic pain over the past 2 to 3 days. Pain has been constant and fairly sharp in nature. She states she does have a history of some type of ovarian fibroid on her right side that was surgically removed several years ago. She states symptoms seem similar to that although pain radiates higher into her abdomen as well. She has been having nausea, vomiting, changes to her bowel movements. No pain with defecation. She is passing flatulence. No fevers. She states she does not have menstrual cycles as she has previously underwent an uterine ablation. Denies urinary symptoms. MD elicited complaint: abdominal pain Pertinent past history: other (uterine fibroid ) Onset (ago): day(s) Pain Consistency: constant Location: LLQ and Pelvis Severity: moderate Quality: sharp Radiation: none Migration to: no migration Exacerbating factors: nothing Relieving factors: nothing Associated Symptoms: Denies change in bowel habits, chills, diarrhea, dysuria, fever(s), nausea and vomiting Related Data Home Medications ?Medication ?Instructions ?Recorded ?Confirmed acetaminophen 500 mg tablet 1,000 mg PO Q6H PRN Pain 03/15/20 08/19/24 (Tylenol Extra Strength) infliximab-axxq 100 mg intravenous See Rx Instructions .Route .COMPLEX 12/25/22 08/19/24 solution (Avsola) brimonidine 0.2 %-timolol 0.5 % 1 drp ophthalmic (eye) BID 05/24/23 08/19/24 eye drops bupropion HCl 300 mg 24 hr tablet, 300 mg PO DAILY 08/19/24 08/19/24 extended release carvedilol 25 mg tablet 25 mg PO BID 08/19/24 08/19/24 latanoprost 0.005 % eye drops 1 drp ophthalmic (eye) QPM 08/19/24 08/19/24 Previous Rx's ?Medication ?Instructions ?Recorded metformin 500 mg tablet,extended 500 mg PO BID #60 tabs 09/25/23 release 24 hr buspirone 10 mg tablet 10 mg PO BID #60 tabs 02/12/24 losartan 50 mg tablet 50 mg PO DAILY #30 tabs 04/14/24 leflunomide 10 mg tablet 10 mg PO DAILY #90 tabs 04/21/24 glimepiride 2 mg tablet 2 mg PO BID #60 tabs 06/08/24 montelukast 10 mg tablet 10 mg PO DAILY #30 tabs 06/15/24 (Singulair) escitalopram oxalate 10 mg tablet 10 mg PO QAM #30 tabs 07/20/24 hydrocodone 5 mg-acetaminophen 325 1 tab PO Q6H PRN pain #14 tabs 08/19/24 mg tablet Allergies Allergy/AdvReac Type Severity Reaction Status Date / Time aspirin Allergy HIVES-SOB Verified 04/21/24 10:28 Review of Systems Const: Denies: fever(s), chills, body aches, fatigue or malaise Card: Denies: chest pain Resp: Denies: dyspnea GI: Reports: abdominal pain; Denies: nausea, vomiting, diarrhea or change in bowel habits : Reports: pelvic pain; Denies: flank pain, difficulty voiding, dysuria, urinary frequency, urinary urgency or urinary hesitancy Musc: Denies: back pain Neuro: Denies: dizziness PFSH ED PFSH: Medical History Depression HTN (hypertension) Abscess, gluteal, left Type 2 diabetes mellitus Uveitis Immunocompromised COVID-19 Morbid obesity Immunization counseling High risk medication use Rheumatoid arthritis with rheumatoid factor 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 systems involvement Surgical History H/O myomectomy 11/09/2017 History of endometrial ablation Hx of cataract surgery bilateral 01/24 H/O dilation and curettage -x 2 Family History Other Diabetes Hypertension Rheumatoid arthritis Social History Smoking and tobacco/nicotine status: unknown if used tobacco/nicotine Alcohol intake: never Substance/Drug Use: never Marital status: Current occupational status: employed Physical Exam Const: COMMON NORMALS: no acute distress, patient oriented x3, no limitations, healthy appearing, alert and well nourished GENERAL APPEARANCE: cooperative ORIENTATION/CONSCIOUSNESS: Yes awake, Yes oriented to person, Yes oriented to place and Yes oriented to time Eye: COMMON NORMALS: no scleral icterus Resp: COMMON NORMALS: normal respiratory effort and clear to auscultation bilaterally AUSCULTATION: clear to auscultation bilaterally Cardio: COMMON NORMALS: regular rate and regular rhythm RATE: regular rate RHYTHM: regular rhythm GI: COMMON NORMALS: Normal to inspection, nondistended, normoactive bowel sounds present, Soft to palpation, No hepatosplenomegaly present and no masses INSPECTION: Yes normal to inspection AUSCULTATION: Yes normoactive bowel sounds PALPATION: Yes Soft to palpation, Yes Tenderness to palpation present (GI) (LLQ and L pelvic pain), No Guarding due to palpation present (GI), No Rigid due to palpation and Yes No hepatosplenomegaly present : COMMON NORMALS: Yes no CVA tenderness BLADDER/KIDNEY EXAM: Yes no CVA tenderness Back/Pelvis: COMMON NORMALS: no CVA tenderness, thoracic and lumbar spine normal to inspection and no thoracic nor lumbar tenderness Extremity: GENERAL: Yes normal exam except as noted Neuro: COMMON NORMALS: patient oriented x3, moves all extremities, no focal motor deficits and no sensory deficits noted SENSORIUM/ORIENTATION: Yes alert, Yes oriented to person, Yes oriented to place and Yes oriented to time Skin: COMMON NORMALS: no rashes or lesions noted GENERAL SKIN EXAM: no rashes or lesions noted Course Vital Signs: Vital signs: Vital Signs Temperature 98.2 F 08/19/24 09:49 Pulse Rate 72 08/19/24 10:32 Respiratory Rate 16 08/19/24 09:49 Blood Pressure 155/98 08/19/24 10:32 Pulse Oximetry 98 08/19/24 10:32 Oxygen Delivery Me thod Room Air 08/19/24 09:49 MDM - Abdominal Pain Medical Decision Making Patient appears in no acute distress. Vital signs are stable. Blood work overall is nonactionable. UA is clear. CT scan showing a lobulated heterogeneous enhancing fibroid uterus similar to prior studies. She has multicystic ovaries bilaterally. This most likely is the etiology for her left lower discomfort. Remainder of CT scan was unremarkable. Will have case management set her up with gynecology for further evaluation and treatment options if pain persists. Return precautions discussed. She can follow-up with primary care in the meantime until she sees gynecology. Medical Records I reviewed the patient's medical records. Lab Data I reviewed the patient's lab results. 08/19/24 10:13 08/19/24 10:13 Labs/Radiology: Radiology Impressions Abdomen/Pelvis CT 08/19/24 09:57 IMPRESSION: 1. Lobulated heterogeneous enhancing fibroid uterus similar to the prior studies. Multicystic ovaries bilaterally. Prominent dorsal fibroid compresses the cervix similar to the prior studies. 2. Normal sigmoid colon. 3. Prior cholecystectomy. 4. Fatty liver. 5. Fat-containing umbilical hernia. 6. No other acute findings. Laboratory Results WBC 11.48 10^3/uL (3.29-11.43) H 08/19/24 10:13 RBC 5.29 10^6/uL (3.85-5.65) 08/19/24 10:13 Hgb 14.50 g/dL (11.27-16.99) 08/19/24 10:13 Hct 45.4 % (36-47) 08/19/24 10:13 MCV 85.8 fl (85-98) 08/19/24 10:13 MCH 27.4 pg (27-33) 08/19/24 10:13 MCHC 31.9 g/dL (30-55) 08/19/24 10:13 RDW 13.7 % (12.1-15.1) 08/19/24 10:13 Plt Count 364 10^3/cmm (157-399) 08/19/24 10:13 MPV 9.9 fL (7.4-10.4) 08/19/24 10:13 Neut % (Auto) 54.3 % 08/19/24 10:13 Lymph % (Auto) 34.5 % 08/19/24 10:13 Story % (Auto) 7.0 % 08/19/24 10:13 Eos % (Auto) 3.3 % 08/19/24 10:13 Baso % (Auto) 0.6 % 08/19/24 10:13 Neut # (Auto) 6.23 10^3/uL (1.8-7.7) 08/19/24 10:13 Lymph # (Auto) 4.0 10^3/uL (0.8-4.8) 08/19/24 10:13 Story # (Auto) 0.8 10^3/uL (0.2-0.9) 08/19/24 10:13 Eos # (Auto) 0.4 10^3/uL (0.0-0.8) 08/19/24 10:13 Baso # (Auto) 0.1 10^3/uL (0.0-0.1) 08/19/24 10:13 Nucleated RBC % (auto) 0 % 08/19/24 10:13 Nucleated RBCs # 0.0 /100WBC 08/19/24 10:13 Sodium 138 mmol/L (136-145) 08/19/24 10:13 Potassium 3.9 mmol/L (3.5-5.1) 08/19/24 10:13 Chloride 100 mmol/L (98-107) 08/19/24 10:13 Carbon Dioxide 26 mmol/L (22-29) 08/19/24 10:13 Anion Gap 15.9 (5-19) 08/19/24 10:13 BUN 11 mg/dL (6-20) 08/19/24 10:13 Creatinine 0.7 mg/dL (0.5-0.9) 08/19/24 10:13 GFR Calculation 90.5 mL/min (90-130) 08/19/24 10:13 Glucose 170 mg/dL (65-115) H 08/19/24 10:13 Calculated Osmolality 289 mOsm/kg (285-295) 08/19/24 10:13 Calcium 9.2 mg/dL (8.5-10.5) 08/19/24 10:13 Total Bilirubin 0.2 mg/dL (0.15-1.2) 08/19/24 10:13 AST 25 U/L (0-32) 08/19/24 10:13 ALT 37 U/L (0-33) H 08/19/24 10:13 Alkaline Phosphatase 115 U/L (35-105) H 08/19/24 10:13 Total Protein 8.2 g/dL (6.6-8.7) 08/19/24 10:13 Albumin 4.0 g/dL (3.5-5.2) 08/19/24 10:13 Globulin 4.2 g/dL (1.3-4.6) 08/19/24 10:13 Lipase 57 U/L (13-60) 08/19/24 10:13 HCG, Qual Negative (Negative) 08/19/24 10:31 Urine Color Yellow (Yellow) 08/19/24 10:31 Urine Appearance Clear (CLEAR) 08/19/24 10:31 Urine pH 6.5 (5-7) 08/19/24 10:31 Ur Specific [place] 1.005 (1.005-1.030) 08/19/24 10:31 Urine Protein Negative (Negative) 08/19/24 10:31 Urine Glucose (UA) Negative (Normal) 08/19/24 10:31 Urine Ketones Negative (Negative) 08/19/24 10:31 Urine Blood Negative (Negative) 08/19/24 10:31 Urine Nitrate Negative (Negative) 08/19/24 10:31 Urine Bilirubin Negative (Negative) 08/19/24 10:31 Urine Urobilinogen 0.2 mg/dL (Negative) 08/19/24 10:31 Ur Leukocyte Esterase Negative (Negative) 08/19/24 10:31 Urine RBC 0-2 /hpf (0-2) 08/19/24 10:31 Urine WBC 0-5 /hpf (0-5) 08/19/24 10:31 Ur Squamous Epith Cells 0-5 /hpf (0-5) 08/19/24 10:31 Amorphous Sediment Not Reportable 08/19/24 10:31 Urine Bacteria None seen /hpf (NONE) 08/19/24 10:31 Hyaline Casts 0-4 /lpf H 08/19/24 10:31 All radiology interpretation(s) finalized by discharge Discharge Plan Discharge Patient Disposition: Home Clinical Impression: Pelvic pain Condition: Stable Prescriptions: New hydrocodone-acetaminophen 5-325 mg tablet 1 tab PO Q6H PRN (Reason: pain) Qty: 14 0RF No Action buspirone 10 mg tablet 10 mg PO BID Qty: 60 11RF Avsola 100 mg recon soln See Rx Instructions .ROUTE .COMPLEX Rx Instructions: 6weeks 100 mg intravenously leflunomide 10 mg tablet 10 mg PO DAILY Qty: 90 1RF montelukast [Singulair] 10 mg tablet 10 mg PO DAILY Qty: 30 11RF escitalopram oxalate 10 mg tablet 10 mg PO QAM Qty: 30 11RF metformin 500 mg tablet extended release 24 hr 500 mg PO BID Qty: 60 11RF losartan 50 mg tablet 50 mg PO DAILY Qty: 30 11RF glimepiride 2 mg tablet 2 mg PO BID Qty: 60 11RF acetaminophen [Tylenol Extra Strength] 500 mg Tablet 1,000 mg PO Q6H PRN (Reason: Pain) carvedilol 25 mg tablet 25 mg PO BID Rx Instructions: TAKE 1 TABLET BY MOUTH TWICE DAILY FOR HIGH BLOOD PRESSURE bupropion HCl 300 mg tablet extended release 24 hr 300 mg PO DAILY Rx Instructions: Take 1 tablet by mouth once daily latanoprost 0.005 % drops 1 drp ophthalmic (eye) QPM brimonidine-timolol 0.2-0.5 % drops 1 drp ophthalmic (eye) BID Discharge Orders: Discharge ED (Routine); Ordered 08/19/24 Ordered By: Vanessa Martínez Referrals: Malcom Villanueva MD [Primary Care Provider, Family Practice] Patient Instructions: Pelvic Pain (ED) Activity Restrictions/Additional Instructions: As we discussed, we will have case management set you up for follow-up with gynocology for further evaluation regarding your pelvic findings on CT scan today. You may use the pain medication as needed for severe discomfort. You may also continue to follow-up with your primary care provider in the meantime until you see gynecology. Print Language: Greek Coding Level of Care Code ED Electrostatic Powder Coating Technician for Chris Lilly
[2024-08-19] MEDS: iohexol 350 mg/mL 500 mL Btl (per mL) IV (10:16)
[2024-08-19] MEDS: ondansetron 2 mg/ML SDV 2 mL 4 MG IVP (10:29)
[2024-08-19] MEDS: morphine 4 mg/mL SDV 1 mL IVP (10:29)
[2024-08-19 10:32] VITALS: BP 155/98; PULSE 72; O2SAT 98
[2024-08-19 10:50] LABS: Basophils # 0.1 10^3/uL (0.0-0.1); Basophils % 0.6 %; Eosinophils # 0.4 10^3/uL (0.0-0.8); Eosinophils % 3.3 %; Hematocrit 45.4 % (36-47); Lymphocytes % 34.5 %; Mean Corpuscular HGB Conc 31.9 g/dL (30-55); Mean Corpuscular Hemoglobin 27.4 pg (27-33); Mean Corpuscular Volume 85.8 fl (85-98); Mean Platelet Volume 9.9 fL (7.4-10.4); Monocytes # 0.8 10^3/uL (0.2-0.9); Neutrophils # 6.23 10^3/uL (1.8-7.7); Neutrophils % 54.3 %; Nucleated Red Blood Cells % 0 %; Platelet Count 364 10^3/cmm (157-399); Red Blood Count 5.29 10^6/uL (3.85-5.65); Red Cell Distribution Width 13.7 % (12.1-15.1); White Blood Count 11.48 10^3/uL (3.29-11.43)
[2024-08-19 10:57] LABS: Bilirubin Urine Negative (Negative); Blood Urine Negative (Negative); Glucose Urine UA Negative (Normal); Ketones Urine Negative (Negative); Leukocyte Esterase Urine Negative (Negative); Nitrate Urine Negative (Negative); Protein Urine Negative (Negative); Specific Gravity, Urine 1.005 (1.005-1.030); Urine Appearance Clear (CLEAR); Urine Color Yellow (Yellow); Urobilinogen Urine 0.2 mg/dL (Negative); pH Urine 6.5 (5-7)
--- NOTE | 2024-08-19 10:57 | DCPLANNER ---
messaged wom[facility] for er f/u
[2024-08-19 11:02] LABS: Add Urine Microscopic? YES; Bacteria Urine None Seen /hpf; Hyaline Casts Urine 0-4 /lpf; RBC Urine 0-2 /hpf (0-2); Squamous Epithelial Cell Urine 0-5 /hpf (0-5); WBC Urine 0-5 /hpf (0-5)
[2024-08-19 11:03] LABS: Add Urine Culture? No
[2024-08-19 11:07] LABS: Alanine Aminotransferase 37 U/L (0-33); Alkaline Phosphatase 115 U/L (35-105); Anion Gap 15.9 (5-19); Aspartate Amino Transferase 25 U/L (0-32); Blood Urea Nitrogen 11 mg/dL (6-20); Calcium 9.2 mg/dL (8.5-10.5); Carbon Dioxide 26 mmol/L (22-29); Chloride 100 mmol/L (98-107); Creatinine Clr Calc Pharmacy 118.0514; Globulin 4.2 g/dL (1.3-4.6); Glomerular Filtration Rate 90.5 mL/min (90-130); Glucose 170 mg/dL (65-115); Lipase 57 U/L (13-60); Osmolality Calculated 289 mOsm/kg (285-295); Potassium 3.9 mmol/L (3.5-5.1); Sodium 138 mmol/L (136-145); Total Bilirubin 0.2 mg/dL (0.15-1.2); Total Protein 8.2 g/dL (6.6-8.7)
[2024-08-19 11:26] LABS: HCG Qualitative Urine. Negative (Negative)
[2024-08-19 11:53] VITALS: BP 124/79; PULSE 66; O2SAT 95
[2024-08-19 11:59] VITALS: BP 124/79; PULSE 66; RESP 15; O2SAT 95
== END 2024-08-19 12:04 | disposition home or self-care (01) ==
PROVIDERS: Emergency Provider Physician Assistant; PCP Family Medicine
DX: R10.2 Pelvic and perineal pain (principal); Z79.84 Long term (current) use of oral hypoglycemic drugs; E11.9 Type 2 diabetes mellitus without complications; I10 Essential (primary) hypertension
CPT/HCPCS: 74177; 80053; 81001; 81025; 83690; 85025; 96374; 96375; 99285; J2270; J2405

== ENCOUNTER 2024-08-20 11:09 | Emergency (ER) | payer BC, SELFPAY ==
--- NOTE | 2024-08-20 11:15 | US_ITS ---
WS: [id number] US transvaginal [id number] HISTORY: pain COMPARISON: CT 08/19/2024, prior ultrasound 11/08/2017 Uterus: 9.3 cm x 4.8 cm x 4.3 cm. Uterus is slightly enlarged and anteverted. There is a very heterogeneous appearance of the entire uterus including the myometrium and the endometrium. Areas of shadowing with mixed echogenicity masses. There is a large mass in the central uterus measuring 3.5 x 5.2 x 4.5 cm. There are additional more echogenic masses centrally positioned. Endometrium: 1.5 cm. Abnormal endometrium. Diffusely abnormal endometrium with multiple masses in the endometrium. Some of these masses within the endometrium may be fibroids, endocavitary area or submucosal. Endometrial neoplasm is not excluded. Right ovary: 5.0 cm x 4.8 cm x 4.6 cm. RIGHT ovary is enlarged and contains multiple cysts with septations. Largest cyst measures 2.5 x 3.2 x 3.1 cm. Left ovary: Not identified. No free fluid in the cul-de-sac. US/US transvaginal [id number] IMPRESSION: 1. Enlarged heterogeneous uterus. There are multiple masses, some with shadowi ng and variable echogenicity. Probably a fibroid uterus. Largest fibroid 3.5 x 5.2 x 4.5 cm. 2. Additional abnormality throughout the endometrium. Endometrium is heterogen eous and enlarged. Some of the masses within the central canal may be intracavi tary or submucosal fibroids extending into the endometrium. Endometrial neoplas m is not excluded. [employer] evaluation recommended. 3. Enlarged RIGHT ovary with multiple cysts and septations. RIGHT ovary needs to be further evaluated for benign or malignant degeneration. [employer] evaluation re commended.
[2024-08-20 11:28] VITALS: BP 172/111; PULSE 77; RESP 16; TEMP 36.8; O2SAT 97; BMI 30.7
--- NOTE | 2024-08-20 12:18 | W.ED.ABDPA2 ---
HPI - Abdominal Pain General: Chief Complaint: General Medical Stated Complaint: pelvic pain and High BP Time Seen by Provider: 08/20/24 11:15 Source: patient Mode of arrival: ambulatory Limitations: no limitations History of Present Illness: Patient is a 43-year-old female presents to ED today with open plaint of continued left lower quadrant abdominal/pelvis pain. She was seen here yesterday for same complaint. CT scan at that time showed: 1. Lobulated heterogeneous enhancing fibroid uterus similar to the prior studies. Multicystic ovaries bilaterally. Prominent dorsal fibroid compresses the cervix similar to the prior studies. 2. Normal sigmoid colon. 3. Prior cholecystectomy. 4. Fatty liver. 5. Fat-containing umbilical hernia. 6. No other acute findings. Patient was given pain medications that she has been taking at home. She states the hydrocodone is bringing her pain from a 4/10 down to a 3/10. She is also concerned about elevated blood pressure readings. She states her systolic readings this morning was over 200. Blood pressure upon arrival to the emergency department is 172/111. She states she did take her blood pressure medications this morning. She is not having any vaginal bleeding. Feels somewhat dizzy and flushed. MD elicited complaint: abdominal pain Pertinent past history: other (uterine fibroids) Onset (ago): day(s) Pain Consistency: constant Location: LLQ and Pelvis Severity: moderate Radiation: none Migration to: no migration Exacerbating factors: nothing Relieving factors: other (pain medications) Associated Symptoms: Denies change in bowel habits, chills, diarrhea, dysuria, fever(s) and vomiting Related Data Home Medications ?Medication ?Instructions ?Recorded ?Confirmed acetaminophen 500 mg tablet 1,000 mg PO Q6H PRN Pain 03/15/20 08/20/24 (Tylenol Extra Strength) infliximab-axxq 100 mg intravenous See Rx Instructions .Route .COMPLEX 12/25/22 08/20/24 solution (Avsola) brimonidine 0.2 %-timolol 0.5 % 1 drp ophthalmic (eye) BID 05/24/23 08/20/24 eye drops bupropion HCl 300 mg 24 hr tablet, 300 mg PO DAILY 08/19/24 08/20/24 extended release carvedilol 25 mg tablet 25 mg PO BID 08/19/24 08/20/24 latanoprost 0.005 % eye drops 1 drp ophthalmic (eye) QPM 08/19/24 08/20/24 Previous Rx's ?Medication ?Instructions ?Recorded metformin 500 mg tablet,extended 500 mg PO BID #60 tabs 09/25/23 release 24 hr buspirone 10 mg tablet 10 mg PO BID #60 tabs 02/12/24 losartan 50 mg tablet 50 mg PO DAILY #30 tabs 04/14/24 leflunomide 10 mg tablet 10 mg PO DAILY #90 tabs 04/21/24 glimepiride 2 mg tablet 2 mg PO BID #60 tabs 06/08/24 montelukast 10 mg tablet 10 mg PO DAILY #30 tabs 06/15/24 (Singulair) escitalopram oxalate 10 mg tablet 10 mg PO QAM #30 tabs 07/20/24 hydrocodone 5 mg-acetaminophen 325 1 tab PO Q6H PRN pain #14 tabs 08/19/24 mg tablet hydrocodone 7.5 mg-acetaminophen 1 tab PO .q 4-6 PRN pain #20 tabs 08/20/24 325 mg tablet Allergies Allergy/AdvReac Type Severity Reaction Status Date / Time aspirin Allergy HIVES-SOB Verified 04/21/24 10:28 Review of Systems Const: Denies: fever(s), chills, body aches, fatigue or malaise Card: Denies: chest pain Resp: Denies: dyspnea GI: Reports: abdominal pain; Denies: vomiting, diarrhea or change in bowel habits : Reports: pelvic pain; Denies: flank pain, difficulty voiding, dysuria, urinary frequency, urinary urgency, urinary hesitancy or vaginal bleeding Musc: Denies: neck pain, back pain, extremity pain or joint swelling Neuro: Denies: headache(s), numbness in extremities, weakness in extremities or sensory changes PFSH ED PFSH: Medical History Depression HTN (hypertension) Abscess, gluteal, left Type 2 diabetes mellitus Uveitis Immunocompromised COVID-19 Morbid obesity Immunization counseling High risk medication use Rheumatoid arthritis with rheumatoid factor 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 systems involvement Surgical History H/O myomectomy 11/09/2017 History of endometrial ablation Hx of cataract surgery bilateral 01/24 H/O dilation and curettage -x 2 Family History Other Diabetes Hypertension Rheumatoid arthritis Social History Smoking and tobacco/nicotine status: unknown if used tobacco/nicotine Alcohol intake: never Substance/Drug Use: never Marital status: Current occupational status: employed Physical Exam Const: COMMON NORMALS: no acute distress, patient oriented x3, no limitations, alert and well nourished GENERAL APPEARANCE: cooperative NUTRITIONAL APPEARANCE: overweight HENMT: COMMON NORMALS: normocephalic and atraumatic HEAD & SCALP: normal to inspection, normocephalic and atraumatic FACE & SINUS: normal facial exam Resp: COMMON NORMALS: normal respiratory effort and clear to auscultation bilaterally AUSCULTATION: clear to auscultation bilaterally Cardio: COMMON NORMALS: regular rate and regular rhythm RATE: regular rate RHYTHM: regular rhythm GI: COMMON NORMALS: Normal to inspection, nondistended, normoactive bowel sounds present, Soft to palpation, No hepatosplenomegaly present and no masses INSPECTION: Yes normal to inspection AUSCULTATION: Yes normoactive bowel sounds PALPATION: Yes Soft to palpation, Yes Tenderness to palpation present (GI) (LLQ/L pelvis), No Guarding due to palpation present (GI), No Rigid due to palpation and Yes No hepatosplenomegaly present : COMMON NORMALS: Yes no CVA tenderness BLADDER/KIDNEY EXAM: Yes no CVA tenderness Back/Pelvis: COMMON NORMALS: no CVA tenderness and thoracic and lumbar spine normal to inspection Extremity: GENERAL: Yes normal exam except as noted Neuro: TAISHA COMA SCALE: document GCS findings [place] coma scale eye opening: Spontaneous [place] coma scale verbal response: Orientated Taisha coma scale motor response: Obey commands Taisha coma scale total score: 15 COMMON NORMALS: patient oriented x3, moves all extremities, no focal motor deficits and no sensory deficits noted SENSORIUM/ORIENTATION: Yes alert Course Vital Signs: Vital signs: Vital Signs Temperature 98.2 F 08/20/24 11:28 Pulse Rate 79 08/20/24 13:22 Respiratory Rate 16 08/20/24 11:28 Blood Pressure 156/101 08/20/24 13:22 Pulse Oximetry 93 08/20/24 13:22 Oxygen Delivery Me thod Room Air 08/20/24 13:22 MDM - Abdominal Pain Medical Decision Making Patient's blood work today showing no significant changes from yesterday's labs. Blood pressure improved. Ultrasound imaging today with more detail regarding findings that were seen on her CT scan yesterday. She has an enlarged uterus with multiple masses and fibroids. Multiple right ovarian septations and cysts. Discussed endometrial and ovarian neoplasm is not excluded. Recommend [employer] follow-up which she already has a scheduled appointment for but this is not until later September. We did contact [facility] and this is the soonest they can see her. We did discuss trying to have case management try elsewhere at [facility] for sooner appointment. Will try stronger pain meds for better relief. Medical Records I reviewed the patient's medical records. Lab Data I reviewed the patient's lab results. 08/20/24 12:39 08/20/24 12:39 Labs/Radiology: Radiology Impressions Transvaginal US 08/20/24 11:15 IMPRESSION: 1. Enlarged heterogeneous uterus. There are multiple masses, some with shadowing and variable echogenicity. Probably a fibroid uterus. Largest fibroid 3.5 x 5.2 x 4.5 cm. 2. Additional abnormality throughout the endometrium. Endometrium is heterogeneous and enlarged. Some of the masses within the central canal may be intracavitary or submucosal fibroids extending into the endometrium. Endometrial neoplasm is not excluded. [employer]SF[employer] evaluation recommended. 3. Enlarged RIGHT ovary with multiple cysts and septations. RIGHT ovary needs to be further evaluated for benign or malignant degeneration. [employer]SF[employer] evaluation recommended. Laboratory Results WBC 10.74 10^3/uL (3.29-11.43) 08/20/24 12:39 Corrected WBC Cancelled 08/20/24 11:59 RBC 4.92 10^6/uL (3.85-5.65) 08/20/24 12:39 Hgb 13.60 g/dL (11.27-16.99) 08/20/24 12:39 Hct 42.4 % (36-47) 08/20/24 12:39 MCV 86.2 fl (85-98) 08/20/24 12:39 MCH 27.6 pg (27-33) 08/20/24 12:39 MCHC 32.1 g/dL (30-55) 08/20/24 12:39 RDW 13.7 % (12.1-15.1) 08/20/24 12:39 Plt Count 351 10^3/cmm (157-399) 08/20/24 12:39 MPV 9.6 fL (7.4-10.4) 08/20/24 12:39 Gran % Cancelled 08/20/24 11:59 Neut % (Auto) 54.1 % 08/20/24 12:39 Lymph % (Auto) 36.6 % 08/20/24 12:39 [place] % (Auto) 5.1 % 08/20/24 12:39 Eos % (Auto) 3.2 % 08/20/24 12:39 Baso % (Auto) 0.7 % 08/20/24 12:39 Neut # (Auto) 5.81 10^3/uL (1.8-7.7) 08/20/24 12:39 Lymph # (Auto) 3.9 10^3/uL (0.8-4.8) 08/20/24 12:39 [place] # (Auto) 0.6 10^3/uL (0.2-0.9) 08/20/24 12:39 Eos # (Auto) 0.3 10^3/uL (0.0-0.8) 08/20/24 12:39 Baso # (Auto) 0.1 10^3/uL (0.0-0.1) 08/20/24 12:39 Absolute Gran (auto) Cancelled 08/20/24 11:59 Nucleated RBC % (auto) 0 % 08/20/24 12:39 Nucleated RBCs # 0.0 /100WBC 08/20/24 12:39 Sodium 138 mmol/L (136-145) 08/20/24 12:39 Potassium 4.6 mmol/L (3.5-5.1) 08/20/24 12:39 Chloride 103 mmol/L (98-107) 08/20/24 12:39 Carbon Dioxide 23 mmol/L (22-29) 08/20/24 12:39 Anion Gap 16.6 (5-19) 08/20/24 12:39 BUN 10 mg/dL (6-20) 08/20/24 12:39 Creatinine 0.7 mg/dL (0.5-0.9) 08/20/24 12:39 GFR Calculation 90.5 mL/min (90-130) 08/20/24 12:39 Glucose 169 mg/dL (65-115) H 08/20/24 12:39 Calculated Osmolality 289 mOsm/kg (285-295) 08/20/24 12:39 Calcium 9.1 mg/dL (8.5-10.5) 08/20/24 12:39 Total Bilirubin 0.2 mg/dL (0.15-1.2) 08/20/24 12:39 AST 27 U/L (0-32) 08/20/24 12:39 ALT 39 U/L (0-33) H 08/20/24 12:39 Alkaline Phosphatase 104 U/L (35-105) 08/20/24 12:39 Total Protein 7.5 g/dL (6.6-8.7) 08/20/24 12:39 Albumin 3.9 g/dL (3.5-5.2) 08/20/24 12:39 Globulin 3.6 g/dL (1.3-4.6) 08/20/24 12:39 Lipase 47 U/L (13-60) 08/20/24 12:39 HCG, Qual Negative (Negative) 08/20/24 12:39 All radiology interpretation(s) finalized by discharge Discharge Plan Discharge Patient Disposition: Home Clinical Impression: Fibroid, Pelvic pain Condition: Stable Prescriptions: New hydrocodone-acetaminophen 7.5-325 mg tablet 1 tab PO .q 4-6 PRN (Reason: pain) Qty: 20 0RF No Action buspirone 10 mg tablet 10 mg PO BID Qty: 60 11RF Avsola 100 mg recon soln See Rx Instructions .ROUTE .COMPLEX Rx Instructions: 6weeks 100 mg intravenously leflunomide 10 mg tablet 10 mg PO DAILY Qty: 90 1RF montelukast [Singulair] 10 mg tablet 10 mg PO DAILY Qty: 30 11RF escitalopram oxalate 10 mg tablet 10 mg PO QAM Qty: 30 11RF metformin 500 mg tablet extended release 24 hr 500 mg PO BID Qty: 60 11RF losartan 50 mg tablet 50 mg PO DAILY Qty: 30 11RF glimepiride 2 mg tablet 2 mg PO BID Qty: 60 11RF acetaminophen [Tylenol Extra Strength] 500 mg Tablet 1,000 mg PO Q6H PRN (Reason: Pain) carvedilol 25 mg tablet 25 mg PO BID Rx Instructions: TAKE 1 TABLET BY MOUTH TWICE DAILY FOR HIGH BLOOD PRESSURE bupropion HCl 300 mg tablet extended release 24 hr 300 mg PO DAILY Rx Instructions: Take 1 tablet by mouth once daily latanoprost 0.005 % drops 1 drp ophthalmic (eye) QPM hydrocodone-acetaminophen 5-325 mg tablet 1 tab PO Q6H PRN (Reason: pain) Qty: 14 0RF brimonidine-timolol 0.2-0.5 % drops 1 drp ophthalmic (eye) BID Discharge Orders: Discharge ED (Routine); Ordered 08/20/24 Ordered By: Vanessa Martínez Referrals: Malcom Villanueva MD [Primary Care Provider, Family Practice] Patient Instructions: Opioid Safety, Pain Management Activity Restrictions/Additional Instructions: We did contact the [facility] and that is the soonest they have an appointment. You are on a cancellation list. I will have case management also try [facility] for sooner appointments. You may also contact them as well to see if they can see you sooner. You need to follow-up with your primary care provider for further refills on pain medications in the meantime. Stand Alone Forms: Work/School Release Print Language: [place] Coding Level of Care Code ED Operator Lights for Chris Lilly
[2024-08-20 12:50] LABS: Basophils # 0.1 10^3/uL (0.0-0.1); Basophils % 0.7 %; Eosinophils # 0.3 10^3/uL (0.0-0.8); Eosinophils % 3.2 %; Hematocrit 42.4 % (36-47); Lymphocytes # 3.9 10^3/uL (0.8-4.8); Lymphocytes % 36.6 %; Mean Corpuscular HGB Conc 32.1 g/dL (30-55); Mean Corpuscular Hemoglobin 27.6 pg (27-33); Mean Corpuscular Volume 86.2 fl (85-98); Mean Platelet Volume 9.6 fL (7.4-10.4); Monocytes # 0.6 10^3/uL (0.2-0.9); Monocytes % 5.1 %; Neutrophils # 5.81 10^3/uL (1.8-7.7); Neutrophils % 54.1 %; Nucleated Red Blood Cells % 0 %; Platelet Count 351 10^3/cmm (157-399); Red Blood Count 4.92 10^6/uL (3.85-5.65); Red Cell Distribution Width 13.7 % (12.1-15.1); White Blood Count 10.74 10^3/uL (3.29-11.43)
[2024-08-20] MEDS: morphine 4 mg/mL SDV 1 mL IVP (12:59)
[2024-08-20] MEDS: ondansetron 2 mg/ML SDV 2 mL 4 MG IVP (12:59)
[2024-08-20 13:02] LABS: HCG, Serum Qual Negative (Negative)
[2024-08-20 13:04] VITALS: BP 178/110; PULSE 74; O2SAT 92
[2024-08-20] MEDS: hyDRALAzine 20 mg/mL INJ 1 mL 10 MG IVP (13:10)
[2024-08-20 13:11] LABS: Alanine Aminotransferase 39 U/L (0-33); Albumin Level 3.9 g/dL (3.5-5.2); Alkaline Phosphatase 104 U/L (35-105); Anion Gap 16.6 (5-19); Aspartate Amino Transferase 27 U/L (0-32); Blood Urea Nitrogen 10 mg/dL (6-20); Calcium 9.1 mg/dL (8.5-10.5); Carbon Dioxide 23 mmol/L (22-29); Chloride 103 mmol/L (98-107); Globulin 3.6 g/dL (1.3-4.6); Glomerular Filtration Rate 90.5 mL/min (90-130); Glucose 169 mg/dL (65-115); Lipase 47 U/L (13-60); Osmolality Calculated 289 mOsm/kg (285-295); Potassium 4.6 mmol/L (3.5-5.1); Sodium 138 mmol/L (136-145); Total Bilirubin 0.2 mg/dL (0.15-1.2); Total Protein 7.5 g/dL (6.6-8.7)
[2024-08-20 13:22] VITALS: BP 156/101; PULSE 79; O2SAT 93
[2024-08-20 14:23] VITALS: BP 132/94; PULSE 76; O2SAT 96
--- NOTE | 2024-08-20 14:51 | DCPLANNER ---
[facility] to try to get earlier womens health appt for er f/u
== END 2024-08-20 14:35 | disposition home or self-care (01) ==
PROVIDERS: Emergency Provider Physician Assistant; PCP Family Medicine
DX: R10.2 Pelvic and perineal pain (principal); D25.9 Leiomyoma of uterus, unspecified; Z79.84 Long term (current) use of oral hypoglycemic drugs; E11.9 Type 2 diabetes mellitus without complications; I10 Essential (primary) hypertension
CPT/HCPCS: 36415; 76830; 80053; 83690; 84703; 85025; 96374; 96375; 99284; J0360; J2270; J2405

== ENCOUNTER 2024-09-21 08:51 | Day surgery (SDC) | payer BC, SELFPAY ==
[2024-09-21] VITALS (15 sets, daily range): BP systolic 102–177; BP diastolic 77–116; PULSE 85–97; RESP 13–20; TEMP 36.1–37.1; O2SAT 90–99; BMI 32.3
--- NOTE | 2024-09-21 00:57 | W.PM.OPSFHP ---
Same Day Surgery H&P Indication for Procedure/HPI DATE OF PROCEDURE: September 21, 2024 CHIEF COMPLAINT/INDICATIONFOR SURGICAL PROCEDURE: uterine fibroids PREOP DIAGNOSIS: thickened endometrium on ultrasound PLANNED PROCEDURE: Operation Date: 09/21/24 10:45 Proposed Procedures p Hysteroscopy w/ Endometrial Sampling [id number] 01043 R10.2 D25.9(Not Applicable) - Yvan Pastrana MD s POSSIBLE Endometrial Poylpectomy(Not Applicable) - Yvan Pastrana MD 43 y.o. A1 h/o endometrial ablation 10 years ago for very heavy periods pelvic sono showed multiple uterine fibroids and abnormally thickened heterogeneous endometrium Medications/Allergies* Home Medications ?Medication ?Instructions ?Recorded ?Confirmed ?Type acetaminophen 500 mg tablet 1,000 mg PO Q6H PRN Pain 03/15/20 09/20/24 History (Tylenol Extra Strength) infliximab-axxq 100 mg intravenous See Rx Instructions .Route .COMPLEX 12/25/22 09/20/24 History solution (Avsola) brimonidine 0.2 %-timolol 0.5 % 1 drp ophthalmic (eye) BID 05/24/23 09/20/24 History eye drops bupropion HCl 300 mg 24 hr tablet, 300 mg PO DAILY 08/19/24 09/20/24 History extended release carvedilol 25 mg tablet 25 mg PO BID 08/19/24 09/20/24 History latanoprost 0.005 % eye drops 1 drp ophthalmic (eye) QPM 08/19/24 09/20/24 History Allergies/Adverse Reactions Allergy/AdvReac Type Severity Reaction Status Date / Time aspirin Allergy HIVES-SOB Verified 09/20/24 09:08 Pertinent History/Comorbid Conditions* Medical History (Updated 09/11/24 @ 22:33 by Yvan Pastrana MD) Depression HTN (hypertension) Abscess, gluteal, left Type 2 diabetes mellitus Uveitis Immunocompromised COVID-19 Morbid obesity Immunization counseling High risk medication use Rheumatoid arthritis with rheumatoid factor 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 systems involvement Surgical History (Updated 03/15/20 @ 17:34 by Jane Watt MD) H/O myomectomy 11/09/2017 History of endometrial ablation Hx of cataract surgery bilateral 01/24 H/O dilation and curettage -x 2 Family History (Updated 08/26/24 @ 08:52 by Tiffani Esparza CMA) Rheumatoid arthritis Diabetes Mother Sister Grandmother Heart disease Mother Father Hypertension Mother Sister Father Brother Thyroid disease Mother Denies family history of Colon cancer Ovarian cancer Hyperlipidemia Breast cancer Uterine cancer Stroke Social History Smoking and tobacco/nicotine status: never used tobacco/nicotine Alcohol intake: never Substance/Drug Use: never Marital status: Current occupational status: employed Pertinent Exam Findings alert, oriented x 3, clear to auscultation bilaterally and regular rate & rhythm Pertinent Data Pelvic sono 08-20-24 uterus 9 x 5 x 4 cm Multiple fibroids Endometrium 1.5 cm with multiple masses Right ov enlarged, multiple cysts with septations Left ov not seen Recommendations Surgery/Procedure today Coding Level of Care Code Acute Code for Chg Fwd
[2024-09-21] MEDS: sodium chloride 0.9% 1,000 ML 30 ML IV (09:26)
[2024-09-21 09:30] LABS: OR HCG Qualitative Urine Negative (Negative)
--- NOTE | 2024-09-21 10:05 | ANES.PREANE2 ---
Pre-Anesthetic Assessment Height/Weight: Height 1.68 m Weight 90.718 kg Temp Pulse Resp BP Pulse Ox O2 Del Method 98.7 F 88 17 177/116 99 Room Air 09/21/24 09:17 09/21/24 09:17 09/21/24 09:17 09/21/24 09:17 09/21/24 09:17 09/21/24 09:20 Preop Diagnosis: uterine fibroids Operation Date: 09/21/24 10:45 Proposed Procedures p Hysteroscopy w/ Endometrial Sampling [id number] R10.2 D25.9(Not Applicable) - Yvan Pastrana MD s POSSIBLE Endometrial Poylpectomy(Not Applicable) - Yvan Pastrana MD Familial anesthetic complications: None Was Beta Shayla taken within 24 hours: N/A Was Clonidine taken within 24 hours: N/A Last intake: Intake Last Liquid Date 09/20/24 Last Liquid Time 22:00 Last Solid Date 09/20/24 Last Solid Time 16:00 Social No alcohol and No tobacco Exam alert, oriented x 3, clear to auscultation bilaterally and regular rate & rhythm Airway Mallampati: Class II Dentition: full CV/HEM Hypertension Metabolic Diabetes Mellitus (PreDM[place] [facility] [place] Rheumatoid Arthritis Neuropsych R eye [place] Anesthetic Plan ASA status: 3 Anesthesia: General Risk of > 500 ml blood loss (7ml/kg in children): No Medications/Allergies Home Medications ?Medication ?Instructions ?Recorded ?Confirmed ?Last Taken ?Type acetaminophen 500 mg tablet 1,000 mg PO Q6H PRN Pain 03/15/20 09/20/24 08/20/24 History (Tylenol Extra Strength) infliximab-axxq 100 mg intravenous See Rx Instructions .Route .COMPLEX 12/25/22 09/20/24 09/07/24 History solution (Avsola) brimonidine 0.2 %-timolol 0.5 % 1 drp ophthalmic (eye) BID 05/24/23 09/20/24 09/20/24 History eye drops metformin 500 mg tablet,extended 500 mg PO BID #60 tabs 09/25/23 09/20/24 09/13/24 Rx release 24 hr buspirone 10 mg tablet 10 mg PO BID #60 tabs 02/12/24 09/20/24 09/20/24 Rx losartan 50 mg tablet 50 mg PO DAILY #30 tabs 04/14/24 09/20/24 09/20/24 Rx leflunomide 10 mg tablet 10 mg PO DAILY #90 tabs 04/21/24 09/20/24 09/20/24 Rx glimepiride 2 mg tablet 2 mg PO BID #60 tabs 06/08/24 09/20/24 09/20/24 Rx escitalopram oxalate 10 mg tablet 10 mg PO QAM #30 tabs 07/20/24 09/20/24 09/20/24 Rx bupropion HCl 300 mg 24 hr tablet, 300 mg PO DAILY 08/19/24 09/20/24 09/20/24 History extended release carvedilol 25 mg tablet 25 mg PO BID 08/19/24 09/21/24 09/21/24 History hydrocodone 5 mg-acetaminophen 325 1 tab PO Q6H PRN pain #14 tabs 08/19/24 09/20/24 08/20/24 Rx mg tablet latanoprost 0.005 % eye drops 1 drp ophthalmic (eye) QPM 08/19/24 09/20/24 09/19/24 History ondansetron 4 mg disintegrating 4 mg PO Q8H PRN nausea and 08/20/24 09/20/24 Unknown Rx tablet vomiting #14 tabs Allergies Allergy/AdvReac Type Severity Reaction Status Date / Time aspirin Allergy HIVES-SOB Verified 09/21/24 09:16 Current Medications Generic Name Dose Route Start Last Admin Trade Name Freq PRN Reason Stop Dose Admin Sodium Chloride 1,000 mls @ 30 mls/hr 09/21/24 09:15 09/21/24 09:26 Sodium Chloride 0.9% IV 09/22/24 09:14 30 mls/hr .Q24H KATRINA Administration PFSH Anesthesia Medical History Depression HTN (hypertension) Abscess, gluteal, left Type 2 diabetes mellitus Uveitis Immunocompromised COVID-19 Morbid obesity Immunization counseling High risk medication use Rheumatoid arthritis with rheumatoid factor 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 systems involvement Surgical History H/O myomectomy 11/09/2017 History of endometrial ablation Hx of cataract surgery bilateral 10/13 H/O dilation and curettage -x 2 Family History (Updated 08/26/24 @ 08:52 by Tiffani Esparza [facility]) Mother Diabetes Heart disease Hypertension Thyroid disease Sister Diabetes Hypertension Grandmother Diabetes Father Heart disease Hypertension Brother Hypertension Other Rheumatoid arthritis Denies family history of Colon cancer Ovarian cancer Hyperlipidemia Breast cancer Uterine cancer Stroke Social History Smoking and tobacco/nicotine status: never used tobacco/nicotine Alcohol intake: never Substance/Drug Use: never Marital status: Current occupational status: employed Data Anesthesia Cardiac Studies: Echocardiogram Ultrasound 03/21/20
--- NOTE | 2024-09-21 10:15 | W.PM.OPSUD ---
Surgery/Procedure H&P Update DATE OF PROCEDURE: September 21, 2024 DATE H&P PERFORMED: 09/21/24 H&P UPDATE INFORMATION: I have reviewed H&P completed within last 30 days, I have examined patient prior to procedure and No changes to prior documentation PREOP DIAGNOSIS: uterine fibroids PLANNED PROCEDURE: Operation Date: 09/21/24 10:45 Proposed Procedures p Hysteroscopy w/ Endometrial Sampling [id number] R10.2 D25.9(Not Applicable) - Yvan Pastrana MD s POSSIBLE Endometrial Poylpectomy(Not Applicable) - Yvan Pastrana MD
[2024-09-21] MEDS: fentaNYL 50 mcg/mL INJ 2mL IVP (12:09)
--- NOTE | 2024-09-21 13:00 | ANE.PACU2 ---
Inpatient post-anesthesia follow up: Airway intact: Yes Vital signs: Temperature 98.3 F Pulse Rate 93 Respiratory Rate 18 Blood Pressure 143/95 Pulse Oximetry 94 Oxygen Delivery Me thod Room Air Oxygen Flow Rate 8 Fraction of Inspir ed Oxygen Hydration adequate: Yes Nausea and vomiting: No Pain level: 1 Mental status: Baseline
--- NOTE | 2024-09-21 13:10 | P.OP_ITS ---
Operative Report Date of procedure: September 21, 2024 Pre-op diagnosis: abnormal uterine bleeding Post-op diagnosis: same Post-op findings: Cervix high up in vaginal canal Technically difficult hysteroscopy normal endometrial cavity No polyps / fibroids Minimal endometrial tissue Procedure done: hysteroscopy curettage of uterus Implants: none Specimens removed/disposition: endometrial curettings Surgeon: Yvan Pastrana MD Anesthesia: MAC Estimated blood loss (mL): 0 Complications: none Findings: Cervix high up in vaginal canal Technically difficult hysteroscopy normal endometrial cavity No polyps / fibroids Minimal endometrial tissue Condition: stable Disposition: PACU Brief History: 44 y.o. with abnormal uterine bleeding Procedure: Informed consent signed. Patient was taken to the operating room. Anesthesia was induced. Patient was placed in dorsolithotomy position, prepped and draped for hysteroscopy. A biva lve speculum was placed in the vagina. The anterior lip of the cervix was grasped with a sharp-toothed tenaculum. The cervix was serially dilated with Hegar dilators. . A hysteroscope was placed into the endometrial cavity. The endometrial cavity was seen to be normal. There were no polyps or fibroids. There was a minimal amount of endometrial tissue. The hysteroscope was then removed. Endometrial curettage was done with a sharp curette. Endometrial tissue was sent to pathology. The sharp-toothed tenaculum was removed. There was no bleeding from the endometrial cavity or cervix. The patient was then placed supine and awakened and taken to the PACU. Postop condition: stable EBL: none Sponge and instruments counts were normal x 2 Complications: none
== END 2024-09-21 13:00 | disposition home or self-care (01) ==
PROVIDERS: Anesthesiology; PCP Family Medicine; Visit Provider Obstetrics & Gynecology
PROC: 0UJD8ZZ Inspection of Uterus and Cervix, Via Natural or Artificial Opening Endoscopic (ICD-10-PCS; CPT 58555; principal; 2024-09-21 10:35)
DX: N93.9 Abnormal uterine and vaginal bleeding, unspecified (principal); M05.79 Rheumatoid arthritis with rheumatoid factor 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 systems involvement; I10 Essential (primary) hypertension; E11.9 Type 2 diabetes mellitus without complications; H40.9 Unspecified glaucoma; Z79.899 Other long term (current) drug therapy; Z88.8 Allergy status to other drugs, medicaments and biological substances; Z79.84 Long term (current) use of oral hypoglycemic drugs
CPT/HCPCS: 58558; 81025; 88305; A4216; J1100; J1200; J1885; J2250; J2405; J2704; J3010; J7030

== ENCOUNTER 2024-10-05 07:52 | Oncology outpatient (recurring) (ONCR) | payer BC, SELFPAY ==
[2024-10-05] MEDS: sodium chloride 0.9% 250 ML 75 ML IV (08:30)
[2024-10-05] MEDS: acetaminophen 325 mg Tablet 650 MG PO (08:30)
[2024-10-05] MEDS: diphenhydrAMINE 50 mg/mL SDV 1mL 25 MG IVP (08:31)
[2024-10-05] MEDS: methylPREDNISolone sod succ 40 mg/mL INJ 20 MG IVP (08:38)
[2024-10-05] MEDS: SODIUM CHLORIDE 0.9% IV (09:12)
[2024-10-05] MEDS: INFLIXIMAB AXXQ IV (09:12)
[2024-10-05 10:30] VITALS: BP 137/89; PULSE 86; RESP 17; TEMP 36.2; O2SAT 97
== END 2024-10-11 23:59 | disposition home or self-care (01) ==
LOC: ONCMED 07:53
PROVIDERS: PCP Family Medicine; Visit Provider Internal Medicine Rheumatology
DX: H20.9 Unspecified iridocyclitis (principal); Z79.899 Other long term (current) drug therapy
CPT/HCPCS: 96375; 96413; J1200; J2919; J7050; J9999; Q5121

== ENCOUNTER 2024-11-01 07:56 | Emergency (ER) | payer BC, SELFPAY ==
--- OUTSIDE RECORDS SUMMARY | 2024-11-01 08:02 | XMS_ITS | Encounter Summary ---
Author Organization [facility] Address [address] [place] [address] Care Team Providers Care Woven Paper Hat Mender Name Role Phone Unavailable Primary Care Provider Unavailabl e Encounter Details Date Type Department Care Team (Late st Contact Info) Description 09/23/2002 Outpatient Historical [facility] Imaging Services-Da Longoria Knapp [address] [place] [address] Rodolfo Brock, [address] [facility] [address] [place] [address] RHEUMATOID ARTHRITIS (CMS/[facility]) (Primary Dx) Social History Tobacco Use Types Packs/Day Years Used Date Smoking Tobacco: Never Assessed Comments Unknown Sex and Gender Information Value Date Recorded Sex Assigned at Not on file Legal Sex Female 2:52 AM COW TESTER Gender Identity Not on file Sexual Orientation Not on file documented as of this encounter Plan of Treatment Not on file documented as of this encounter Visit Diagnoses Diagnosis Rheumatoid arthritis(714.0) (CMS/HCC)- Primary Rheumatoid arthritis documented in this encounter
--- OUTSIDE RECORDS SUMMARY | 2024-11-01 08:02 | XMS_ITS | Encounter Summary ---
Author Organization [facility] Address [address] [place] [address] Care Team Providers Care Space Studies Faculty Member Name Role Phone Unavailable Primary Care Provider Unavailabl e Encounter Details Date Type Department Care Team (Late st Contact Info) Description 09/23/2002 Outpatient Historical [facility] Rheumatology- Roberson Von [place] [address] [place] [address] Rodolfo Brock, [address] [facility] [address] [place] [address] JOINT PAIN-L/LEG (Primary Dx); JOINT EFFUSION-L/LEG; SYNOVITIS NOS Social History Tobacco Use Types Packs/Day Years Used Date Smoking Tobacco: Never Assessed Comments Unknown Sex and Gender Information Value Date Recorded Sex Assigned at Not on file Legal Sex Female 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
--- OUTSIDE RECORDS SUMMARY | 2024-11-01 08:02 | XMS_ITS | Clinical Summary ---
Author Organization [facility] Address [address] [place] [facility] [place] [address] Care Team Providers Care Shrimp Boat Captain Name Role Phone Unavailable Primary Care Provider Unavailabl e Allergies Active Allergy Reactions Criticality Noted Date Comments Aspirin Hives,Shortness of Breath/Wheezing High 1 Medications triamterene-hy droCHLOROthiaz rubina (DYAZIDE) 37.5-25 mg capsule Take 1 Capsule by mouth daily. 2 Active predniSONE (DELTASONE) 10 mg tablet Take 10 mg by mouth daily. 2 Active escitalopram oxalate (LEXAPRO) 20 mg tablet Take 20 mg by mouth daily. 2 Active carvediloL (COREG) 25 mg tablet TAKE 1 TABLET BY MOUTH TWICE DAILY FOR HIGH BLOOD PRESSURE 2 Active buPROPion HCL (WELLBUTRIN XL) 300 mg Extended Release 24 hour tablet Take 300 mg by mouth daily. 2 Active leflunomide (ARAVA) 20 mg Tablet Take 20 mg by mouth. Active ondansetron (ZOFRAN ODT) 8 mg Tablet, Rapid Dissolve TAKE ONE TABLET BY MOUTH EVERY 8 HOURS NEEDED FOR NAUSEA AND VOMITING 2 Active HYDROcodone-ac etaminophen (NORCO) 5-325 mg tablet TAKE ONE TABLET BY MOUTH EVERY 8 HOURS NEEDED FOR PAIN 2 Active losartan (COZAAR) 50 mg tablet 3 Active famotidine (PEPCID) 20 mg tablet Take 20 mg by mouth daily. Active amoxicillin-cl avulanate (AUGMENTIN) 875-125 mg tablet Take 1 Tablet by mouth 2 times daily. 3 Active predniSONE (DELTASONE) 20 mg tablet Take 40 mg by mouth daily. 3 Active brimonidine-ti moloL (COMBIGAN) 0.2-0.5 % solution Administer 1 Drop in left eye every 12 hours. 10 mL 1 3 Active fluconazole (DIFLUCAN) 150 mg tablet TAKE ONE TABLET BY MOUTH EVERY 3 DAYS FOR TWO DOSES; MAY REPEAT SECOND DOSE 72 HOURS AFTER LYDIA DOSE IF SYMPTOMS PERSIST 3 Active sulfamethoxazo le-trimethopri m (BACTRIM DS) 800-160 mg tablet TAKE TWO TABLETS BY MOUTH TWICE DAILY 3 Active terconazole (TERAZOL) 0.4% vaginal cream USE ONE APPLICATORFUL VAGINALLY EVERY NIGHT AT BEDTIME FOR SEVEN DAYS 3 Active Active Problems Problem Noted Date Diagnosed Date Full thickness macular hole of left eye 11/08/19 22 High myopia, both eyes 11/07/2021 Pseudophakia of both eyes 11/07/2021 Hx of rheumatoid arthritis 11/07/2021 Uveitis of both eyes 11/07/2021 Immunizations Immunization Administration Dates Next Due Hepatitis B Vaccine 03/13/2001,10/10/2000,2000 Family History Medical History Relation Name Comments Diabetes Father Glaucoma Father Heart Disease Father Diabetes Mother Glaucoma Mother Heart Disease Mother Relation Name Status Comments Father Mother Social History Tobacco Use Types Packs/Day Years Used Date Smoking Tobacco: Never Smokeless Tobacco: Never Tobacco Cessation:Counseling Given: Not Answered Alcohol Use Standard Drinks/Week Comments Not Currently 0 (1 standard drink = 0.6 oz pur e alcohol) Comments No Sex and Gender Information Value Date Recorded Sex Assigned at Not on file Legal Sex Female 12:31 AM FREIGHT SEPARATOR Gender Identity Not on file Sexual Orientation Not on file Last Filed Vital Signs Vital Sign Reading Time Taken Comments Blood Pressure 155/97 07/23/2022 12:34 PM CDT Pulse 78 07/23/2022 12:34 PM CDT Temperature 36.6 C (97.8 F) 07/23/2022 12:34 PM CDT Respiratory Rate 18 07/23/2022 12:34 PM CDT Oxygen Saturation 100% 07/23/2022 12:34 PM CDT Inhaled Oxygen Concentration - - Weight 89.4 kg (197 lb) 07/23/2022 9:38 AM CDT Height 167.6 cm (5' 6 ) 07/23/2022 9:38 AM CDT Body Mass Index 31.8 07/23/2022 9:38 AM CDT Plan of Treatment Health Maintenance Due Date Last Done Comments DTAP/TDAP/TD VACCINES (1 - Tdap) 1997 HEPATITIS B VACCINES (1 of 3 - 19+ 3-dose series) 1997 03/13/2001, 10/10/2000, 09/10/2000 HPV/Cotest (21-29) 09/17/1999 CERVICAL CANCER SCREENING 2008 HPV/Cotest (30-65) 2008 PAP SMEAR 2008 BREAST CANCER SCREENING 2018 COLORECTAL SCREENING 09/17/2023 Colorectal Cancer Screening 09/17/2023 FIT-DNA Q 3 years 09/17/2023 FIT/FOBT Q 1 year 09/17/2023 Flex Sig/CT Colonography Q 5 years 09/17/2023 INFLUENZA VACCINE (#1) 2024 HPV VACCINES Aged Out No longer eligi ble based on patient's age to complete this topic Insurance BCBS BLUE ACCESS/TRUE BLUE PPO BCBS BLUE ACCESS/TRUE BLUE PPO
--- OUTSIDE RECORDS SUMMARY | 2024-11-01 08:02 | XMS_ITS | Encounter Summary ---
Author Organization [facility] Address [address] [place] [address] Care Team Providers Care Receiving Supervisor Name Role Phone Unavailable Primary Care Provider Unavailabl e Encounter Details Date Type Department Care Team (Late st Contact Info) Description 04/04/2003 Outpatient Historical [facility] Rheumatology- Roberson Von [place] [address] [place] [address] Rodolfo Brock, [address] [facility] [address] [place] [address] INFLAMM POLYARTHROP NOS (CMS/HCC) (Primary Dx); SYNOVITIS NOS Social History Tobacco Use Types Packs/Day Years Used Date Smoking Tobacco: Never Assessed Comments Unknown Sex and Gender Information Value Date Recorded Sex Assigned at Not on file Legal Sex Female 2:52 AM BASKETBALL REFEREE Gender Identity Not on file Sexual Orientation Not on file documented as of this encounter Plan of Treatment Not on file documented as of this encounter Visit Diagnoses Diagnosis Unspecified inflammatory polyarthropathy (CMS/HCC)- Primary Unspecified inflammatory polyarthropathy Synovitis and tenosynovitis, unspecified documented in this encounter
--- OUTSIDE RECORDS SUMMARY | 2024-11-01 08:02 | XMS_ITS | Encounter Summary ---
Author Organization [facility] Address [address] [place] [address] Care Team Providers Care Lead Supply Worker Name Role Phone Unavailable Primary Care Provider Unavailabl e Encounter Details Date Type Department Care Team (Late st Contact Info) Description 07/04/2003 Outpatient Historical [facility] Rheumatology- Roberson Von [place] [address] [place] [address] Rodolfo Brock, [address] [facility] [address] [place] [address] INFLAMM POLYARTHROP NOS (CMS/HCC) (Primary Dx); [facility]IC[facility] Social History Tobacco Use Types Packs/Day Years Used Date Smoking Tobacco: Never Assessed Comments Unknown Sex and Gender Information Value Date Recorded Sex Assigned at Not on file Legal Sex Female 2:52 AM CHAIN SAW OPERATOR Gender Identity Not on file Sexual Orientation Not on file documented as of this encounter Plan of Treatment Not on file documented as of this encounter Visit Diagnoses Diagnosis Unspecified inflammatory polyarthropathy (CMS/HCC)- Primary Unspecified inflammatory polyarthropathy Encounter for long-term (current) use of other medications documented in this encounter
--- OUTSIDE RECORDS SUMMARY | 2024-11-01 08:02 | XMS_ITS | Encounter Summary ---
Author Organization [facility] Address [address] [place] [address] Care Team Providers Care Marshmallow Maker Name Role Phone Unavailable Primary Care Provider Unavailabl e Encounter Details Date Type Department Care Team (Late st Contact Info) Description 09/23/2002 Outpatient Historical [facility] Imaging Services-Da Longoria Dexter [address] [place] [address] Rodolfo Brock, [address] [facility] [address] [place] [address] RHEUMATOID ARTHRITIS (CMS/[facility]) (Primary Dx) Social History Tobacco Use Types Packs/Day Years Used Date Smoking Tobacco: Never Assessed Comments Unknown Sex and Gender Information Value Date Recorded Sex Assigned at Not on file Legal Sex Female 2:52 AM BOTTLE HOUSE PUMPER Gender Identity Not on file Sexual Orientation Not on file documented as of this encounter Plan of Treatment Not on file documented as of this encounter Visit Diagnoses Diagnosis Rheumatoid arthritis(714.0) (CMS/HCC)- Primary Rheumatoid arthritis documented in this encounter
--- OUTSIDE RECORDS SUMMARY | 2024-11-01 08:02 | XMS_ITS | Encounter Summary ---
Author Organization [facility] Address [address] [place] [address] Care Team Providers Care Aircraft Mechanic Name Role Phone Unavailable Primary Care Provider Unavailabl e Encounter Details Date Type Department Care Team (Late st Contact Info) Description 12/09/2002 Outpatient Historical [facility] Rheumatology- Roberson Von [place] [address] [place] [address] Rodolfo Brock, [address] [facility] [address] [place] [address] INFLAMM POLYARTHROP NOS (CMS/HCC) (Primary Dx) Social History Tobacco Use Types Packs/Day Years Used Date Smoking Tobacco: Never Assessed Comments Unknown Sex and Gender Information Value Date Recorded Sex Assigned at Not on file Legal Sex Female 2:52 AM BUILDING ASSOCIATE Gender Identity Not on file Sexual Orientation Not on file documented as of this encounter Plan of Treatment Not on file documented as of this encounter Visit Diagnoses Diagnosis Unspecified inflammatory polyarthropathy (CMS/HCC)- Primary Unspecified inflammatory polyarthropathy documented in this encounter
--- OUTSIDE RECORDS SUMMARY | 2024-11-01 08:02 | XMS_ITS | Encounter Summary ---
Author Organization [facility] Address [address] [place] [address] Care Team Providers Care Mid Level Practitioner Name Role Phone Unavailable Primary Care Provider Unavailabl e Encounter Details Date Type Department Care Team (Late st Contact Info) Description 10/07/[address] [facility] Rheumatology- [facility] [place] [address] [place] [address] Rodolfo Brock, [address] [facility] [address] [place] [address] Social History Tobacco Use Types Packs/Day Years Used Date Smoking Tobacco: Never Assessed Comments Unknown Sex and Gender Information Value Date Recorded Sex Assigned at Not on file Legal Sex Female 2:52 AM POLY OPERATOR Gender Identity Not on file Sexual Orientation Not on file documented as of this encounter Plan of Treatment Not on file documented as of this encounter Visit Diagnoses Not on filedocumented in this encounter
--- OUTSIDE RECORDS SUMMARY | 2024-11-01 08:02 | XMS_ITS | Encounter Summary ---
Author Organization [facility] Address [address] [place] [address] Care Team Providers Care Operations Staff Specialist Security Name Role Phone Unavailable Primary Care Provider Unavailabl e Encounter Details Date Type Department Care Team (Late st Contact Info) Description 12/08/2003 Outpatient Historical [facility] Rheumatology- Roberson Von [place] [address] [place] [address] Rodolfo Brock, [address] [facility] [address] [place] [address] INFLAMM POLYARTHROP NOS (CMS/HCC) (Primary Dx) Social History Tobacco Use Types Packs/Day Years Used Date Smoking Tobacco: Never Assessed Comments Unknown Sex and Gender Information Value Date Recorded Sex Assigned at Not on file Legal Sex Female 2:52 AM FURNACE COMBUSTION TESTER Gender Identity Not on file Sexual Orientation Not on file documented as of this encounter Plan of Treatment Not on file documented as of this encounter Visit Diagnoses Diagnosis Unspecified inflammatory polyarthropathy (CMS/HCC)- Primary Unspecified inflammatory polyarthropathy documented in this encounter
--- OUTSIDE RECORDS SUMMARY | 2024-11-01 08:02 | XMS_ITS | Encounter Summary ---
Author Organization [facility] Address [address] [place] [address] Care Team Providers Care Literature Teacher Name Role Phone Unavailable Primary Care Provider Unavailabl e Encounter Details Date Type Department Care Team (Late st Contact Info) Description 10/07/2002 Outpatient Historical [facility] Rheumatology- Roberson Von [place] [address] [place] [address] Rodolfo Brock, [address] [facility] [address] [place] [address] INFLAMM POLYARTHROP NOS (CMS/HCC) (Primary Dx); SYNOVITIS NOS Social History Tobacco Use Types Packs/Day Years Used Date Smoking Tobacco: Never Assessed Comments Unknown Sex and Gender Information Value Date Recorded Sex Assigned at Not on file Legal Sex Female 2:52 AM CONCRETE STONE FABRICATOR Gender Identity Not on file Sexual Orientation Not on file documented as of this encounter Plan of Treatment Not on file documented as of this encounter Visit Diagnoses Diagnosis Unspecified inflammatory polyarthropathy (CMS/HCC)- Primary Unspecified inflammatory polyarthropathy Synovitis and tenosynovitis, unspecified documented in this encounter
--- OUTSIDE RECORDS SUMMARY | 2024-11-01 08:02 | XMS_ITS | Clinical Summary ---
Author Organization [facility] Address [address] Attn: Epic Prelude ADT [place] [address] Care Team Providers Care Cattle Driver Name Role Phone Unavailable Primary Care Provider Unavailabl e Immunizations Immunization Administration Dates Next Due Hepatitis B Vaccine 03/13/2001,10/10/2000,2000 Social History Tobacco Use Types Packs/Day Years Used Date Smoking Tobacco: Never Assessed Comments Unknown Sex and Gender Information Value Date Recorded Sex Assigned at Not on file Legal Sex Female 2:52 AM HUMAN RESOURCE OFFICER Gender Identity Not on file Sexual Orientation Not on file Plan of Treatment Health Maintenance Due Date [...]
--- OUTSIDE RECORDS SUMMARY | 2024-11-01 08:02 | XMS_ITS | Encounter Summary ---
Author Organization [facility] Address [address] [place] [address] Care Team Providers Care Cook Helper Preserves Name Role Phone Unavailable Primary Care Provider Unavailabl e Encounter Details Date Type Department Care Team (Late st Contact Info) Description 09/10/2019 Lab Requisition [facility] Laboratory Services [address] [place] [address] [place] [address] Graham Yuen, [address] [id number] Social History Tobacco Use Types Packs/Day Years Used Date Smoking Tobacco: Never Assessed Comments Unknown Sex and Gender Information Value Date Recorded Sex Assigned at Not on file Legal Sex Female 2:52 AM GUILLOTINE OPERATOR Gender Identity Not on file Sexual Orientation Not on file documented as of this encounter Plan of Treatment Not on file documented as of this encounter Procedures Procedure Name Priority Date/Time Associated Diagnosis Comments EXTRA TUBE (SST/GOLD) Routine 09/10/2019 8:35 AM CDT HEPATITIS B SURFACE AB, QUANT Routine 09/10/2019 8:35 AM CDT HIV DETECTION W/REFLX CONFIRMATION Routine 09/10/2019 8:35 AM CDT HEPATITIS B SURFACE AB, QUAL Routine 09/10/2019 8:35 AM CDT HEPATITIS C ANTIBODY Routine 09/10/2019 8:35 AM CDT documented in this encounter Results * HEPATITIS B SURFACE AB, QUANT (09/10/2019 8:35 AM CDT) Pathologist [facility] HEPATITIS B SURFACE AB, QUAL Positive 09/14/2019 12:36 PM CDT [facility] Comment: Patient is considered to be immune to infection with HBV. REFERENCE VALUE Unvaccinated: Negative Vaccinated: Positive HEPATITIS B SURFACE AB 16.0 mIU/mL 09/14/2019 12:36 PM CDT [facility] Comment: REFERENCE VALUE Unvaccinated: <5.0 Vaccinated: >=12.0 Test Performed by: [place] [address] Golf Ball Trimmer: Alberto Olsen M.D. Ph.D.; CLIA# [id number] Blood Collection / Unknown 09/10/2019 8:35 AM CDT 09/13/2019 12:19 PM CDT Graham Yuen DO CHEMISTRY ORDERABLES Final Result [facility] * EXTRA TUBE (SST/GOLD) (09/10/2019 8:35 AM CDT) Blood Collection / Unknown 09/10/2019 8:35 AM CDT 09/10/2019 2:26 PM CDT Graham Yuen DO CHEMISTRY ORDERABLES Final Result [facility] [employer] [facility] CLIA# [id number] [address] [place] [address] * (ABNORMAL) HEPATITIS B SURFACE AB, QUAL (09/10/2019 8:35 AM CDT) HEPATITIS B SURFACE AB, QUAL Reactive( A) Non-react dilip 09/10/2019 2:37 PM CDT [facility] Comment:Patient is considere d to be immune to infection with HBV. Blood Collection / Unknown 09/10/2019 8:35 AM CDT 09/10/2019 2:02 PM CDT Graham Yuen DO CHEMISTRY ORDERABLES Final Result Performing Organization Address [facility] de Phone Number [facility] CLIA# [id number] [address] [place] [address] * HEPATITIS C ANTIBODY W REFLEX (09/10/2019 8:35 AM CDT) Pathologist [facility] HEPATITIS C AB NON-REACTI VE Non-react dilip 09/10/2019 2:33 PM CDT [facility] Blood Collection / Unknown 09/10/2019 8:35 AM CDT 09/10/2019 2:02 PM CDT Graham Yuen DO CHEMISTRY ORDERABLES Final Result Performing Organization Address [facility] de Phone Number [facility] CLIA# [id number] [address] [place] [address] * HIV DETECTION W/REFLX CONFIRMATION (09/10/2019 8:35 AM CDT) Pathologist [facility] HIV-1 AND 2 ABS AND HIV-1 AG Non-reacti ve Non-React dilip 09/10/2019 2:52 PM CDT [facility] Blood Collection / Unknown 09/10/2019 8:35 AM CDT 09/10/2019 2:03 PM CDT Graham Yuen DO CHEMISTRY ORDERABLES Final Result Performing Organization Address City/[facility]/ZIP Co de Phone Number [facility] [employer] [facility] CLIA# [id number] [address] [place] [address] documented in this encounter Visit Diagnoses Not on filedocumented in this encounter
[2024-11-01 08:09] VITALS: BP 177/107; PULSE 105; RESP 18; TEMP 37.1; O2SAT 97
[2024-11-01 08:27] LABS: Hematocrit 39.1 % (36-47); Hemoglobin 12.70 g/dL (11.27-16.99); Mean Corpuscular HGB Conc 32.5 g/dL (30-55); Mean Corpuscular Hemoglobin 27.7 pg (27-33); Mean Corpuscular Volume 85.2 fl (85-98); Nucleated Red Blood Cells % 0 %; Platelet Count 212 10^3/cmm (157-399); Red Blood Count 4.59 10^6/uL (3.85-5.65); White Blood Count 5.37 10^3/uL (3.29-11.43)
--- NOTE | 2024-11-01 08:28 | ED_ITS ---
HPI - Wound/Laceration 2 General: Chief Complaint: Wound/Laceration Stated Complaint: boil on the bottom Time Seen by Provider: 11/01/24 08:02 History of Present Illness: 44-year-old female presents emergency ro om with a abscess on the left buttock. She has had multiple's of these in the past as well. No drainage. She did report a fever yesterday. Associated symptoms: Denies chills or fever(s) Related Data Home Medications ?Medication ?Instructions ?Recorded ?Confirmed acetaminophen 500 mg tablet 1,000 mg PO Q6H PRN Pain 1 05/16/19 10/27/24 (Tylenol Extra Strength) infliximab-axxq 100 mg intravenous See Rx Instructions .Route .COMPLEX 12/25/22 10/27/24 solution (Avsola) brimonidine 0.2 %-timolol 0.5 % 1 drp ophthalmic (eye) BID 05/24/23 10/27/24 eye drops bupropion HCl 300 mg 24 hr tablet, 300 mg PO DAILY 12/0610/27/24 extended release carvedilol 25 mg tablet 25 mg PO BID 08/19/24 latanoprost 0.005 % eye drops 1 drp ophthalmic (eye) Q PM 08/19/24 10/27/24 Previous Rx's ?Medication ?Instructions ?Recorded metformin 500 mg tablet,extended 500 mg PO BID #60 tab s 09/25/23 release 24 hr buspirone 10 mg tablet 10 mg PO BID #60 tabs glimepiride 2 mg tablet 2 mg PO BID #60 tabs 06/08/ 5 escitalopram oxalate 10 mg tablet 10 mg PO QAM #30 tab s 07/20/24 hydrocodone 5 mg-acetaminophen 325 1 tab PO Q6H PRN pa in #14 tabs 08/19/24 mg tablet ondansetron 4 mg disintegrating 4 mg PO Q8H PRN nausea and 08/20/24 tablet vomiting #14 tabs losartan 100 mg tablet 100 mg PO DAILY #30 tabs 02/05 sulfamethoxazole 800 1 tab PO BID #20 tabs mg-trimethoprim 160 mg tablet (Bactrim DS) leflunomide 10 mg tablet 10 mg PO DAILY #90 tabs 10/12 10/06 hydrocodone 5 mg-acetaminophen 325 1 tab PO Q6H PRN pa in #12 tabs 11/01/24 mg tablet sulfamethoxazole 800 1 tab PO DAILY 10 days #20 t abs 11/01/24 mg-trimethoprim 160 mg tablet (Bactrim DS) Allergies Allergy/AdvReac Type Severity Reaction Status Date / Time aspirin Allergy HIVES-SOB Verified 10/04/24 14:49 Review of Systems 2 Const: Denies: fever(s) or chills Card: Denies: chest pain Resp: Denies: dyspnea GI: Denies: abdominal pain : Denies: dysuria, urinary frequency or urinary urgency Musc: Denies: neck pain or back pain Skin/Breast: Denies: rash PFSH ED 2 PFSH: Medical History Depression HTN (hypertension) Abscess, gluteal, left Type 2 diabetes mellitus Uveitis Immunocompromised COVID-19 Morbid obesity Immunization counseling High risk medication use Rheumatoid arthritis with rheumatoid factor 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 systems involvement Surgical History H/O myomectomy 11/09/2017 History of endometrial ablation Hx of cataract surgery bilateral 01/24 H/O dilation and curettage -x 2 Family History Mother Diabetes Heart disease Hypertension Thyroid disease Sister Diabetes Hypertension Grandmother Diabetes Father Heart disease Hypertension Brother Hypertension Other Rheumatoid arthritis Denies family history of Colon cancer Ovarian cancer Hyperlipidemia Breast cancer Uterine cancer Stroke Social History Smoking and tobacco/nicotine status: never used tobacco/nicotine Alcohol intake: never Substance/Drug Use: never Marital status: Current occupational status: employed Physical Exam 2 Const: GENERAL APPEARANCE: cooperative ORIENTATION/CONSCIOUSNESS: Yes awake, Yes oriented to person, Yes oriented to place and Yes oriented to time HENMT: COMMON NORMALS: normocephalic, atraumatic and hearing grossly normal bilaterally HEAD & SCALP: normocephalic and atraumatic Resp: COMMON NORMALS: normal respiratory effort, No retractions, No use of accessory muscles and clear to auscultation bilaterally AUSCULTATION: clear to auscultation bilaterally Cardio: COMMON NORMALS: regular rate, regular rhythm and No murmurs present (Cardio) RATE: regular rate RHYTHM: regular rhythm GI: COMMON NORMALS: Soft to palpation and No hepatosplenomegaly present A USCULTATION: Yes normoactive bowel sounds PALPATION: Yes Soft to palpation, No Tenderness to palpation present (GI), No Guarding due to palpation present (GI) and Yes No hepatosplenomegaly present Extremity: COMMON NORMALS: normal to inspection, capillary refill normal, no clubbing, cyanosis or edema, no calf tenderness and no pedal edema Neuro: SENSORIUM/ORIENTATION: Yes oriented to person, Yes oriented to place and Yes oriented to time Skin: OTHER: Left buttock palpably fluctuant nodule that is tender midportion of the left buttock. Laterally there is a slight swollen area that is nontender but feels somewhat nodular suspect as a result of a previous abscess. Procedures Abscess I/D Site: other (Left buttock) Side (if applicable): left Local Anesthetic: lidocaine 1% and with epi Amount of anesthesia used (mL): 4 Technique: incised with #11 blade Packing used?: plain Course 2 Vital Signs: Vital signs: Vital Signs Temperature 98.8 F 11/01/24 08:09 Pulse Rate 105 H 11/01/24 08:09 Respiratory Rate 18 11/01/24 08:09 Blood Pressure 177/107 11/01/24 08:09 Pulse Oximetry 97 11/01/24 08:09 MDM - Wound/Laceration Medical Decision Making Incised and drained lesion culture done. Lesion was quite deep. Wound was cleaned extensively. Wound packing placed. Advised patient to have wound packing exchanged tomorrow. Started on Bactrim for 10 days. Medical Records I reviewed the patient's medical records. Lab Data I reviewed the patient's lab results. 11/01/24 08:20 11/01/24 08:20 Laboratory Results WBC 5.37 10^3/uL (3.29-11.43) 11/01/24 08:20 RBC 4.59 10^6/uL (3.85-5.65) 11/01/24 08:20 Hgb 12.70 g/dL (11.27-16.99) 11/01/24 08:20 Hct 39.1 % (36-47) 11/01/24 08:20 MCV 85.2 fl (85-98) 11/01/24 08:20 MCH 27.7 pg (27-33) 11/01/24 08:20 MCHC 32.5 g/dL (30-55) 11/01/24 08:20 RDW 13.7 % (12.1-15.1) 11/01/24 08:20 Plt Count 212 10^3/cmm (157-399) 11/01/24 08:20 MPV 9.8 fL (7.4-10.4) 11/01/24 08:20 Neut % (Auto) 53.6 % 11/01/24 08:20 Lymph % (Auto) 30.4 % 11/01/24 08:20 Dundy % (Auto) 12.1 % 11/01/24 08:20 Eos % (Auto) 2.4 % 11/01/24 08:20 Baso % (Auto) 1.1 % 11/01/24 08:20 Neut # (Auto) 2.88 10^3/uL (1.8-7.7) 11/01/24 08:20 Lymph # (Auto) 1.6 10^3/uL (0.8-4.8) 11/01/24 08:20 Dundy # (Auto) 0.7 10^3/uL (0.2-0.9) 11/01/24 08:20 Eos # (Auto) 0.1 10^3/uL (0.0-0.8) 11/01/24 08:20 Baso # (Auto) 0.1 10^3/uL (0.0-0.1) 11/01/24 08:20 Nucleated RBC % (auto) 0 % 11/01/24 08:20 Nucleated RBCs # 0.0 /100WBC 11/01/24 08:20 Sodium 136 mmol/L (136-145) 11/01/24 08:20 Potassium 4.3 mmol/L (3.5-5.1) 11/01/24 08:20 Chloride 99 mmol/L (98-107) 11/01/24 08:20 Carbon Dioxide 21 mmol/L (22-29) L 11/01/24 08:20 Anion Gap 20.3 (5-19) H 11/01/24 08:20 BUN 7 mg/dL (6-20) 11/01/24 08:20 Creatinine 0.7 mg/dL (0.5-0.9) 11/01/24 08:20 GFR Calculation 90.1 mL/min (90-130) 11/01/24 08:20 Glucose 247 mg/dL (65-115) H 11/01/24 08:20 Calculated Osmolality 288 mOsm/kg (285-295) 11/01/24 08:20 Calcium 8.7 mg/dL (8.5-10.5) 11/01/24 08:20 Total Bilirubin 0.3 mg/dL (0.15-1.2) 11/01/24 08:20 AST 46 U/L (0-32) H 11/01/24 08:20 ALT 47 U/L (0-33) H 11/01/24 08:20 Alkaline Phosphatase 123 U/L (35-105) H 11/01/24 08:20 Total Protein 7.5 g/dL (6.6-8.7) 11/01/24 08:20 Albumin 3.9 g/dL (3.5-5.2) 11/01/24 08:20 Globulin 3.6 g/dL (1.3-4.6) 11/01/24 08:20 No radiology studies performed this visit Discharge Plan Discharge Patient Disposition: Home Clinical Impression: Left buttock abscess Condition: Stable Prescriptions: New sulfamethoxazole-trimethoprim [Bactrim DS] 800-160 mg tablet 1 tab PO DAILY 10 Days Qty: 20 0RF hydrocodone-acetaminophen 5-325 mg tablet 1 tab PO Q6H PRN (Reason: pain) Qty: 12 0RF No Action buspirone 10 mg tablet 10 mg PO BID Qty: 60 11RF leflunomide 10 mg tablet 10 mg PO DAILY Qty: 90 1RF losartan 100 mg tablet 100 mg PO DAILY Qty: 30 11RF sulfamethoxazole-trimethoprim [Bactrim DS] 800-160 mg tablet 1 tab PO BID Qty: 20 0RF Avsola 100 mg recon soln See Rx Instructions .ROUTE .COMPLEX Rx Instructions: 6weeks 100 mg intravenously escitalopram oxalate 10 mg tablet 10 mg PO QAM Qty: 30 11RF metformin 500 mg tablet extended release 24 hr 500 mg PO BID Qty: 60 11RF glimepiride 2 mg tablet 2 mg PO BID Qty: 60 11RF acetaminophen [Tylenol Extra Strength] 500 mg Tablet 1,000 mg PO Q6H PRN (Reason: Pain) carvedilol 25 mg tablet 25 mg PO BID Rx Instructions: TAKE 1 TABLET BY MOUTH TWICE DAILY FOR HIGH BLOOD PRESSURE bupropion HCl 300 mg tablet extended release 24 hr 300 mg PO DAILY Rx Instructions: Take 1 tablet by mouth once daily latanoprost 0.005 % drops 1 drp ophthalmic (eye) QPM hydrocodone-acetaminophen 5-325 mg tablet 1 tab PO Q6H PRN (Reason: pain) Qty: 14 0RF brimonidine-timolol 0.2-0.5 % drops 1 drp ophthalmic (eye) BID Rx Instructions: to both eyes ondansetron 4 mg tablet,disintegrating 4 mg PO Q8H PRN (Reason: nausea and vomiting) Qty: 14 0RF Discharge Orders: Discharge ED (Routine); Ordered 11/01/24 Ordered By: Jesús Emery Referrals: Malcom Villanueva MD [Primary Care Provider, Family Practice] Discharge Diet: Usual diet Discharge Activity: Increase activity as tolerated Patient Instructions: Opioid Safety, Pain Management, Patient Portal & Abel Instructions Activity Restrictions/Additional Instructions: Thank you for choosing [facility] for your healthcare needs today. It is very important that you follow up as instructed or that you return to the Emergency Department should you have concerns or if your condition changes or worsens in any way. You were seen today with a boil on the left buttock. It was incised and drained and a culture was done and started on oral antibiotics given pain medications follow-up with your primary care doctor tomorrow to have the packing changed. Print Language: Swedish Coding Level of Care Code ED Frame Aligner for Chris Lilly
[2024-11-01 08:44] LABS: Alanine Aminotransferase 47 U/L (0-33); Albumin Level 3.9 g/dL (3.5-5.2); Alkaline Phosphatase 123 U/L (35-105); Anion Gap 20.3 (5-19); Aspartate Amino Transferase 46 U/L (0-32); Blood Urea Nitrogen 7 mg/dL (6-20); Calcium 8.7 mg/dL (8.5-10.5); Carbon Dioxide 21 mmol/L (22-29); Chloride 99 mmol/L (98-107); Creatinine Clr Calc Pharmacy 111.0566; Globulin 3.6 g/dL (1.3-4.6); Glucose 247 mg/dL (65-115); Osmolality Calculated 288 mOsm/kg (285-295); Potassium 4.3 mmol/L (3.5-5.1); Sodium 136 mmol/L (136-145); Total Protein 7.5 g/dL (6.6-8.7)
== END 2024-11-01 09:53 | disposition home or self-care (01) ==
PROVIDERS: Emergency Provider Family Medicine; PCP Family Medicine
DX: L02.31 Cutaneous abscess of buttock (principal); I10 Essential (primary) hypertension; E11.9 Type 2 diabetes mellitus without complications; M05.79 Rheumatoid arthritis with rheumatoid factor 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 systems involvement; Z79.899 Other long term (current) drug therapy; Z88.8 Allergy status to other drugs, medicaments and biological substances; Z79.84 Long term (current) use of oral hypoglycemic drugs
CPT/HCPCS: 10060; 36415; 80053; 85025; 87040; 87070; 87075; 87205; 99283

== ENCOUNTER 2024-11-04 19:48 | Emergency (ER) | payer BC, SELFPAY ==
[2024-11-04 19:52] VITALS: BP 116/81; PULSE 101; RESP 18; TEMP 37.4; O2SAT 96; BMI 32.3
--- OUTSIDE RECORDS SUMMARY | 2024-11-04 19:52 | XMS_ITS | Encounter Summary ---
Author Organization [facility] Address [address] [place] [address] Care Team Providers Care Facility Planner Name Role Phone Unavailable Primary Care Provider Unavailabl e Encounter Details Date Type Department Care Team (Late st Contact Info) Description 07/04/[address] 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
--- OUTSIDE RECORDS SUMMARY | 2024-11-04 19:52 | XMS_ITS | Encounter Summary ---
Author Organization [facility] Address [address] [place] [address] Care Team Providers Care Engineering Production Worker Name Role Phone Unavailable Primary Care Provider Unavailabl e Encounter Details Date Type Department Care Team (Late st Contact Info) Description 10/07/2002 Outpatient Historical [facility] Rheumatology- [facility] [address] [place] [address] Rodolfo Brock, [address] [place] [address] Social History Tobacco Use Types Packs/Day Years Used Date Smoking Tobacco: Never Assessed Comments Unknown Sex and Gender Information Value Date Recorded Sex Assigned at Not on file Legal Sex Female 2:52 AM CAE ENGINEER Gender Identity Not on file Sexual Orientation Not on file documented as of this encounter Plan of Treatment Not on file documented as of this encounter Visit Diagnoses Not on filedocumented in this encounter
--- OUTSIDE RECORDS SUMMARY | 2024-11-04 19:52 | XMS_ITS | Encounter Summary ---
Author Organization [facility] Address [address] [place] [address] Care Team Providers Care Plumbing And Heating Contractor Name Role Phone Unavailable Primary Care Provider Unavailabl e Encounter Details Date Type Department Care Team (Late st Contact Info) Description 04/04/2003 Outpatient Historical [facility] Rheumatology- Roberson [place] [address] [place] [address] Rodolfo Brock, [address] [place] [address] INFLAMM POLYARTHROP NOS (CMS/HCC) (Primary Dx); SYNOVITIS NOS Social History Tobacco Use Types Packs/Day Years Used Date Smoking Tobacco: Never Assessed Comments Unknown Sex and Gender Information Value Date Recorded Sex Assigned at Not on file Legal Sex Female 2:52 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
--- OUTSIDE RECORDS SUMMARY | 2024-11-04 19:52 | XMS_ITS | Encounter Summary ---
Author Organization [facility] Address [address] [place] [address] Care Team Providers Care Friction Saw Operator Name Role Phone Unavailable Primary Care Provider Unavailabl e Encounter Details Date Type Department Care Team (Late st Contact Info) Description 09/23/2002 Outpatient Historical [facility] Rheumatology- [place] [address] [place] [address] Rodolfo Brock, [address] [place] [address] JOINT PAIN-L/LEG (Primary Dx); JOINT EFFUSION-L/LEG; SYNOVITIS NOS Social History Tobacco Use Types Packs/Day Years Used Date Smoking Tobacco: Never Assessed Comments Unknown Sex and Gender Information Value Date Recorded Sex Assigned at Not on file Legal Sex Female 2:52 AM MEDICAL APPOINTMENT SCHEDULER Gender Identity Not on file Sexual Orientation Not on file documented as of this encounter Plan of Treatment Not on file documented as of this encounter Visit Diagnoses Diagnosis Pain in joint, lower leg- Primary Effusion of lower leg joint Synovitis and tenosynovitis, unspecified documented in this encounter
--- OUTSIDE RECORDS SUMMARY | 2024-11-04 19:52 | XMS_ITS | Encounter Summary ---
Author Organization [facility] Address [address] [place] [address] Care Team Providers Care Waxer Floor Name Role Phone Unavailable Primary Care Provider Unavailabl e Encounter Details Date Type Department Care Team (Late st Contact Info) Description 09/23/2002 Outpatient Historical [facility] Imaging Services-[place] [address] [place] [address] Rodolfo Brock, [address] [place] [address] RHEUMATOID ARTHRITIS (CMS/[facility]) (Primary Dx) Social History Tobacco Use Types Packs/Day Years Used Date Smoking Tobacco: Never Assessed Comments Unknown Sex and Gender Information Value Date Recorded Sex Assigned at Not on file Legal Sex Female 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
--- OUTSIDE RECORDS SUMMARY | 2024-11-04 19:52 | XMS_ITS | Encounter Summary ---
Author Organization [facility] Address [address] [place] [address] Care Team Providers Care Consolidator Name Role Phone Unavailable Primary Care Provider Unavailabl e Encounter Details Date Type Department Care Team (Late st Contact Info) Description 10/07/2002 Outpatient Historical [facility] Rheumatology- Roberson Von [place] [address] [place] [address] Rodolfo Brock, [address] [place] [address] INFLAMM POLYARTHROP NOS (CMS/HCC) (Primary Dx); SYNOVITIS NOS Social History Tobacco Use Types Packs/Day Years Used Date Smoking Tobacco: Never Assessed Comments Unknown Sex and Gender Information Value Date Recorded Sex Assigned at Not on file Legal Sex Female 2:52 AM GEOLOGICAL SAMPLE TESTER Gender Identity Not on file Sexual Orientation Not on file documented as of this encounter Plan of Treatment Not on file documented as of this encounter Visit Diagnoses Diagnosis Unspecified inflammatory polyarthropathy (CMS/HCC)- Primary Unspecified inflammatory polyarthropathy Synovitis and tenosynovitis, unspecified documented in this encounter
--- OUTSIDE RECORDS SUMMARY | 2024-11-04 19:52 | XMS_ITS | Encounter Summary ---
Author Organization [facility] Address [address] [place] [address] Care Team Providers Care Plastic Surgery Technician Name Role Phone Unavailable Primary Care Provider Unavailabl e Encounter Details Date Type Department Care Team (Late st Contact Info) Description 09/10/2019 Lab Requisition [facility] Laboratory Services [address] [place] [address] [place] [address] Graham Yuen, [address] [id number] Social History Tobacco Use Types Packs/Day Years Used Date Smoking Tobacco: Never Assessed Comments Unknown Sex and Gender Information Value Date Recorded Sex Assigned at Not on file Legal Sex Female 2:52 AM DIRECTOR OF VALUATION Gender Identity Not on file Sexual Orientation [...] AB, QUANT (09/10/2019 8:35 AM CDT) Pathologist [facility] HEPATITIS B SURFACE AB, QUAL Positive 09/14/2019 12:36 PM CDT [facility] Comment: Patient is considered to be immune to infection with HBV. REFERENCE VALUE Unvaccinated: Negative Vaccinated: Positive HEPATITIS B SURFACE AB 16.0 mIU/mL 09/14/2019 12:36 PM CDT [facility] Comment: REFERENCE VALUE Unvaccinated: <5.0 Vaccinated: >=12.0 Test Performed by: [place] [address] Interventional Radiology Tech: Alberto Olsen M.D. Ph.D.; CLIA# [id number] Blood Collection / Unknown 09/10/2019 8:35 AM CDT 09/13/2019 12:19 PM CDT Graham Yuen DO CHEMISTRY ORDERABLES Final Result [facility] * EXTRA TUBE (SST/GOLD) (09/10/2019 8:35 AM CDT) Blood Collection / Unknown 09/10/2019 8:35 AM CDT 09/10/2019 2:26 PM CDT Graham Yuen DO CHEMISTRY ORDERABLES Final Result [facility] CLIA# [id number] [address] [place] [address] * (ABNORMAL) HEPATITIS B SURFACE AB, QUAL (09/10/2019 8:35 AM CDT) HEPATITIS B SURFACE AB, QUAL Reactive( A) Non-react dilip 09/10/2019 2:37 PM CDT [facility] Comment:Patient is considere d to be immune to infection with HBV. Blood Collection / Unknown 09/10/2019 8:35 AM CDT 09/10/2019 2:02 PM CDT Graham Yuen DO CHEMISTRY ORDERABLES Final Result Performing Organization Address [facility] de Phone Number [facility] CLIA# [id number] [address] [place] [address] * HEPATITIS C ANTIBODY W REFLEX (09/10/2019 8:35 AM CDT) Pathologist [facility] HEPATITIS C AB NON-REACTI VE Non-react dilip 09/10/2019 2:33 PM CDT [facility] Blood Collection / Unknown 09/10/2019 8:35 AM CDT 09/10/2019 2:02 PM CDT Graham Yuen DO CHEMISTRY ORDERABLES Final Result Performing Organization Address [facility] de Phone Number [facility] CLIA# [id number] [address] [place] [address] * HIV DETECTION W/REFLX CONFIRMATION (09/10/2019 8:35 AM CDT) Pathologist [facility] HIV-1 AND 2 ABS AND HIV-1 AG Non-reacti ve Non-React dilip 09/10/2019 2:52 PM CDT [facility] Blood Collection / Unknown 09/10/2019 8:35 AM CDT 09/10/2019 2:03 PM CDT Graham Yuen DO CHEMISTRY ORDERABLES Final Result Performing Organization Address City/[facility]/ZIP Co de Phone Number [facility] CLIA# [id number] [address] [place] [address] documented in this encounter Visit Diagnoses Not on filedocumented in this encounter
--- OUTSIDE RECORDS SUMMARY | 2024-11-04 19:52 | XMS_ITS | Clinical Summary ---
Author Organization [facility] Address [address] [place] [address] [place] [address] Care Team Providers Care Retail Wireless Associate Name Role Phone Unavailable Primary Care Provider [...] on file Legal Sex Female 12:31 AM CHEMISTRY PROFESSOR Gender Identity Not on file Sexual Orientation [...]
--- OUTSIDE RECORDS SUMMARY | 2024-11-04 19:52 | XMS_ITS | Encounter Summary ---
Author Organization [facility] Address [address] [place] [address] Care Team Providers Care Reefer Truck Driver Name Role Phone Unavailable Primary Care Provider Unavailabl e Encounter Details Date Type Department Care Team (Late st Contact Info) Description 12/09/2002 Outpatient Historical [facility] Rheumatology- Roberson Von [place] [address] [place] [address] Rodolfo Brock, [address] [place] [address] INFLAMM POLYARTHROP NOS (CMS/HCC) (Primary Dx) Social History Tobacco Use Types Packs/Day Years Used Date Smoking Tobacco: Never Assessed Comments Unknown Sex and Gender Information Value Date Recorded Sex Assigned at Not on file Legal Sex Female 2:52 AM SHOVEL OPERATOR Gender Identity Not on file Sexual Orientation Not on file documented as of this encounter Plan of Treatment Not on file documented as of this encounter Visit Diagnoses Diagnosis Unspecified inflammatory polyarthropathy (CMS/HCC)- Primary Unspecified inflammatory polyarthropathy documented in this encounter
--- OUTSIDE RECORDS SUMMARY | 2024-11-04 19:52 | XMS_ITS | Encounter Summary ---
Author Organization [facility] Address [address] [place] [address] Care Team Providers Care Medical Office Scheduler Name Role Phone Unavailable Primary Care Provider Unavailabl e Encounter Details Date Type Department Care Team (Late st Contact Info) Description 09/23/2002 Outpatient Historical [facility] Imaging Services-[place] [address] [place] [address] Rodolfo Brock, [address] [place] [address] RHEUMATOID ARTHRITIS (CMS/[facility]) (Primary Dx) Social History Tobacco Use Types Packs/Day Years Used Date Smoking Tobacco: Never Assessed Comments Unknown Sex and Gender Information Value Date Recorded Sex Assigned at Not on file Legal Sex Female 2:52 AM BASEBALL WINDER Gender Identity Not on file Sexual Orientation Not on file documented as of this encounter Plan of Treatment Not on file documented as of this encounter Visit Diagnoses Diagnosis Rheumatoid arthritis(714.0) (CMS/HCC)- Primary Rheumatoid arthritis documented in this encounter
--- OUTSIDE RECORDS SUMMARY | 2024-11-04 19:52 | XMS_ITS | Clinical Summary ---
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
--- OUTSIDE RECORDS SUMMARY | 2024-11-04 19:52 | XMS_ITS | Encounter Summary ---
Author Organization [facility] Address [address] [place] [address] Care Team Providers Care Oracle Hyperion Consultant Name Role Phone Unavailable Primary Care Provider Unavailabl e Encounter Details Date Type Department Care Team (Late st Contact Info) Description 12/08/2003 Outpatient Historical [facility] Rheumatology- Roberson Von Emery [address] [place] [address] Rodolfo Brock, [address] [place] [address] INFLAMM POLYARTHROP NOS (CMS/HCC) (Primary Dx) Social History Tobacco Use Types Packs/Day Years Used Date Smoking Tobacco: Never Assessed Comments Unknown Sex and Gender Information Value Date Recorded Sex Assigned at Not on file Legal Sex Female 2:52 AM OFFSET LITHOGRAPHIC PRESS OPERATOR Gender Identity Not on file Sexual Orientation Not on file documented as of this encounter Plan of Treatment Not on file documented as of this encounter Visit Diagnoses Diagnosis Unspecified inflammatory polyarthropathy (CMS/HCC)- Primary Unspecified inflammatory polyarthropathy documented in this encounter
--- NOTE | 2024-11-04 20:09 | ECG_ITS ---
[facility] Test Date: 2024-11-04 Pat Name: Marychuy Chino Department: Room: Gender: Female Tents Assembler: : 1980 Requested By: Betty Luna Order Number: [id number] Reading MD: Measurements Intervals [place] Rate: 109 P: -9 NM: 127 QRS: -1 QRSD: 118 T: 65 QT: 322 QTc: 434 Interpretive Statements SINUS TACHYCARDIA WITH OCCASIONAL SUPRAVENTRICULAR PREMATURE COMPLEXES MODERATE INTRAVENTRICULAR CONDUCTION DELAY [110+ ms QRS DURATION] ABNORMAL RHYTHM ECG No previous ECG available for comparison [email or web address] [id number]
[2024-11-04 21:09] LABS: Hematocrit 42.1 % (36-47); Hemoglobin 13.40 g/dL (11.27-16.99); Mean Corpuscular HGB Conc 31.8 g/dL (30-55); Mean Corpuscular Hemoglobin 27.5 pg (27-33); Mean Corpuscular Volume 86.3 fl (85-98); Nucleated Red Blood Cells % 0 %; Platelet Count 134 10^3/cmm (157-399); Red Blood Count 4.88 10^6/uL (3.85-5.65); White Blood Count 8.61 10^3/uL (3.29-11.43)
[2024-11-04 21:28] LABS: Troponin(5th) Baseline < 6 ng/L (0-10)
[2024-11-04 21:33] LABS: Slide Review Slide Review Perform
[2024-11-04 21:43] LABS: Alanine Aminotransferase 62 U/L (0-33); Albumin Level 4.1 g/dL (3.5-5.2); Alkaline Phosphatase 196 U/L (35-105); Aspartate Amino Transferase 50 U/L (0-32); Blood Urea Nitrogen 9 mg/dL (6-20); Calcium 9.3 mg/dL (8.5-10.5); Carbon Dioxide 17 mmol/L (22-29); Chloride 98 mmol/L (98-107); Creatinine Clr Calc Pharmacy 72.5024; Globulin 3.8 g/dL (1.3-4.6); Glucose 216 mg/dL (65-115); Magnesium 2.0 mg/dL (1.7-2.3); NT Pro B Type Natriuretic Pept < 36 pg/mL (0-125); Osmolality Calculated 279 mOsm/kg (285-295); Sodium 132 mmol/L (136-145); Total Protein 7.9 g/dL (6.6-8.7)
[2024-11-04 21:54] LABS: Anion Gap 21.4 (5-19); Potassium 4.4 mmol/L (3.5-5.1)
[2024-11-04 22:40] VITALS: BP 124/73; PULSE 88; O2SAT 97
--- NOTE | 2024-11-04 22:49 | XRR_ITS ---
PROCEDURE INFORMATION: Exam: XR Chest Exam date and time: 11/04/2024 10:54 PM Age: 44 years old Clinical indication: Other: Tachy; Additional info: Tachy, palpitations TECHNIQUE: Imaging protocol: Radiologic exam of the chest. Views: 1 view. COMPARISON: CR XR chest 1V portable [id number] 04/29/2024 3:00 PM FINDINGS: Lungs: Unremarkable. No consolidation. Low lung volumes. Pleural spaces: Unremarkable. No pleural effusion. No pneumothorax. Heart/Mediastinum: Unremarkable. No cardiomegaly. Bones/joints: Unremarkable. XR/XR chest 1V portable [id number] IMPRESSION: No evidence of acute cardiopulmonary process.
--- NOTE | 2024-11-04 23:01 | ECG_ITS ---
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 Measurements Intervals [place] Rate: 89 P: -1 OK: 124 QRS: 5 QRSD: 102 T: 72 QT: 365 QTc: 445 Interpretive Statements SINUS RHYTHM NONSPECIFIC ST & T-WAVE ABNORMALITY Compared to ECG 11/04/2024 19:56:57 T-wave abnormality now present Sinus tachycardia no longer present Intraventricular conduction delay no longer present Electronically Signed On 11-06-2024 08:51:43 CDT by Rashi Salazar M.D. [email or web address] [id number]
--- NOTE | 2024-11-04 23:42 | W.ED.ARRPALP ---
HPI - Arrhythmia/Palpitations General: Chief Complaint: Arrhythmia/Palpitations Stated Complaint: High Heart Rate sweating [place] Time Seen by Provider: 11/04/24 22:30 History of Present Illness: Marychuy Chino is a 44-year-old female that presents to the emergency department with complaints of fever, fatigue, tachycardia, palpitations near syncope. She also has associated nausea intermittent chest pain. She was recently seen in the ER, 11/01/2024 for a abscess on her buttock. She was started on Bactrim. Today she was seen by primary care. They took her off the Bactrim concerned that this might be causing her symptoms. She has not been started on any other medications. Patient has had numerous tick bites Does not have any significant cardiac history Medical history does include diabetes, rheumatoid arthritis, hypertension, high cholesterol Associated symptoms: Reports diaphoresis, nausea and pre-syncope; Deny vomiting Related Data Home Medications ?Medication ?Instructions ?Recorded ?Confirmed acetaminophen 500 mg tablet 1,000 mg PO Q6H PRN Pain 03/15/20 11/04/24 (Tylenol Extra Strength) infliximab-axxq 100 mg intravenous See Rx Instructions .Route .COMPLEX 12/25/22 11/04/24 solution (Avsola) brimonidine 0.2 %-timolol 0.5 % 1 drp ophthalmic (eye) BID 05/24/23 11/04/24 eye drops bupropion HCl 300 mg 24 hr tablet, 300 mg PO DAILY 08/19/24 11/04/24 extended release carvedilol 25 mg tablet 25 mg PO BID 08/19/24 11/04/24 latanoprost 0.005 % eye drops 1 drp ophthalmic (eye) QPM 08/19/24 11/04/24 Previous Rx's ?Medication ?Instructions ?Recorded metformin 500 mg tablet,extended 500 mg PO BID #60 tabs 09/25/23 release 24 hr buspirone 10 mg tablet 10 mg PO BID #60 tabs 02/12/24 glimepiride 2 mg tablet 2 mg PO BID #60 tabs 06/08/24 escitalopram oxalate 10 mg tablet 10 mg PO QAM #30 tabs 07/20/24 hydrocodone 5 mg-acetaminophen 325 1 tab PO Q6H PRN pain #14 tabs 08/19/24 mg tablet ondansetron 4 mg disintegrating 4 mg PO Q8H PRN nausea and 08/20/24 tablet vomiting #14 tabs sulfamethoxazole 800 1 tab PO BID #20 tabs 10/21/24 mg-trimethoprim 160 mg tablet (Bactrim DS) leflunomide 10 mg tablet 10 mg PO DAILY #90 tabs 10/27/24 hydrocodone 5 mg-acetaminophen 325 1 tab PO Q6H PRN pain #12 tabs 11/01/24 mg tablet sulfamethoxazole 800 1 tab PO DAILY 10 days #20 tabs 11/01/24 mg-trimethoprim 160 mg tablet (Bactrim DS) diltiazem HCl 120 mg 120 mg PO DAILY #30 caps 11/04/24 capsule,extended release 24 hr (Cardizem CD) losartan 50 mg tablet 50 mg PO DAILY #30 tabs 11/04/24 doxycycline monohydrate 100 mg 100 mg PO BID 7 days #14 caps 11/05/24 capsule Allergies Allergy/AdvReac Type Severity Reaction Status Date / Time aspirin Allergy HIVES-SOB Verified 10/04/24 14:49 Review of Systems General: Reports: 10 or more systems reviewed and unremarkable except in HPI and below Const: Reports: fever(s), chills, body aches, change in appetite, fatigue, malaise, night sweats and diaphoresis; Denies: change in weight Eyes: Denies: change in vision, eye discomfort, eye discharge or eye redness ENMT: Denies: throat pain, enlarged tonsils, odynophagia, hoarseness, ear or mastoid pain, ear discharge, change in hearing, tinnitus, nasal discharge, nasal congestion, post nasal drip or sinus pain Card: Reports: chest pain, palpitations, lightheadedness, pre-syncope and dyspnea on exertion; Denies: irregular heart rhythm, edema, orthopnea or leg pain with exertion Resp: Denies: dyspnea, productive cough, non-productive cough, wheezing, stridor or chest congestion GI: Reports: nausea; Denies: abdominal pain, vomiting, dysphagia, diarrhea, constipation, bloating, GI cramping or hematochezia : Denies: flank pain, difficulty voiding, dysuria, urinary frequency, urinary urgency, urinary hesitancy, oliguria or hematuria Musc: Denies: neck pain, back pain, extremity pain, joint pain, joint swelling, joint redness, joint warmth or muscle weakness Skin/Breast: Denies: rash, pruritus, erythema, photosensitivity or new lesions Neuro: Denies: headache(s), numbness in extremities, weakness in extremities, sensory changes, lack of coordination, difficulty walking, frequent falls, dizziness, confusion, Slurred speech present, difficulty communicating thoughts, seizure-like activity or involuntary movements Endo: Denies: polyuria, polydipsia or tired all the time [place]/Lymph: Denies: easy bruising or easy bleeding PFSH ED PFSH: Medical History (Updated 11/05/24 @ 00:30 by ENRIQUE Piper) Depression HTN (hypertension) Abscess, gluteal, left Type 2 diabetes mellitus Uveitis Immunocompromised COVID-19 Morbid obesity Immunization counseling High risk medication use Rheumatoid arthritis with rheumatoid factor 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 systems involvement Surgical History H/O myomectomy 11/09/2017 History of endometrial ablation Hx of cataract surgery bilateral 01/24 H/O dilation and curettage -x 2 Family History Mother Diabetes Heart disease Hypertension Thyroid disease Sister Diabetes Hypertension Grandmother Diabetes Father Heart disease Hypertension Brother Hypertension Other Rheumatoid arthritis Denies family history of Colon cancer Ovarian cancer Hyperlipidemia Breast cancer Uterine cancer Stroke Social History Smoking and tobacco/nicotine status: never used tobacco/nicotine Alcohol intake: never Substance/Drug Use: never Marital status: Current occupational status: employed Physical Exam Const: COMMON NORMALS: no acute distress, patient oriented x3 and alert GENERAL APPEARANCE: cooperative ORIENTATION/CONSCIOUSNESS: Yes awake, Yes oriented to person, Yes oriented to place and Yes oriented to time HENMT: COMMON NORMALS: normocephalic and atraumatic HEAD & SCALP: normocephalic and atraumatic FACE & SINUS: normal facial exam MOUTH: Normal oral and palatal mucosa present THROAT: posterior oropharynx normal Eye: COMMON NORMALS: Equal, round and reactive pupils present, EOMs intact bilaterally, conjunctivae normal and no scleral icterus GENERAL EYE: appearance normal, both eyes and all related structures ALIGNMENT: Yes alignment normal PERIORBITAL: periorbital findings normal CONJUNCTIVA: Yes conjunctivae normal PUPIL: Yes Equal, round and reactive pupils present Neck/C-Spine: COMMON NORMALS: full ROM GENERAL: Yes normal visual inspection Lymph: LYMPHATIC: no lymphadenopathy noted Chest: COMMONS NORMALS: normal inspection of the chest Breast/axilla inspection: Yes no chest deformity, asymmetry, normal contours, no nodules, masses, tenderness Resp: COMMON NORMALS: normal respiratory effort, No retractions, No use of accessory muscles and clear to auscultation bilaterally EFFORT & INSPECTION: Yes able to speak in complete sentences and Yes symmetric chest movement AUSCULTATION: clear to auscultation bilaterally Cardio: COMMON NORMALS: regular rate, regular rhythm and Peripheral pulses 2+ throughout RATE: regular rate RHYTHM: regular rhythm PERIPHERAL PULSES: Peripheral pulses 2+ throughout GI: COMMON NORMALS: Normal to inspection, nondistended, normoactive bowel sounds present, Soft to palpation, non-tender and No hepatosplenomegaly present INSPECTION: Yes normal to inspection AUSCULTATION: Yes normoactive bowel sounds PALPATION: Yes Soft to palpation and Yes No hepatosplenomegaly present RECTAL EXAM: deferred Extremity: COMMON NORMALS: normal to inspection GENERAL: Yes normal exam except as noted Neuro: COMMON NORMALS: patient oriented x3 SENSORIUM/ORIENTATION: Yes alert, Yes oriented to person, Yes oriented to place and Yes oriented to time CRANIAL NERVES: Yes CN normal except as noted Psych: COMMON NORMALS: mental status grossly normal, Normal thought process present, cooperative, activity/motor behavior normal, denies homicidal ideation and denies suicidal ideation THOUGHT PROCESS: Normal thought process present Skin: COMMON NORMALS: no rashes or lesions noted, no wounds and turgor normal GENERAL SKIN EXAM: no rashes or lesions noted and turgor normal Course Vital Signs: Vital signs: Vital Signs Temperature 99.4 F 11/04/24 19:52 Pulse Rate 82 11/05/24 00:02 Respiratory Rate 15 11/05/24 00:02 Blood Pressure 106/75 11/05/24 00:02 Pulse Oximetry 97 11/04/24 22:40 Oxygen Delivery Me thod Room Air 11/04/24 22:40 MDM - Arrhythmia/Palpitations Medical Decision Making Patient evaluated in the emergency department today for concerns of arrhythmia patient has a recent abscess that underwent an incision, irrigation and debridement. She was discharged on Bactrim but due to concerns for possible side effects or adverse reaction she was taken off that today. She was taken off due to concerns for tachycardia, palpitations, lightheadedness. While at work her heart rate was 130. Since arriving here in the emergency department her heart rate has been 80s to 100. Her EKG was completed at 2301 and it reveals a sinus rhythm. Prior EKG showed sinus tachycardia. Patient did receive Cardizem today Her heart rate is now 80-100. Here in the emergency department I worked her up for sepsis, cardiac event. She has no leukocytosis. No anemias. Her platelet count is just below normal at 134,000. Her CO2 is 17 with an anion gap of 21. Lactic acid is within normal limits, 1.4. We have seen a bump in her creatinine, 1.1 with a BUN of 9. Liver enzymes are elevated. Her cardiac enzymes are well within normal limits. Chest x-ray within normal limits. I reviewed the case with Dr. Finley. With her recent tick bites and multitude of symptoms with elevated liver enzymes very likely that she could have a tickborne illness. With that being said she is also going to require further treatment for her abscess. We have elected to proceed with doxycycline I have given her fluids here in the emergency department And she does appear to be improving. Heart rate is 82, afebrile and normotensive. We are going to discharge her home with a new prescription of doxycycline. She needs to monitor her symptoms closely. Return to the emergency department for new, concerning, worsening symptoms Patient is agreeable with plan. Can have her stay home the next several days to recuperate Lab Data 11/04/24 20:50 11/04/24 20:50 Radiology Impressions Chest X-Ray 11/04/24 22:49 IMPRESSION: No evidence of acute cardiopulmonary process. Laboratory Results WBC 8.61 10^3/uL (3.29-11.43) 11/04/24 20:50 RBC 4.88 10^6/uL (3.85-5.65) 11/04/24 20:50 Hgb 13.40 g/dL (11.27-16.99) 11/04/24 20:50 Hct 42.1 % (36-47) 11/04/24 20:50 MCV 86.3 fl (85-98) 11/04/24 20:50 MCH 27.5 pg (27-33) 11/04/24 20:50 MCHC 31.8 g/dL (30-55) 11/04/24 20:50 RDW 13.9 % (12.1-15.1) 11/04/24 20:50 Plt Count 134 10^3/cmm (157-399) L 11/04/24 20:50 MPV 10.8 fL (7.4-10.4) H 11/04/24 20:50 Neut % (Auto) 41.8 % 11/04/24 20:50 Lymph % (Auto) 42.3 % 11/04/24 20:50 Navarro % (Auto) 13.0 % 11/04/24 20:50 Eos % (Auto) 0.8 % 11/04/24 20:50 Baso % (Auto) 1.2 % 11/04/24 20:50 Neut # (Auto) 3.60 10^3/uL (1.8-7.7) 11/04/24 20:50 Lymph # (Auto) 3.6 10^3/uL (0.8-4.8) 11/04/24 20:50 [place] # (Auto) 1.1 10^3/uL (0.2-0.9) H 11/04/24 20:50 Eos # (Auto) 0.1 10^3/uL (0.0-0.8) 11/04/24 20:50 Baso # (Auto) 0.1 10^3/uL (0.0-0.1) 11/04/24 20:50 Nucleated RBC % (auto) 0 % 11/04/24 20:50 Nucleated RBCs # 0.0 /100WBC 11/04/24 20:50 Sodium 132 mmol/L (136-145) L 11/04/24 20:50 Potassium 4.4 mmol/L (3.5-5.1) 11/04/24 20:50 Chloride 98 mmol/L (98-107) 11/04/24 20:50 Carbon Dioxide 17 mmol/L (22-29) L 11/04/24 20:50 Anion Gap 21.4 (5-19) H 11/04/24 20:50 BUN 9 mg/dL (6-20) 11/04/24 20:50 Creatinine 1.1 mg/dL (0.5-0.9) H 11/04/24 20:50 GFR Calculation 53.5 mL/min (90-130) L 11/04/24 20:50 Glucose 216 mg/dL (65-115) H 11/04/24 20:50 Calculated Osmolality 279 mOsm/kg (285-295) L 11/04/24 20:50 Lactic Acid 1.4 mmol/L (0.5-2.2) 11/04/24 23:49 Calcium 9.3 mg/dL (8.5-10.5) 11/04/24 20:50 Magnesium 2.0 mg/dL (1.7-2.3) 11/04/24 20:50 Total Bilirubin 0.5 mg/dL (0.15-1.2) 11/04/24 20:50 AST 50 U/L (0-32) H 11/04/24 20:50 ALT 62 U/L (0-33) H 11/04/24 20:50 Alkaline Phosphatase 196 U/L (35-105) H 11/04/24 20:50 Troponin T Baseline < 6 ng/L (0-10) 11/04/24 20:50 Troponin T 120 Minute < 6.0 ng/L (0-10) 11/04/24 23:49 Delta Troponin T 0 ABS# (0-10) 11/04/24 23:49 NT-Pro-B Natriuret Pep < 36 pg/mL (0-125) 11/04/24 20:50 Total Protein 7.9 g/dL (6.6-8.7) 11/04/24 20:50 Albumin 4.1 g/dL (3.5-5.2) 11/04/24 20:50 Globulin 3.8 g/dL (1.3-4.6) 11/04/24 20:50 All radiology interpretation(s) finalized by discharge Discharge Plan Discharge Patient Disposition: Home Clinical Impression: Atrial tachycardia, Elevated liver enzymes, Acute kidney injury, Acute hyponatremia Condition: Stable Prescriptions: New doxycycline monohydrate 100 mg capsule 100 mg PO BID 7 Days Qty: 14 0RF No Action buspirone 10 mg tablet 10 mg PO BID Qty: 60 11RF leflunomide 10 mg tablet 10 mg PO DAILY Qty: 90 1RF sulfamethoxazole-trimethoprim [Bactrim DS] 800-160 mg tablet 1 tab PO BID Qty: 20 0RF losartan 50 mg tablet 50 mg PO DAILY Qty: 30 11RF diltiazem HCl [Cardizem CD] 120 mg capsule,extended release 24hr 120 mg PO DAILY Qty: 30 11RF Avsola 100 mg recon soln See Rx Instructions .ROUTE .COMPLEX Rx Instructions: 6weeks 100 mg intravenously escitalopram oxalate 10 mg tablet 10 mg PO QAM Qty: 30 11RF metformin 500 mg tablet extended release 24 hr 500 mg PO BID Qty: 60 11RF glimepiride 2 mg tablet 2 mg PO BID Qty: 60 11RF acetaminophen [Tylenol Extra Strength] 500 mg Tablet 1,000 mg PO Q6H PRN (Reason: Pain) carvedilol 25 mg tablet 25 mg PO BID Rx Instructions: TAKE 1 TABLET BY MOUTH TWICE DAILY FOR HIGH BLOOD PRESSURE bupropion HCl 300 mg tablet extended release 24 hr 300 mg PO DAILY Rx Instructions: Take 1 tablet by mouth once daily latanoprost 0.005 % drops 1 drp ophthalmic (eye) QPM hydrocodone-acetaminophen 5-325 mg tablet 1 tab PO Q6H PRN (Reason: pain) Qty: 14 0RF sulfamethoxazole-trimethoprim [Bactrim DS] 800-160 mg tablet 1 tab PO DAILY 10 Days Qty: 20 0RF hydrocodone-acetaminophen 5-325 mg tablet 1 tab PO Q6H PRN (Reason: pain) Qty: 12 0RF brimonidine-timolol 0.2-0.5 % drops 1 drp ophthalmic (eye) BID Rx Instructions: to both eyes ondansetron 4 mg tablet,disintegrating 4 mg PO Q8H PRN (Reason: nausea and vomiting) Qty: 14 0RF Discharge Orders: Discharge ED (Routine); Ordered 11/05/24 Ordered By: Rosangela Gong [facility] Referrals: Malcom Villanueva MD [Primary Care Provider, Family Practice] Discharge Diet: Advance as tolerated Discharge Activity: Resume usual activity Patient Instructions: Opioid Safety, Pain Management, Patient Portal & Abel Instructions Activity Restrictions/Additional Instructions: Monitor symptoms closely. Return to the emergency department for new, concerning, worsening symptoms Follow-up with your primary care doctor next week Do not return to work until Friday. You need to stay home and recuperate Stand Alone Forms: Work/School Release Print Language: Bolivian Coding Level of Care Code ED Escalator Attendant for Chris Lilly
[2024-11-05 00:02] VITALS: BP 106/75; PULSE 82; RESP 15
[2024-11-05 00:12] LABS: Lactic Sepsis W/Reflex 1.4 mmol/L (0.5-2.2); Troponin 5 2HR < 6.0 ng/L (0-10); Troponin 5 2HR Delta 0 ABS# (0-10)
[2024-11-05 01:59] VITALS: BP 117/75; PULSE 90; O2SAT 98
--- NOTE | 2024-11-06 18:44 | PC.NURSE ---
Positive blood culture called from lab. Results given to Dr. Rg. Pt. on doxycycline and bactrim . No new orders needed
== END 2024-11-05 02:00 | disposition home or self-care (01) ==
PROVIDERS: Emergency Medicine; Emergency Provider Nurse Practitioner; PCP Family Medicine
DX: I47.19 Other supraventricular tachycardia (principal); N17.9 Acute kidney failure, unspecified; E87.1 Hypo-osmolality and hyponatremia; R74.01 Elevation of levels of liver transaminase levels; Z79.84 Long term (current) use of oral hypoglycemic drugs; E11.9 Type 2 diabetes mellitus without complications; I10 Essential (primary) hypertension
CPT/HCPCS: 36415; 71045; 80053; 83605; 83735; 83880; 84484; 85025; 87040; 87077; 87150; 87205; 93005; 96360; 96361; 99285; J7030; J9999

== ENCOUNTER 2024-11-16 07:49 | Oncology outpatient (recurring) (ONCR) | payer BC, SELFPAY ==
[2024-11-16 07:58] VITALS: BP 130/84; PULSE 86; TEMP 35.7; O2SAT 95
[2024-11-16] MEDS: diphenhydrAMINE 50 mg/mL SDV 1mL 25 MG IVP (08:41)
[2024-11-16] MEDS: methylPREDNISolone sod succ 40 mg/mL INJ 20 MG IVP (08:46)
[2024-11-16] MEDS: SODIUM CHLORIDE 0.9% IV (09:40)
[2024-11-16] MEDS: INFLIXIMAB AXXQ IV (09:40)
[2024-11-16 10:38] VITALS: BP 136/78; PULSE 76; RESP 17; TEMP 36.3; O2SAT 96
== END 2024-12-12 23:59 | disposition home or self-care (01) ==
PROVIDERS: PCP Family Medicine; Visit Provider Internal Medicine Rheumatology
DX: H20.9 Unspecified iridocyclitis (principal); Z79.899 Other long term (current) drug therapy
CPT/HCPCS: 96375; 96413; J1200; J2919; J7050; J9999; Q5121

== ENCOUNTER → 2024-11-24 10:01 | Outpatient (BNVA) | payer BC, SELFPAY | PROVIDERS: PCP Family Medicine; Visit Provider Family Medicine | DX: Z01.818 Encounter for other preprocedural examination (principal) | CPT/HCPCS: 80053; 85007; 85027 ==

== ENCOUNTER 2024-12-07 14:16 | Inpatient (IN) | payer BC, SELFPAY ==
[2024-12-07] VITALS (21 sets, daily range): BP systolic 83–158; BP diastolic 62–107; PULSE 72–104; RESP 12–22; TEMP 36.1–36.9; O2SAT 91–99; BMI 32.3
--- NOTE | 2024-12-07 00:15 | W.PM.OPSFHP ---
Same Day Surgery H&P Indication for Procedure/HPI DATE OF PROCEDURE: December 07, 2024 CHIEF COMPLAINT/INDICATIONFOR SURGICAL PROCEDURE: uterine fibroids PREOP DIAGNOSIS: uterine fibroids PLANNED PROCEDURE: Operation Date: 12/07/24 07:00 Proposed Procedures p Total Abdominal Hysterectomy 18374, D25.9(Not Applicable) - Yvan Pastrana MD Medications/Allergies* Home Medications ?Medication ?Instructions ?Recorded ?Confirmed ?Type acetaminophen 500 mg tablet 1,000 mg PO Q6H PRN Pain 03/15/20 12/06/24 History (Tylenol Extra Strength) infliximab-axxq 100 mg intravenous See Rx Instructions .Route .COMPLEX 12/25/22 12/06/24 History solution (Avsola) brimonidine 0.2 %-timolol 0.5 % 1 drp ophthalmic (eye) BID 05/24/23 12/06/24 History eye drops bupropion HCl 300 mg 24 hr tablet, 300 mg PO DAILY 08/19/24 12/06/24 History extended release carvedilol 25 mg tablet 25 mg PO BID 08/19/24 12/06/24 History latanoprost 0.005 % eye drops 1 drp ophthalmic (eye) QPM 08/19/24 12/06/24 History Allergies/Adverse Reactions Allergy/AdvReac Type Severity Reaction Status Date / Time aspirin Allergy HIVES-SOB Verified 11/24/24 09:50 Pertinent History/Comorbid Conditions* Medical History (Updated 11/13/24 @ 00:00 by CHANDA Elizondo) Depression HTN (hypertension) Abscess, gluteal, left Type 2 diabetes mellitus Uveitis Immunocompromised COVID-19 Morbid obesity Immunization counseling High risk medication use Rheumatoid arthritis with rheumatoid factor 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 systems involvement Surgical History (Updated 03/15/20 @ 17:34 by Jane Watt MD) H/O myomectomy 11/09/2017 History of endometrial ablation Hx of cataract surgery bilateral 01/24 H/O dilation and curettage -x 2 Family History (Updated 08/26/24 @ 08:52 by Tiffani Esparza CMA) Rheumatoid arthritis Diabetes Mother Sister Grandmother Heart disease Mother Father Hypertension Mother Sister Father Brother Thyroid disease Mother Denies family history of Colon cancer Ovarian cancer Hyperlipidemia Breast cancer Uterine cancer Stroke Social History Smoking and tobacco/nicotine status: never used tobacco/nicotine Alcohol intake: never Substance/Drug Use: never Marital status: Current occupational status: employed Pertinent Exam Findings alert, oriented x 3, clear to auscultation bilaterally and regular rate & rhythm Recommendations Surgery/Procedure today Coding Level of Care Code Acute Code for Chg Fwd
--- NOTE | 2024-12-07 06:10 | P.ANESASSM_ITS ---
Pre-Anesthetic Assessment Height/Weight: Height 5 ft 6 in Weight 200 lb Temp Pulse Resp BP Pulse Ox O2 Del Method 98.2 F 84 17 158/107 98 Room Air 12/07/24 06:03 12/07/24 06:03 12/07/24 06:03 12/07/24 06:03 12/07/24 06:03 12/07/24 06:03 Preop Diagnosis: uterine fibroids Operation Date: 12/07/24 07:00 Proposed Procedures p Total Abdominal Hysterectomy 18610, D25.9(Not Applicable) - Yvan Pastrana MD Was Beta Shayla taken within 24 hours: Yes Was Clonidine taken within 24 hours: N/A Last intake: Intake Last Liquid Date 12/06/24 Last Liquid Time 21:00 Last Solid Date 12/06/24 Last Solid Time 18:00 Social No alcohol and No tobacco Exam alert, oriented x 3, clear to auscultation bilaterally and regular rate & rhythm Airway Submandibular: Other (large neck circumference) Cervical ROM: within normal limits Mallampati: Class IV Dentition: full Comments: Comments: Large neck circumference, questionable thyromental distance. Smaller mouth opening. Mallampati 4 Anesthetic Plan ASA status: 3 Anesthesia: General Other: No prior issues with anesthesia NPO since yesterday evening History of hypertension on carvedilol, losartan and diltiazem Rheumatoid arthritis, denies any neck issues Type 2 diabetes, will check preop BS Labs reviewed from 11/24/2024 and acceptable for procedure today. NA 135, K+ 3.9. EKG sinus rhythm with nonspecific T wave abnormality Plan for GETA Medications/Allergies Home Medications ?Medication ?Instructions ?Recorded ?Confirmed ?Last Taken ?Type acetaminophen 500 mg tablet 1,000 mg PO Q6H PRN Pain 1 05/16/19 12/06/24 08/20/24 History (Tylenol Extra Strength) infliximab-axxq 100 mg intravenous See Rx Instructions .Route .COMPLEX 12/25/22 12/06/24 11/06/24 History solution (Avsola) brimonidine 0.2 %-timolol 0.5 % 1 drp ophthalmic (eye) BID 05/24/23 12/06/24 12/06/24 History eye drops glimepiride 2 mg tablet 2 mg PO BID #60 tabs 06/08/ 5 12/06/24 11/29/24 Rx escitalopram oxalate 10 mg tablet 10 mg PO QAM #30 tab s 07/20/24 12/06/24 12/06/24 Rx bupropion HCl 300 mg 24 hr tablet, 300 mg PO DAILY 12/0612/06/24 12/06/24 History extended release carvedilol 25 mg tablet 25 mg PO BID 08/19/2412/07/24 04:30 History latanoprost 0.005 % eye drops 1 drp ophthalmic (eye) Q PM 08/19/24 12/06/24 12/06/24 History ondansetron 4 mg disintegrating 4 mg PO Q8H PRN nausea and 08/20/24 12/07/24 Unknown Rx tablet vomiting #14 tabs leflunomide 10 mg tablet 10 mg PO DAILY #90 tabs 10/1212/07/24 12/04/24 Rx hydrocodone 5 mg-acetaminophen 325 1 tab PO Q6H PRN pa in #12 tabs 11/01/24 12/06/24 Unknown Rx mg tablet diltiazem HCl 120 mg 120 mg PO DAILY #30 caps 12/07/24 12/07/24 04:30 Rx capsule,extended release 24 hr (Cardizem CD) losartan 50 mg tablet 50 mg PO DAILY #30 tabs 10/1312/06/24 12/06/24 Rx buspirone 30 mg tablet 30 mg PO BID #60 tabs 12/06/24 12/06/24 Rx metformin 500 mg tablet,extended 500 mg PO BID 5 12/07/24 11/30/24 History release 24 hr Allergies Allergy/AdvReac Type Severity Reaction Status Date / Time aspirin Allergy HIVES-SOB Verified 12/07/24 05:58 [facility] Anesthesia Medical History Depression HTN (hypertension) Abscess, gluteal, left Type 2 diabetes mellitus Uveitis Immunocompromised COVID-19 Morbid obesity Immunization counseling High risk medication use Rheumatoid arthritis with rheumatoid factor 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 systems involvement Surgical History H/O myomectomy 11/09/2017 History of endometrial ablation Hx of cataract surgery bilateral 01/24 H/O dilation and curettage -x 2 Family History Mother Diabetes Heart disease Hypertension Thyroid disease Sister Diabetes Hypertension Grandmother Diabetes Father Heart disease Hypertension Brother Hypertension Other Rheumatoid arthritis Denies family history of Colon cancer Ovarian cancer Hyperlipidemia Breast cancer Uterine cancer Stroke Social History Smoking and tobacco/nicotine status: never used tobacco/nicotine Alcohol intake: never Substance/Drug Use: never Marital status: Current occupational status: employed Data Anesthesia Cardiac Studies: Echocardiogram Ultrasound 03/21/20
--- NOTE | 2024-12-07 06:52 | W.PM.OPSUD ---
Surgery/Procedure H&P Update DATE OF PROCEDURE: December 07, 2024 DATE H&P PERFORMED: 11/24/24 H&P UPDATE INFORMATION: I have reviewed H&P completed within last 30 days, I have examined patient prior to procedure and No changes to prior documentation PREOP DIAGNOSIS: uterine fibroids PLANNED PROCEDURE: Operation Date: 12/07/24 07:00 Proposed Procedures p Total Abdominal Hysterectomy 82499, D25.9(Not Applicable) - Yvan Pastrana MD
[2024-12-07] MEDS: ceFAZolin 2,000 mg SDV 2000 MG IVP (06:53)
[2024-12-07 06:54] LABS: OR HCG Qualitative Urine Negative (Negative)
[2024-12-07] MEDS: metroNIDAZOLE IV 500 MG/100 ML PREMIX 100 MG IV (06:54)
[2024-12-07] MEDS: BUPivacaine liposome 13.3 mg/mL SDV 20 mL 266 MG XX (07:58)
[2024-12-07] MEDS: BUPivacaine 0.5% INJ 30 mL XX (07:58)
[2024-12-07 09:11] LABS: Hematocrit 32.2 % (36-47); Hemoglobin 10.30 g/dL (11.27-16.99); Mean Corpuscular HGB Conc 32.0 g/dL (30-55); Mean Corpuscular Hemoglobin 28.2 pg (27-33); Mean Corpuscular Volume 88.2 fl (85-98); Nucleated Red Blood Cells % 0 %; Platelet Count 309 10^3/cmm (157-399); Red Blood Count 3.65 10^6/uL (3.85-5.65); White Blood Count 14.87 10^3/uL (3.29-11.43)
[2024-12-07] MEDS: fentaNYL 50 mcg/mL INJ 2mL IVP (10:28)
--- NOTE | 2024-12-07 10:32 | PM.OP2 ---
Brief Operative Note Date of procedure: 12/07/24 Pre-op diagnosis: menometrorrhagia Post-op diagnosis: same Procedure Done: total abdominal hysterectomy, bilateral oophorectomy, left salpingectomy Surgeon: Yvan Pastrana Complications: none Post-op Plan: floor Condition: stable Disposition: PACU
[2024-12-07] MEDS: acetaminophen 1,000 MG/100 ML PIGGYBACK 400 MG IV (11:37)
[2024-12-07] MEDS: ondansetron 2 mg/ML SDV 2 mL 4 MG IVP (11:49)
--- NOTE | 2024-12-07 13:52 | PC.NURSE ---
Pt returned to outpatient area for extended care at 1100 with a diet of NPO with sips and chips pt was requesting something to eat at 1300 pt was informed that the DR would have to advance his order. This nurse spoke with Dr at 1350 and he advanced her to a liquid diet
--- NOTE | 2024-12-07 14:18 | PC.NURSE ---
This nurse took report from TATIANA Vang in PACU at 1418.
--- NOTE | 2024-12-07 14:21 | ANE.PACU2 ---
Inpatient post-anesthesia follow up: Airway intact: Yes Vital signs: Temperature 97 F Pulse Rate 92 Respiratory Rate 18 Blood Pressure 119/71 Pulse Oximetry 96 Oxygen Delivery Me thod Room Air Oxygen Flow Rate 2 Fraction of Inspir ed Oxygen Hydration adequate: Yes Nausea and vomiting: No Pain level: 1 Mental status: Baseline
--- NOTE | 2024-12-07 14:26 | PC.NURSE ---
This nurse assumed care of pt at this time.
--- NOTE | 2024-12-07 15:10 | PM.OP ---
Operative Report Date of procedure: December 07, 2024 Pre-op diagnosis: chronic pelvic pain uterine fibroids Post-op diagnosis: uterine fibroids diffuse pelvic adhesions endometriosis right ovarian endometrioma Post-op findings: Irregular uterus with multiple fibroids Extensive pelvic adhesions Right ovary enlarged and irregular with endometrioma Right fallopian tube encased with right ovary Left ovary contracted Left fallopian encased in adhesions Normal and intact bladder Procedure done: Total abdominal hysterectomy Right salpingo-oophorectomy Left oophorectomy Implants: none Specimens removed/disposition: uterus right ovary and tube left ovary Surgeon: Yvan Pastrana MD Anesthesia: General Estimated blood loss (mL): 1,200 Complications: none Findings: see above Condition: stable Disposition: PACU Brief History: 44 y.o. with uterine fibroids and chronic pelvic pain Procedure: The patient was taken to the operating room and placed supine on the table. General endotracheal anesthesia was induced. The abdomen was prepped and draped in the usual sterile fashion. A kang catheter was placed which drained clear urine. A pfannenstiel incision was made over an old scar and carried down through skin and subcutaneous tissue and fascia. The fascia was sharply incised. The rectus muscles were and the abdomen was entered bluntly in the midline. There was extensive adhesions involving bowel, uterus, and ovaries. These were carefully lysed, freeing the uterus and ovaries from the bowel. The bowels were packed out of the way. The uterus was noted to be enlarged, irregular with multiple fibroids extending to the cervix. The Ligasure device was used throughout for vessel sealing and cutting. The hysterectomy was begun by dividing and ligating the round ligaments bilaterally. The vesicouterine peritoneal fold was incised in a transverse curvilinear fashion and sharply dissected downward mobilizing the bladder off the lower uterine segment. The uterine vessels were skeletonized and bilaterally divided and ligated. The procedure was carried down on both sides of the uterus until the cardinal uterosacral ligament was reached. The cervix was noted to be markedly enlarged with fibroid formation. The vaginal cuff was identified and the mucosa was from the cervix. In this fashion, the uterus was removed leaving the vaginal cuff. The vaginal cuff was identified and the mucosa was sewn with O-Vicryl. Bleeding from the cuff was controlled. The right ovary was noted to be multicystic and enlarged, involved with the right fallopian tube, and encased in adhesions. The adhesions were lysed. The right ovary and tube were then removed by ligating the ovarian pedicle. The left ovary was noted to be contracted. It was removed by ligating the left ovarian pedicle. The left fallopian tube was noted to be encased in adhesions and it was decided not to proceed with its removal. The pelvis was inspected and irrigated. There was no bleeding. The abdominal packs were removed as was the retractor. The fascia was then closed with a continuous stitch of O-Vicryl. The subcutaneous tissue was irrigated and inspected for hemostasis. Exparel 120 cc was given subcutaneously for postoperative pain relief. The skin was then reapproximated using skin aquiles. The patient was then placed supine, extubated, and taken to the recovery room. Postoperative condition: stable EBL: 1200 cc Complications: none Sponge, needle, instruments counts were correct x two.
[2024-12-08] VITALS: BP 148/80; PULSE 92; RESP 16; TEMP 36.8; O2SAT 93
[2024-12-08 03:45] VITALS: BP 167/102
[2024-12-08 04:00] VITALS: BP 167/102; PULSE 109; RESP 16; TEMP 36.9; O2SAT 96
[2024-12-08 05:13] LABS: Hematocrit 26.8 % (36-47); Hemoglobin 8.60 g/dL (11.27-16.99); Mean Corpuscular HGB Conc 32.1 g/dL (30-55); Mean Corpuscular Hemoglobin 28.2 pg (27-33); Mean Corpuscular Volume 87.9 fl (85-98); Platelet Count 256 10^3/cmm (157-399); Red Blood Count 3.05 10^6/uL (3.85-5.65); White Blood Count 14.17 10^3/uL (3.29-11.43)
[2024-12-08] MEDS: HYDROcodone-acetaminophen 5-325 mg Tablet PO (07:47)
[2024-12-08 07:53] VITALS: BP 136/78; PULSE 79; RESP 16; TEMP 36.6; O2SAT 95
--- OUTSIDE RECORDS SUMMARY | 2024-12-08 08:33 | XMS_ITS | Encounter Summary ---
Author Organization [facility] Address [address] [place] [address] Care Team Providers Care Supervisor Stitching Department Name Role Phone Unavailable Primary Care Provider Unavailabl e Encounter Details Date Type Department Care Team (Late st Contact Info) Description 09/23/2002 Outpatient Historical [facility] Rheumatology- [place] [address] [place] [address] Rodolfo Brock, [address] [facility] [address] [place] [address] JOINT PAIN-L/LEG (Primary Dx); JOINT EFFUSION-L/LEG; SYNOVITIS NOS Social History Tobacco Use Types Packs/Day Years Used Date Smoking Tobacco: Never Assessed Comments Unknown Sex and Gender Information Value Date Recorded Sex Assigned at Not on file 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
--- OUTSIDE RECORDS SUMMARY | 2024-12-08 08:33 | XMS_ITS | Encounter Summary ---
Author Organization [facility] Address [address] [place] [address] Care Team Providers Care Cellar Hand Name Role Phone Unavailable Primary Care Provider Unavailabl e Encounter Details Date Type Department Care Team (Late st Contact Info) Description 12/08/2003 Outpatient Historical [facility] Rheumatology- Roberson Von [place] [address] [place] [address] Rodolfo Brock, [address] [facility] [address] [place] [address] INFLAMM POLYARTHROP NOS (CMS/HCC) (Primary Dx) Social History Tobacco Use Types Packs/Day Years Used Date Smoking Tobacco: Never Assessed Comments Unknown Sex and Gender Information Value Date Recorded Sex Assigned at Not on file 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
--- OUTSIDE RECORDS SUMMARY | 2024-12-08 08:33 | XMS_ITS | Encounter Summary ---
Author Organization [facility] Address [address] [place] [address] Care Team Providers Care Access Rep Name Role Phone Unavailable Primary Care Provider Unavailabl e Encounter Details Date Type Department Care Team (Late st Contact Info) Description 09/23/2002 Outpatient Historical [facility] Imaging Services-[place] [address] [place] [address] Rodolfo Brock, [address] [facility] [address] [place] [address] RHEUMATOID ARTHRITIS (CMS/FORMERLY [facility]) (Primary Dx) Social History Tobacco Use Types Packs/Day Years Used Date Smoking Tobacco: Never Assessed Comments Unknown Sex and Gender Information Value Date Recorded Sex Assigned at Not on file 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
--- OUTSIDE RECORDS SUMMARY | 2024-12-08 08:33 | XMS_ITS | Encounter Summary ---
Author Organization [facility] Address [address] [place] [address] Care Team Providers Care Janitorial Assistant Name Role Phone Unavailable Primary Care Provider Unavailabl e Encounter Details Date Type Department Care Team (Late st Contact Info) Description 10/07/2002 Outpatient Historical [facility] Rheumatology- Roberson Von [place] [address] [place] [address] Rodolfo Brock, [address] [facility] [address] [place] [address] INFLAMM POLYARTHROP NOS (CMS/HCC) (Primary Dx); SYNOVITIS NOS Social History Tobacco Use Types Packs/Day Years Used Date Smoking Tobacco: Never Assessed Comments Unknown Sex and Gender Information Value Date Recorded Sex Assigned at Not on file 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
--- OUTSIDE RECORDS SUMMARY | 2024-12-08 08:33 | XMS_ITS | Encounter Summary ---
Author Organization [facility] Address [address] [place] [address] Care Team Providers Care Ship Carpenter Name Role Phone Unavailable Primary Care Provider Unavailabl e Encounter Details Date Type Department Care Team (Late st Contact Info) Description 09/10/2019 Lab Requisition [facility] Laboratory Services [address] [place] [address] 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 REFERENCE VALUE Unvaccinated: Negative Vaccinated: Positive HEPATITIS B SURFACE AB 16.0 mIU/mL 09/14/2019 12:36 PM CDT [facility] Comment: REFERENCE VALUE Unvaccinated: <5.0 Vaccinated: >=12.0 Test Performed by: [place] [address] [employer] Integration Architect: Alberto Olsen M.D. Ph.D.; CLIA# [id number] Blood Collection / Unknown 09/10/2019 8:35 AM CDT 09/13/2019 12:19 PM CDT Graham Yuen DO CHEMISTRY ORDERABLES Final Result [facility] * EXTRA TUBE (SST/GOLD) (09/10/2019 8:35 AM CDT) Blood Collection / Unknown 09/10/2019 8:35 AM CDT 09/10/2019 2:26 PM CDT Graham Yuen DO CHEMISTRY ORDERABLES Final Result [facility] [employer] [facility] CLIA# [id number] [address] [place] [address] * (ABNORMAL) HEPATITIS B SURFACE AB, QUAL (09/10/2019 8:35 AM CDT) HEPATITIS B SURFACE AB, QUAL Reactive( A) Non-react dilip 09/10/2019 2:37 PM CDT [facility] Comment:Patient is considere d to be immune to infection with HBV. Blood Collection / Unknown 09/10/2019 8:35 AM CDT 09/10/2019 2:02 PM CDT Graham Yuen DO CHEMISTRY ORDERABLES Final Result Performing Organization Address [facility] de Phone Number [facility] CLIA# [id number] [address] [place] [address] * HEPATITIS C ANTIBODY W REFLEX (09/10/2019 8:35 AM CDT) Pathologist [facility] HEPATITIS C AB NON-REACTI VE Non-react dilip 09/10/2019 2:33 PM CDT [facility] Blood Collection / Unknown 09/10/2019 8:35 AM CDT 09/10/2019 2:02 PM CDT Graham Yuen DO CHEMISTRY ORDERABLES Final Result Performing Organization Address [facility] de Phone Number [facility] CLIA# [id number] [address] [place] [address] * HIV DETECTION W/REFLX CONFIRMATION (09/10/2019 8:35 AM CDT) Pathologist [facility] HIV-1 AND 2 ABS AND HIV-1 AG Non-reacti ve Non-React dilip 09/10/2019 2:52 PM CDT [facility] Blood Collection / Unknown 09/10/2019 8:35 AM CDT 09/10/2019 2:03 PM CDT Graham Yuen DO CHEMISTRY ORDERABLES Final Result Performing Organization Address City/[facility]/ZIP Co de Phone Number [facility] [employer] [facility] CLIA# [id number] [address] [place] [address] documented in this encounter Visit Diagnoses Not on filedocumented in this encounter
--- OUTSIDE RECORDS SUMMARY | 2024-12-08 08:33 | XMS_ITS | Clinical Summary ---
Author Organization [facility] Address [address] [place] [address] Care Team Providers Care Display Associate Name Role Phone Unavailable Primary Care [...] drink = 0.6 oz pur e alcohol) Feeling Safe Answer Date Recorded Are you in a relationship wi th someone who hurts you emotionally and/or physically? 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
--- OUTSIDE RECORDS SUMMARY | 2024-12-08 08:33 | XMS_ITS | Clinical Summary ---
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
--- OUTSIDE RECORDS SUMMARY | 2024-12-08 08:33 | XMS_ITS | Encounter Summary ---
Author Organization [facility] Address [address] [place] [address] Care Team Providers Care Grants And Contracts Assistant Name Role Phone Unavailable Primary Care Provider Unavailabl e Encounter Details Date Type Department Care Team (Late st Contact Info) Description 10/07/2002 Outpatient Historical [facility] Rheumatology- [facility] [place] [address] [place] [address] Rodolfo Brock, [address] [facility] [address] [place] [address] Social History Tobacco Use Types Packs/Day Years Used Date Smoking Tobacco: Never Assessed Comments Unknown Sex and Gender Information Value Date Recorded Sex Assigned at Not on file 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
--- OUTSIDE RECORDS SUMMARY | 2024-12-08 08:33 | XMS_ITS | Encounter Summary ---
Author Organization [facility] Address [address] [place] [address] Care Team Providers Care Oil Analyst Name Role Phone Unavailable Primary Care Provider Unavailabl e Encounter Details Date Type Department Care Team (Late st Contact Info) Description 04/04/2003 Outpatient Historical [facility] Rheumatology- Roberson Von [place] [address] [place] [address] Rodolfo Brock, [address] [facility] [address] [place] [address] INFLAMM POLYARTHROP NOS (CMS/HCC) (Primary Dx); SYNOVITIS NOS Social History Tobacco Use Types Packs/Day Years Used Date Smoking Tobacco: Never Assessed Comments Unknown Sex and Gender Information Value Date Recorded Sex Assigned at Not on file 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
--- OUTSIDE RECORDS SUMMARY | 2024-12-08 08:33 | XMS_ITS | Encounter Summary ---
Author Organization [facility] Address [address] [place] [address] Care Team Providers Care Supervisory Historian Name Role Phone Unavailable Primary Care Provider Unavailabl e Encounter Details Date Type Department Care Team (Late st Contact Info) Description 07/04/2003 Outpatient Historical [facility] Rheumatology- Roberson Von [place] [address] [place] [address] Rodolfo Brock, [address] [facility] [address] [place] [address] INFLAMM POLYARTHROP NOS (CMS/HCC) (Primary Dx); AFTERCARE MANAGER POST USE MEDICATN Social History Tobacco Use Types Packs/Day Years Used Date Smoking Tobacco: Never Assessed Comments Unknown Sex and Gender Information Value Date Recorded Sex Assigned at Not on file 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
--- OUTSIDE RECORDS SUMMARY | 2024-12-08 08:33 | XMS_ITS | Encounter Summary ---
Author Organization [facility] Address [address] [place] [address] Care Team Providers Care Cell Biologist Name Role Phone Unavailable Primary Care Provider Unavailabl e Encounter Details Date Type Department Care Team (Late st Contact Info) Description 09/23/2002 Outpatient Historical [facility] Imaging Services-[place] Long[place] [address] [place] [address] Rodolfo Brock, [address] [facility] [address] [place] [address] RHEUMATOID ARTHRITIS (CMS/FORMER[facility]) (Primary Dx) Social History Tobacco Use Types Packs/Day Years Used Date Smoking Tobacco: Never Assessed Comments Unknown Sex and Gender Information Value Date Recorded Sex Assigned at Not on file Legal 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
--- OUTSIDE RECORDS SUMMARY | 2024-12-08 08:33 | XMS_ITS | Encounter Summary ---
Author Organization [facility] Address [address] [place] [address] Care Team Providers Care Programmable Logic Controller Assembler Name Role Phone Unavailable Primary Care Provider Unavailabl e Encounter Details Date Type Department Care Team (Late st Contact Info) Description 12/09/2002 Outpatient Historical [facility] Rheumatology- Roberson Von [place]on [address] [place] [address] Rodolfo Brock, [address] [facility] [address] [place] [address] INFLAMM POLYARTHROP NOS (CMS/HCC) (Primary Dx) Social History Tobacco Use Types Packs/Day Years Used Date Smoking Tobacco: Never Assessed Comments Unknown Sex and Gender Information Value Date Recorded Sex Assigned at Not on file 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
[2024-12-08 11:40] VITALS: BP 143/83; PULSE 77; RESP 15; TEMP 36.8; O2SAT 94
[2024-12-08 12:25] VITALS: BP 144/83; PULSE 77; O2SAT 94
--- NOTE | 2024-12-08 14:05 | P.PN_ITS ---
GEM STONE CUTTER Subjective 2 Subjective: Interval history: c/o mild abdominal pain, relieved with pain medications eating, voiding, ambulating well no bleeding / discharge no dizziness, weakness, palpitations, shortness of breath Vitals/I&O/Wt Last Vital Signs Temp 98.3 F 12/08/24 11:40 Pulse 77 12/08/24 12:25 Resp 15 12/08/24 11:40 BP 144/83 12/08/24 12:25 Pulse Ox 94 12/08/24 12:25 O2 Del Method Room Air 12/08/24 04:00 O2 Flow Rate 2 12/07/24 13:00 Physical Exam 2 Narrative: Comfortable, in no distress Awake, alert Afebrile, VS normal Lungs: clear Cor: RRR Abd: soft, nondistended, nontender Wound clean and dry Ext: normal Postop Hgb 8.6 Urinary Catheter Management: Bales: Cath Placed During This Visit: yes Reason for Continuing Indwelling Catheter: Perioperative Use in Selected Surgeries Urinary Catheter Date of Insertion: 12/07/24 Urinary Catheter Time of Insertion: 07:15 Data 12/08/24 04:59 A&P Assessment and plan 1. S/P hysterectomy: s/p JOEY, left salpingo-oophorectomy, right oophorectomy POD #1 Doing well Plan discharge to home Call / return if fever, chills, abdominal pain, bleeding f/u in one week 2. Anemia: encouraged iron 1-2 tabs / day eat iron- and protein-rich foods call or go to ER if dizziness, weakness, chest pain, palpitations, shortness of breath PDMP PDMP Reviewed: Last Reviewed 12/08/24 12:30 EDT by Yvan Pastrana MD Attestations 2 Medical Necessity Statement*: patient s/p hysterectomy, plan to discharge to home today Coding Level of Care Code Acute Code for Chg Fwd Diagnoses S/P hysterectomy Z90.710 Anemia D64.9
--- NOTE | 2024-12-08 15:10 | PM.OBGYDC ---
Discharge Providers MARKETING TECHNOLOGY SPECIALIST Date of Admission: 12/07/24 14:16 Date of Discharge: 12/08/24 Attending Provider at Admission: Yvan Pastrana MD Attending Provider at Discharge: Yvan Pastrana MD Consults: none Primary MARKETING TECHNOLOGY SPECIALIST: Yvan Pastrana MD Primary Care Provider: Malcom Villanueva MD Diagnoses at Discharge Discharge Diagnosis 1. S/P hysterectomy: Details from hospital stay: 43 y.o. h/o BTL h/o endometrial ablation has continued to have painful and heavy periods admitted for hysterectomy Total abdominal hysterectomy, right salpingo-oophorectomy, and left oophorectomy was performed without any complications patient did well postoperatively Postoperative Hgb was 8.6 She was discharged to home on the first postoperative day 2. Anemia: Reason for Visit Reason for Visit: D25.9 Brief History: 43 y.o. h/o BTL h/o endometrial ablation has continued to have painful and heavy periods admitted for hysterectomy Hospital Course Hospital Course 43 y.o. h/o BTL h/o endometrial ablation has continued to have painful and heavy periods admitted for hysterectomy Total abdominal hysterectomy, right salpingo-oophorectomy, and left oophorectomy was performed without any complications patient did well postoperatively Postoperative Hgb was 8.6 She was discharged to home on the first postoperative day Physical Exam Narrative: Comfortable, in no distress Awake, alert Afebrile, VS normal Lungs: clear Cor: RRR Abd: soft, nondistended, nontender Wound clean and dry Ext: normal Postop Hgb 8.6 Urinary Catheter Management: Bales: Cath Placed During This Visit: yes Reason for Continuing Indwelling Catheter: Perioperative Use in Selected Surgeries Urinary Catheter Date of Insertion: 12/07/24 Urinary Catheter Time of Insertion: 07:15 Discharge Data Studies Completed and Pending Pending at discharge Category Date Time Status Pathology: Surgical [PTH] Routine Pth 12/07/24 10:05 Received Laboratory Results WBC 14.17 10^3/uL (3.29-11.43) H 12/08/24 04:59 RBC 3.05 10^6/uL (3.85-5.65) L 12/08/24 04:59 Hgb 8.60 g/dL (11.27-16.99) L 12/08/24 04:59 Hct 26.8 % (36-47) L 12/08/24 04:59 MCV 87.9 fl (85-98) 12/08/24 04:59 MCH 28.2 pg (27-33) 12/08/24 04:59 MCHC 32.1 g/dL (30-55) 12/08/24 04:59 RDW 13.8 % (12.1-15.1) 12/08/24 04:59 Plt Count 256 10^3/cmm (157-399) 12/08/24 04:59 MPV 9.7 fL (7.4-10.4) 12/08/24 04:59 Neut % (Auto) 72.8 % 12/07/24 08:58 Lymph % (Auto) 22.9 % 12/07/24 08:58 Mifflin % (Auto) 2.5 % 12/07/24 08:58 Eos % (Auto) 1.1 % 12/07/24 08:58 Baso % (Auto) 0.4 % 12/07/24 08:58 Neut # (Auto) 10.82 10^3/uL (1.8-7.7) H 12/07/24 08:58 Lymph # (Auto) 3.4 10^3/uL (0.8-4.8) 12/07/24 08:58 Mifflin # (Auto) 0.4 10^3/uL (0.2-0.9) 12/07/24 08:58 Eos # (Auto) 0.2 10^3/uL (0.0-0.8) 12/07/24 08:58 Baso # (Auto) 0.1 10^3/uL (0.0-0.1) 12/07/24 08:58 Nucleated RBC % (auto) 0 % 12/07/24 08:58 Nucleated RBCs # 0.0 /100WBC 12/07/24 08:58 POC Glucose 261 mg/dL (70-110) H 12/07/24 13:21 Urine HCG, Qual Negative (Negative) 12/07/24 06:51 Blood Type A Positive 12/07/24 08:49 Rho(D) Type Rh positive 12/07/24 08:49 Antibody Screen Negative 12/07/24 08:49 Crossmatch See Detail 12/07/24 08:49 Procedures Performed Total abdominal hysterectomy Right salpingo-oophorectomy Left oophorectomy Vitals Last Vital Signs Temp 98.3 F 12/08/24 11:40 Pulse 77 12/08/24 12:25 Resp 15 12/08/24 11:40 BP 144/83 12/08/24 12:25 Pulse Ox 94 12/08/24 12:25 O2 Del Method Room Air 12/08/24 04:00 O2 Flow Rate 2 12/07/24 13:00 Results Labs OB ([facility]): Blood Type A Positive 12/07/24 Antibody Screen Negative 12/07/24 Hct, (36-47) 26.8 % L 12/08/24 Hgb, (11.27-16.99) 8.60 g/dL L 12/08/24 Rho(D) Type Rh positive 12/07/24 Plt Count, (157-399) 256 10^3/cmm 12/08/24 Hemoglobin A1c, (4.0-6.0) 8.6 % H 05/31/24 HCG, Qual, (Negative) Negative 08/20/24 Micro Urine Specimen 07/08/24 Discharge Plan Discharge Patient Disposition: Home Condition: Stable Prescriptions: New oxycodone-acetaminophen [Percocet] 5-325 mg tablet 1 tab PO Q6H PRN (Reason: pain) Qty: 30 0RF Continued leflunomide 10 mg tablet 10 mg PO DAILY Qty: 90 1RF losartan 50 mg tablet 50 mg PO DAILY Qty: 30 11RF diltiazem HCl [Cardizem CD] 120 mg capsule,extended release 24hr 120 mg PO DAILY Qty: 30 11RF Avsola 100 mg recon soln See Rx Instructions .ROUTE .COMPLEX Rx Instructions: 6weeks 100 mg intravenously escitalopram oxalate 10 mg tablet 10 mg PO QAM Qty: 30 11RF buspirone 30 mg tablet 30 mg PO BID Qty: 60 11RF glimepiride 2 mg tablet 2 mg PO BID Qty: 60 11RF acetaminophen [Tylenol Extra Strength] 500 mg Tablet 1,000 mg PO Q6H PRN (Reason: Pain) carvedilol 25 mg tablet 25 mg PO BID Rx Instructions: TAKE 1 TABLET BY MOUTH TWICE DAILY FOR HIGH BLOOD PRESSURE bupropion HCl 300 mg tablet extended release 24 hr 300 mg PO DAILY Rx Instructions: Take 1 tablet by mouth once daily latanoprost 0.005 % drops 1 drp ophthalmic (eye) QPM metformin 500 mg tablet extended release 24 hr 500 mg PO BID Rx Instructions: Take 1 tablet by mouth twice daily hydrocodone-acetaminophen 5-325 mg tablet 1 tab PO Q6H PRN (Reason: pain) Qty: 12 0RF brimonidine-timolol 0.2-0.5 % drops 1 drp ophthalmic (eye) BID Rx Instructions: to both eyes ondansetron 4 mg tablet,disintegrating 4 mg PO Q8H PRN (Reason: nausea and vomiting) Qty: 14 0RF Discharge Order = DC NOW: Discharge Order (Routine); Ordered 12/08/24 Ordered By: Yvan Pastrana Referrals: Yvan Pastrana MD [Physician, MARKETING TECHNOLOGY SPECIALIST] - 12/15/24 4:00 pm Discharge Diet: Usual diet Discharge Activity: Increase activity as tolerated Patient Instructions: Oxycodone/Acetaminophen (By mouth), Acute Wound Care (DC), Hysterectomy (GEN), Opioid Safety, Post Anesthesia Care, Patient Portal & Abel Instructions Discharge Attestations MARKETING TECHNOLOGY SPECIALIST Time Spent in Discharge Care*: less than 30 min Status at Discharge: Cognitive status at discharge: cognitively intact, Behavioral status at discharge: cooperative, Coding Level of Care Code Acute Code for Chg Fwd Diagnoses S/P hysterectomy Z90.710 Anemia D64.9
== END 2024-12-08 12:26 | disposition home or self-care (01) | DRG 742 ==
LOC: MEDSURG 19:00
PROVIDERS: Student in an Organized Health Care Education/Training Program; Admitting Provider Obstetrics & Gynecology; PCP Family Medicine; Visit Provider Obstetrics & Gynecology
PROC: 0UT90ZZ Resection of Uterus, Open Approach (ICD-10-PCS; CPT 58150; principal; 2024-12-07 07:00)
PROC: 0UT90ZZ Resection of Uterus, Open Approach (ICD-10-PCS; CPT 58720; 2024-12-07 07:00)
DX: D25.9 Leiomyoma of uterus, unspecified (principal); D84.9 Immunodeficiency, unspecified; N92.1 Excessive and frequent menstruation with irregular cycle; D64.9 Anemia, unspecified; M06.9 Rheumatoid arthritis, unspecified; E11.9 Type 2 diabetes mellitus without complications; I10 Essential (primary) hypertension; Z79.899 Other long term (current) drug therapy; Z88.4 Allergy status to anesthetic agent; Z86.16 Personal history of COVID-19
CPT/HCPCS: 36415; 36416; 51702; 81025; 82962; 85025; 85027; 86850; 86900; 86920; 88307; A4216; J0131; J0666; J0690; J1100; J1171; J1200; J1885; J2250; J2371; J2405; J2704; J3010; J3475; J3490; J7030; J7121; J9999; P9045

== ENCOUNTER 2024-12-30 13:01 | Outpatient (CLI) | payer BC, SELFPAY | END 2024-12-30 13:02 | disposition home or self-care (01) | PROVIDERS: PCP Family Medicine; Visit Provider Family Medicine | DX: D64.9 Anemia, unspecified (principal) | CPT/HCPCS: 80048; 85025 ==

== ENCOUNTER 2025-01-17 10:03 | Oncology outpatient (recurring) (ONCR) | payer BC, SELFPAY ==
[2025-01-17] MEDS: methylPREDNISolone sod succ 40 mg/mL INJ IVP (10:54)
[2025-01-17] MEDS: diphenhydrAMINE 50 mg/mL SDV 1mL 25 MG IVP (10:59)
[2025-01-17 11:01] VITALS: BP 108/72; PULSE 77; RESP 16; TEMP 36.2; O2SAT 99
[2025-01-17] MEDS: SODIUM CHLORIDE 0.9% IV (11:24)
[2025-01-17] MEDS: INFLIXIMAB AXXQ IV (11:24)
[2025-01-17 12:34] VITALS: BP 127/68; PULSE 75; RESP 16; TEMP 36.8; O2SAT 96
[2025-01-17 12:36] VITALS: BP 127/68; PULSE 75; RESP 16; TEMP 36.7; O2SAT 96
== END 2025-02-11 23:59 | disposition home or self-care (01) ==
PROVIDERS: PCP Family Medicine; Visit Provider Internal Medicine Rheumatology
DX: Z51.12 Encounter for antineoplastic immunotherapy (principal); H20.9 Unspecified iridocyclitis; Z79.899 Other long term (current) drug therapy
CPT/HCPCS: 96375; 96413; 96415; A4222; J1200; J2919; J7050; J9999; Q5121

== ENCOUNTER 2025-01-31 14:59 | Outpatient (CLI) | payer BC, SELFPAY ==
--- NOTE | 2025-01-31 15:00 | MM_ITS ---
WS: [id number] BILATERAL 3D TOMOSYNTHESIS DIGITAL SCREENING MAMMOGRAPHY WITH CAD CLINICAL INFORMATION: Z12.39 - Encounter for other screening for malignant neop... HISTORY: Screening mammogram. No current complaints. COMPARISON: 2022 TECHNIQUE: Bilateral CC and MLO views. FINDINGS: Scattered fibroglandular densities bilaterally. A few incidental punctate and lucent centered calcifications. Ovoid nodule LEFT axillary tail superficial location measuring 9 mm. Recommend further evaluation with ultrasound. This is new from previous. Unremarkable RIGHT breast. MM/MM scr tomosynthesis [id number] IMPRESSION: DENSITY: There are scattered areas of fibroglandular density. BI-RADS: 0 - Incomplete: Need additional imaging evaluation. FOLLOW UP: Need Additional Imaging Recommend LEFT axillary ultrasound
== END 2025-01-31 15:00 | disposition home or self-care (01) ==
LOC: RAD 15:00
PROVIDERS: PCP Family Medicine; Visit Provider Obstetrics & Gynecology
DX: Z12.31 Encounter for screening mammogram for malignant neoplasm of breast (principal); R92.323 Mammographic fibroglandular density, bilateral breasts; N63.32 Unspecified lump in axillary tail of the left breast
CPT/HCPCS: 77063; 77067

== ENCOUNTER 2025-03-01 07:54 | Oncology outpatient (recurring) (ONCR) | payer BC, SELFPAY ==
[2025-03-01 08:45] LABS: Hematocrit 34.1 % (36-47); Hemoglobin 10.30 g/dL (11.27-16.99); Mean Corpuscular HGB Conc 30.2 g/dL (30-55); Mean Corpuscular Hemoglobin 22.5 pg (27-33); Mean Corpuscular Volume 74.5 fl (85-98); Nucleated Red Blood Cells % 0 %; Platelet Count 327 10^3/cmm (157-399); Red Blood Count 4.58 10^6/uL (3.85-5.65); White Blood Count 10.05 10^3/uL (3.29-11.43)
[2025-03-01] MEDS: diphenhydrAMINE 50 mg/mL SDV 1mL 25 MG IVP (08:46)
[2025-03-01] MEDS: methylPREDNISolone sod succ 40 mg/mL INJ IVP (08:47)
[2025-03-01] MEDS: SODIUM CHLORIDE 0.9% IV (09:13)
[2025-03-01] MEDS: INFLIXIMAB AXXQ IV (09:13)
[2025-03-01 09:16] VITALS: BP 161/91; PULSE 77; RESP 18; TEMP 36.4; O2SAT 99
[2025-03-01 09:37] LABS: Slide Review Slide Review Perform
[2025-03-01 10:06] VITALS: BP 154/95; PULSE 77; RESP 16; TEMP 36.4; O2SAT 96
[2025-03-01 11:11] LABS: Alanine Aminotransferase 21 U/L (0-33); Albumin Level 3.6 g/dL (3.5-5.2); Alkaline Phosphatase 115 U/L (35-105); Aspartate Amino Transferase 21 U/L (0-32); Globulin 3.1 g/dL (1.3-4.6); Total Protein 6.7 g/dL (6.6-8.7)
== END 2025-03-13 23:59 | disposition home or self-care (01) ==
PROVIDERS: PCP Family Medicine; Visit Provider Internal Medicine Rheumatology
DX: Z53.9 Procedure and treatment not carried out, unspecified reason; H20.9 Unspecified iridocyclitis; Z79.899 Other long term (current) drug therapy; M05.79 Rheumatoid arthritis with rheumatoid factor 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 systems involvement
CPT/HCPCS: 80076; 82565; 85025; 86140; 96375; A4222; J1200; J2919; J7050; J9999; Q5121

== ENCOUNTER 2025-03-07 06:23 | Emergency (ER) | payer BC, SELFPAY ==
--- OUTSIDE RECORDS SUMMARY | 2025-03-07 06:27 | XMS_ITS | Encounter Summary ---
Author Organization [facility] Address [address] [place] [address] Care Team Providers Care Service Department Manager Name Role Phone Unavailable Primary Care Provider Unavailabl e Encounter Details Date Type Department Care Team (Late st Contact Info) Description 12/08/2003 Outpatient Historical [facility] Rheumatology- Roberson Von [place]nn [address] [place] [address] Rodolfo Brock, [address] [facility] [address] [place] [address] INFLAMM POLYARTHROP NOS (CMS/HCC) (Primary Dx) Social History Tobacco Use Types Packs/Day Years Used Date Smoking Tobacco: Never Assessed Comments Unknown Sex and Gender Information Value Date Recorded Sex Assigned at Not on file Legal Sex Female 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
--- OUTSIDE RECORDS SUMMARY | 2025-03-07 06:27 | XMS_ITS | Encounter Summary ---
Author Organization [facility] Address [address] [place] [address] Care Team Providers Care Health Diagnostics Teacher Name Role Phone Unavailable Primary Care Provider Unavailabl e Encounter Details Date Type Department Care Team (Late st Contact Info) Description 04/04/2003 Outpatient Historical [facility] Rheumatology- Roberson Von Glynn [address] [place] [address] Rodolfo Brock, DO [address] [facility] [address] [place] [address] INFLAMM POLYARTHROP NOS (CMS/HCC) (Primary Dx); SYNOVITIS NOS Social History Tobacco Use Types Packs/Day Years Used Date Smoking Tobacco: Never Assessed Comments Unknown Sex and Gender Information Value Date Recorded Sex Assigned at Not on file 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
--- OUTSIDE RECORDS SUMMARY | 2025-03-07 06:27 | XMS_ITS | Encounter Summary ---
Author Organization [facility] Address [address] [place] [address] Care Team Providers Care Halver Machine Operator Name Role Phone Unavailable Primary Care Provider Unavailabl e Encounter Details Date Type Department Care Team (Late st Contact Info) Description 10/07/2002 Outpatient Historical [facility] Rheumatology- Roberson Von Glynn [address] [place] [address] Rodolfo Brock, DO [address] [facility] [address] [place] [address] INFLAMM POLYARTHROP NOS (CMS/HCC) (Primary Dx); SYNOVITIS NOS Social History Tobacco Use Types Packs/Day Years Used Date Smoking Tobacco: Never Assessed Comments Unknown Sex and Gender Information Value Date Recorded Sex Assigned at Not on file Legal 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
--- OUTSIDE RECORDS SUMMARY | 2025-03-07 06:27 | XMS_ITS | Encounter Summary ---
Author Organization [facility] Address [address] [place] [address] Care Team Providers Care Insurance Underwriter Sales Name Role Phone Unavailable Primary Care Provider Unavailabl e Encounter Details Date Type Department Care Team (Late st Contact Info) Description 09/23/2002 Outpatient Historical [facility] Rheumatology- Roberson Von Glynn [address] [place] [address] Rodolfo Brock, [address] [facility] [address] [place] [address] JOINT PAIN-L/LEG (Primary Dx); JOINT EFFUSION-L/LEG; SYNOVITIS NOS Social History Tobacco Use Types Packs/Day Years Used Date Smoking Tobacco: Never Assessed Comments Unknown Sex and Gender Information Value Date Recorded Sex Assigned at Not on file Legal Sex Female 2:52 AM EDGER HAND Gender Identity Not on file Sexual Orientation Not on file documented as of this encounter Plan of Treatment Not on file documented as of this encounter Visit Diagnoses Diagnosis Pain in joint, lower leg- Primary Effusion of lower leg joint Synovitis and tenosynovitis, unspecified documented in this encounter
--- OUTSIDE RECORDS SUMMARY | 2025-03-07 06:27 | XMS_ITS | Encounter Summary ---
Author Organization [facility] Address [address] [place] [address] Care Team Providers Care Car Porter Name Role Phone Unavailable Primary Care Provider Unavailabl e Encounter Details Date Type Department Care Team (Late st Contact Info) Description 09/23/[address] [facility] Imaging Services-Da Longoria Glynn [address] [place] [address] Rodolfo Brock, [address] 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
--- OUTSIDE RECORDS SUMMARY | 2025-03-07 06:27 | XMS_ITS | Encounter Summary ---
Author Organization [facility] Address [address] [place] [address] Care Team Providers Care Tip Bander Name Role Phone Unavailable Primary Care Provider Unavailabl e Encounter Details Date Type Department Care Team (Late st Contact Info) Description 09/23/2002 Outpatient Historical [facility] Imaging Services-Da Longoria Glynn [address] [place] [address] Rodolfo Brock, [address] [facility] [address] [place] [address] RHEUMATOID ARTHRITIS (CMS/[facility]) (Primary Dx) Social History Tobacco Use Types Packs/Day Years Used Date Smoking Tobacco: Never Assessed Comments Unknown Sex and Gender Information Value Date Recorded Sex Assigned at Not on file Legal Sex Female 2:52 AM INSPECTOR POISING Gender Identity Not on file Sexual Orientation Not on file documented as of this encounter Plan of Treatment Not on file documented as of this encounter Visit Diagnoses Diagnosis Rheumatoid arthritis(714.0) (CMS/HCC)- Primary Rheumatoid arthritis documented in this encounter
--- OUTSIDE RECORDS SUMMARY | 2025-03-07 06:27 | XMS_ITS | Encounter Summary ---
Author Organization [facility] Address [address] [place] [address] Care Team Providers Care Silk Screen Operator Name Role Phone Unavailable Primary Care Provider Unavailabl e Encounter Details Date Type Department Care Team (Late st Contact Info) Description 12/09/2002 Outpatient Historical [facility] Rheumatology- Roberson Von Glynn [address] [place] [address] Rodolfo Brock, [address] [facility] [address] [place] [address] INFLAMM POLYARTHROP NOS (CMS/HCC) (Primary Dx) Social History Tobacco Use Types Packs/Day Years Used Date Smoking Tobacco: Never Assessed Comments Unknown Sex and Gender Information Value Date Recorded Sex Assigned at Not on file Legal Sex Female 2:52 AM WINE MASTER Gender Identity Not on file Sexual Orientation Not on file documented as of this encounter Plan of Treatment Not on file documented as of this encounter Visit Diagnoses Diagnosis Unspecified inflammatory polyarthropathy (CMS/HCC)- Primary Unspecified inflammatory polyarthropathy documented in this encounter
--- OUTSIDE RECORDS SUMMARY | 2025-03-07 06:27 | XMS_ITS | Clinical Summary ---
Author Organization [facility] Address [address] [place] [address] Care Team Providers Care Punch Out Crew Member Name Role Phone Unavailable Primary Care [...] on file Legal Sex Female 12:[address]GE Gender Identity Not on file Sexual Orientation [...] patient's age to complete this topic Insurance [facility] BLUE ACCESS/TRUE BLUE PPO BS BLUE ACCESS/TRUE BLUE PPO
--- OUTSIDE RECORDS SUMMARY | 2025-03-07 06:27 | XMS_ITS | Encounter Summary ---
Author Organization [facility] Address [address] [place] [address] Care Team Providers Care Laboratory Chemist Name Role Phone Unavailable Primary Care Provider Unavailabl e Encounter Details Date Type Department Care Team (Late st Contact Info) Description 09/10/2019 Lab Requisition [facility] Laboratory Services [address] [place] [address] 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 REFERENCE VALUE Unvaccinated: Negative Vaccinated: Positive HEPATITIS B SURFACE AB 16.0 mIU/mL 09/14/2019 12:36 PM CDT [facility] Comment: REFERENCE VALUE Unvaccinated: <5.0 Vaccinated: >=12.0 Test Performed by: [place] [address] Metallurgy Laboratory Technician: Alberto Olsen M.D. Ph.D.; CLIA# [id number] Blood Collection / Unknown 09/10/2019 8:35 AM CDT 09/13/2019 12:19 PM CDT Graham Yuen DO CHEMISTRY ORDERABLES Final Result Performing Organization Address City/[facility]/ZIP Co de Phone Number [facility] * EXTRA TUBE (SST/GOLD) (09/10/2019 8:35 AM CDT) Blood Collection / Unknown 09/10/2019 8:35 AM CDT 09/10/2019 2:26 PM CDT Graham Yuen DO CHEMISTRY ORDERABLES Final Result [facility] CLIA# [id number] [address] [place] [address] * (ABNORMAL) HEPATITIS B SURFACE AB, QUAL (09/10/2019 8:35 AM CDT) HEPATITIS B SURFACE AB, QUAL Reactive( A) Non-react dilip 09/10/2019 2:37 PM CDT [facility] Comment:Patient is considere d to be immune to infection with HBV. Blood Collection / Unknown 09/10/2019 8:35 AM CDT 09/10/2019 2:02 PM CDT Graham Yuen DO CHEMISTRY ORDERABLES Final Result Performing Organization Address City/[facility] Co de Phone Number [facility] CLIA# [id number] [address] [place] [address] * HEPATITIS C ANTIBODY W REFLEX (09/10/2019 8:35 AM CDT) Pathologist [facility] HEPATITIS C AB NON-REACTI VE Non-react dilip 09/10/2019 2:33 PM CDT [facility] Blood Collection / Unknown 09/10/2019 8:35 AM CDT 09/10/2019 2:02 PM CDT Graham Yuen DO CHEMISTRY ORDERABLES Final Result Performing Organization Address [facility] de Phone Number [facility] CLIA# [id number] [address] [place] [address] * HIV DETECTION W/REFLX CONFIRMATION (09/10/2019 8:35 AM CDT) Pathologist [facility] HIV-1 AND 2 ABS AND HIV-1 AG Non-reacti ve Non-React dilip 09/10/2019 2:52 PM CDT [facility] Blood Collection / Unknown 09/10/2019 8:35 AM CDT 09/10/2019 2:03 PM CDT Graham Yuen DO CHEMISTRY ORDERABLES Final Result Performing Organization Address City/[facility]/ZIP Co de Phone Number [facility] [employer] [facility] CLIA# [id number] [address] [place] [address] documented in this encounter Visit Diagnoses Not on filedocumented in this encounter
--- OUTSIDE RECORDS SUMMARY | 2025-03-07 06:27 | XMS_ITS | Encounter Summary ---
Author Organization [facility] Address [address] [place] [address] Care Team Providers Care Food Assembler Commissary Kitchen Name Role Phone Unavailable Primary Care Provider Unavailabl e Encounter Details Date Type Department Care Team (Late st Contact Info) Description 10/07/2002 Outpatient Historical [facility] Rheumatology- [facility] [address] [place] [address] Rodolfo Brock, [address] [facility] [address] [place] [address] Social History Tobacco Use Types Packs/Day Years Used Date Smoking Tobacco: Never Assessed Comments Unknown Sex and Gender Information Value Date Recorded Sex Assigned at Not on file Legal Sex Female 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
--- OUTSIDE RECORDS SUMMARY | 2025-03-07 06:27 | XMS_ITS | Encounter Summary ---
Author Organization [facility] Address [address] [place] [address] Care Team Providers Care Greenskeeper Laborer Name Role Phone Unavailable Primary Care Provider Unavailabl e Encounter Details Date Type Department Care Team (Late st Contact Info) Description 07/04/2003 Outpatient Historical [facility] Rheumatology- Rob[place] [address] [place] [id number] Rodolfo Brock, [address] [place] [address] INFLAMM POLYARTHROP NOS (CMS/HCC) (Primary Dx); AFTERCARE LAUNDRY CLERK USE MEDICATN Social History Tobacco Use Types Packs/Day Years Used Date Smoking Tobacco: Never Assessed Comments Unknown Sex and Gender Information Value Date Recorded Sex Assigned at Not on file Legal Sex Female 2:52 AM MEDICAL SUPERINTENDENT Gender Identity Not on file Sexual Orientation Not on file documented as of this encounter Plan of Treatment Not on file documented as of this encounter Visit Diagnoses Diagnosis Unspecified inflammatory polyarthropathy (CMS/HCC)- Primary Unspecified inflammatory polyarthropathy Encounter for long-term (current) use of other medications documented in this encounter
--- OUTSIDE RECORDS SUMMARY | 2025-03-07 06:27 | XMS_ITS | Clinical Summary ---
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
[2025-03-07 06:37] VITALS: BP 178/81; PULSE 110; RESP 16; TEMP 37.5; O2SAT 99; BMI 30.7
--- NOTE | 2025-03-07 06:41 | W.ED.SKABFB ---
HPI - Skin/Abscess/Foreign Bdy General: Chief complaint: Skin/Abscess/Foreign Body Stated complaint: pain on bottom Time Seen by Provider: 03/07/25 06:40 History of Present Illness: 44-year-old female with a history of hypertension, type 2 diabetes, obesity, and depression who presents to the emergency room with abscess on her buttock. She says this started a couple days ago but became much worse overnight. She was working overnight. This pain in the right upper buttock area. She has had multiple of these in the past requiring incision and drainage. This happened over the weekend fairly rapidly so she was unable to get into her primary. No systemic fevers. No nausea or vomiting. No altered mental status. Related Data Home Medications ?Medication ?Instructions ?Recorded ?Confirmed acetaminophen 500 mg tablet 1,000 mg PO Q6H PRN Pain 03/15/20 02/28/25 (Tylenol Extra Strength) brimonidine 0.2 %-timolol 0.5 % 1 drp ophthalmic (eye) BID 05/24/23 02/28/25 eye drops carvedilol 25 mg tablet 25 mg PO BID 08/19/24 02/28/25 latanoprost 0.005 % eye drops 1 drp ophthalmic (eye) QPM 08/19/24 02/28/25 metformin 500 mg tablet,extended 500 mg PO BID 12/07/24 02/28/25 release 24 hr Previous Rx's ?Medication ?Instructions ?Recorded glimepiride 2 mg tablet 2 mg PO BID #60 tabs 06/08/24 leflunomide 10 mg tablet 10 mg PO DAILY #90 tabs 10/27/24 diltiazem HCl 120 mg 120 mg PO DAILY #30 caps 11/04/24 capsule,extended release 24 hr (Cardizem CD) losartan 50 mg tablet 50 mg PO DAILY #30 tabs 11/04/24 infliximab-axxq 100 mg intravenous See Rx Instructions IV .q6wks #1 ea 12/15/24 solution (Avsola) bupropion HCl 150 mg 24 hr tablet, 150 mg PO QAM #30 tabs 12/30/24 extended release (Wellbutrin XL) buspirone 10 mg tablet 10 mg PO BID #60 tabs 12/30/24 escitalopram oxalate 20 mg tablet 20 mg PO QAM #30 tabs 12/30/24 hydrocodone 5 mg-acetaminophen 325 1 tab PO Q8H PRN pain #10 tabs 03/07/25 mg tablet polyethylene glycol 3350 17 17 g PO DAILY #510 grams 03/07/25 gram/dose oral powder (Miralax) sulfamethoxazole 800 2 tab PO BID 10 days #40 tabs 03/07/25 mg-trimethoprim 160 mg tablet (Bactrim DS) Allergies Allergy/AdvReac Type Severity Reaction Status Date / Time aspirin Allergy HIVES-SOB Verified 02/28/25 14:10 Review of Systems Narrative: Constitutional symptoms: Negative except as documented in HPI. Skin symptoms: Negative except as documented in HPI. Eye symptoms: Negative except as documented in HPI. ENMT symptoms: Negative except as documented in HPI. Respiratory symptoms: Negative except as documented in HPI. Cardiovascular symptoms: Negative except as documented in HPI. Gastrointestinal symptoms: Negative except as documented in HPI. Genitourinary symptoms: Negative except as documented in HPI. Musculoskeletal symptoms: Negative except as documented in HPI. Neurologic symptoms: Negative except as documented in HPI. Psychiatric symptoms: Negative except as documented in HPI. Endocrine symptoms: Negative except as documented in HPI. PFSH ED PFSH: Medical History (Updated 03/07/25 @ 07:06 by Betty Finley MD) Depression HTN (hypertension) Abscess, gluteal, left Type 2 diabetes mellitus Uveitis Immunocompromised COVID-19 Morbid obesity Immunization counseling High risk medication use Rheumatoid arthritis with rheumatoid factor 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 systems involvement Surgical History History of total abdominal hysterectomy (~12/07/24) H/O myomectomy 11/09/2017 History of endometrial ablation Hx of cataract surgery bilateral 01/24 H/O dilation and curettage -x 2 Family History Mother Diabetes Heart disease Hypertension Thyroid disease Sister Diabetes Hypertension Grandmother Diabetes Father Heart disease Hypertension Brother Hypertension Other Rheumatoid arthritis Denies family history of Colon cancer Ovarian cancer Hyperlipidemia Breast cancer Uterine cancer Stroke Social History Smoking and tobacco/nicotine status: never used tobacco/nicotine Alcohol intake: never Substance/Drug Use: never Marital status: Current occupational status: employed Physical Exam Narrative: EXAM NARRATIVE: General: Alert, no acute distress. Skin: warm and dry. Large area of fluctuance on the right upper buttock area. She has scars from previous. Head: Normocephalic Neck: Trachea midline Eye: Extraocular movements are intact. Ears, nose, mouth and throat: Oral mucosa moist Respiratory: Respirations are non-labored Musculoskeletal: Normal ROM Gastrointestinal: Abdomen does not appear distended Neurological: Alert and oriented, No focal neurological deficit observed. Psychiatric: Cooperative, appropriate mood & affect. Course Vital Signs: Vital signs: Vital Signs Temperature 99.5 F 03/07/25 06:37 Pulse Rate 107 H 03/07/25 07:18 Respiratory Rate 16 03/07/25 06:37 Blood Pressure 200/118 03/07/25 07:18 Pulse Oximetry 100 03/07/25 07:18 Oxygen Delivery Me thod Room Air 03/07/25 06:37 MDM - Skin/Abscess/Foreign Bdy Medicial Decision Making Medical decision making Patient's reason for coming to the emergency room: Abscess Social determinants: Patient is employed and . is present. I reviewed the patient's medical record. 44-year-old female with a history of hypertension, type 2 diabetes, obesity, and depression I reviewed the patient's current home meds Reviewed prescription monitoring. Patient has had several short bursts of oxycodone or hydrocodone therapy for these abscesses in the past. No chronic narcotics. She is on infliximab. Alternate historians: None Differential diagnosis: including but not limited to and based on the above HPI, review of systems and physical exam: Patient has a fairly obvious isolated abscess. No surrounding cellulitis. No systemic symptoms. No lab or imaging indicated today. Assessment of risk: Level of risk: Moderate risk patient. Recurrence of abscess abdomen multiple comorbidities Hospitalization considerations: No indication for hospitalization Incision and drainage. Time: 6:30 AM Confirmed patient, procedure, side, and site. Time out performed prior to procedure. Consent was obtained by patient and/or responsible constitution party. Indication: Abscess Pre procedure: Circulation, motor, sensory intact Location: Right buttock Anesthesia: 1% lidocaine with epinephrine Area prepared by sterile field with betadine, saline. Approximate 2 cm incision was made, with large amount of purulent foul-smelling drainage. Wound was packed. Post procedure examination: Circulation, motor, sensory intact. Patient tolerated the procedure well. No complications. Total time min. Pt advised to keep the area clean and dry, wash twice per day with antibacterial soap and water. Take antibiotics as prescribed. Reexamination: Patient remained stable. No increased work of breathing. No altered mental status. No focal motor deficits. Assessment and plan: Abscess ?I&D as above. Packed. Home on antibiotics. Sent with packing - Discharged home - Discussed plan with patient. Answered any questions. - Evaluation and treatment of this problem were appropriate in the emergency setting. No radiology studies performed this visit Discharge Plan Discharge Patient Disposition: Home Clinical Impression: Abscess of buttock, right Condition: Stable Prescriptions: New hydrocodone-acetaminophen 5-325 mg tablet 1 tab PO Q8H PRN (Reason: pain) Qty: 10 0RF Rx Instructions: Take 1/2 to 1 tab every 8 hours as needed for pain sulfamethoxazole-trimethoprim [Bactrim DS] 800-160 mg tablet 2 tab PO BID 10 Days Qty: 40 0RF polyethylene glycol 3350 [Miralax] 17 gram/dose powder 17 g PO DAILY Qty: 510 0RF Rx Instructions: Take 1 scoop daily while taking pain medications. No Action leflunomide 10 mg tablet 10 mg PO DAILY Qty: 90 1RF losartan 50 mg tablet 50 mg PO DAILY Qty: 30 11RF diltiazem HCl [Cardizem CD] 120 mg capsule,extended release 24hr 120 mg PO DAILY Qty: 30 11RF buspirone 10 mg tablet 10 mg PO BID Qty: 60 11RF bupropion HCl [Wellbutrin XL] 150 mg tablet extended release 24 hr 150 mg PO QAM Qty: 30 11RF escitalopram oxalate 20 mg tablet 20 mg PO QAM Qty: 30 11RF glimepiride 2 mg tablet 2 mg PO BID Qty: 60 11RF Avsola 100 mg recon soln See Rx Instructions IV .q6wks Qty: 1 9RF Rx Instructions: Infuse 764 mg (8mg/kg). intravenously Q6WKS; duration 12 months. acetaminophen [Tylenol Extra Strength] 500 mg Tablet 1,000 mg PO Q6H PRN (Reason: Pain) carvedilol 25 mg tablet 25 mg PO BID Rx Instructions: TAKE 1 TABLET BY MOUTH TWICE DAILY FOR HIGH BLOOD PRESSURE latanoprost 0.005 % drops 1 drp ophthalmic (eye) QPM metformin 500 mg tablet extended release 24 hr 500 mg PO BID Rx Instructions: Take 1 tablet by mouth twice daily brimonidine-timolol 0.2-0.5 % drops 1 drp ophthalmic (eye) BID Rx Instructions: to both eyes Discharge Orders: Discharge ED (Routine); Ordered 03/07/25 Ordered By: Betty Finley Referrals: Malcom Villanueva MD [Primary Care Provider, Family Practice] Discharge Diet: Usual diet Discharge Activity: Increase activity as tolerated Patient Instructions: Incision and Drainage (ED), Opioid Safety, Pain Management, Patient Portal & Abel Instructions Activity Restrictions/Additional Instructions: Re-pack wound with wound packing once a day for the next 3 to 5 days. [address] you for choosing [facility] for your healthcare needs today. You have been screened and evaluated and felt safe for discharge. Health conditions do change or evolve sometimes and as such it is important that you follow up with your Primary Doctor to be re checked, 3-5 days is a general good time frame for follow up. You are always welcome to return to the ED for re assessment if your symptoms are worsening or you have new concerns Print Language: Romansh Coding Level of Care Code ED Consumer Educator for Chris Lilly
[2025-03-07] MEDS: lidocaine-epi 1% 20 mL INJ INJECTION (06:49)
[2025-03-07 07:18] VITALS: BP 200/118; PULSE 107; O2SAT 100
== END 2025-03-07 07:22 | disposition home or self-care (01) ==
PROVIDERS: Emergency Provider Emergency Medicine; PCP Family Medicine
DX: L02.31 Cutaneous abscess of buttock (principal); Z79.84 Long term (current) use of oral hypoglycemic drugs; I10 Essential (primary) hypertension; E11.9 Type 2 diabetes mellitus without complications
CPT/HCPCS: 10060; 99283; J9999

== ENCOUNTER 2025-03-31 14:09 | Outpatient (CLI) | payer BC, SELFPAY ==
--- NOTE | 2025-03-31 15:00 | US_ITS ---
WS: [id number] ULTRASOUND BREAST LEFT TECHNIQUE: Ultrasound left breast focused area of concern. CLINICAL INFORMATION: R92.8 - Other abnormal and inconclusive findings on diagn... COMPARISON: Mammography 01/31/2025 FINDINGS: Incidental tiny cyst measuring 7 x 7 mm superficially. This likely corresponds to the mammographic findings. Enlarged lymph node measuring 2.5 x 1.2 x 0.9 cm with preserved fatty hilum. Cortical thickness is less than 5 mm. This is probably reactive. No other suspicious findings. US/US breast LT limited* [id number] IMPRESSION: BI-RADS 2 benign Recommend return to annual screening mammography
== END 2025-03-31 14:10 | disposition home or self-care (01) ==
LOC: RAD 14:10
PROVIDERS: PCP Family Medicine; Visit Provider Obstetrics & Gynecology
DX: R92.8 Other abnormal and inconclusive findings on diagnostic imaging of breast (principal); R59.0 Localized enlarged lymph nodes
CPT/HCPCS: 76642